=== PATIENT | male | born 1970 | race Caucasian/White ===

== ENCOUNTER 2020-02-24 13:55 | Outpatient (REF) | payer MEDICARE, MEDICAID, SELFPAY | END 2020-02-24 13:56 | disposition home or self-care (01) | LOC: HO.LAB 13:55 | PROVIDERS: Visit Provider Internal Medicine | DX: Z20.828 Contact with and (suspected) exposure to other viral communicable diseases (principal) | CPT/HCPCS: C9803; U0003 ==

== ENCOUNTER 2020-04-02 10:39 | Outpatient (REF) | payer MEDICARE, MEDICAID, SELFPAY | END 2020-04-02 10:40 | disposition home or self-care (01) | LOC: HO.LAB 10:39 | PROVIDERS: PCP Internal Medicine Sports Medicine; Visit Provider Internal Medicine | DX: Z20.828 Contact with and (suspected) exposure to other viral communicable diseases (principal) | CPT/HCPCS: C9803; U0003 ==

== ENCOUNTER 2022-06-28 19:36 | Emergency (ER) | payer MEDICARE, MEDICAID, SELFPAY ==
--- NOTE | 2022-06-28 | ECG_ITS ---
Test Reason : GENERAL MEDICAL Blood Pressure : / mmHG Vent. Rate : 090 BPM Atrial Rate : 090 BPM P-R Int : 226 ms QRS Dur : 092 ms QT Int : 372 ms P-R-T Axes : -15 013 003 degrees QTc Int : 455 ms Sinus rhythm with 1st degree A-V block Septal infarct , age undetermined Abnormal ECG When compared with ECG of 11-APR-2011 12:48, No significant change was found Referred By: Minal Calvin Electronically Signed By:TARAH SEYMOUR
--- NOTE | ~2022-06-28 | XR_ITS ---
EXAMINATION: CHEST 2 VIEWS CLINICAL INFORMATION: cough . COMPARISON: 02/17/2014. TECHNIQUE: PA and lateral views of the chest obtained. FINDINGS: The lungs are well expanded. No focal infiltrate, effusion, edema, or pneumothorax. Cardiac and mediastinal silhouettes are within normal limits for technique. No acute bony abnormality seen. Likely old healed left seventh rib fracture XR/XR chest 2V IMPRESSION: No evidence of acute disease
[2022-06-28 19:54] VITALS: BP 160/91; PULSE 88; RESP 19; TEMP 36.7; O2SAT 94; BMI 30.1
[2022-06-28 19:58] VITALS: BP 160/99; PULSE 88; RESP 19; TEMP 36.7; O2SAT 96
--- NOTE | 2022-06-28 19:58 | ED.GENADULT ---
HPI - General Adult General Chief complaint: Upper Respiratory Symptoms <MASSIMO Ferrell - Last Filed: 06/28/22 19:59> Stated complaint: COUGHING <MASSIMO Ferrell - Last Filed: 06/28/22 19:59> Time Seen by Provider: 06/28/22 20:06 <MASSIMO Ferrell - Last Filed: 06/28/22 19:59> Source: patient <Minal Calvin MD - Last Filed: 06/28/22 21:43> Mode of arrival: EMS <Minal Calvin MD - Last Filed: 06/28/22 21:43> History of Present Illness HPI narrative: 52-year-old male who presents with productive cough of clear sputum that has progressed over the last week. Otherwise, he denies any fever, chills, shortness of breath but states that he has had some left anterior chest wall pain that is transient in nature, sharp that has been ongoing for 5 years. He otherwise denies any GI or symptoms. <Minal Calvin MD - Last Filed: 06/28/22 21:43> Related Data Home medications: Previous Rx's Medication Instructions Recorded omeprazole 20 mg capsule,delayed 20 mg PO DAILY #30 caps 06/28/22 release <MASSIMO Ferrell - Last Filed: 06/28/22 19:59> Allergies/adverse reactions: Allergies Allergy/AdvReac Type Severity Reaction Status Date / Time fluoxetine [Prozac] Allergy Unknown Seizures Verified 09/04/14 00:00 haloperidol [Haloperidol] Allergy Unknown SEE Unverified 01/05/20 17:51 COMMENT, Seizures From HALDOL Allergy Unknown UNKNOWN Uncoded 01/05/20 17:51 From PROZAC Allergy Unknown UNKNOWN Uncoded 01/05/20 17:51 From Paxil AdvReac Mild SUICIDAL Uncoded 01/05/20 17:51 THOUGHTS <MASSIMO Ferrell - Last Filed: 06/28/22 19:59> Review of Systems Review of Systems: Pertinent positives and negatives as stated in HPI <Minal Calvin MD - Last Filed: 06/28/22 21:43> PMFSH Past Medical History Source: nursing notes reviewed <Minal Calvin MD - Last Filed: 06/28/22 21:43> Social History Social History: Social History Advance Directives: No Advance Directives Information Provided: No <MASSIMO Ferrell - Last Filed: 06/28/22 19:59> Physical Exam ED Vital Signs: Vital Signs - 24 hr 06/28/22 19:54 06/28/22 19:58 06/28/22 19:58 Temperature 98.1 F 98.1 F Pulse Rate 88 88 Respiratory Rate 19 19 Blood Pressure 160/91 H 160/99 H Pulse Oximetry 94 96 96 Oxygen Delivery Method Room Air Room Air Room Air BMI result Body Mass Index 30.1 <MASISMO Ferrell - Last Filed: 06/28/22 19:59> Vital Signs - 24 hr 06/28/22 19:54 06/28/22 19:58 06/28/22 19:58 Temperature 98.1 F 98.1 F Pulse Rate 88 88 Respiratory Rate 19 19 Blood Pressure 160/91 H 160/99 H Pulse Oximetry 94 96 96 Oxygen Delivery Method Room Air Room Air Room Air BMI result Body Mass Index 30.1 VITAL SIGNS: Reviewed. GENERAL: Well developed, well nourished, in no acute distress. HEAD: Normocephalic/atraumatic EYES: PERRLA, EOMI EARS: Ext canals without abnormality, TMs non-bulging and non-erythematous NOSE: Nares patent bilateral OROPHARYNX: no oral lesions noted, posterior pharynx clear and non-erythematous without noted tonsillar enlargement/erythema/exudates NECK: Supple, no adenopathy LUNGS: Normal breath sounds, no tachypnea/wheeze/rhonchi/rales. SpO2<96> CARDIOVASCULAR: Regular rate and rhythm without noted murmurs, no JVD or lower extremity edema. ABDOMEN: Soft, non-tender, non-distended with bowel sounds. MUSCULOSKELETAL: No tenderness, deformities, or effusions noted on gross inspection. EXTREMITIES: No cyanosis, clubbing or edema. SKIN: Inspection of the skin reveals no rashes NEUROLOGIC: Alert and oriented x 4. Strength and sensation to light touch were grossly intact x 4. <Minal Calvin MD - Last Filed: 06/28/22 21:43> Course Course Course Narrative: RME perofmed by Bertha Bridges PA-C. Patient is a 52 year old male presenting to the emergency department with a cough. Labs and CXR ordered. <MASSIMO Ferrell - Last Filed: 06/28/22 19:59> Medical Decision Making Medical Decision Making MDM Narrative: 52-year-old male with history and clinical presentation of clear, dry cough and no other symptoms to suggest acute infection. Atypical chest pain without EKG changes. I reviewed all investigations in my interpretation is that patient may have a component of acid reflux as he also reports that the back of his throat hurts ?all the way up?. Patient provided with a GI cocktail and will be discharged with a script for acid control. He is otherwise stable for discharge back to the facility. <Minal Calvin MD - Last Filed: 06/28/22 21:43> Differential Diagnosis Please see the discussion above <Minal Calvin MD - Last Filed: 06/28/22 21:43> Lab Data Please see the discussion above <Minal Calvin MD - Last Filed: 06/28/22 21:43> Result Diagrams: 06/28/22 20:22 06/28/22 20:22 <MASSIMO Ferrell - Last Filed: 06/28/22 19:59> Labs: Lab Results 06/28/22 06/28/22 Range/Units 20:22 20:22 WBC 6.3 (4.8-10.8) X10*3/uL RBC 4.40 L (4.60-5.80) X10*6/uL Hgb 13.3 L (14.0-18.0) g/dl Hct 39.2 L (42.0-52.0) % MCV 89.1 (80.0-98.0) fL MCH 30.2 (27.0-33.0) pg MCHC 33.9 (31.0-36.0) g/dl RDW 13.4 (11.0-16.0) % Plt Count 185 (160-400) X10*3/uL MPV 9.1 L (9.4-12.4) fL Immature Gran % (Auto) 0.8 H (0.0-0.4) % Neut % (Auto) 56.4 (45-73) % Lymph % (Auto) 31.9 (20-40) % [place] % (Auto) 8.8 (2-11) % Eos % (Auto) 1.8 (0-4) % Baso % (Auto) 0.3 (0-2) % Lymph # (Auto) 2.0 (1.2-4.9) X10*3/uL [place] # (Auto) 0.6 (0.1-1.2) X10*3/uL Eos # (Auto) 0.1 (0.0-0.4) X10*3/uL Baso # (Auto) 0.0 (0.0-0.2) X10*3/uL Abs Immat Gran (auto) 0.05 H (0.00-0.03) X10*3/uL Absolute Neuts (auto) 3.5 (2.0-8.3) x10*3/uL Absolute Nucleated RBC 0.000 (0.0-0.012) X10*3/uL Nucleated RBC % (auto) 0.0 (0.0-0.2) /100WBC Sodium 138 (135-145) mmol/L Potassium 4.0 (3.3-5.1) mmol/L Chloride 104 (96-108) mmol/L Carbon Dioxide 24 (22-29) mmol/L Anion Gap 14 (12-20) BUN 15 (9-16) mg/dL Creatinine 0.65 (0.5-1.4) mg/dL Estim Creat Clear Calc 155.7 Estimated GFR > 60 Random Glucose 143 H (60-115) mg/dL Calcium 8.7 (8.4-10.2) mg/dL Total Bilirubin 0.4 (0.0-1.0) mg/dL AST 20 (5-37) U/L ALT 31 (0-40) U/L Alkaline Phosphatase 69 (39-117) U/L Total Protein 6.4 L (6.5-8.0) g/dL Albumin 3.9 (3.5-5.0) g/dL <MASSIMO Ferrell - Last Filed: 06/28/22 19:59> Lab Results 06/28/22 06/28/22 Range/Units 20:22 20:22 WBC 6.3 (4.8-10.8) X10*3/uL RBC 4.40 L (4.60-5.80) X10*6/uL Hgb 13.3 L (14.0-18.0) g/dl Hct 39.2 L (42.0-52.0) % MCV 89.1 (80.0-98.0) fL MCH 30.2 (27.0-33.0) pg MCHC 33.9 (31.0-36.0) g/dl RDW 13.4 (11.0-16.0) % Plt Count 185 (160-400) X10*3/uL MPV 9.1 L (9.4-12.4) fL Immature Gran % (Auto) 0.8 H (0.0-0.4) % Neut % (Auto) 56.4 (45-73) % Lymph % (Auto) 31.9 (20-40) % [place] % (Auto) 8.8 (2-11) % Eos % (Auto) 1.8 (0-4) % Baso % (Auto) 0.3 (0-2) % Lymph # (Auto) 2.0 (1.2-4.9) X10*3/uL [place] # (Auto) 0.6 (0.1-1.2) X10*3/uL Eos # (Auto) 0.1 (0.0-0.4) X10*3/uL Baso # (Auto) 0.0 (0.0-0.2) X10*3/uL Abs Immat Gran (auto) 0.05 H (0.00-0.03) X10*3/uL Absolute Neuts (auto) 3.5 (2.0-8.3) x10*3/uL Absolute Nucleated RBC 0.000 (0.0-0.012) X10*3/uL Nucleated RBC % (auto) 0.0 (0.0-0.2) /100WBC Sodium 138 (135-145) mmol/L Potassium 4.0 (3.3-5.1) mmol/L Chloride 104 (96-108) mmol/L Carbon Dioxide 24 (22-29) mmol/L Anion Gap 14 (12-20) BUN 15 (9-16) mg/dL Creatinine 0.65 (0.5-1.4) mg/dL Estim Creat Clear Calc 155.7 Estimated GFR > 60 Random Glucose 143 H (60-115) mg/dL Calcium 8.7 (8.4-10.2) mg/dL Total Bilirubin 0.4 (0.0-1.0) mg/dL AST 20 (5-37) U/L ALT 31 (0-40) U/L Alkaline Phosphatase 69 (39-117) U/L Total Protein 6.4 L (6.5-8.0) g/dL Albumin 3.9 (3.5-5.0) g/dL <Minal Calvin MD - Last Filed: 06/28/22 21:43> Independent Interpretation I performed an independent interpretation of an: EKG <Minal Calvin MD - Last Filed: 06/28/22 21:43> Interpretation: Sinus rhythm with first-degree AV block (comparison EKGs from 2011 and was not present at that time), HR-90, no STEMI, QRS/QTC within normal limits. <Minal Calvin MD - Last Filed: 06/28/22 21:43> Radiology Impression Radiologist Impression: My interpretation is in agreement with radiology's impression of the imaging studies. <Minal Calvin MD - Last Filed: 06/28/22 21:43> Discharge Plan Discharge Clinical Impression: Cough, Gastroesophageal reflux disease <MASSIMO Ferrell - Last Filed: 06/28/22 19:59> Patient Disposition: Still a Patient <MASSIMO Ferrell - Last Filed: 06/28/22 19:59> Instructions: Diet for Stomach Ulcers and Gastritis (ED), Gastroesophageal Reflux Disease (ED), Acute Cough (ED) <MASSIMO Ferrell - Last Filed: 06/28/22 19:59> Additional Instructions: 1. Resume all home medications. 2. I have started you on a medication to help control the acid which is likely contributing to your symptoms. 3. Follow-up with your primary care provider on Thursday morning. Return to the ER for any worsening symptoms. <MASSIMO Ferrell - Last Filed: 06/28/22 19:59> Prescriptions: New omeprazole 20 mg capsule,delayed release(DR/EC) 20 mg PO DAILY Qty: 30 0RF <MASSIMO Ferrell - Last Filed: 06/28/22 19:59> Referrals: Carlos Peraza PA-C [Primary Care Provider] - <MASSIMO Ferrell - Last Filed: 06/28/22 19:59>
[2022-06-28 20:30] LABS: MANUAL DIFF FLAG NO
[2022-06-28 20:34] LABS: Basophils Percent Auto 0.3 % (0-2); Eosinophils Absolute Auto 0.1 X10*3/uL (0.0-0.4); Eosinophils Percent Auto 1.8 % (0-4); Hematocrit 39.2 % (42.0-52.0); Hemoglobin 13.3 g/dl (14.0-18.0); Imm Gran Abs Auto 0.05 X10*3/uL (0.00-0.03); Imm Gran Pct Auto 0.8 % (0.0-0.4); Lymphocytes Percent Auto 31.9 % (20-40); Mean Corpuscular HGB Conc 33.9 g/dl (31.0-36.0); Mean Corpuscular Hemoglobin 30.2 pg (27.0-33.0); Mean Corpuscular Volume 89.1 fL (80.0-98.0); Mean Platelet Volume 9.1 fL (9.4-12.4); Monocytes Absolute Auto 0.6 X10*3/uL (0.1-1.2); Monocytes Percent Auto 8.8 % (2-11); Neutrophils Absolute Auto 3.5 x10*3/uL (2.0-8.3); Neutrophils Percent Auto 56.4 % (45-73); Platelet Count 185 X10*3/uL (160-400); Red Cell Distribution Width 13.4 % (11.0-16.0); White Blood Count 6.3 X10*3/uL (4.8-10.8)
[2022-06-28 21:04] LABS: Alanine Aminotransferase 31 U/L (0-40); Albumin Level 3.9 g/dL (3.5-5.0); Alkaline Phosphatase 69 U/L (39-117); Anion Gap 14 (12-20); Aspartate Amino Transferase 20 U/L (5-37); Bilirubin Total 0.4 mg/dL (0.0-1.0); Blood Urea Nitrogen 15 mg/dL (9-16); Calcium 8.7 mg/dL (8.4-10.2); Carbon Dioxide 24 mmol/L (22-29); Chloride 104 mmol/L (96-108); Creatinine Clr Calc Pharmacy 155.7; Estimated Glomerular Filt Rate > 60; Glucose Random 143 mg/dL (60-115); Sodium 138 mmol/L (135-145); Total Protein 6.4 g/dL (6.5-8.0)
[2022-06-28 21:24] LABS: Influenza A PCR NEGATIVE (Negative); Influenza B PCR NEGATIVE (Negative); Resp Syncy Virus RNA Qual PCR NEGATIVE (Negative); SARS COV2 PCR INHOUSE NEGATIVE (Negative)
--- NOTE | 2022-06-28 21:46 | PC.NURSE ---
Report and discharge instructions given to Ruby at [facility]. Denies any further questions at this time.
== END 2022-06-28 22:09 | disposition home or self-care (01) ==
PROVIDERS: Physician Assistant Medical; Emergency Provider Student in an Organized Health Care Education/Training Program; PCP Physician Assistant Medical
DX: R05.9 Cough, unspecified (principal); K21.9 Gastro-esophageal reflux disease without esophagitis; Z20.822 Contact with and (suspected) exposure to COVID-19; Z20.828 Contact with and (suspected) exposure to other viral communicable diseases
CPT/HCPCS: 0241U; 36415; 71046; 80053; 85025; 93005; 99283; 99285

== ENCOUNTER 2022-09-16 11:32 | Outpatient (REF) | payer MEDICARE, MEDICAID, SELFPAY ==
[2022-09-16 11:46] LABS: MANUAL DIFF FLAG NO
[2022-09-16 12:17] LABS: Basophils Percent Auto 0.3 % (0-2); Eosinophils Absolute Auto 0.2 X10*3/uL (0.0-0.4); Eosinophils Percent Auto 2.9 % (0-4); Hematocrit 42.5 % (42.0-52.0); Hemoglobin 14.4 g/dl (14.0-18.0); Imm Gran Abs Auto 0.03 X10*3/uL (0.00-0.03); Imm Gran Pct Auto 0.4 % (0.0-0.4); Lymphocytes Percent Auto 27.8 % (20-40); Mean Corpuscular HGB Conc 33.9 g/dl (31.0-36.0); Mean Corpuscular Hemoglobin 30.8 pg (27.0-33.0); Mean Platelet Volume 9.8 fL (9.4-12.4); Monocytes Absolute Auto 0.6 X10*3/uL (0.1-1.2); Monocytes Percent Auto 8.5 % (2-11); Neutrophils Absolute Auto 4.4 x10*3/uL (2.0-8.3); Neutrophils Percent Auto 60.1 % (45-73); Platelet Count 201 X10*3/uL (160-400); Red Blood Count 4.67 X10*6/uL (4.60-5.80); Red Cell Distribution Width 13.4 % (11.0-16.0); White Blood Count 7.3 X10*3/uL (4.8-10.8)
[2022-09-16 12:59] LABS: Anion Gap 11 (12-20); Blood Urea Nitrogen 8 mg/dL (9-16); Calcium 9.2 mg/dL (8.4-10.2); Carbon Dioxide 26 mmol/L (22-29); Chloride 107 mmol/L (96-108); Estimated Glomerular Filt Rate > 60; Glucose Random 87 mg/dL (60-115); Potassium 4.4 mmol/L (3.3-5.1); Sodium 140 mmol/L (135-145)
== END 2022-09-16 11:33 | disposition home or self-care (01) ==
LOC: HO.LAB 11:32
PROVIDERS: Visit Provider Psychiatry & Neurology Neurology
DX: G11.9 Hereditary ataxia, unspecified (principal)
CPT/HCPCS: 36415; 80048; 85025

== ENCOUNTER 2022-11-25 10:24 | Outpatient (REF) | payer MEDICARE, MEDICAID, SELFPAY ==
--- NOTE | ~2022-11-25 | XR_ITS ---
Clinical History: Pre-MRI screening. [place] and lateral views of the orbits were obtained. 3 views of the abdomen were also obtained. Orbits: The bony orbits are intact. No radiopaque foreign body is seen. The paranasal sinuses are clear. No other osseous abnormalities are identified. ABDOMEN: A circumscribed radiopaque density overlies the left upper quadrant of the abdomen measuring 7.9 x 7.0 cm. No other radiopaque abnormalities seen. Nonobstructive bowel gas pattern. XR/XR pre mri screening Impression: 1. No radiopaque foreign body overlying the orbits. 2. Round radiopaque density overlying the left upper quadrant of the abdomen is nonspecific. This could be associated with the spleen. Correlate with patient history. No other radiopaque abnormality. A CT scan of the upper abdomen may be needed to better localize and characterize this finding.
--- NOTE | ~2022-11-25 | MR_ITS ---
EXAMINATION: MR BRAIN WITHOUT CONTRAST CLINICAL INFORMATION: Ataxia. Rule out multiple sclerosis or a cerebellar lesion. COMPARISON: Head CT dated 11/01/2019. TECHNIQUE: Multiplanar, multisequence imaging of the brain was performed without contrast. Slightly limited study with motion artifacts. FINDINGS: No diffusion abnormalities are identified to suggest an acute infarct. The ventricles are normal in size. No mass effect or midline shift is seen. There is focal mild chronic encephalomalacia and gliosis along the medial surface of the right superior frontal gyrus superiorly. No extra-axial fluid collections are seen. The brainstem and cerebellum are normal. The gradient refocused acquisition is normal. The craniovertebral junction, marrow signal, and midline structures are normal. The major intracranial flow voids at the level of the [place] are preserved. The dural venous sinus flow voids are maintained. The mastoid air cells and paranasal sinuses are fairly well aerated. MR/MR head/brain wo con IMPRESSION: No acute intracranial process. Small area of cortically-based chronic encephalomalacia along the medial aspect of the right superior frontal gyrus.
== END 2022-11-25 10:25 | disposition home or self-care (01) ==
LOC: HO.MRI 10:24
PROVIDERS: PCP Physician Assistant Medical; Visit Provider Psychiatry & Neurology Neurology
DX: G11.9 Hereditary ataxia, unspecified (principal)
CPT/HCPCS: 70551

== ENCOUNTER 2022-11-27 09:46 | Outpatient (AMB) | payer MEDICARE, MEDICAID, SELFPAY ==
--- NOTE | 2022-11-27 09:44 | MHC.OFFVIS ---
Intake Vital Signs 11/27/22 09:50 Height 5 ft 10 in Weight 224 lb 2 oz BMI 32.2 BP 116/84 Blood Pressure Location Rt brachial Position Sitting Pulse 89 Pulse Source Pulse Oximeter Pulse Oximetry (%) 98 Oxygen Delivery Method Room Air Intake Visit Reasons: CHRONIC NECK PAIN Intake Note: Pain today 11/27 Database Designer Required: No Accompanied by: Guardian Allergies fluoxetine [Prozac] Allergy (Unknown, Verified 09/04/14 00:00) Seizures haloperidol [Haloperidol] Allergy (Unknown, Unverified 01/05/20 17:51) SEE COMMENT, Seizures From HALDOL Allergy (Unknown, Uncoded 01/05/20 17:51) UNKNOWN From PROZAC Allergy (Unknown, Uncoded 01/05/20 17:51) UNKNOWN From Paxil Adverse Reaction (Mild, Uncoded 01/05/20 17:51) SUICIDAL THOUGHTS HPI CHRONIC NECK PAIN HPI Details Patient is a 52 years old male with history of complex mental health history including Bipolar disorder, TBI, PTSD, fibromyalgia, seizures, cerebellar ataxia, cervical disc disease, chronic low back pain, diabetes presents today with neck and left shoulder pain for past 2 years. Patient is accompanied by his APPLICATION SUPPORT ENGINEER. Reports recent fall during getting out of bed and hitting his head and right knee without LOC with minor right knee skin abrasion. Right hand dominant. Patient reports neck pain with movements, especially with left lateral and bending that radiates to his left shoulder and left lateral arm with intermittent numbness, tingling, weakness and some imbalance issues. Reports chronic tension headaches for which he takes Tylenol with mild relief. Left shoulder pain mildly reproduced with left overhead reaches and no pain with back pocket reaches. Patient reports he tries to stay active despite the pain. Reports daily activity of walking and push ups. Spine MRI imaging is noted below. Patient was referred to us by Dr. Espinal for cervical epidural injection. Patient requests neck injections under sedation only. Denies any fever, chills, weight loss, bladder or bowel incontinence or saddle anesthesia. Complex mental health history includes psychiatric admission at [facility]. Per recent neurology note review, patient had a gambling addiction, has had multiple psychiatric admissions including one when he jumped off the top of the building, another with intentional overdose on Depakote and multiple hypnotic medications, and multiple suicidal attempts according to his records. Patient reports traumatic brain injury at age 18 when he fell while playing basketball landing on his head and had some right frontal encephalomalacia as a result and a single seizure. Most recent EEG on 05/16/22 was normal. Patient reports his diabetes is controlled with A1C below 7.0 but requests Nutritional Consult to assist him in better food choices and potential weight loss. Location Lower neck, radiates down bilateral shoulders, worse on the left Duration Chronic neck pain for past 3 years Characteristics of symptom or complaint Aching, pins and needles, burning, stabbing, shooting Aggravating or associated factors Movements, stress, bending, looking down Relieving factors Tyelnol, cyclobenzaprine, stretching exercises Treatment PT low back in 2019, currently at chiropractic weekly [facility] Medical History (Updated 11/27/22 @ 22:37 by RENE Conte) Bipolar disorder Cerebellar ataxia Cervical disc disease Diabetes Low back pain PTSD (post-traumatic stress disorder) Tension headache Traumatic brain injury Review of Systems Const All systems reviewed & are unremarkable except as noted in HPI and below Physical Exam Vital Signs: Last Vital Signs Pulse 89 11/27/22 09:50 BP 116/84 11/27/22 09:50 Pulse Ox 98 11/27/22 09:50 Oxygen Delivery Method Room Air 11/27/22 09:50 BMI result Body Mass Index 32.2 General: Appears afebrile. Alert and oriented. Mood and affect appropriate. Follows and participates in conversation appropriately. Respiratory effort is unlabored. No cough. No nasal discharge. Able to transition from sit to stand unassisted. Ambulates with bilaterally normal heel strike and toe off. Neck Other: Patient with painful cervical ROM in all planes/especially with left lateral rotation. Reports increased pain with cervical extension and flexion, worse with flexion. Spurling compression test equivocal. Pain is unchanged by Spurling maneuver with retraction. Elvey's tension test positive on the left, with radiation of pain from neck to left shoulder and lateral arm. Lhermitte's test was negative. DTR intact, +2 and symmetrical. Patient demonstrated 5/5 right and 4/5 left motor strength of bilateral upper extremities. 2 + radial pulses. Mild tightness throughout left upper trapezius as well as TTP throughout bilateral upper trapezius muscles. No paravertebral tenderness over facet joints bilaterally. Neck: Yes full ROM, Yes no lymphadenopathy, Yes supple, No anterior neck swelling and Yes no JVD Results Reviewed Results Reviewed: Assessment & Plan Assessment & Plan (1) Cervical spondylosis: Code(s): M47.812 - Spondylosis without myelopathy or radiculopathy, cervical region (2) Left shoulder pain: Code(s): M25.512 - Pain in left shoulder (3) Cervical radiculopathy: Code(s): M54.12 - Radiculopathy, cervical region (4) Cervical disc disease: Code(s): M50.90 - Cervical disc disorder, unspecified, unspecified cervical region (5) BMI 32.0-32.9,adult: Code(s): Z68.32 - Body mass index [BMI] 32.0-32.9, adult (6) Diabetes: Code(s): E11.9 - Type 2 diabetes mellitus without complications Plan Cervical spine MRI results reviewed and are noted above. Will proceed with Left C5-C6 ARACELI with sedation and fluoroscopy. Expectations, risks and benefits were reviewed. Patient is aware he will be contacted to schedule this procedure. For axial cervical pain, will obtain cervical and shoulder xray to assess degree of arthritis. Referral to DM Nutritional Provider per patient's request. All questions were answered and the patient and APPLICATION SUPPORT ENGINEER are in agreement of plan. Follow-up after injections and sooner as needed. Orders: Orders XR shoulder LT min 2V Today M25.512 - Pain in left shoulder, M47.812 - Spondylosis without myelopathy or radiculopathy, cervical region XR cervical spine 3V Today M47.812 - Spondylosis without myelopathy or radiculopathy, cervical region, M54.12 - Radiculopathy, cervical region Referrals Medical Nutrition Therapy Referral E11.9 - Type 2 diabetes mellitus without complications, Z68.32 - Body mass index [BMI] 32.0-32.9, adult Coding Level of Care Code New Pt Level 4 (16241) Diagnoses Cervical spondylosis M47.812 Left shoulder pain M25.512 Cervical radiculopathy M54.12 Cervical disc disease M50.90 BMI 32.0-32.9,adult Z68.32 Diabetes E11.9
[2022-11-27 09:50] VITALS: BP 116/84; PULSE 89; O2SAT 98; BMI 32.2
== END 2022-11-27 10:45 | disposition home or self-care (01) ==
PROVIDERS: PCP Physician Assistant Medical; Visit Provider Nurse Practitioner Family
DX: M47.812 Spondylosis without myelopathy or radiculopathy, cervical region (principal); M25.512 Pain in left shoulder; M54.12 Radiculopathy, cervical region; M50.90 Cervical disc disorder, unspecified, unspecified cervical region; Z68.32 Body mass index [BMI] 32.0-32.9, adult; E11.9 Type 2 diabetes mellitus without complications
CPT/HCPCS: 99204

== ENCOUNTER → 2022-11-27 09:46 | Outpatient (BNVA) | payer MEDICARE, MEDICAID, SELFPAY | PROVIDERS: PCP Physician Assistant Medical; Visit Provider Nurse Practitioner Family | DX: M47.22 Other spondylosis with radiculopathy, cervical region (principal); M25.512 Pain in left shoulder; M50.90 Cervical disc disorder, unspecified, unspecified cervical region; E11.9 Type 2 diabetes mellitus without complications | CPT/HCPCS: 99202 ==

== ENCOUNTER 2022-11-28 12:56 | Outpatient (REF) | payer MEDICARE, MEDICAID, SELFPAY ==
--- NOTE | ~2022-11-28 | XR_ITS ---
EXAMINATION: XR CERVICAL SPINE CLINICAL INFORMATION: Spondylosis without myelopathy or radiculopathy and cervical region COMPARISON: None available. TECHNIQUE: 3 views of the cervical spine were obtained. FINDINGS: Vertebral bodies are well aligned and intervertebral discs are preserved. Pedicles are intact. There is mild narrowing of C5-C6 intervertebral disc space without spondylolysis or listhesis. Soft tissues unremarkable. XR/XR cervical spine 3V IMPRESSION: Mild degenerative changes at the level of C5-C6.
--- NOTE | ~2022-11-28 | XR_ITS ---
EXAMINATION: XR SHOULDER, LEFT CLINICAL INFORMATION: Left shoulder pain COMPARISON: None available. TECHNIQUE: AP external rotation, Grashey, scapular Y, and axillary views of the left shoulder. FINDINGS: The bones and soft tissues are normal. No fracture. Glenohumeral and acromioclavicular alignment is anatomic with normal joint space. No abnormal soft tissue calcifications. XR/XR shoulder LT min 2V IMPRESSION: Normal left shoulder.
== END 2022-11-28 12:57 | disposition home or self-care (01) ==
LOC: HO.XRAY 12:56
PROVIDERS: PCP Internal Medicine; Visit Provider Nurse Practitioner Family
DX: M54.12 Radiculopathy, cervical region (principal); M25.512 Pain in left shoulder; M47.812 Spondylosis without myelopathy or radiculopathy, cervical region
CPT/HCPCS: 72040; 73030

== ENCOUNTER 2022-12-09 10:37 | Outpatient (AMB) | payer MEDICARE, MEDICAID, SELFPAY ==
--- NOTE | 2022-12-09 10:47 | A.OFFVIS_ITS ---
Intake Vital Signs 12/09/22 10:51 Height 5 ft 10 in Weight 221 lb 6 oz BMI 31.8 BP 137/81 Blood Pressure Location Lt brachial Position Sitting Pulse 94 Pulse Source Pulse Oximeter Pulse Oximetry (%) 98 Oxygen Delivery Method Room Air Intake Visit Reasons: Follow Up/X-Ray Results Intake Note: Pain today 11/27 Crepe Sole Scourer Required: No Accompanied by: stave planer tender Allergies fluoxetine [Prozac] Allergy (Unknown, Verified 12/09/22 10:52) Seizures haloperidol [Haloperidol] Allergy (Unknown, Verified 12/09/22 10:52) SEE COMMENT, Seizures From HALDOL Allergy (Unknown, Uncoded 01/05/20 17:51) UNKNOWN From PROZAC Allergy (Unknown, Uncoded 01/05/20 17:51) UNKNOWN From Paxil Adverse Reaction (Mild, Uncoded 01/05/20 17:51) SUICIDAL THOUGHTS HPI HPI Comments History of Present Illness Details Patient presents today for follow up to discuss recent cervical spine and left shoulder xray results. Patient is accompanied by his TELEMETRY MONITOR. He continues to endorse neck with radiation to his left lower arm and low back pain but notes that left shoulder pain has improved. Patient is scheduled for cervical TFESI injection on 01/07/23 with sedation. He is interested to undergo procedures for his chronic axial low back pain. Denies any recent cough, cold, infection, fever or other significant changes in medical history since last office visit. Patient denies any bladder or bowel incontinence or saddle anesthesia. PRIOR: Patient is a 52 years old male with history of complex mental health history including Bipolar disorder, TBI, PTSD, fibromyalgia, seizures, cerebellar ataxia, cervical disc disease, chronic low back pain, diabetes presents today with neck and left shoulder pain for past 2 years. Patient is accompanied by his TELEMETRY MONITOR. Reports recent fall during getting out of bed and hitting his head and right knee without LOC with minor right knee skin abrasion. Right hand dominant. Patient reports neck pain with movements, especially with left lateral and bending that radiates to his left shoulder and left lateral arm with intermittent numbness, tingling, weakness and some imbalance issues. Reports chronic tension headaches for which he takes Tylenol with mild relief. Left shoulder pain mildly reproduced with left overhead reaches and no pain with back pocket reaches. Patient reports he tries to stay active despite the pain. Reports daily activity of walking and push ups. Spine MRI imaging is noted below. Patient was referred to us by Dr. Espinal for cervical epidural injection. Patient requests neck injections under sedation only. Denies any fever, chills, weight loss, bladder or bowel incontinence or saddle anesthesia. Complex mental health history includes psychiatric admission at [facility]. Per recent neurology note review, patient had a gambling addiction, has had multiple psychiatric admissions including one when he jumped off the top of the building, another with intentional overdose on Depakote and multiple hypnotic medications, and multiple suicidal attempts according to his records. Patient reports traumatic brain injury at age 18 when he fell while playing basketball landing on his head and had some right frontal encephalomalacia as a result and a single seizure. Most recent EEG on 05/16/22 was normal. Patient reports his diabetes is controlled with A1C below 7.0 but requests Nutritional Consult to assist him in better food choices and potential weight loss. Location Lower neck, radiates down bilateral shoulders, worse on the left Duration Chronic neck pain for past 3 years Characteristics of symptom or complaint Aching, pins and needles, burning, stabbing, shooting Aggravating or associated factors Movements, stress, bending, looking down Relieving factors Tyelnol, cyclobenzaprine, stretching exercises Treatment PT low back in 2019, currently at chiropractic weekly [facility] Medical History (Updated 12/09/22 @ 11:13 by RENE Conte) Bipolar disorder Cerebellar ataxia Cervical disc disease Diabetes Low back pain PTSD (post-traumatic stress disorder) Tension headache Traumatic brain injury Review of Systems Const All systems reviewed & are unremarkable except as noted in HPI and below Physical Exam Vital Signs: Last Vital Signs Pulse 94 12/09/22 10:51 BP 137/81 12/09/22 10:51 Pulse Ox 98 12/09/22 10:51 Oxygen Delivery Method Room Air 12/09/22 10:51 BMI result Body Mass Index 31.8 General: Appears afebrile. Alert and oriented. Mood and affect appropriate. Follows and participates in conversation appropriately. Respiratory effort is unlabored. No cough. Able to transition from sit to stand unassisted. Ambulates with bilaterally normal heel strike and toe off. Neck Neck: Yes full ROM, Yes no lymphadenopathy, Yes supple, No anterior neck swelling and Yes no JVD Back/Spine/Pelvis Thoracic/Lumbar Spine: thoracic and lumbar spine normal to inspection, No Thoracic/lumbar spine scar(s), Lasegue's sign negative, straight leg raise negative bilaterally, pain with thoraco-lumbar ROM, paraspinal muscle tenderness, No thoracic spinal tenderness and lumbar spinal tenderness at L4 and at L5 Sacroiliac joints: bilaterally nontender Results Reviewed Results Reviewed: XR SHOULDER, LEFT 11/28/22 FINDINGS: The bones and soft tissues are normal. No fracture. Glenohumeral and acromioclavicular alignment is anatomic with normal joint space. No abnormal soft tissue calcifications. IMPRESSION: Normal left shoulder. XR CERVICAL SPINE 11/28/22 FINDINGS: Vertebral bodies are well aligned and intervertebral discs are preserved. Pedicles are intact. There is mild narrowing of C5-C6 intervertebral disc space without spondylolysis or listhesis. Soft tissues unremarkable. IMPRESSION: Mild degenerative changes at the level of C5-C6. Assessment & Plan Assessment & Plan (1) Cervical disc disease: Code(s): M50.90 - Cervical disc disorder, unspecified, unspecified cervical region (2) Lumbar spondylosis: Code(s): M47.816 - Spondylosis without myelopathy or radiculopathy, lumbar region (3) Cervical radiculopathy: Code(s): M54.12 - Radiculopathy, cervical region (4) Low back pain: Code(s): M54.50 - Low back pain, unspecified Plan Cervical spine and left shoulder xray results reviewed with patient and his TELEMETRY MONITOR staff today. Proceed with Left C5-C6 ARACELI with sedation and fluoroscopy as scheduled. Subsequently, schedule Bilateral L3-L4-L5 MBBs with local and fluoroscopy for axial low back pain for potential therapeutic injections or RFA. Expectations, risks and benefits were reviewed. Script provided for nabumetone. Side effects and precautions reviewed with patient and TELEMETRY MONITOR staff. All questions and concerns have been answered and patient agreed with the plan. Follow up after injections and sooner as needed. Medications: New nabumetone Take it with food and full glass of water. Avoid other NSAIDs. 500 mg PO BID 30 days 60 tabs 0RF pain M47.816 - Spondylosis without myelopathy or radiculopathy, lumbar region, M50.90 - Cervical disc disorder, unspecified, unspecified cervical region Coding Level of Care Code Est Pt Level 4 (99297) Diagnoses Cervical disc disease M50.90 Lumbar spondylosis M47.816 Cervical radiculopathy M54.12 Low back pain M54.50
[2022-12-09 10:51] VITALS: BP 137/81; PULSE 94; O2SAT 98; BMI 31.8
== END 2022-12-09 11:18 | disposition home or self-care (01) ==
PROVIDERS: PCP Internal Medicine; Visit Provider Nurse Practitioner Family
DX: M50.90 Cervical disc disorder, unspecified, unspecified cervical region (principal); M47.816 Spondylosis without myelopathy or radiculopathy, lumbar region; M54.12 Radiculopathy, cervical region; M54.50 Low back pain, unspecified
CPT/HCPCS: 99214

== ENCOUNTER → 2022-12-09 10:37 | Outpatient (BNVA) | payer MEDICARE, MEDICAID, SELFPAY | PROVIDERS: PCP Internal Medicine; Visit Provider Nurse Practitioner Family | DX: M50.90 Cervical disc disorder, unspecified, unspecified cervical region (principal); M47.816 Spondylosis without myelopathy or radiculopathy, lumbar region; M54.12 Radiculopathy, cervical region; M54.50 Low back pain, unspecified | CPT/HCPCS: 99212 ==

== ENCOUNTER 2023-03-18 09:28 | Day surgery (SDC) | payer MEDICARE, MEDICAID, SELFPAY ==
[2023-03-16 10:00] VITALS: BMI 31.7
[2023-03-16 10:14] VITALS: BMI 31.7
--- NOTE | 2023-03-17 09:20 | HO.ANESPROP2 ---
Documented by User: Tonya Patel NP 03/17/23 09:27 HPI - Anesthesia Eval Consult details Narrative: 53yo M for Left C5-C6 Epidural Steroid Injection TBI - [facility]way resident Anesthesia Pre-Procedure Meds Is the patient on any of the following meds?: Dulaglutide (Trulicity) (Last dose 03/05/23) PMFSH Active Problems Active Problems: All Active Problems (Updated 03/16/23 @ 10:05 by Sari Phelan RN) Lumbar spondylosis (Acute) Cervical radiculopathy (Acute) BMI 32.0-32.9,adult (Acute) Left shoulder pain (Acute) Cervical spondylosis (Acute) Low back pain (Acute) Cervical disc disease (Acute) Diabetes (Acute) Past Medical History Medical History (Updated 03/16/23 @ 10:05 by Sari Phelan RN) Hypothyroid GERD (gastroesophageal reflux disease) HTN (hypertension) Elevated cholesterol Traumatic brain injury Low back pain Diabetes Tension headache Cerebellar ataxia PTSD (post-traumatic stress disorder) Bipolar disorder Cervical disc disease Surgical History Surgical History (Updated 03/16/23 @ 09:57 by Sari Phealn RN) History of surgery Social History Social History Household Members Other:: resides in half-way Housing Other:: half-way Patient Tobacco Use Status: Tobacco use Unknown Use of substances other than those prescribed or required for medical reasons: Unknown Are you DNR?: No Advance Directives: No (no HCP-is own guardian per half-way staff) Advance Directives Information Provided: Yes Advance Directives on File: No Recently lost weight without trying: No Eating poorly because of decreased appetite: No Nutrition Risks: No Nutritional Risk Meds Allergies Allergy/AdvReac Type Severity Reaction Status Date / Time fluoxetine [Prozac] Allergy Intermediate Seizures Verified 03/16/23 09:46 haloperidol [Haloperidol] Allergy Intermediate SEE Verified 03/16/23 09:46 COMMENT, Seizures paroxetine [From Paxil] AdvReac Mild suicidal Verified 03/16/23 09:46 thoughts From Paxil AdvReac Mild SUICIDAL Uncoded 01/05/20 17:51 THOUGHTS Home Medications Medication Instructions Recorded Confirmed Last Taken Type atorvastatin 40 mg tablet 40 mg PO DAILY 11/27/22 03/16/23 Unknown History carvedilol 25 mg tablet 25 mg PO DAILY 11/27/22 03/16/23 Unknown History cholecalciferol (vitamin D3) 50 50 mcg PO QAM 11/27/22 03/16/23 Unknown History mcg (2,000 unit) tablet clonazepam 0.5 mg tablet 0.5 mg PO BID PRN Anxiety 11/27/22 03/16/23 Unknown History cyanocobalamin (vitamin B-12) 500 500 mcg PO QAM 11/27/22 03/16/23 Unknown History mcg tablet cyclobenzaprine 10 mg tablet 10 mg PO BEDTIME 11/27/22 03/16/23 Unknown History dicyclomine 10 mg capsule 10 mg PO QID 11/27/22 03/16/23 Unknown History duloxetine 30 mg capsule,delayed 30 mg PO DAILY 11/27/22 03/16/23 Unknown History release levothyroxine 25 mcg tablet 25 mcg PO QAM 11/27/22 03/16/23 Unknown History lisinopril 40 mg tablet 40 mg PO DAILY 11/27/22 03/16/23 Unknown History loratadine 10 mg tablet 10 mg PO QAM 11/27/22 03/16/23 Unknown History multivitamin-ferrous 1 tab PO QAM 11/27/22 03/16/23 Unknown History fumarate-folic acid 18 mg-400 mcg tablet (Certavite-Antioxidant) nortriptyline 50 mg capsule 100 mg PO BEDTIME 11/27/22 03/16/23 Unknown History paliperidone 1.5 mg 1.5 mg PO BEDTIME 11/27/22 03/16/23 Unknown History tablet,extended release 24 hr trazodone 50 mg tablet 50 mg PO BEDTIME 11/27/22 03/16/23 Unknown History aspirin 81 mg tablet,delayed 81 mg PO QAM 12/09/22 03/16/23 Unknown History release benztropine 0.5 mg tablet 0.5 mg PO QPM 12/09/22 03/16/23 Unknown History diclofenac sodium 1 % topical gel 1 ea topical BID 12/09/22 03/16/23 Unknown History dulaglutide 3 mg/0.5 mL 3 mg subcut QWEEK 12/09/22 03/16/23 Unknown History subcutaneous pen injector (Trulicity) fluticasone fur. 100 mcg-umeclid 1 ea inhalation DAILY 12/09/22 03/16/23 Unknown History 62.5 mcg-vilant 25 mcg inhalat.powder (Trelegy Ellipta) lamotrigine 100 mg tablet 100 mg PO BEDTIME 12/09/22 03/16/23 Unknown History lamotrigine 200 mg tablet 200 mg PO QAM 12/09/22 03/16/23 Unknown History lumateperone 42 mg capsule 42 mg PO BEDTIME 12/09/22 03/16/23 Unknown History (Caplyta) mirabegron 50 mg tablet,extended 50 mg PO DAILY 12/09/22 03/16/23 Unknown History release 24 hr (Myrbetriq) Exam Height,Weight and Vital Signs: Height 5 ft 10 in Weight 100.244 kg Pertinent Lab Results Pertinent Lab Results: Laboratory Tests 09/16/22 11:45 WBC 7.3 Hgb 14.4 Hct 42.5 Plt Count 201 Sodium 140 Potassium 4.4 Chloride 107 Carbon Dioxide 26 BUN 8 L Creatinine 0.74 Narrative Narrative: EKG 06/2022 Vent. Rate : 090 BPM Atrial Rate : 090 BPM P-R Int : 226 ms QRS Dur : 092 ms QT Int : 372 ms P-R-T Axes : -15 013 003 degrees QTc Int : 455 ms Sinus rhythm with 1st degree A-V block Septal infarct , age undetermined Abnormal ECG When compared with ECG of 11-APR-2011 12:48, No significant change was found Assessment and Plan Assessment Anesthesia Assessment: Chart Reviewed Documented by User: Yasemin Calabrese MD 03/18/23 10:35 HPI - Anesthesia Eval Anesthesia Pre-Procedure Meds If Yes to any meds - educate patient: Pt education - increased risk of aspiration PMFSH Past Medical History Medical History (Updated 03/16/23 @ 10:05 by Sari Phelan RN) Hypothyroid GERD (gastroesophageal reflux disease) HTN (hypertension) Elevated cholesterol Traumatic brain injury Low back pain Diabetes Tension headache Cerebellar ataxia PTSD (post-traumatic stress disorder) Bipolar disorder Cervical disc disease Family History Family history of problems with anesthesia: No Surgical History Surgical History (Updated 03/16/23 @ 09:57 by Sari Phelan RN) History of surgery History of Problems with Anesthesia: No Social History Social History Household Members Other:: resides in half-way Housing Other:: half-way Patient Tobacco Use Status: Tobacco use Unknown Use of substances other than those prescribed or required for medical reasons: Unknown Are you DNR?: No Advance Directives: No (no HCP-is own guardian per half-way staff) Advance Directives Information Provided: Yes Advance Directives on File: No Recently lost weight without trying: No Eating poorly because of decreased appetite: No Nutrition Risks: No Nutritional Risk Meds Allergies Allergy/AdvReac Type Severity Reaction Status Date / Time fluoxetine [Prozac] Allergy Intermediate Seizures Verified 03/16/23 09:46 haloperidol [Haloperidol] Allergy Intermediate SEE Verified 03/16/23 09:46 COMMENT, Seizures paroxetine [From Paxil] AdvReac Mild suicidal Verified 03/16/23 09:46 thoughts From Paxil AdvReac Mild SUICIDAL Uncoded 01/05/20 17:51 THOUGHTS Home Medications Medication Instructions Recorded Confirmed Last Taken Type atorvastatin 40 mg tablet 40 mg PO DAILY 11/27/22 03/16/23 Unknown History carvedilol 25 mg tablet 25 mg PO DAILY 11/27/22 03/16/23 Unknown History cholecalciferol (vitamin D3) 50 50 mcg PO QAM 11/27/22 03/16/23 Unknown History mcg (2,000 unit) tablet clonazepam 0.5 mg tablet 0.5 mg PO BID PRN Anxiety 11/27/22 03/16/23 Unknown History cyanocobalamin (vitamin B-12) 500 500 mcg PO QAM 11/27/22 03/16/23 Unknown History mcg tablet cyclobenzaprine 10 mg tablet 10 mg PO BEDTIME 11/27/22 03/16/23 Unknown History dicyclomine 10 mg capsule 10 mg PO QID 11/27/22 03/16/23 Unknown History duloxetine 30 mg capsule,delayed 30 mg PO DAILY 11/27/22 03/16/23 Unknown History release levothyroxine 25 mcg tablet 25 mcg PO QAM 11/27/22 03/16/23 Unknown History lisinopril 40 mg tablet 40 mg PO DAILY 11/27/22 03/16/23 Unknown History loratadine 10 mg tablet 10 mg PO QAM 11/27/22 03/16/23 Unknown History multivitamin-ferrous 1 tab PO QAM 11/27/22 03/16/23 Unknown History fumarate-folic acid 18 mg-400 mcg tablet (Certavite-Antioxidant) nortriptyline 50 mg capsule 100 mg PO BEDTIME 11/27/22 03/16/23 Unknown History paliperidone 1.5 mg 1.5 mg PO BEDTIME 11/27/22 03/16/23 Unknown History tablet,extended release 24 hr trazodone 50 mg tablet 50 mg PO BEDTIME 11/27/22 03/16/23 Unknown History aspirin 81 mg tablet,delayed 81 mg PO QAM 12/09/22 03/16/23 Unknown History release benztropine 0.5 mg tablet 0.5 mg PO QPM 12/09/22 03/16/23 Unknown History diclofenac sodium 1 % topical gel 1 ea topical BID 12/09/22 03/16/23 Unknown History dulaglutide 3 mg/0.5 mL 3 mg subcut QWEEK 12/09/22 03/16/23 Unknown History subcutaneous pen injector (Trulicity) fluticasone fur. 100 mcg-umeclid 1 ea inhalation DAILY 12/09/22 03/16/23 Unknown History 62.5 mcg-vilant 25 mcg inhalat.powder (Trelegy Ellipta) lamotrigine 100 mg tablet 100 mg PO BEDTIME 12/09/22 03/16/23 Unknown History lamotrigine 200 mg tablet 200 mg PO QAM 12/09/22 03/16/23 Unknown History lumateperone 42 mg capsule 42 mg PO BEDTIME 12/09/22 03/16/23 Unknown History (Caplyta) mirabegron 50 mg tablet,extended 50 mg PO DAILY 12/09/22 03/16/23 Unknown History release 24 hr (Myrbetriq) Exam Airway Mallampati Class: II (caps front top) TM Dist: >3cm Neck ROM: Full Heart: rrr Lungs: cta Other: pt feeling palpitations, regular on monitor Assessment and Plan Assessment Anesthesia Assessment: Anesthesia Plan Discussed Final Anesthetic Review Family History of Problems with Anesthesia: No History of Problems with Anesthesia: No NPO: Yes ASA Class: III Final Preanesthetic Review: No Changes in Pt Med Stat, Meds/Allgs Chart Reviewed and Consent Obtained/Reviewed Patient Risk: Intermediate Procedure Risk: Intermediate Anesthetic Plan Anesthetic Plan: MAC: Disposition: Standard PACU
--- NOTE | ~2023-03-18 | FL_ITS ---
EXAMINATION: XR FLUOROSCOPY WITH IMAGES CLINICAL INFORMATION: C5-C6 epidural steroid injection, left. COMPARISON: None available. TECHNIQUE: Fluoroscopy Supervised By: Dr. Lopez Jose. Fluoroscopy Time: 0.2 minutes. Cumulative Dose: 2.15 mGy. DAP: 0.215 Gycm2. Images: 3. FINDINGS: Images demonstrate needle projecting over the left C6 vertebrae FL/FL guidance in OR IMPRESSION: Fluoroscopy guidance for pain management procedure
[2023-03-18 11:15] LABS: Glucose, Whole Blood 105 mg/dL (60-115)
[2023-03-18] MEDS: Lactated Ringers 1,000 ML 100 ML IVCONT (11:15)
--- NOTE | 2023-03-18 12:08 | MHC.SHP ---
Pre-Procedural Eval Section A Date of Service: 03/18/23 The patient is an INPATIENT: No Changes since office visit: Yes Patient answered all questions The History & Physical has been completed within 30 days and I have reviewed it.: No Section B Chief Complaint: Cervical disc disorder,Radiculopathy, cervical reg Relevant Family History (Specify if Yes): No Relevant Social History: None Present Medications: see Short Stay Collaborative assessment Medical History: No relevant PMH History of Previous Operations: No relevant previous surgery Allergies: Allergies Allergy/AdvReac Type Severity Reaction Status Date / Time fluoxetine [Prozac] Allergy Intermediate Seizures Verified 03/16/23 09:46 paroxetine [From Paxil] AdvReac Mild suicidal Verified 03/16/23 09:46 thoughts From Paxil AdvReac Mild SUICIDAL Uncoded 01/05/20 17:51 THOUGHTS Review of Systems Sugical H&P ROS: Negative: Constitution, Cardiovascular and Respiratory Exam Surgical H&P Exam: Normal: HEENT, Normal: Heart and Normal: Lungs Plan Diagnosis/Plan: Unchanged I have reviewed the history and physical and performed a pertinent physical examination on my patient. No changes have occurred unless specified. Time Spent With Patient Time: Total time managing care of this patient today ____ minutes.
--- NOTE | 2023-03-18 12:09 | PM.OP ---
Brief Operative Note Date of Service: 03/18/23 Pre-op diagnosis: Cervical radiculitis Post-op diagnosis: same Procedure: Cervical epidural steroid injection Implants: None Surgeon: Lopez Jose MD Anesthesia: MAC Was an Gas Flow Regulator used for this Procedure?: No Estimated blood loss (mL): 1 Pathology: none sent Condition: stable Disposition: PACU
--- NOTE | 2023-03-18 12:09 | W.PM.OPN ---
Operative Note Operative Note Date of Service: 03/18/23 Narrative: Interlaminar epidural steroid injection, C7/T1, Left parasaggital After obtaining written consent, pre-procedure blood pressure and heart rate were stable and recorded in the nursing record. Standard monitors were applied. The patient was placed in the prone position and sedated by the roofing machine tender. The cervicothoracic area was widely prepped with chloraprep and draped in sterile fashion. Fluoroscopic guidance was used to identify the desired interlaminar space and for needle placement. Subcutaneous 0.5% lidocaine was used to anesthetize the skin overlying the target. A 20-gauge Avery needle was advanced to the epidural space using loss of resistance technique under fluoroscopic AP and contralateral oblique views. There was no evidence of heme or CSF and no paresthesias were elicited with needle placement. Confirmation of epidural needle placement was performed with 1cc of omnipaque 180. Next 3 ml 0.5% lidocaine mixed with dexamethasone 12 mg was administered epidurally with no pain elicited on injection. The needle tract tubing was then cleared with the stylet. The needle was removed, skin cleansed and a sterile bandage was applied. The patient tolerated the procedure well and no complications were encountered. Following the procedure the patient's vital signs were stable. The patient was discharged home in good condition with post-procedural instructions. Time Out: Immediately prior to the procedure, the following was verbally confirmed that there is a signed consent form and that the correct patient, planned procedure, site and side are consistent with documentation and that necessary equipment and/or blood products are available prior to the start of the case. Complications: none EBL: <5 cc
[2023-03-18 12:15] VITALS: BP 115/82; PULSE 87; RESP 16; TEMP 36.1; O2SAT 96
[2023-03-18 12:30] VITALS: BP 119/72; PULSE 82; RESP 16; TEMP 36.1; O2SAT 98
== END 2023-03-18 13:21 | disposition home or self-care (01) ==
PROVIDERS: PCP Internal Medicine; Visit Provider Internal Medicine
PROC: 3E0R33Z Introduction of Anti-inflammatory into Spinal Canal, Percutaneous Approach (ICD-10-PCS; CPT 62321; principal; 2023-03-18 11:00)
DX: M54.12 Radiculopathy, cervical region (principal); M47.816 Spondylosis without myelopathy or radiculopathy, lumbar region; G89.29 Other chronic pain; M54.50 Low back pain, unspecified; F43.10 Post-traumatic stress disorder, unspecified; I10 Essential (primary) hypertension; E78.00 Pure hypercholesterolemia, unspecified; E11.9 Type 2 diabetes mellitus without complications; Z87.820 Personal history of traumatic brain injury; F31.9 Bipolar disorder, unspecified; G11.9 Hereditary ataxia, unspecified; M79.7 Fibromyalgia; Z79.85 Long-term (current) use of injectable non-insulin antidiabetic drugs; Z79.82 Long term (current) use of aspirin; Z79.51 Long term (current) use of inhaled steroids; Z79.899 Other long term (current) drug therapy; Z88.8 Allergy status to other drugs, medicaments and biological substances; Z98.890 Other specified postprocedural states
CPT/HCPCS: 62321; 82947; J1100; J2250; Q9965

== ENCOUNTER → 2023-03-18 09:28 | Outpatient (BNV) | payer MEDICARE, MEDICAID, SELFPAY | PROVIDERS: PCP Internal Medicine; Visit Provider Internal Medicine | DX: M54.12 Radiculopathy, cervical region (principal); M50.90 Cervical disc disorder, unspecified, unspecified cervical region | CPT/HCPCS: 62321 ==

== ENCOUNTER 2023-04-06 10:32 | Outpatient (AMB) | payer MEDICARE, MEDICAID, SELFPAY ==
--- NOTE | 2023-04-06 10:45 | A.OFFVIS_ITS ---
Intake VS Expanded 04/06/23 10:46 04/15/23 08:51 Height 5 ft 10 in 5 ft 10 in Weight 216 lb 4.375 oz 216 lb BMI 31.0 31.0 Intake Visit Reasons: DM Allergies fluoxetine [Prozac] Allergy (Intermediate, Verified 03/16/23 09:46) Seizures paroxetine [From Paxil] Adverse Reaction (Mild, Verified 03/16/23 09:46) suicidal thoughts From Paxil Adverse Reaction (Mild, Uncoded 01/05/20 17:51) SUICIDAL THOUGHTS HPI Nutrition Presentation Details Pt presents for MNT for T2DM and obesity. Pt was referred by Sierra Medina NP [facility] [place] Pt is interested in making diet modification for weight loss. Typical meal intake Breakfast: Eggs, cereal (fitzpatrick gabino/2% milk ) The program provides the lunch (vegetables/pork chop , mashed potatoes ,water dinner 5pm : pasta/chicken/or beef/salad snack ice cream fruits 1/d dairy: > 3 serving/d , ice cream :3 times/wk fish: 0-1/wk vegetables: 3 serving/day water: 0-1/d physical activity: sedentary ETOH: denies FAW-Fnczzpo-An.Jeor Equation Height 5 ft 10 in Weight 216 lb Resting Metabolic Rate 1839.19 Calculated Activity Level Sedentary Calories Needed to Maintain Weight 2207.03 Diagnosis Nutrition problem #1 excessive energy intake As related to (etiology) #1 diagnosis As evidenced by (sign/symptom) #1 food recall and high BMI (31 (04/06/23)) Monitoring/Goals Nutrition problem monitoring level of knowledge/skill and weight Learning/Education Readiness to learn good Stages of change preparation Educational materials provided Yes (meal planning) Most Recent Diabetes Results: No Data to Display [facility] Medical History (Updated 04/06/23 @ 10:56 by Idalmis Estrada, RD, LDN) Hypothyroid GERD (gastroesophageal reflux disease) HTN (hypertension) Elevated cholesterol Traumatic brain injury Low back pain Diabetes Tension headache Cerebellar ataxia PTSD (post-traumatic stress disorder) Bipolar disorder Cervical disc disease Surgical History History of surgery Social History Household Members Other:: resides in fpc Housing Other:: fpc Comment: NO COUNTS NEEDED Patient Tobacco Use Status: Tobacco use Unknown Assessment & Plan Assessment & Plan (1) Diabetes: Code(s): E11.9 - Type 2 diabetes mellitus without complications Plan: wt: 98 kg Est kcal needs as per MSJ: 2207 (40% carb, 30% protein/fat) Est fluid needs as per 25-30 ml/d: 2945 Est prot per day as per 1 g/kg bw: 98 Recommend fiber intake : 8-10 g per day and gradually increase to 25-28 g per day for women and 35-38 g for men or as tolerated Recommend sodium intake per day : less than 2000 mg Educated patient on: ( R = reviewed V = verbalizes understanding N/R = needs review N/A = not applicable * Food sources of carbohydrate, adequate serving sizes and its role in various health conditions: R * Differences between complex carbohydrates a simple carbohydrates, role of fiber in diet: NR * Differences between types of fats and role in diet (mono on saturated fat fatty acids, saturated fatty acids, trans fats): NR * Food sources of sodium in salt and healthy modifications for heart health in kidney health: NR * Vitamins and minerals: NR * Healthy plate method concept: R * Physical activity: Benefits a precaution: R * Hypoglycemia protocol (rule of 15): NR * Dietary prevention of Hyperglycemia: R Patient Instructions: Reduce your carbohydrates at bedtime to less than 30 g carbohydrates , choosing low sugar foods see list of snack ideas Have one meal replacement a day Drink water with meals and snacks, no soda, no diet beverages Coding Level of Care Code Nutr Indiv Intake (25423) Diagnoses Diabetes E11.9 Time Spent (min) 30
[2023-04-06 10:46] VITALS: BMI 31.0
[2023-04-15 17:20] VITALS: BMI 31.0
== END 2023-04-06 11:22 | disposition home or self-care (01) ==
PROVIDERS: PCP Internal Medicine; Visit Provider Dietitian, Registered
DX: E11.9 Type 2 diabetes mellitus without complications (principal)

== ENCOUNTER → 2023-04-06 10:32 | Outpatient (BNVA) | payer MEDICARE, MEDICAID, SELFPAY | PROVIDERS: PCP Internal Medicine; Visit Provider Dietitian, Registered | DX: E11.9 Type 2 diabetes mellitus without complications (principal) | CPT/HCPCS: 97802 ==

== ENCOUNTER 2023-04-23 10:19 | Outpatient (AMB) | payer MEDICARE, MEDICAID, SELFPAY ==
--- NOTE | 2023-04-23 10:19 | MHC.OFFVIS ---
Intake Vital Signs 04/23/23 10:22 Height 5 ft 10 in Weight 215 lb 3 oz BMI 30.9 BP 129/73 Blood Pressure Location Lt brachial Position Sitting Pulse 94 Pulse Source Pulse Oximeter Pulse Oximetry (%) 100 Oxygen Delivery Method Room Air Intake Visit Reasons: L Interlaminar C7-T1 ARACELI 03/18 Intake Note: Pain today 01/27 Hospital Clerk Required: No Accompanied by: child day care center worker Allergies fluoxetine [Prozac] Allergy (Intermediate, Verified 04/23/23 10:23) Seizures paroxetine [From Paxil] Adverse Reaction (Mild, Verified 04/23/23 10:23) suicidal thoughts From Paxil Adverse Reaction (Mild, Uncoded 01/05/20 17:51) SUICIDAL THOUGHTS Do you need a note to return to daycare/school/sports/work: Yes HPI HPI Comments History of Present Illness Details Patient presents today for follow up and assess response to Left parasaggital interlaminar C7-T1 ARACELI on 03/18/[address] Jose. Patient is accompanied by his AQUATIC LABORER. Patient reports ongoing 50% pain relief for his neck pain with improved functioning, range of motions, sleep and social interactions. Patient now reports increasing pain in low back pain. Denies any recent trauma, injury or falls. Patient is interested to pursue formal physical therapy back pain prior to interventional therapy. He denies any fever, abdominal groin pain, weakness, foot drop, bladder or bowel incontinence or saddle anesthesia. Past Procedures: 03/18/23: Left parasaggital interlaminar C7-T1 ARACELI-50% ongoing pain relief PRIOR: Patient presents today for follow up to discuss recent cervical spine and left shoulder xray results. Patient is accompanied by his AQUATIC LABORER. He continues to endorse neck with radiation to his left lower arm and low back pain but notes that left shoulder pain has improved. Patient is scheduled for cervical TFESI injection on 01/07/23 with sedation. He is interested to undergo procedures for his chronic axial low back pain. Denies any recent cough, cold, infection, fever or other significant changes in medical history since last office visit. Patient denies any bladder or bowel incontinence or saddle anesthesia. PRIOR: Patient is a 52 years old male with history of complex mental health history including Bipolar disorder, TBI, PTSD, fibromyalgia, seizures, cerebellar ataxia, cervical disc disease, chronic low back pain, diabetes presents today with neck and left shoulder pain for past 2 years. Patient is accompanied by his AQUATIC LABORER. Reports recent fall during getting out of bed and hitting his head and right knee without LOC with minor right knee skin abrasion. Right hand dominant. Patient reports neck pain with movements, especially with left lateral and bending that radiates to his left shoulder and left lateral arm with intermittent numbness, tingling, weakness and some imbalance issues. Reports chronic tension headaches for which he takes Tylenol with mild relief. Left shoulder pain mildly reproduced with left overhead reaches and no pain with back pocket reaches. Patient reports he tries to stay active despite the pain. Reports daily activity of walking and push ups. Spine MRI imaging is noted below. Patient was referred to us by Dr. Espinal for cervical epidural injection. Patient requests neck injections under sedation only. Denies any fever, chills, weight loss, bladder or bowel incontinence or saddle anesthesia. Complex mental health history includes psychiatric admission at [facility]. Per recent neurology note review, patient had a gambling addiction, has had multiple psychiatric admissions including one when he jumped off the top of the building, another with intentional overdose on Depakote and multiple hypnotic medications, and multiple suicidal attempts according to his records. Patient reports traumatic brain injury at age 18 when he fell while playing basketball landing on his head and had some right frontal encephalomalacia as a result and a single seizure. Most recent EEG on 05/16/22 was normal. Patient reports his diabetes is controlled with A1C below 7.0 but requests Nutritional Consult to assist him in better food choices and potential weight loss. Location Lower neck, radiates down bilateral shoulders, worse on the left Duration Chronic neck pain for past 3 years Characteristics of symptom or complaint Aching, pins and needles, burning, stabbing, shooting Aggravating or associated factors Movements, stress, bending, looking down Relieving factors Tyelnol, cyclobenzaprine, stretching exercises Treatment PT low back in 2019, currently at chiropractic weekly [facility] Medical History (Updated 04/06/23 @ 10:[address], LDN) Hypothyroid GERD (gastroesophageal reflux disease) HTN (hypertension) Elevated cholesterol Traumatic brain injury Low back pain Diabetes Tension headache Cerebellar ataxia PTSD (post-traumatic stress disorder) Bipolar disorder Cervical disc disease Surgical History History of surgery Social History Household Members Other:: resides in care home Housing Other:: care home Comment: NO COUNTS NEEDED Patient Tobacco Use Status: Tobacco use Unknown Review of Systems Const All systems reviewed & are unremarkable except as noted in HPI and below ENT Reports neck pain Musc Reports as per HPI, Reports back pain, Denies myalgias, Reports arthralgias, Denies joint swelling, Denies muscle weakness, Reports neck pain, Denies numbness, Denies radiating pain into limb, Reports stiffness and Denies tingling Neuro Denies numbness and Denies tingling Physical Exam Vital Signs: Last Vital Signs Pulse 94 04/23/23 10:22 BP 129/73 04/23/23 10:22 Pulse Ox 100 04/23/23 10:22 Oxygen Delivery Method Room Air 04/23/23 10:22 BMI result Body Mass Index 30.9 General: Appears afebrile. Alert and oriented. Mood and affect appropriate. Follows and participates in conversation appropriately. Respiratory effort is unlabored. No cough. Able to transition from sit to stand unassisted. Ambulates with bilaterally normal heel strike and toe off. Back/Spine/Pelvis Thoracic/Lumbar Spine: thoracic and lumbar spine normal to inspection, No Thoracic/lumbar spine scar(s), Lasegue's sign negative, straight leg raise negative bilaterally, pain with thoraco-lumbar ROM (lumbar extension reproduces moderate symptoms. Mild pain w/ flexion/bending), paraspinal muscle tenderness, No thoracic spinal tenderness and lumbar spinal tenderness at L4 and at L5 Sacroiliac joints: bilaterally nontender Extrem General: Yes capillary refill normal, Yes no clubbing, cyanosis or edema and Yes no calf tenderness Assessment & Plan Assessment & Plan (1) Lumbar spondylosis: Code(s): M47.816 - Spondylosis without myelopathy or radiculopathy, lumbar region (2) Low back pain: Code(s): M54.50 - Low back pain, unspecified (3) Cervical disc disease: Code(s): M50.90 - Cervical disc disorder, unspecified, unspecified cervical region (4) Cervical radiculopathy: Code(s): M54.12 - Radiculopathy, cervical region Plan Patient is s/p left intralaminar parasagittal C7-T1 ARACELI on 03/18/23 with ongoing 50% pain relief, improved neck range of motions and functioning. For axial low back pain, recommend formal physical therapy and home exercise program. If minimal response, will proceed with diagnostic bilateral lumbar medial branch blocks for potential therapeutic injections or RFA procedures. Patient encourage for daily physical activity, adequate hydration, good posture, and weight optimization. All questions and concerns have been answered and patient agreed with the plan. Follow up after physical therapy and sooner as needed. Orders: Orders PT Evaluation and Treatment Today M47.816 - Spondylosis without myelopathy or radiculopathy, lumbar region, M54.50 - Low back pain, unspecified XR lumbar spine 6V w bending Today M47.816 - Spondylosis without myelopathy or radiculopathy, lumbar region, M54.50 - Low back pain, unspecified Coding Level of Care Code Est Pt Level 4 (35682) Diagnoses Lumbar spondylosis M47.816 Low back pain M54.50 Cervical disc disease M50.90 Cervical radiculopathy M54.12
[2023-04-23 10:22] VITALS: BP 129/73; PULSE 94; O2SAT 100; BMI 30.9
== END 2023-04-23 10:42 | disposition home or self-care (01) ==
PROVIDERS: PCP Internal Medicine; Visit Provider Nurse Practitioner Family
DX: M47.816 Spondylosis without myelopathy or radiculopathy, lumbar region (principal); M54.50 Low back pain, unspecified; M50.90 Cervical disc disorder, unspecified, unspecified cervical region; M54.12 Radiculopathy, cervical region
CPT/HCPCS: 99213

== ENCOUNTER → 2023-04-23 10:19 | Outpatient (BNVA) | payer MEDICARE, MEDICAID, SELFPAY | PROVIDERS: PCP Internal Medicine; Visit Provider Nurse Practitioner Family | DX: M47.816 Spondylosis without myelopathy or radiculopathy, lumbar region (principal); M54.50 Low back pain, unspecified; M50.90 Cervical disc disorder, unspecified, unspecified cervical region; M54.12 Radiculopathy, cervical region | CPT/HCPCS: 99212 ==

== ENCOUNTER 2023-05-15 10:00 | Outpatient (RCR) | payer MEDICARE, MEDICAID, SELFPAY | END 2023-10-12 07:13 | disposition home or self-care (01) | LOC: HO.PTWFD 10:00 | PROVIDERS: PCP Internal Medicine; Visit Provider Psychiatry & Neurology Neurology | DX: S13.4XXD Sprain of ligaments of cervical spine, subsequent encounter (principal) | CPT/HCPCS: 97110; 97163 ==

== ENCOUNTER 2023-08-10 09:51 | Outpatient (AMB) | payer MEDICARE, MEDICAID, SELFPAY ==
--- NOTE | 2023-08-10 09:57 | MHC.OFFVIS ---
Vital Signs 08/10/23 10:00 Height 5 ft 10 in Weight 214 lb BMI 30.7 BP 143/75 H Blood Pressure Location Rt brachial Position Sitting Pulse 115 H Pulse Source Pulse Oximeter Pulse Oximetry (%) 99 Oxygen Delivery Method Room Air Intake Visit Reasons: neck pain Intake Note: Pain today 11/27 Paper Sorter Required: No Accompanied by: Self / Same As Patient Allergies fluoxetine [Prozac] Allergy (Intermediate, Verified 08/10/23 10:01) Seizures paroxetine [From Paxil] Adverse Reaction (Mild, Verified 08/10/23 10:01) suicidal thoughts From Paxil Adverse Reaction (Mild, Uncoded 01/05/20 17:51) SUICIDAL THOUGHTS HPI Comments Details: Patient presents today for follow up for chronic neck pain. He reports recent head concussion without loss of concussion or fall about 3 weeks ago. He denies being seen in ER, Urgent Clinic or PCP office. Patient reports neck pain with cervical extension. Denies any radiation of pain to his arms, numbness or tingling. He reprots previous neck injection was helpful for his radicular neck symptoms but would like to address his arthritis neck and back symptoms. Lumbar spine xray was ordered in April but was not completed yet. Patient was reminded to complete this. He reports he will let his SPONSORSHIP COORDINATOR know who is awaiting him outside in the car. Patient reports his neck and back pain affect his daily functioning, range of motions, sleep and social interactions. He reports completing course of physical therapy and regular home exercise program without pain relief or function improvement. Denies any fever, abdominal groin pain, weakness, foot drop, bladder or bowel incontinence or saddle anesthesia. Past Procedures: 03/18/23: Left parasaggital interlaminar C7-T1 ARACELI-50% ongoing pain relief PRIOR: Patient presents today for follow up to discuss recent cervical spine and left shoulder xray results. Patient is accompanied by his SPONSORSHIP COORDINATOR. He continues to endorse neck with radiation to his left lower arm and low back pain but notes that left shoulder pain has improved. Patient is scheduled for cervical TFESI injection on 01/07/23 with sedation. He is interested to undergo procedures for his chronic axial low back pain. Denies any recent cough, cold, infection, fever or other significant changes in medical history since last office visit. Patient denies any bladder or bowel incontinence or saddle anesthesia. PRIOR: Patient is a 52 years old male with history of complex mental health history including Bipolar disorder, TBI, PTSD, fibromyalgia, seizures, cerebellar ataxia, cervical disc disease, chronic low back pain, diabetes presents today with neck and left shoulder pain for past 2 years. Patient is accompanied by his SPONSORSHIP COORDINATOR. Reports recent fall during getting out of bed and hitting his head and right knee without LOC with minor right knee skin abrasion. Right hand dominant. Patient reports neck pain with movements, especially with left lateral and bending that radiates to his left shoulder and left lateral arm with intermittent numbness, tingling, weakness and some imbalance issues. Reports chronic tension headaches for which he takes Tylenol with mild relief. Left shoulder pain mildly reproduced with left overhead reaches and no pain with back pocket reaches. Patient reports he tries to stay active despite the pain. Reports daily activity of walking and push ups. Spine MRI imaging is noted below. Patient was referred to us by Dr. Espinal for cervical epidural injection. Patient requests neck injections under sedation only. Denies any fever, chills, weight loss, bladder or bowel incontinence or saddle anesthesia. Complex mental health history includes psychiatric admission at [facility]. Per recent neurology note review, patient had a gambling addiction, has had multiple psychiatric admissions including one when he jumped off the top of the building, another with intentional overdose on Depakote and multiple hypnotic medications, and multiple suicidal attempts according to his records. Patient reports traumatic brain injury at age 18 when he fell while playing basketball landing on his head and had some right frontal encephalomalacia as a result and a single seizure. Most recent EEG on 05/16/22 was normal. Patient reports his diabetes is controlled with A1C below 7.0 but requests Nutritional Consult to assist him in better food choices and potential weight loss. Location Lower neck, radiates down bilateral shoulders, worse on the left Duration Chronic neck pain for past 3 years Characteristics of symptom or complaint Aching, pins and needles, burning, stabbing, shooting Aggravating or associated factors Movements, stress, bending, looking down Relieving factors Tyelnol, cyclobenzaprine, stretching exercises Treatment PT low back in 2019, currently at chiropractic weekly [facility] Medical History Hypothyroid GERD (gastroesophageal reflux disease) HTN (hypertension) Elevated cholesterol Traumatic brain injury Low back pain Diabetes Tension headache Cerebellar ataxia PTSD (post-traumatic stress disorder) Bipolar disorder Cervical disc disease Surgical History History of surgery Social History Household Members Other:: resides in half-way Housing Other:: half-way Comment: NO COUNTS NEEDED Patient Tobacco Use Status: Tobacco use Unknown Review of Systems Const All systems reviewed & are unremarkable except as noted in HPI and below Physical Exam Vital Signs: Last Vital Signs Pulse 115 H 08/10/23 10:00 BP 143/75 H 08/10/23 10:00 Pulse Ox 99 08/10/23 10:00 Oxygen Delivery Method Room Air 08/10/23 10:00 BMI result Body Mass Index 30.7 General: Appears afebrile. Alert and oriented. Mood and affect appropriate. Follows and participates in conversation appropriately. Respiratory effort is unlabored. No cough. Able to transition from sit to stand unassisted. Ambulates with bilaterally normal heel strike and toe off. HEENT Head: Yes normal to inspection, Yes No palpable skull fracture present, Yes normocephalic, Yes atraumatic, No Acrocyanosis present, No Brunson's sign, Yes laceration (small laceration above right eyebrow, no bleeding or swelling), No occipital foramen tenderness, No palpable skull fracture, No raccoon eyes, No scalp tenderness, No Temporal artery tenderness present and No periorbital ecchymosis Neck Other: Patient with mildly decreased cervical ROM in all planes. Reports increased pain with cervical extension. Spurling compression test is negative. Pain is unchanged by Spurling maneuver with retraction. Elvey's tension test negative bilaterally. Lhermitte's test was negative. DTR intact, +2 and symmetrical. Patient demonstrated 5/5 motor strength of bilateral upper extremities. 2 + radial pulses. Mild tightness throughout bilateral upper trapezius muscles. No paravertebral tenderness over facet joints. Neck: Yes normal visual inspection, Yes no lymphadenopathy, Yes no meningeal signs, Yes supple, No anterior neck swelling, Yes no JVD and No prominent dorsocervical fat pad Back/Spine/Pelvis Cervical Spine: cervical muscular tenderness, pain with cervical ROM, No Cervical spine scars present, cervical spasm, No Cervical spine tenderness and No step off deformity Thoracic/Lumbar Spine: thoracic and lumbar spine normal to inspection, No Thoracic/lumbar spine scar(s), Lasegue's sign negative, straight leg raise negative bilaterally, pain with thoraco-lumbar ROM (lumbar extension reproduces moderate symptoms. Mild pain w/ flexion/bending), paraspinal muscle tenderness, No thoracic spinal tenderness and lumbar spinal tenderness at L4 and at L5 Sacroiliac joints: bilaterally nontender Neuro General: no meningeal signs Extrem General: Yes capillary refill normal, Yes no clubbing, cyanosis or edema and Yes no calf tenderness Results Reviewed Results Reviewed: XR CERVICAL SPINE 11/28/22 FINDINGS: Vertebral bodies are well aligned and intervertebral discs are preserved. Pedicles are intact. There is mild narrowing of C5-C6 intervertebral disc space without spondylolysis or listhesis. Soft tissues unremarkable. IMPRESSION: Mild degenerative changes at the level of C5-C6. Assessment & Plan Assessment & Plan (1) Lumbar spondylosis: Code(s): M47.816 - Spondylosis without myelopathy or radiculopathy, lumbar region Category: Medical (2) Low back pain: Code(s): M54.50 - Low back pain, unspecified Category: Medical (3) Cervical disc disease: Code(s): M50.90 - Cervical disc disorder, unspecified, unspecified cervical region Category: Medical (4) Cervical spondylosis: Code(s): M47.812 - Spondylosis without myelopathy or radiculopathy, cervical region Category: Medical Plan For axial cervical pain, we will proceed with Diagnostic Bilateral C4-C5-C6 MBBs with local and fluoroscopy. We discussed therapeutic injections and RFA procedure if positive response to nerve blocks. Expectations, risks and benefits were reviewed. Patient is aware he will be contacted to schedule this procedure. Patient is not candidate for [employer] PNS trial due to complex mental health history and history of seizures. Patient was reminded to complete lumbar spine xrays which were placed in April,. Continue HEP for neck and back. Patient encourage for daily physical activity, adequate hydration, good posture, and weight optimization. All questions and concerns have been answered and patient agreed with the plan. Follow up after injections and sooner as needed.
[2023-08-10 10:00] VITALS: BP 143/75; PULSE 115; O2SAT 99; BMI 30.7
== END 2023-08-10 10:31 | disposition home or self-care (01) ==
LOC: HO.PMC 09:56
PROVIDERS: PCP Internal Medicine; Visit Provider Nurse Practitioner Family
DX: M47.816 Spondylosis without myelopathy or radiculopathy, lumbar region (principal); M54.50 Low back pain, unspecified; M50.90 Cervical disc disorder, unspecified, unspecified cervical region; M47.812 Spondylosis without myelopathy or radiculopathy, cervical region
CPT/HCPCS: 99214

== ENCOUNTER → 2023-08-10 09:56 | Outpatient (BNVA) | payer MEDICARE, MEDICAID, SELFPAY | PROVIDERS: PCP Internal Medicine; Visit Provider Nurse Practitioner Family | DX: M47.816 Spondylosis without myelopathy or radiculopathy, lumbar region (principal); M54.50 Low back pain, unspecified; M50.90 Cervical disc disorder, unspecified, unspecified cervical region; M47.812 Spondylosis without myelopathy or radiculopathy, cervical region | CPT/HCPCS: 99212 ==

== ENCOUNTER 2023-09-03 07:10 | Outpatient (REF) | payer MEDICARE, MEDICAID, SELFPAY ==
--- NOTE | ~2023-09-03 | FL_ITS ---
EXAMINATION: XR FLUOROSCOPY WITH IMAGES CLINICAL INFORMATION: Spondylosis without myelopathy. COMPARISON: None available. TECHNIQUE: Fluoroscopy Supervised By: Dr. Lopez Jose. Fluoroscopy Time: 0.3 minutes. Cumulative Dose: 4.33 mGy. DAP: 0.0245 Gy-cm2. Images: 4. FINDINGS: Intraoperative fluoroscopy and spot films were performed during a procedure in the OR. Multiple bilateral needles are seen at 3 contiguous levels on the left with contrast injection. On the right, 2 needles are seen with contrast injected. The exact sites of the needles cannot be ascertained due to the marked coning of the images. Please see Dr. Lopez Jose' report for complete details. FL/FL guidance in treatment room IMPRESSION: Intraoperative fluoroscopy and spot films were obtained. Please see Dr. Lopez Jose' report for complete details.
== END 2023-09-03 07:11 | disposition home or self-care (01) ==
LOC: CF 07:10
PROVIDERS: PCP Internal Medicine; Visit Provider Internal Medicine
DX: M47.812 Spondylosis without myelopathy or radiculopathy, cervical region (principal)
CPT/HCPCS: 64490; 64491; J2795; Q9967

== ENCOUNTER 2023-09-03 10:10 | Outpatient (AMB) | payer MEDICARE, MEDICAID, SELFPAY ==
--- NOTE | 2023-09-03 10:02 | A.OFFVIS_ITS ---
Vital Signs 09/03/23 11:30 09/03/23 11:31 Height 5 ft 10 in Weight 214 lb BMI 30.7 BP 114/76 122/86 Blood Pressure Location Lt brachial Lt brachial Position Sitting Sitting Respiration 18 Pulse 94 Pulse Source Pulse Oximeter Pulse Oximetry (%) 94 Oxygen Delivery Method Room Air Comment Pre-Op Intake Visit Reasons: Jorge Dx C4-C5-C6 MBB Allergies fluoxetine [Prozac] Allergy (Intermediate, Verified 08/10/23 10:01) Seizures paroxetine [From Paxil] Adverse Reaction (Mild, Verified 08/10/23 10:01) suicidal thoughts From Paxil Adverse Reaction (Mild, Uncoded 01/05/20 17:51) SUICIDAL THOUGHTS HPI HPI Jorge Dx C4-C5-C6 MBB: Details: Patient presents for scheduled procedure. Denies any recent cough, cold, infection, fever or other significant changes in medical history since last office visit. [facility] Medical History Hypothyroid GERD (gastroesophageal reflux disease) HTN (hypertension) Elevated cholesterol Traumatic brain injury Low back pain Diabetes Tension headache Cerebellar ataxia PTSD (post-traumatic stress disorder) Bipolar disorder Cervical disc disease Surgical History History of surgery Social History Household Members Other:: resides in custodial Housing Other:: custodial Comment: NO COUNTS NEEDED Patient Tobacco Use Status: Tobacco use Unknown Physical Exam Vital Signs: Last Vital Signs Pulse 94 09/03/23 11:30 Resp 18 09/03/23 11:30 BP 122/86 09/03/23 11:31 Pulse Ox 94 09/03/23 11:30 Oxygen Delivery Method Room Air 09/03/23 11:30 BMI result Body Mass Index 30.7 Office Procedures Cervical/Thoracic Facet Inj Details: Diagnostic Cervical Medial Branch Block, bilateral, C4, C5, C6 medial branches After obtaining written consent, pre-procedure blood pressure and pulse were recorded and are in the nursing record for review. The patient was placed in a lateral position. The respective cervical area was prepped with chloraprep and draped in sterile fashion. The skin over the target medial branch nerves was anesthetized with 0.5% lidocaine. A 25 gauge 1.5 inch needle was inserted into the target medial branch nerve under fluoroscopic guidance. No paresthesias were elicited with needle placement and aspiration was negative for blood and CSF. Next, 0.2cc of omnipaque 180 was injected to verify positioning. Next 0.5 ml 0.5% ropivicaine was injected (0.5 cc total per level). The identical procedure was performed at the remaining levels. The skin was cleansed and a sterile bandage was applied. Following the procedure the patient's vital signs were stable. The patient tolerated the procedure well and no complications were encountered. Following the procedure the patient's vital signs were stable. The patient was discharged home in good condition with post-procedural instructions. Time Out: Immediately prior to the procedure, the following was verbally confirmed that there is a signed consent form and that the correct patient, planned procedure, site and side are consistent with documentation and that necessary equipment and/or blood products are available prior to the start of the case. Complications: none EBL: <5 cc 09966 - with Fluoroscopy 30759 - second level, with Fluoroscopy (Bilateral) Procedure code (CPT) selection complete Assessment & Plan Assessment & Plan (1) Cervical spondylosis: Code(s): M47.812 - Spondylosis without myelopathy or radiculopathy, cervical region Category: Medical Plan Patient is status post bilateral C4, C5, C6 diagnostic medial branch blocks. Patient tolerated procedure well and was discharged home in stable condition with discharge instructions. All questions were answered. We will follow-up via telephone or in clinic to assess response to therapy. A follow-up appointment was made during today's visit. Orders: Orders FL guidance in treatment room Today M47.812 - Spondylosis without myelopathy or radiculopathy, cervical region Coding Level of Care Code Procedure Only Diagnoses Cervical spondylosis M47.812 CPT Codes Facet Injection Cervical/Thoracic - CPT: 11138 - with Fluoroscopy ([id number]) Facet Injection Cervical/Thoracic - CPT: 42075 - second level, with Fluoroscopy ([id number])
[2023-09-03 11:30] VITALS: BP 114/76; PULSE 94; RESP 18; O2SAT 94; BMI 30.7
[2023-09-03 11:31] VITALS: BP 122/86
== END 2023-09-03 11:08 | disposition home or self-care (01) ==
LOC: HO.PMCPRC 10:10
PROVIDERS: PCP Internal Medicine; Visit Provider Internal Medicine
DX: M47.812 Spondylosis without myelopathy or radiculopathy, cervical region (principal)
CPT/HCPCS: 64490; 64491

== ENCOUNTER 2023-09-07 10:25 | Outpatient (AMB) | payer MEDICARE, MEDICAID, SELFPAY ==
--- NOTE | 2023-09-07 10:27 | A.OFFVIS_ITS ---
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 Jose. Patient reports 75% pain relief for 6 hours after procedure the significant improvement in his functioning, range of motion sleep and pain. Patient would like to undergo repeat injections for potential cervical medial branch RFA for a longer pain relief. We also discussed therapeutic injections. Patient has diabetes, well controlled with most recent A1c at 6.8. He is manage on Trulicity injections and tries to adhere to ADA diet. Patient prefers to avoid steroidal injections at this time. Patient also reports chronic mid and low back pain. Denies any trauma, injury, or falls. He address to send the near future as well periods he denies any recent imaging for his lower lumbar spine, we will obtain those today. Denies any recent cough, cold, infection, fever, any significant changes in her medical history, medications or recent hospitalizations. Oswestry Neck Pain Disability Score=20 (moderate disability) Past Procedures: 09/03/23: Bilateral Diagnostic C4-C5-C6 MBB-75% pain relief 03/18/23: Left parasaggital interlaminar C7-T1 ARACELI-50% ongoing pain relief PRIOR: Patient presents today for follow up to discuss recent cervical spine and left shoulder xray results. Patient is accompanied by his MEDIA TRAFFIC MANAGER. He continues to endorse neck with radiation to his left lower arm and low back pain but notes that left shoulder pain has improved. Patient is scheduled for cervical TFESI injection on 01/07/23 with sedation. He is interested to undergo procedures for his chronic axial low back pain. Denies any recent cough, cold, infection, fever or other significant changes in medical history since last office visit. Patient denies any bladder or bowel incontinence or saddle anesthesia. PRIOR: Patient is a 52 years old male with history of complex mental health history including Bipolar disorder, TBI, PTSD, fibromyalgia, seizures, cerebellar ataxia, cervical disc disease, chronic low back pain, diabetes presents today with neck and left shoulder pain for past 2 years. Patient is accompanied by his MEDIA TRAFFIC MANAGER. Reports recent fall during getting out of bed and hitting his head and right knee without LOC with minor right knee skin abrasion. Right hand dominant. Patient reports neck pain with movements, especially with left lateral and bending that radiates to his left shoulder and left lateral arm with intermittent numbness, tingling, weakness and some imbalance issues. Reports chronic tension headaches for which he takes Tylenol with mild relief. Left shoulder pain mildly reproduced with left overhead reaches and no pain with back pocket reaches. Patient reports he tries to stay active despite the pain. Reports daily activity of walking and push ups. Spine MRI imaging is noted below. Patient was referred to us by Dr. Espinal for cervical epidural injection. Patient requests neck injections under sedation only. Denies any fever, chills, weight loss, bladder or bowel incontinence or saddle anesthesia. Complex mental health history includes psychiatric admission at [facility]. Per recent neurology note review, patient had a gambling addiction, has had multiple psychiatric admissions including one when he jumped off the top of the building, another with intentional overdose on Depakote and multiple hypnotic medications, and multiple suicidal attempts according to his records. Patient reports traumatic brain injury at age 18 when he fell while playing basketball landing on his head and had some right frontal encephalomalacia as a result and a single seizure. Most recent EEG on 05/16/22 was normal. Patient reports his diabetes is controlled with A1C below 7.0 but requests Nutritional Consult to assist him in better food choices and potential weight loss. Location Lower neck, radiates down bilateral shoulders, worse on the left Duration Chronic neck pain for past 3 years Characteristics of symptom or complaint Aching, pins and needles, burning, stabbing, shooting Aggravating or associated factors Movements, stress, bending, looking down Relieving factors Tyelnol, cyclobenzaprine, stretching exercises Treatment PT low back in 2019, currently at chiropractic weekly [facility] Medical History Hypothyroid GERD (gastroesophageal reflux disease) HTN (hypertension) Elevated cholesterol Traumatic brain injury Low back pain Diabetes Tension headache Cerebellar ataxia PTSD (post-traumatic stress disorder) Bipolar disorder Cervical disc disease Surgical History History of surgery Social History Household Members Other:: resides in long-term Housing Other:: long-term Comment: NO COUNTS NEEDED Patient Tobacco Use Status: Tobacco use Unknown Review of Systems Const All systems reviewed & are unremarkable except as noted in HPI and below Physical Exam Vital Signs: Last Vital Signs Pulse 89 09/07/23 10:30 BP 146/84 H 09/07/23 10:30 Pulse Ox 97 09/07/23 10:30 Oxygen Delivery Method Room Air 09/07/23 10:30 BMI result Body Mass Index 30.1 General: Appears afebrile. Alert and oriented. Mood and affect appropriate. Follows and participates in conversation appropriately. Respiratory effort is unlabored. No cough. Able to transition from sit to stand unassisted. Ambulates with bilaterally normal heel strike and toe off. Neck Other: Patient with mildly decreased cervical ROM in all planes. Reports increased pain with cervical extension. Spurling compression test is negative. Pain is unchanged by Spurling maneuver with retraction. Elvey's tension test negative bilaterally. Lhermitte's test was negative. DTR intact, +2 and symmetrical. Patient demonstrated 5/5 motor strength of bilateral upper extremities. 2 + radial pulses. Mild tightness throughout bilateral upper trapezius muscles. No paravertebral tenderness over facet joints. Neck: Yes normal visual inspection, Yes no lymphadenopathy, Yes no meningeal signs, Yes supple, No anterior neck swelling, Yes no JVD and No prominent dorsocervical fat pad Back/Spine/Pelvis Cervical Spine: cervical ROM normal, cervical muscular tenderness, pain with cervical ROM, No Cervical spine scars present, cervical spasm and No Cervical spine tenderness Thoracic/Lumbar Spine: thoracic and lumbar spine normal to inspection, No Thoracic/lumbar spine scar(s), Lasegue's sign negative, straight leg raise negative bilaterally, pain with thoraco-lumbar ROM (lumbar extension reproduces moderate symptoms. Mild pain w/ flexion/bending), paraspinal muscle tenderness, No thoracic spinal tenderness and lumbar spinal tenderness at L4 and at L5 Sacroiliac joints: bilaterally nontender Neuro General: no meningeal signs Extrem General: Yes capillary refill normal, Yes no clubbing, cyanosis or edema and Yes no calf tenderness Results Reviewed Results Reviewed: XR CERVICAL SPINE 11/28/22 FINDINGS: Vertebral bodies are well aligned and intervertebral discs are preserved. Pedicles are intact. There is mild narrowing of C5-C6 intervertebral disc space without spondylolysis or listhesis. Soft tissues unremarkable. IMPRESSION: Mild degenerative changes at the level of C5-C6. Assessment & Plan Assessment & Plan (1) Low back pain: Code(s): M54.50 - Low back pain, unspecified Category: Medical (2) Lumbar spondylosis: Code(s): M47.816 - Spondylosis without myelopathy or radiculopathy, lumbar region Category: Medical (3) Mid back pain: Code(s): M54.9 - Dorsalgia, unspecified Category: Medical (4) Cervical disc disease: Code(s): M50.90 - Cervical disc disorder, unspecified, unspecified cervical region Category: Medical (5) Cervical spondylosis: Code(s): M47.812 - Spondylosis without myelopathy or radiculopathy, cervical region Category: Medical Plan Patient is status post diagnostic bilateral cervical medial branch blocks with good pain relief for 6 hours status post procedure. He is interested to repeat diagnostic bilateral C4-C5-C6 medial branch block injections with local and fluoroscopy in order to establish reproducible response to the treatment for potential RFA procedure. Expectations, risks and benefits were reviewed. Patient is aware he will be contacted to schedule this procedure. Patient is not candidate for Sprint PNS trial due to complex mental health history and history of seizures. Thoracic and lumbar spine imaging to assess degree of degenerative changes, any subluxation, listhesis, compression fractures or pars defects. All questions and concerns have been answered and patient agreed with the plan. Follow up after injections and sooner as needed. Orders: Orders 2 XR lumbar spine 4V min Today M47.816 - Spondylosis without myelopathy or radiculopathy, lumbar region, M54.50 - Low back pain, unspecified XR thoracic spine 3V Today M54.9 - Dorsalgia, unspecified Coding Level of Care Code Est Pt Level 4 (28566) Diagnoses Low back pain M54.50 Lumbar spondylosis M47.816 Mid back pain M54.9 Cervical disc disease M50.90 Cervical spondylosis M47.812
[2023-09-07 10:30] VITALS: BP 146/84; PULSE 89; O2SAT 97; BMI 30.1
== END 2023-09-07 10:44 | disposition home or self-care (01) ==
PROVIDERS: PCP Internal Medicine; Visit Provider Nurse Practitioner Family
DX: M54.50 Low back pain, unspecified (principal); M47.816 Spondylosis without myelopathy or radiculopathy, lumbar region; M54.9 Dorsalgia, unspecified; M50.90 Cervical disc disorder, unspecified, unspecified cervical region; M47.812 Spondylosis without myelopathy or radiculopathy, cervical region
CPT/HCPCS: 99214

== ENCOUNTER → 2023-09-07 10:25 | Outpatient (BNVA) | payer MEDICARE, MEDICAID, SELFPAY | PROVIDERS: PCP Internal Medicine; Visit Provider Nurse Practitioner Family | DX: M47.816 Spondylosis without myelopathy or radiculopathy, lumbar region (principal); M54.50 Low back pain, unspecified; M54.9 Dorsalgia, unspecified; M50.90 Cervical disc disorder, unspecified, unspecified cervical region; M47.812 Spondylosis without myelopathy or radiculopathy, cervical region | CPT/HCPCS: 99212 ==

== ENCOUNTER 2023-09-16 09:36 | Outpatient (REF) | payer MEDICARE, MEDICAID, SELFPAY ==
--- NOTE | ~2023-09-16 | XR_ITS ---
EXAMINATION: XR THORACIC SPINE CLINICAL INFORMATION: Dorsalgia, unspecified COMPARISON: None available. TECHNIQUE: 3 views of the thoracic spine were obtained. FINDINGS: There is no fracture or bone destruction seen and the vertebral alignment is normal. There is is multilevel disc space narrowing with anterior marginal osteophyte formation. There is no abnormality of the paraspinal soft tissues. Incidental note is made of straightening of the usual cervical lordosis which can be seen with muscle spasm or be due to patient positioning. XR/XR thoracic spine 3V IMPRESSION: 1. Multilevel degenerative disc disease of the thoracic spine. 2. Straightening of the usual cervical lordosis which can be seen with muscle spasm or be due to patient positioning.
--- NOTE | ~2023-09-16 | XR_ITS ---
EXAMINATION: XR LUMBOSACRAL SPINE WITH OBLIQUES CLINICAL INFORMATION: Spondylosis without myelopathy or radiculopathy, lumbar region COMPARISON: None available. TECHNIQUE: AP, both oblique, and lateral views of the lumbar spine. Lateral view of the lumbosacral junction. FINDINGS: There 5 nonrib-bearing lumbar-type vertebral bodies. The height of vertebral bodies is well-maintained. There is straightening of the usual lumbar lordosis which can be seen with muscle spasm. There is marked disc space narrowing at L4-L5. There there is multilevel degenerative facet joint disease, most marked at L4-L5 and L5-S1. There is no spondylolisthesis. There is partial calcification of the distal abdominal aorta without evidence of aneurysmal dilatation. There is probably a healed fracture of the left posterior 11th rib. XR/XR lumbar spine 4V min IMPRESSION: 1. Muscle spasm. 2. Degenerative disc disease at L4-L5. 3. Multilevel degenerative facet joint disease, most marked at L4-L5 and L5-S1.
== END 2023-09-16 09:37 | disposition home or self-care (01) ==
LOC: HO.XRAY 09:36
PROVIDERS: PCP Internal Medicine; Visit Provider Nurse Practitioner Family
DX: M47.816 Spondylosis without myelopathy or radiculopathy, lumbar region (principal); M54.50 Low back pain, unspecified; M54.9 Dorsalgia, unspecified
CPT/HCPCS: 72072; 72110

== ENCOUNTER 2023-10-02 09:39 | Outpatient (AMB) | payer MEDICARE, MEDICAID, SELFPAY ==
--- NOTE | 2023-10-02 09:48 | A.OFFVIS_ITS ---
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 Denies any recent cough, cold, infection, fever, any significant changes in her medical history, medications or recent hospitalizations. He does report recent Podiatry visit for right big toe procedure and he was started on Bactrim. PRIOR: Patient presents today to assess response to Bilateral Diagnostic C4-C5-C6 MBB injections on 09/03/[address] Jose. Patient reports 75% pain relief for 6 hours after procedure the significant improvement in his functioning, range of motion sleep and pain. Patient would like to undergo repeat injections for potential cervical medial branch RFA for a longer pain relief. We also discussed therapeutic injections. Patient has diabetes, well controlled with most recent A1c at 6.8. He is manage on Trulicity injections and tries to adhere to ADA diet. Patient prefers to avoid steroidal injections at this time. Patient also reports chronic mid and low back pain. Denies any trauma, injury, or falls. He address to send the near future as well periods he denies any recent imaging for his lower lumbar spine, we will obtain those today. Denies any recent cough, cold, infection, fever, any significant changes in her medical history, medications or recent hospitalizations. Oswestry Neck Pain Disability Score=20 (moderate disability) Past Procedures: 09/03/23: Bilateral Diagnostic C4-C5-C6 MBB-75% pain relief 03/18/23: Left parasaggital interlaminar C7-T1 ARACELI-50% ongoing pain relief PRIOR: Patient presents today for follow up to discuss recent cervical spine and left shoulder xray results. 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 He continues to endorse neck with radiation to his left lower arm and low back pain but notes that left shoulder pain has improved. Patient is scheduled for cervical TFESI injection on 01/07/23 with sedation. He is interested to undergo procedures for his chronic axial low back pain. Denies any recent cough, cold, infection, fever or other significant changes in medical history since last office visit. Patient denies any bladder or bowel incontinence or saddle anesthesia. PRIOR: Patient is a 52 years old male with history of complex mental health history including Bipolar disorder, TBI, PTSD, fibromyalgia, seizures, cerebellar ataxia, cervical disc disease, chronic low back pain, diabetes presents today with neck and left shoulder pain for past 2 years. 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 Reports recent fall during getting out of bed and hitting his head and right knee without LOC with minor right knee skin abrasion. Right hand dominant. Patient reports neck pain with movements, especially with left lateral and bending that radiates to his left shoulder and left lateral arm with intermittent numbness, tingling, weakness and some imbalance issues. Reports chronic tension headaches for which he takes Tylenol with mild relief. Left shoulder pain mildly reproduced with left overhead reaches and no pain with back pocket reaches. Patient reports he tries to stay active despite the pain. Reports daily activity of walking and push ups. Spine MRI imaging is noted below. Patient was referred to us by Dr. Espinal for cervical epidural injection. Patient requests neck injections under sedation only. Denies any fever, chills, weight loss, bladder or bowel incontinence or saddle anesthesia. Complex mental health history includes psychiatric admission at [facility]. Per recent neurology note review, patient had a gambling addiction, has had multiple psychiatric admissions including one when he jumped off the top of the building, another with intentional overdose on Depakote and multiple hypnotic medications, and multiple suicidal attempts according to his records. Patient reports traumatic brain injury at age 18 when he fell while playing basketball landing on his head and had some right frontal encephalomalacia as a result and a single seizure. Most recent EEG on 05/16/22 was normal. Patient reports his diabetes is controlled with A1C below 7.0 but requests Nutritional Consult to assist him in better food choices and potential weight loss. Location Lower neck, radiates down bilateral shoulders, worse on the left Duration Chronic neck pain for past 3 years Characteristics of symptom or complaint Aching, pins and needles, burning, stabbing, shooting Aggravating or associated factors Movements, stress, bending, looking down Relieving factors Tyelnol, cyclobenzaprine, stretching exercises Treatment PT low back in 2019, currently at chiropract[facility] Medical History Hypothyroid GERD (gastroesophageal reflux disease) HTN (hypertension) Elevated cholesterol Traumatic brain injury Low back pain Diabetes Tension headache Cerebellar ataxia PTSD (post-traumatic stress disorder) Bipolar disorder Cervical disc disease Surgical History History of surgery Social History Household Members Other:: resides in residential Housing Other:: residential Comment: NO COUNTS NEEDED Patient Tobacco Use Status: Tobacco use Unknown Review of Systems Const All systems reviewed & are unremarkable except as noted in HPI and below Physical Exam Vital Signs: Last Vital Signs Pulse 83 10/02/23 09:51 BP 117/70 10/02/23 09:51 Pulse Ox 98 10/02/23 09:51 Oxygen Delivery Method Room Air 10/02/23 09:51 BMI result Body Mass Index 30.2 General: Appears afebrile. Alert and oriented. Mood and affect appropriate. Follows and participates in conversation appropriately. Respiratory effort is unlabored. No cough. Able to transition from sit to stand unassisted. Ambulates with bilaterally normal heel strike and toe off. Neck Neck: Yes normal visual inspection, Yes no lymphadenopathy, Yes no meningeal signs, Yes supple, No anterior neck swelling, Yes no JVD and No prominent dorsocervical fat pad General: Yes no CVA tenderness Back/Spine/Pelvis Back: no CVA tenderness Cervical Spine: cervical ROM normal, cervical muscular tenderness, pain with cervical ROM, No Cervical spine scars present, cervical spasm and No Cervical spine tenderness Thoracic/Lumbar Spine: thoracic and lumbar spine normal to inspection, No Thoracic/lumbar spine scar(s), Lasegue's sign negative, straight leg raise negative bilaterally, pain with thoraco-lumbar ROM (lumbar extension reproduces moderate symptoms. Mild pain w/ flexion/bending), paraspinal muscle tenderness, No thoracic spinal tenderness and lumbar spinal tenderness at L4 and at L5 Pelvis: no buttock tenderness Sacroiliac joints: bilaterally nontender Neuro General: no meningeal signs Extrem General: Yes capillary refill normal, Yes no clubbing, cyanosis or edema and Yes no calf tenderness Results Reviewed Results Reviewed: XR LUMBOSACRAL SPINE WITH OBLIQUES 09/16/23 CLINICAL INFORMATION: Spondylosis without myelopathy or radiculopathy, lumbar region FINDINGS: There 5 nonrib-bearing lumbar-type vertebral bodies. The height of vertebral bodies is well-maintained. There is straightening of the usual lumbar lordosis which can be seen with muscle spasm. There is marked disc space narrowing at L4-L5. There there is multilevel degenerative facet joint disease, most marked at L4-L5 and L5-S1. There is no spondylolisthesis. There is partial calcification of the distal abdominal aorta without evidence of aneurysmal dilatation. There is probably a healed fracture of the left posterior 11th rib. IMPRESSION: 1. Muscle spasm. 2. Degenerative disc disease at L4-L5. 3. Multilevel degenerative facet joint disease, most marked at L4-L5 and L5-S1. XR THORACIC SPINE 09/16/23 CLINICAL INFORMATION: Dorsalgia, unspecified FINDINGS: There is no fracture or bone destruction seen and the vertebral alignment is normal. There is is multilevel disc space narrowing with anterior marginal osteophyte formation. There is no abnormality of the paraspinal soft tissues. Incidental note is made of straightening of the usual cervical lordosis which can be seen with muscle spasm or be due to patient positioning. IMPRESSION: 1. Multilevel degenerative disc disease of the thoracic spine. 2. Straightening of the usual cervical lordosis which can be seen with muscle spasm or be due to patient positioning. XR CERVICAL SPINE 11/28/22 FINDINGS: Vertebral bodies are well aligned and intervertebral discs are preserved. Pedicles are intact. There is mild narrowing of C5-C6 intervertebral disc space without spondylolysis or listhesis. Soft tissues unremarkable. IMPRESSION: Mild degenerative changes at the level of C5-C6. Assessment & Plan Assessment & Plan (1) Cervical disc disease: Code(s): M50.90 - Cervical disc disorder, unspecified, unspecified cervical region Category: Medical (2) Cervical spondylosis: Code(s): M47.812 - Spondylosis without myelopathy or radiculopathy, cervical region Category: Medical (3) Lumbar spondylosis: Code(s): M47.816 - Spondylosis without myelopathy or radiculopathy, lumbar region Category: Medical (4) Mid back pain: Code(s): M54.9 - Dorsalgia, unspecified Category: Medical (5) Lumbar degenerative disc disease: Code(s): M51.36 - Other intervertebral disc degeneration, lumbar region Category: Medical (6) Low back pain: Code(s): M54.50 - Low back pain, unspecified Category: Medical Plan Thoracic and lumbar spine xray results were reviewed with patient today. Recommend to start formal physical therapy for neck, mid and low back pain associated with muscle spasms and stiffness. Patient initiated PT in April, but has not continued. New PT script sent today. [facility] [place] information was provided to patient today. Short script provided for oxycodone 5 mg daily prn #20 tablets for moderate- severe pain only. Side effects and precautions were discussed with patient today. Narcan script also was provided. Encouraged daily physical activity, adequate hydration, healthy food choices, good posture, avoid pain producing activities, and weight optimization. All questions and concerns have been answered and the patient agreed with the plan. Follow up after Physical Therapy and sooner if needed. Orders: Orders 2 PT Evaluation and Treatment Today M47.812 - Spondylosis without myelopathy or radiculopathy, cervical region, M47.816 - Spondylosis without myelopathy or radiculopathy, lumbar region, M50.90 - Cervical disc disorder, unspecified, unspecified cervical region, M51.36 - Other intervertebral disc degeneration, lumbar region, M54.9 - Dorsalgia, unspecified Medications: New 2 oxycodone Partial Fill upon patient request. 5 mg PO DAILY 20 days PRN 20 tabs 0RF pain M47.812 - Spondylosis without myelopathy or radiculopathy, cervical region, M47.816 - Spondylosis without myelopathy or radiculopathy, lumbar region, M50.90 - Cervical disc disorder, unspecified, unspecified cervical region, M51.36 - Other intervertebral disc degeneration, lumbar region, M54.9 - Dorsalgia, unspecified naloxone 4 mg/actuation (Narcan) spray 1 dose into ONE nostril; alternate nostrils w each dose until help arrives 4 mg intranasal Q2M PRN 2 ea 0RF opioid overdose Coding Level of Care Code Est Pt Level 4 (25033) Diagnoses Cervical disc disease M50.90 Cervical spondylosis M47.812 Lumbar spondylosis M47.816 Mid back pain M54.9 Lumbar degenerative disc disease M51.36 Low back pain M54.50
[2023-10-02 09:51] VITALS: BP 117/70; PULSE 83; O2SAT 98; BMI 30.2
== END 2023-10-02 10:25 | disposition home or self-care (01) ==
PROVIDERS: PCP Internal Medicine; Visit Provider Nurse Practitioner Family
DX: M50.90 Cervical disc disorder, unspecified, unspecified cervical region (principal); M47.812 Spondylosis without myelopathy or radiculopathy, cervical region; M47.816 Spondylosis without myelopathy or radiculopathy, lumbar region; M54.9 Dorsalgia, unspecified; M51.36 Other intervertebral disc degeneration, lumbar region; M54.50 Low back pain, unspecified
CPT/HCPCS: 99214

== ENCOUNTER → 2023-10-02 09:39 | Outpatient (BNVA) | payer MEDICARE, MEDICAID, SELFPAY | PROVIDERS: PCP Internal Medicine; Visit Provider Nurse Practitioner Family | DX: M50.90 Cervical disc disorder, unspecified, unspecified cervical region (principal); M47.812 Spondylosis without myelopathy or radiculopathy, cervical region; M47.816 Spondylosis without myelopathy or radiculopathy, lumbar region; M51.36 Other intervertebral disc degeneration, lumbar region; M54.50 Low back pain, unspecified | CPT/HCPCS: 99212 ==

== ENCOUNTER 2023-11-17 14:28 | Outpatient (AMB) | payer MEDICARE, MEDICAID, SELFPAY ==
[2023-11-17 14:33] VITALS: BP 125/84; PULSE 97; O2SAT 100; BMI 30.1
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
== END 2023-11-17 15:31 | disposition home or self-care (01) ==
PROVIDERS: PCP Internal Medicine; Visit Provider Nurse Practitioner Family
DX: M51.36 Other intervertebral disc degeneration, lumbar region (principal); M50.90 Cervical disc disorder, unspecified, unspecified cervical region; M47.812 Spondylosis without myelopathy or radiculopathy, cervical region; M47.816 Spondylosis without myelopathy or radiculopathy, lumbar region; M54.50 Low back pain, unspecified
CPT/HCPCS: 99214

== ENCOUNTER → 2023-11-17 14:28 | Outpatient (BNVA) | payer MEDICARE, MEDICAID, SELFPAY | PROVIDERS: PCP Internal Medicine; Visit Provider Nurse Practitioner Family | DX: M51.36 Other intervertebral disc degeneration, lumbar region (principal); M50.90 Cervical disc disorder, unspecified, unspecified cervical region; M47.812 Spondylosis without myelopathy or radiculopathy, cervical region; M47.816 Spondylosis without myelopathy or radiculopathy, lumbar region; M54.50 Low back pain, unspecified | CPT/HCPCS: 99212 ==

== ENCOUNTER 2024-01-21 08:51 | Outpatient (REF) | payer MEDICARE, MEDICAID, SELFPAY | END 2024-01-21 08:52 | disposition home or self-care (01) | LOC: CF 08:51 | PROVIDERS: Visit Provider Internal Medicine | DX: Z13.89 Encounter for screening for other disorder (principal) ==

== ENCOUNTER 2024-01-29 10:30 | Outpatient (RCR) | payer MEDICARE, MEDICAID, SELFPAY ==
--- NOTE | 2024-01-14 09:49 | HO.PHP ---
Kody did not show up for program today. Pt was called by fha underwriter at 9:20 am twice, a voicemail was left. Pt did not respond and did not call back. Kody's emergency contact was called, Susanne identified herself as the manager brand in the [facility] where Kody resides, stated the mobile lounge driver was on the way. Susanne was instructed of group start time and Kody would be arriving 1 hour late so can not stay for day. Susanne stated on 's pt needs to see the nurse for medication and the nurse was late.
--- NOTE | 2024-01-14 09:56 | HO.PHP ---
9:50 AM: PHP staff member reached out to the alf that Kody lives in to explore if she spoke to the individual driving him to program to inform him that it is too late to attend program. Ciara disclosed that she has not at this time. PHP staff informed Hiral that our program starts at 9 AM and the latest he can arrive to program is at 9:30 AM if he contacts in informs us that he will be running late. PHP staff member disclosed if we are not aware he is running late and he shows up after 9:15 AM, we would have to inform him he can't stay. Ciara disclosed that the nurse showed up late today, which is why he was coming in late. PHP staff expressed that she is aware and informing her of the guidelines for future referrences. Ciara then stated okay so he won't be there today or tomorrow then because he is going to the [employer]. PHP staff member stated that he needs to be in attendance to program all days, unless we are informed other marti. PHP staff disclosed if he does not attend program tomorrow then he will need to do a reassessment. Hiral said he will be there tomorrow and he just won't go to the [facility]. PHP staff member was receptive.
[2024-01-15 11:34] VITALS: BP 114/99; PULSE 97; TEMP 36.7
[2024-01-15 11:36] VITALS: BMI 30.5
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
--- NOTE | 2024-01-15 21:41 | HO.PS.ADMBH ---
HPI Date of Service: 01/15/24 Chief Complaint: anxiety Sources of Information: patient interviewed, chart reviewed and crisis/core team assessment reviewed HPI Narrative: Patient is a 53 yo male, with history of TBI, DMH connected and lives in a correction who was referred to [facility] for support around increased agitation, irritability. Patient says he is here because correction staff they say I'm angry, agitated, they say I'm *quote* S.I. and H.I.' and I'm not! He also relays some possible paranoid ideation around his providers and staff at the correction, they are always writing down bad things about me. They say all types of things about me that aren't true . No grossly delusional content was elicited. He denies any AH, VH, TH. When asked about HI, he says there are people that deserve to but clarifies he is referring in general about there's just bad people in the world that do bad things to people and says there is no one specifically he was talking about. He also adds that he is not like those kind of (bad) people and says he has no thoughts, urge or wish to harm anyone. Sleep is horrible for 3-4 months, appetite is horrible , he is uncertain about any weight changes, energy is low. He presents as irritable, but denies being irritable. He endorses passive SI that comes and goes, last occurred when he was in [facility] Crisis. Patient is very psychosomatic, preoccupied with many physical ailments occurring simultaneously and attributing multiple system complaints to a concussion he reportedly sustained about 2 months ago. He relays various complaints about his correction, some complaints may possibly be grounded in reality, others not so much. He does not like his outpatient provider because he's not helping . He feels his current medication regime is ineffective, which includes Lexapro not working , Caplyta not helping and Lamictal which doesn't do anything . He has been on current medication for some time, he was recently switched to Lexapro. Past Psychiatric History: Multiple IPLOCs, respite, [facility] admissions Psych provider: Dr. Everett Rojas at [facility] PCP: Dr. Dwaine Bocanegra at [facility] He reports previous trials of Prozac and Zoloft (both her reports allergies) as well as Effexor, Cymbalta, Wellbutrin, Remeron, Buspar, Lexapro and Lamcital (both current), Abilify, Risperdal, Zyprexa, Seroquel (allergy), lithium, DEpakote, Trileptal, gabapentin, Haldol (current), (He is unsure about Invega, Thorazine, Paxil) denies trials of citalopram, lurasidone, brexpiprazole, clozapine, pregabalin [facility] Medical History (Updated 01/29/24 @ 01:50 by Estrella Potts MD) Seizure Nocturnal hypoxemia Atherosclerosis Mild cognitive impairment BPH (benign prostatic hyperplasia) Hypokinesis Vitamin D deficiency Hyponatremia Chronic systolic (congestive) heart failure Focal seizures History of concussion Chronic pain COPD (chronic obstructive pulmonary disease) Hypothyroidism Xerosis of skin Lower urinary tract symptoms (LUTS) Overactive bladder Hypercholesteremia Rosacea Tinea pedis Abdominal spasms Rectal spasm Cardiomyopathy Tachycardia GERD (gastroesophageal reflux disease) HTN (hypertension) Elevated cholesterol Traumatic brain injury Low back pain Diabetes Tension headache Cerebellar ataxia PTSD (post-traumatic stress disorder) Bipolar disorder Cervical disc disease Surgical History History of surgery Family History: unknown Social History: Lives in correction Born and raised in [place], [place] Graduated and completed 2 years of college 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) in the s and has an adult son whom he has no contact with Substance History: Remote history of crack/cocaine >25 yrs ago Remote occasional alcohol use, none since 7 yrs ago Cigarette smoker Diagnostics Vital Signs (24Hr): Vital Signs - 24 hr 01/15/24 11:34 Temperature 98.1 F Pulse Rate 97 Blood Pressure 114/99 H BMI result Body Mass Index 30.5 Meds/Allergies Meds Home Medications ?Medication ?Instructions ?Recorded ?Confirmed ?Type atorvastatin 40 mg tablet 40 mg PO BEDTIME 11/27/22 01/18/24 History cholecalciferol (vitamin D3) 50 50 mcg PO QAM 11/27/22 01/18/24 History mcg (2,000 unit) tablet clonazepam 0.5 mg tablet 0.5 mg PO DAILY PRN Anxiety 11/27/22 01/18/24 History cyanocobalamin (vitamin B-12) 500 500 mcg PO QAM 11/27/22 01/18/24 History mcg tablet levothyroxine 25 mcg tablet 25 mcg PO QAM 11/27/22 01/18/24 History nortriptyline 50 mg capsule 100 mg PO BEDTIME 11/27/22 01/18/24 History aspirin 81 mg tablet,delayed 81 mg PO QAM 12/09/22 01/18/24 History release benztropine 0.5 mg tablet 0.5 mg PO QPM 12/09/22 01/18/24 History diclofenac sodium 1 % topical gel 2 g topical QID PRN back/neck pain 12/09/22 01/18/24 History dulaglutide 3 mg/0.5 mL 3 mg subcut QWEEK 12/09/22 01/18/24 History subcutaneous pen injector (Trulicity) lumateperone 42 mg capsule 42 mg PO BEDTIME 12/09/22 01/18/24 History (Caplyta) albuterol sulfate 90 mcg/actuation 2 puff inhalation Q4H PRN sob 04/23/23 01/18/24 History aerosol inhaler lamotrigine 150 mg tablet 150 mg PO BID 04/23/23 01/18/24 History acetaminophen 650 mg 600 mg PO Q6H PRN pain 01/18/24 01/18/24 History tablet,extended release (Tylenol Arthritis Pain) ammonium lactate 12 % lotion 1 appl topical BEDTIME 01/18/24 01/18/24 History carvedilol 25 mg tablet 25 mg PO BID 01/18/24 01/18/24 History clonazepam 1 mg tablet (Klonopin) 1 mg PO BEDTIME 01/18/24 01/18/24 History escitalopram oxalate 20 mg tablet 20 mg PO DAILY 01/18/24 01/18/24 History (Lexapro) fluticasone fur. 100 mcg-umeclid 1 ea inhalation QAM 01/18/24 01/18/24 History 62.5 mcg-vilant 25 mcg inhalat.powder (Trelegy Ellipta) lidocaine 5 % topical ointment 1 appl topical BID PRN Rectal pain 01/18/24 01/18/24 History lidocaine 5 % topical patch 1 patch topical Q12H PRN pain 01/18/24 01/18/24 History loperamide 2 mg capsule (Imodium 2 mg PO Q4H PRN Diarrhea 01/18/24 01/18/24 History A-D) metronidazole 0.75 % topical gel 1 appl topical BID 01/18/24 01/18/24 History multivitamin-ferrous 1 tab PO QAM 01/18/24 01/18/24 History fumarate-folic acid 18 mg-400 mcg tablet (Certavite-Antioxidant) naproxen 500 mg tablet 500 mg PO Q12H PRN Pain 01/18/24 01/18/24 History swimqeva-izkntaqnba-djnmmtaph 1 appl topical BID PRN minor cuts 01/18/24 01/18/24 History topical packet ondansetron 4 mg disintegrating 4 mg PO Q8H PRN Nausea 01/18/24 01/18/24 History tablet pantoprazole 40 mg tablet,delayed 40 mg PO DAILY 01/18/24 01/18/24 History release (Protonix) sacubitril 97 mg-valsartan 103 mg 1 tab PO BID 01/18/24 01/18/24 History tablet (Entresto) sennosides 8.6 mg capsule (senna) 8.6 mg PO BEDTIME PRN Constipation 01/18/24 01/18/24 History tamsulosin 0.4 mg capsule (Flomax) 0.4 mg PO DAILY 01/18/24 01/18/24 History trazodone 50 mg tablet 50 mg PO BEDTIME 01/18/24 01/18/24 History triamcinolone acetonide 55 mcg 1 spray intranasal BID 01/18/24 01/18/24 History nasal spray aerosol sodium chloride 0.65 % nasal spray 2 spray intranasal BID 01/22/24 01/22/24 History aerosol (Saline Mist) Allergies Allergies Allergy/AdvReac Type Severity Reaction Status Date / Time fluoxetine [Prozac] Allergy Intermediate Seizures Verified 11/17/23 14:34 bupropion Allergy Unknown Verified 01/14/24 08:38 divalproex sodium Allergy Unknown Verified 01/14/24 08:38 [From Depakote] quetiapine [From Seroquel] Allergy Unknown Verified 01/14/24 08:38 risperidone [From Risperdal] Allergy Unknown Verified 01/14/24 08:38 sertraline Allergy Unknown Verified 01/14/24 08:38 thiothixene [From Navane] Allergy Unknown Verified 01/14/24 08:38 paroxetine [From Paxil] AdvReac Mild suicidal Verified 11/17/23 14:34 thoughts risperdal analogues Allergy Unknown Uncoded 01/14/24 08:46 From Paxil AdvReac Mild SUICIDAL Uncoded 01/05/20 17:51 THOUGHTS Mental Status Exam Mental Status Exam Narrative: Alert, oriented, in no acute distress. Calm, cooperative, engaged. No psychomotor agitation or neurovegetative retardation. Eye contact maintained. Mood depressed, affect constricted, irritable edge without notable lability. Speech normal. Thought process linear, preoccupied, some illogicity, mostly coherent. Thought content related to stressors, paranoid and referential ideation, transient helplessness and hopelessness, denies SI, intention, urge or plan. Denies any aggressive ideation or HI. No paranoia or delusional content elicited. No evidence of psychosis. Insight and judgment - fair but adequate Assessment & Plan Assessment & Plan (1) Moderate mixed bipolar II disorder: Status: Acute Code(s): F31.81 - Bipolar II disorder Assessment and Plan: . (2) Pain disorder associated with psychological factors and medical condition: Status: Acute Code(s): F45.42 - Pain disorder with related psychological factors Assessment and Plan: r/o pain related to neurological injury/concussion r/o pain related to general medical condition r/o Somatoform disorder (3) Neurocognitive deficits: Status: Acute Code(s): R29.818 - Other symptoms and signs involving the nervous system; R41.89 - Other symptoms and signs involving cognitive functions and awareness Assessment and Plan: . (4) History of traumatic brain injury: Status: Acute Code(s): Z87.820 - Personal history of traumatic brain injury Assessment and Plan: . (5) Pervasive developmental disorder: Status: Acute Code(s): F84.9 - Pervasive developmental disorder, unspecified Assessment and Plan: . Plan Admit to [facility] VS reviewed: abrefile, BP 114/99;?97 bpm continue regular medications?for now Routine lab work ordered EKG, routine for baseline QTc for medication considerations UDS as indicated MassPat reviewed Continue to monitor as per protocol Patient educated on: diagnosis and medication risk/benefits Informed Consent: understands Reason for continued partial hosp. stay Substantial Risk for: inability to function and med/psych decompensation Certification I certify that partial hospital treatment is medically necessary due to the symptoms and problems resulting from the patient's mental illness and the failure to treat the patient at the partial hospital level of care would likely result in the patient requiring inpatient psychiatric care which could not be prevented at a less intensive level of care. Time Spent With Patient Time: Total time managing care of this patient today __60__ minutes.
--- NOTE | 2024-01-18 09:42 | PC.NURSE ---
Called and left several messages with Patient Coordinator Sondra Gray to call me back regarding Kody's medical issues along with patient reports of recent concussions and question if CT scan completed as patient reports no CT scan done. Patient also reports he has an upcoming appointment with Neurologist Dr oDng.
--- NOTE | 2024-01-18 14:00 | PC.NURSE ---
Confirmed patient's medication list with donor relations manager Sondra Gray Drug Abuse Resistance Education Officer at the [facility]. [facility] dispenses patient medications to Kody daily. Patient reports to this sheet writer he has focal seizures. Sondra stated patient absolutely does not have any type of seizure disorder. Patient also reports that he has a CT scan ordered and he has not had one done as of yet. I asked Sondra about this and she stated he does not have any orders for a CT scan that she is aware of. He does have an appointment with Dr. Pina on Thursday. I told Sondra that Kody should attend this appointment and can miss the program on that day. She agreed.
--- NOTE | 2024-01-18 22:35 | HO.PHPPROGNO ---
Subjective Subjective Date of Service: 01/18/24 Reason For Visit: anxiety Interim History: Patient seen for follow-up. Today I'm in a good mood . He appears bright, but continues to present as agitated, irritable with paranoid ideation and somatic preoccupation. My facial expression hurts At the nursing home people are sly and says they will do things like clear their throat when they see me which he explains as that means they know something that's not true but they pretend like it is . He gets irritated when asked to clarify. He does not feel that is happening at the program, but says he has started to notice that people are getting on my nerves , says the other people at the program they don't have real problems and feels their problems are not as bad as his are. Patient denies any hopelessness or SI. Denies any aggressive ideation or HI. Denies any AH or VH. Some vague paranoia but no gross delusional thought content. Medication Compliance: Yes Side effects from medications: No Attending Groups: Yes Review of Systems Acute medical concerns: No Mental Status Exam Mental Status Exam Narrative: Alert, oriented, in no acute distress. Calm, cooperative, engaged. No psychomotor agitation or neurovegetative retardation. Eye contact maintained. Mood depressed, affect constricted, irritable edge without notable lability. Speech normal. Thought process linear, preoccupied, some illogicity, mostly coherent. Thought content related to stressors, paranoid and referential ideation, transient helplessness and hopelessness, denies SI, intention, urge or plan. Denies any aggressive ideation or HI. No paranoia or delusional content elicited. No evidence of psychosis. Insight and judgment - fair but adequate Diagnostics Vital Signs (24Hr): BMI result Body Mass Index 30.5 Assessment & Plan Assessment & Plan (1) Moderate mixed bipolar II disorder: Status: Acute Code(s): F31.81 - Bipolar II disorder Assessment and Plan: some mixed features, irritable, but mostly depressed with vague paranoia and referential ideation, no delusional content elicited (2) Somatoform pain disorder: Status: Acute Code(s): F45.41 - Pain disorder exclusively related to psychological factors Assessment and Plan: . (3) Neurocognitive deficits: Status: Acute Code(s): R29.818 - Other symptoms and signs involving the nervous system; R41.89 - Other symptoms and signs involving cognitive functions and awareness Assessment and Plan: . (4) History of traumatic brain injury: Status: Acute Code(s): Z87.820 - Personal history of traumatic brain injury Assessment and Plan: . (5) Pervasive developmental disorder: Status: Acute Code(s): F84.9 - Pervasive developmental disorder, unspecified Assessment and Plan: . (6) Pain disorder associated with psychological factors and medical condition: Status: Acute Code(s): F45.42 - Pain disorder with related psychological factors Assessment and Plan: r/o pain related to neurological injury/concussion r/o pain related to general medical condition r/o Somatoform disorder Plan stop clonazepam start lorazepam 0.5 mg TID (standing dose QHS, then prn dosing twice daily) start lurasidone 20 mg qd w meals for 4-6 days then increase to one tablet daily w meals continue other regular medications? Routine lab work ordered EKG, routine for baseline QTc for medication considerations Continue to monitor as per protocol Patient educated on: diagnosis, medication risk/benefits and medical condition Informed Consent: understands Reason for contiued partial hosp. stay Substantial Risk for: med/psych decompensation Certification I certify that partial hospital treatment is medically necessary due to the symptoms and problems resulting from the patient's mental illness and the failure to treat the patient at the partial hospital level of care would likely result in the patient requiring inpatient psychiatric care which could not be prevented at a less intensive level of care. Total time managing care of this patient today __30__ minutes. Discharge Plan Discharge Attending provider: Estrella Potts Additional Instructions: Kody has an OP therapy intake appointment scheduled on February 01, 2024 at 10 AM with Maxine Moreno. Location: [address] [place] [address]. ? Medications: New lurasidone 40 mg tablet 40 mg PO QPM Qty: 30 0RF Rx Instructions: must administer with food (at least 350 calories) Continued acetaminophen [Tylenol Arthritis Pain] 650 mg tablet extended release 600 mg PO Q6H PRN (Reason: pain) escitalopram oxalate [Lexapro] 20 mg Tablet 20 mg PO DAILY lorazepam 0.5 mg tablet 0.5 mg PO TID PRN (Reason: anxiety) Qty: 30 0RF Rx Instructions: take one tablet daily in AM and one tablet daily in evening; take one tablet daily PRN anxiety clonazepam 0.5 mg tablet 0.5 mg PO DAILY PRN (Reason: Anxiety) cholecalciferol (vitamin D3) 50 mcg (2,000 unit) tablet 50 mcg PO QAM cyanocobalamin (vitamin B-12) 500 mcg tablet 500 mcg PO QAM levothyroxine 25 mcg tablet 25 mcg PO QAM atorvastatin 40 mg tablet 40 mg PO BEDTIME nortriptyline 50 mg capsule 100 mg PO BEDTIME diclofenac sodium 1 % gel 2 g topical QID PRN (Reason: back/neck pain) Trulicity 3 mg/0.5 mL pen injector 3 mg subcut QWEEK Caplyta 42 mg capsule 42 mg PO BEDTIME aspirin 81 mg tablet,delayed release (DR/EC) 81 mg PO QAM benztropine 0.5 mg tablet 0.5 mg PO QPM lamotrigine 150 mg tablet 150 mg PO BID albuterol sulfate 90 mcg/actuation HFA aerosol inhaler 2 puff inhalation Q4H PRN (Reason: sob) Discontinued duloxetine 30 mg capsule,delayed release(DR/EC) 30 mg PO DAILY No Action carvedilol 25 mg tablet 25 mg PO BID lidocaine 5 % adhesive patch,medicated 1 patch topical Q12H PRN (Reason: pain) pantoprazole [Protonix] 40 mg Tablet,Delayed Release (Dr/Ec) 40 mg PO DAILY Certavite-Antioxidant 18-400 mg-mcg tablet 1 tab PO QAM Entresto 97-103 mg tablet 1 tab PO BID Trelegy Ellipta 100-62.5-25 mcg blister with device 1 ea inhalation QAM metronidazole 0.75 % gel 1 appl topical BID Rx Instructions: Thin layer twice a day. ammonium lactate 12 % lotion 1 appl topical BEDTIME Rx Instructions: Thin layer topically. loperamide [Imodium A-D] 2 mg Capsule 2 mg PO Q4H PRN (Reason: Diarrhea) Rx Instructions: administer after each loose stool until symptoms controlled; do not exceed 8 mg per 24 hrs. Call PCP if not resolved. lidocaine 5 % ointment 1 appl topical BID PRN (Reason: Rectal pain) ondansetron 4 mg Tablet,Disintegrating 4 mg PO Q8H PRN (Reason: Nausea) Neosporin ([id number]) Packet 1 appl TOPICAL BID PRN (Reason: minor cuts) senna 8.6 mg Capsule 8.6 mg PO BEDTIME PRN (Reason: Constipation) Rx Instructions: Give if no BM om 3 days in the PM. If no results in 24 hours go to step 2. Step 2 Milk of Magnesium. clonazepam [Klonopin] 1 mg Tablet 1 mg PO BEDTIME Rx Instructions: administer 30 minutes before bedtime trazodone 50 mg Tablet 50 mg PO BEDTIME triamcinolone acetonide 55 mcg aerosol,spray 1 spray intranasal BID tamsulosin [Flomax] 0.4 mg Capsule 0.4 mg PO DAILY naproxen 500 mg Tablet 500 mg PO Q12H PRN (Reason: Pain) Saline Mist 0.65 % Aerosol,Sandwich 2 spray INTRANASAL BID Stand Alone Forms: Patient Portal Discharge page Patient Education: Bipolar Disorder (DC) Print Language: Persian
--- NOTE | 2024-01-19 09:56 | HO.PHP ---
Kody was called by [facility] staff at roughly 9:20 am when pt did not arrive for programming, a voicemail was left, pt did not call back. Pt's emergency contact was then called, the detention where he resides. long term staff Ciara reported that Kody was at a Podiatry appt this morning and would be in tomorrow. Ciara also notified staff that Kody's Neurology appt which was scheduled for tomorrow has been rescheduled for 01/26/24.
--- NOTE | 2024-01-20 11:30 | HO.PHP ---
PHP staff member faxed over a referral for OP therapy, case management, and day treatment for Kody through [facility]. PHP staff member is awaiting on those appointment dates and times.
--- NOTE | 2024-01-21 12:16 | HO.PHP ---
At roughly 11:00 am during group, Kody asked chart writer a question regarding the handout question, asking chart writer what do you do when people avoid you... As pt was saying this he stared at a select female peer, and snapped his head in her direction as if to indicate he was referring to her. Kody went on to say he feels people stay away from him once they know he has various mental illness diagnoses and asked what he should do? then elaborated on how he feels people become scared of him or can't handle me because of the way I am . Throughout his question and statement Kody continued to stare at this peer then look away then whip his head in her direction again and stare again. Pt was redirected by chart writer and reminded that we can not control how others feel and although we may disagree we must respect it and focus on ourselves. Pt did not reply, quiet for most of group after that. Staff notified via tiger text and female peer was pulled from group. After group chart writer checked in with Kody, pt denied he had any hostile or negative feelings towards his peer. Stated he has been struggled with pops in his head and changed the subject. Kody was encouraged to address staff when he speaks and to please report to staff if he is feeling upset or bothered by others. Pt agreed. [facility] staff notified.
--- NOTE | 2024-01-26 10:01 | HO.PHP ---
PHP staff member received an email for Kody through [facility] with his scheduled OP therapy intake appointment. The appointment is below: 02/01/2024 - 10:00 AM - 11:00 AM [facility] Adult Comprehensive Assessment Prog: Outpatient Site: [address] [place] [address] Staff: MARTY GRAJEDA
--- NOTE | 2024-01-26 10:31 | HO.PHP ---
[facility] staff member contacted Kody due to him not showing up for community meeting. Kody disclosed that he will not be in attendance to program today due to having a neurology appointment. Kody stated his fpc was supposed to contact our program to let us know. [facility] staff member assessed for safety, in which he reported no safety concerns and will be in attendance to program tomorrow.
--- NOTE | 2024-01-29 12:44 | HO.PHPPROGNO ---
Subjective Subjective Date of Service: 01/29/24 Reason For Visit: anxiety Interim History: Patient seen for follow-up, anticipating discharge at the end of program today.? Patient continues with the same complaints from our previous encounters including jail staff who hate him and casework specialist who is worthless . He continues to report that jail staff are canceling his doctor appointments although he also shares that he has been seen by his neurologist and other providers since he has been at the program. I asked if he spoke to his neurologist about his concerns about not having completed the MRI he ordered, but he said he did not remember to ask him. They (his doctors) are all inept..they just want to see me stay in pain . He is scheduled to see his teacher's assistant soon I see a teacher's assistant because my heart is in terrible shape . PHP nurse checked in with his jail who report that the patient is making it to all his scheduled appointments. Apparently this is close to or at patient's baseline. No new complaints reported. Medication compliant, medications well-tolerated. Denies any adverse effects.? Mood is anxious but stable, denies feeling depressed or irritable, despite presenting as irritable. He denies having any suicidal thoughts, denies thoughts of giving up on life. Denies thoughts of harming self or others at this time. Denies any aggressive ideation or HI. He reports sleep and appetite are normal. Mental Status Exam Mental Status Exam Narrative: Alert, oriented, in no acute distress. Calm, cooperative. Mood anxious, frustrated, affect . Speech normal. Thought process linear, coherent, more goal-directed. Thought content related to stressors, future-oriented, denies any helplessness, hopelessness or SI.? No aggressive ideation or HI. No paranoia or delusional content elicited. No evidence of psychosis. Insight and judgment fair-good. Alert, oriented, in no acute distress. Eye contact maintained. Mood anxious, affect constricted, irritable edge without notable lability. Speech normal. Thought process linear, coherent, some illogicity but no FOI or RASHID. Thought content related to stressors, preoccupied with somatic complaints, suspiciousness, vague referential ideation, No gross delusional content elicited. Transient helplessness, denies SI, intention, urge or plan. Denies any aggressive ideation or HI. Insight limited, and judgment fair but adequate. Diagnostics Vital Signs (24Hr): BMI result Body Mass Index 30.5 Assessment & Plan Assessment & Plan (1) Moderate mixed bipolar II disorder: Status: Acute Code(s): F31.81 - Bipolar II disorder Assessment and Plan: . (2) Pain disorder associated with psychological factors and medical condition: Status: Acute Code(s): F45.42 - Pain disorder with related psychological factors Assessment and Plan: r/o pain related to neurological injury/concussion r/o pain related to general medical condition r/o Somatoform disorder (3) Neurocognitive deficits: Status: Acute Code(s): R29.818 - Other symptoms and signs involving the nervous system; R41.89 - Other symptoms and signs involving cognitive functions and awareness Assessment and Plan: . (4) History of traumatic brain injury: Status: Acute Code(s): Z87.820 - Personal history of traumatic brain injury Assessment and Plan: . (5) Pervasive developmental disorder: Status: Acute Code(s): F84.9 - Pervasive developmental disorder, unspecified Assessment and Plan: . Plan Discharge from [facility] Continue regular medications Refills sent to pharmacy Will defer further medication management to outpatient provider *Safety plan reviewed *Discharge diagnoses, treatment course, discharge plan have been reviewed with patient (including medication regime, medication management, potential side effects) as well as treatment rationale were also revisited *Discharge paperwork signed and given to patient, copy sent for scanning to chart Patient educated on: diagnosis and medication risk/benefits Informed Consent: understands Reason for contiued partial hosp. stay Substantial Risk for: stable for discharge and med/psych decompensation Certification I certify that partial hospital treatment is medically necessary due to the symptoms and problems resulting from the patient's mental illness and the failure to treat the patient at the partial hospital level of care would likely result in the patient requiring inpatient psychiatric care which could not be prevented at a less intensive level of care. Total time managing care of this patient today _30___ minutes. Discharge Plan Discharge Attending provider: Estrella Potts Additional Instructions: Kody has an OP therapy intake appointment scheduled on February 01, 2024 at 10 AM with Maxine Moreno. Location: [address] [place] [address]. ? Medications: New lurasidone 40 mg tablet 40 mg PO QPM Qty: 30 0RF Rx Instructions: must administer with food (at least 350 calories) Continued acetaminophen [Tylenol Arthritis Pain] 650 mg tablet extended release 600 mg PO Q6H PRN (Reason: pain) escitalopram oxalate [Lexapro] 20 mg Tablet 20 mg PO DAILY lorazepam 0.5 mg tablet 0.5 mg PO TID PRN (Reason: anxiety) Qty: 30 0RF Rx Instructions: take one tablet daily in AM and one tablet daily in evening; take one tablet daily PRN anxiety clonazepam 0.5 mg tablet 0.5 mg PO DAILY PRN (Reason: Anxiety) cholecalciferol (vitamin D3) 50 mcg (2,000 unit) tablet 50 mcg PO QAM cyanocobalamin (vitamin B-12) 500 mcg tablet 500 mcg PO QAM levothyroxine 25 mcg tablet 25 mcg PO QAM atorvastatin 40 mg tablet 40 mg PO BEDTIME nortriptyline 50 mg capsule 100 mg PO BEDTIME diclofenac sodium 1 % gel 2 g topical QID PRN (Reason: back/neck pain) Trulicity 3 mg/0.5 mL pen injector 3 mg subcut QWEEK Caplyta 42 mg capsule 42 mg PO BEDTIME aspirin 81 mg tablet,delayed release (DR/EC) 81 mg PO QAM benztropine 0.5 mg tablet 0.5 mg PO QPM lamotrigine 150 mg tablet 150 mg PO BID albuterol sulfate 90 mcg/actuation HFA aerosol inhaler 2 puff inhalation Q4H PRN (Reason: sob) Discontinued duloxetine 30 mg capsule,delayed release(DR/EC) 30 mg PO DAILY No Action carvedilol 25 mg tablet 25 mg PO BID lidocaine 5 % adhesive patch,medicated 1 patch topical Q12H PRN (Reason: pain) pantoprazole [Protonix] 40 mg Tablet,Delayed Release (Dr/Ec) 40 mg PO DAILY Certavite-Antioxidant 18-400 mg-mcg tablet 1 tab PO QAM Entresto 97-103 mg tablet 1 tab PO BID Trelegy Ellipta 100-62.5-25 mcg blister with device 1 ea inhalation QAM metronidazole 0.75 % gel 1 appl topical BID Rx Instructions: Thin layer twice a day. ammonium lactate 12 % lotion 1 appl topical BEDTIME Rx Instructions: Thin layer topically. loperamide [Imodium A-D] 2 mg Capsule 2 mg PO Q4H PRN (Reason: Diarrhea) Rx Instructions: administer after each loose stool until symptoms controlled; do not exceed 8 mg per 24 hrs. Call PCP if not resolved. lidocaine 5 % ointment 1 appl topical BID PRN (Reason: Rectal pain) ondansetron 4 mg Tablet,Disintegrating 4 mg PO Q8H PRN (Reason: Nausea) Neosporin ([id number]-hyipt) Packet 1 appl TOPICAL BID PRN (Reason: minor cuts) senna 8.6 mg Capsule 8.6 mg PO BEDTIME PRN (Reason: Constipation) Rx Instructions: Give if no BM om 3 days in the PM. If no results in 24 hours go to step 2. Step 2 Milk of Magnesium. clonazepam [Klonopin] 1 mg Tablet 1 mg PO BEDTIME Rx Instructions: administer 30 minutes before bedtime trazodone 50 mg Tablet 50 mg PO BEDTIME triamcinolone acetonide 55 mcg aerosol,spray 1 spray intranasal BID tamsulosin [Flomax] 0.4 mg Capsule 0.4 mg PO DAILY naproxen 500 mg Tablet 500 mg PO Q12H PRN (Reason: Pain) Saline Mist 0.65 % Aerosol,[place] 2 spray INTRANASAL BID Stand Alone Forms: Patient Portal Discharge page Patient Education: Bipolar Disorder (DC) Print Language: Irish
== END 2024-01-29 23:59 | disposition home or self-care (01) ==
LOC: HO.PHPA 10:30
PROVIDERS: Visit Provider Psychiatry & Neurology Psychiatry
DX: F31.81 Bipolar II disorder (principal); F45.42 Pain disorder with related psychological factors; R29.818 Other symptoms and signs involving the nervous system; R41.89 Other symptoms and signs involving cognitive functions and awareness; F84.9 Pervasive developmental disorder, unspecified; Z87.820 Personal history of traumatic brain injury
CPT/HCPCS: 90791; 90853

== ENCOUNTER 2024-02-25 06:13 | Outpatient (REF) | payer MEDICARE, MEDICAID, SELFPAY | END 2024-02-25 06:14 | disposition home or self-care (01) | LOC: CF 06:13 | PROVIDERS: Visit Provider Internal Medicine | DX: Z13.89 Encounter for screening for other disorder (principal) ==

== ENCOUNTER 2024-07-28 15:37 | Emergency (ER) | payer MEDICARE, MEDICAID, SELFPAY ==
[2024-07-28 15:52] VITALS: BP 175/85; PULSE 93; RESP 18; TEMP 36.6; O2SAT 94; BMI 28.1
[2024-07-28] MEDS: OLANZapine 10 MG VIAL IM (16:32)
--- NOTE | 2024-07-28 16:32 | PC.NURSE ---
Patient became agitated, yelling for staff to kill him, screaming racial slurs. Unabel to be re-directed, at bedside. Medicated per jun and walked to POD
--- NOTE | 2024-07-28 16:34 | PC.NURSE ---
Pt arrives from Main ED. Report received that Pt was acting belligerent and combative therefore move to pod was indicated. Per report from security and ED Techs Pt willingly accepted medications to calm down. Pt is now resting on bed quietly. NAD noted at this time.
--- NOTE | 2024-07-28 16:47 | ED_ITS ---
HPI - Psych General Chief Complaint: Psychiatric Symptoms Stated Complaint: having delusions appearing manic, wants crisis Time Seen by Provider: 07/28/24 16:23 History of Present Illness HPI Narrative: patient is a 54-year-old male lives in a nursing home. Got extremely agitated. Was nursing home staff was going on. Patient was finally taken to the hospital for further evaluation upon arrival patient is yelling and screaming. Denies suicidal ideation. Patient has a history of bipolar disorder. Related Data Home Medications ?Medication ?Instructions ?Recorded ?Confirmed atorvastatin 40 mg tablet 40 mg PO BEDTIME 11/27/22 07/29/24 cholecalciferol (vitamin D3) 50 25 mcg PO QAM 11/27/22 07/29/24 mcg (2,000 unit) tablet clonazepam 0.5 mg tablet 0.5 mg PO DAILY PRN Anxiety 11/27/22 07/29/24 cyanocobalamin (vitamin B-12) 500 500 mcg PO QAM 11/27/22 07/29/24 mcg tablet levothyroxine 25 mcg tablet 25 mcg PO QAM 11/27/22 07/29/24 nortriptyline 50 mg capsule 100 mg PO BEDTIME 11/27/22 07/29/24 aspirin 81 mg tablet,delayed 81 mg PO QAM 12/09/22 07/29/24 release benztropine 0.5 mg tablet 0.5 mg PO QPM 12/09/22 07/29/24 diclofenac sodium 1 % topical gel 2 g topical QID PRN back/neck pain 12/09/22 07/29/24 dulaglutide 3 mg/0.5 mL 3 mg subcut QWEEK 12/09/22 07/29/24 subcutaneous pen injector (Trulicity) lumateperone 42 mg capsule 42 mg PO BEDTIME 12/09/22 07/29/24 (Caplyta) albuterol sulfate 90 mcg/actuation 2 puff inhalation Q4H PRN sob 04/23/23 07/29/24 aerosol inhaler lamotrigine 150 mg tablet 150 mg PO BID 04/23/23 07/29/24 acetaminophen 650 mg 600 mg PO Q6H PRN pain 01/18/24 07/29/24 tablet,extended release (Tylenol Arthritis Pain) ammonium lactate 12 % lotion 1 appl topical BEDTIME 01/18/24 07/29/24 carvedilol 25 mg tablet 12.5 mg PO BID 01/18/24 07/29/24 escitalopram oxalate 20 mg tablet 20 mg PO DAILY 01/18/24 07/29/24 (Lexapro) fluticasone fur. 100 mcg-umeclid 1 ea inhalation QAM 01/18/24 07/29/24 62.5 mcg-vilant 25 mcg inhalat.powder (Trelegy Ellipta) lidocaine 5 % topical ointment 1 appl topical BID PRN Rectal pain 01/18/24 07/29/24 lidocaine 5 % topical patch 1 patch topical Q12H PRN pain 01/18/24 07/29/24 loperamide 2 mg capsule (Imodium 2 mg PO Q4H PRN Diarrhea 01/18/24 07/29/24 A-D) metronidazole 0.75 % topical gel 1 appl topical BID 01/18/24 07/29/24 multivitamin-ferrous 1 tab PO QAM 01/18/24 07/29/24 fumarate-folic acid 18 mg-400 mcg tablet (Certavite-Antioxidant) naproxen 500 mg tablet 500 mg PO Q12H PRN Pain 01/18/24 07/29/24 ahejuwlm-opdvmltrft-mgvtqoajs 1 appl topical BID PRN minor cuts 01/18/24 07/29/24 topical packet ondansetron 4 mg disintegrating 4 mg PO Q8H PRN Nausea 01/18/24 07/29/24 tablet pantoprazole 40 mg tablet,delayed 40 mg PO DAILY 01/18/24 07/29/24 release (Protonix) sennosides 8.6 mg capsule (senna) 8.6 mg PO BEDTIME PRN Constipation 01/18/24 07/29/24 tamsulosin 0.4 mg capsule (Flomax) 0.4 mg PO DAILY 01/18/24 07/29/24 trazodone 50 mg tablet 100 mg PO BEDTIME 01/18/24 07/29/24 triamcinolone acetonide 55 mcg 1 spray intranasal BID 01/18/24 07/29/24 nasal spray aerosol sodium chloride 0.65 % nasal spray 2 spray intranasal BID 01/22/24 07/29/24 aerosol (Saline Mist) zynyqmpiga-unbdclwzfkjfo-xecgmtpi 2 tab PO Q8H PRN Pain 07/29/24 07/29/24 50 mg-325 mg-40 mg tablet cariprazine 1.5 mg capsule 1.5 mg PO DAILY 07/29/24 07/29/24 clonazepam 1 mg tablet 1 mg PO DAILY anxiety 07/29/24 07/29/24 clonidine HCl 0.1 mg tablet 0.1 mg PO BID PRN Agitation 07/29/24 07/29/24 diphenhydramine HCl 50 mg capsule 50 mg PO BEDTIME PRN Insomnia 07/29/24 07/29/24 diphenhydramine HCl 50 mg tablet 50 mg PO Q6H PRN Agitation 07/29/24 07/29/24 guaifenesin 100 mg/5 mL oral liquid 200 mg PO Q4H PRN Cough 07/29/24 07/29/24 hydroxyzine pamoate 50 mg capsule 50 mg PO Q4H PRN Anxiety 07/29/24 07/29/24 ibuprofen 600 mg tablet 600 mg PO Q6H PRN Pain 07/29/24 07/29/24 methocarbamol 750 mg tablet 1,500 mg PO Q6H PRN Back Pain 07/29/24 07/29/24 nicotine (polacrilex) 2 mg gum 2 mg buccal Q1H PRN Nicotine 07/29/24 07/29/24 (Nicorette) Cravings nicotine 14 mg/24 hr daily 1 patch transdermal DAILY 07/29/24 07/29/24 transdermal patch olanzapine 10 mg tablet 10 mg PO Q4H PRN anger 07/29/24 07/29/24 olanzapine 15 mg tablet 15 mg PO BEDTIME 07/29/24 07/29/24 sacubitril 49 mg-valsartan 51 mg 1 tab PO BID 07/29/24 07/29/24 tablet simethicone 80 mg chewable tablet 80 mg PO Q6H PRN GAS 07/29/24 07/29/24 Previous Rx's ?Medication ?Instructions ?Recorded lorazepam 0.5 mg tablet 0.5 mg PO TID PRN anxiety #30 tabs 01/29/24 lurasidone 40 mg tablet 40 mg PO QPM #30 tabs 01/29/24 Allergies Allergy/AdvReac Type Severity Reaction Status Date / Time fluoxetine [Prozac] Allergy Intermediate Seizures Verified 07/28/24 15:54 bupropion Allergy Unknown Verified 07/28/24 15:54 divalproex sodium Allergy Unknown Verified 07/28/24 15:54 [From Depakote] haloperidol [From Haldol] Allergy Unknown Verified 07/28/24 15:54 quetiapine [From Seroquel] Allergy Unknown Verified 07/28/24 15:54 risperidone [From Risperdal] Allergy Unknown Verified 07/28/24 15:54 sertraline Allergy Unknown Verified 07/28/24 15:54 thiothixene [From Navane] Allergy Unknown Verified 07/28/24 15:54 paroxetine [From Paxil] AdvReac Mild suicidal Verified 07/28/24 15:54 thoughts risperdal analogues Allergy Unknown Uncoded 07/28/24 15:54 From Paxil AdvReac Mild SUICIDAL Uncoded 07/28/24 15:54 THOUGHTS Review of Systems 2 Review of Systems: Positive history of bipolar, yelling and screaming unable to obtain full review of systems Yes Unobtainable due to mental condition and Unobtainable due to mental status PMFSH Past Medical History Medical History Seizure Nocturnal hypoxemia Atherosclerosis Mild cognitive impairment BPH (benign prostatic hyperplasia) Hypokinesis Vitamin D deficiency Hyponatremia Chronic systolic (congestive) heart failure Focal seizures History of concussion Chronic pain COPD (chronic obstructive pulmonary disease) Hypothyroidism Xerosis of skin Lower urinary tract symptoms (LUTS) Overactive bladder Hypercholesteremia Rosacea Tinea pedis Abdominal spasms Rectal spasm Cardiomyopathy Tachycardia GERD (gastroesophageal reflux disease) HTN (hypertension) Elevated cholesterol Traumatic brain injury Low back pain Diabetes Tension headache Cerebellar ataxia PTSD (post-traumatic stress disorder) Bipolar disorder Cervical disc disease Surgical History History of surgery Social History Social History Household Members Other:: resides in nursing home Housing Other:: nursing home Alcohol intake: never Comment: NO COUNTS NEEDED Patient Tobacco Use Status: Current everyday Tobacco user Tobacco use type: Cigarette Smoked in Last 30 Days: Yes Use of substances other than those prescribed or required for medical reasons: No Advance Directives: No Advance Directives Information Provided: No Physical Exam 2 Vital Signs: Vital Signs: Last Vital Signs Temp 97.5 F 08/03/24 08:11 Pulse 78 08/03/24 08:35 Resp 18 08/03/24 08:11 BP 137/90 H 08/03/24 08:11 Pulse Ox 95 08/03/24 08:11 O2 Del Method Room Air 08/03/24 08:11 BMI result Body Mass Index 28.1 Appearance: Alert. Oriented X3. No acute distress. Eyes: Pupils equal, round and reactive to light. ENT: Pharynx normal. Neck: Normal inspection. Neck supple. No lymph nodes noted. No crepitus CVS: Normal heart rate and rhythm. Pulses normal. Normal S1 and S2 Respiratory: No respiratory distress. Breath sounds normal. No Wheezing. No rales Abdomen: Soft and nontender. No rigidity. No distention. good BS x4 Skin: Skin warm and dry. Normal skin color. Normal skin turgor. Extremities: No lower extremity edema. Neurovascular intact to all extremities. No Lacerations. No Rash Neuro: Oriented X 3. No motor deficit. No sensory deficit. Moving all extermities. No slurred speech Course Reevaluation(s) Reevaluation #1: Time: 08:30 Date: 07/30/24 Provider: Annamarie Wiggins, DO Patient in physician observation for psychiatric evaluation.? No acute events reported overnight. No current complaints. VS stable.? pending inpatient bed search. Will continue to monitor. Reevaluation #2: Time: 07:24 Date: 07/31/24 Provider: Hermilo Yuan MD Patient in physician observation for psychiatric evaluation.? No acute events reported overnight. No current complaints. VS stable.? Patient is in bed search status. Will continue to monitor. Reevaluation #3: Time: 13:13 Date: 08/01/24 Provider: Annamarie Wiggins, DO Patient in physician observation for psychiatric evaluation.? No acute events reported overnight. No current complaints. VS stable.? Patient is in bed search status.. Will continue to monitor. Additional Reevaluation(s): Time: 09:00 Date: 08/02/24 Provider: Moose Wiggins MD Patient in physician observation for psychiatric evaluation.? No acute events reported overnight. No current complaints. VS stable.? Patient is in bed search status/pending CARE team evaluation. Will continue to monitor. Time: 07:17 Date: 08/03/24 Provider: Annamarie Wiggins DO Patient in physician observation for psychiatric evaluation.? No acute events reported overnight. No current complaints. VS stable.? Patient is in bed search status. While eating a sausage this AM he did ask for something strongr than tylenol for his chronic pain. I will defer at this time. Will continue to monitor. Time: 12:00 Date: 08/03/24 Provider: Annamarie Wiggins DO Physician observation ended at 12pm Patient to be admitted as inpatient to psychiatry - [facility] Medications Administered Generic Name Dose Route Start Last Admin Trade Name Freq PRN Reason Stop Dose Admin Acetaminophen 650 mg 07/29/24 10:41 08/02/24 23:45 Acetaminophen 325 Mg Tablet PO 650 mg Q6H PRN Administration pain Albuterol Sulfate 2 puff 07/29/24 09:05 08/03/24 04:38 Albuterol Sulfate 90 Mcg 8 Gm Inhaler INHALE 2 puff Q4H PRN Administration sob Aspirin 81 mg 07/29/24 10:45 08/03/24 08:07 Aspirin Enteric Coated 81 Mg Tablet. PO 81 mg DAILY SHARON Administration Atorvastatin Calcium 40 mg 07/29/24 21:00 08/02/24 20:01 Atorvastatin Calcium 40 Mg Tablet PO 40 mg BEDTIME SHARON Administration Benztropine Mesylate 0.5 mg 07/29/24 21:00 08/02/24 20:01 Benztropine Mesylate 0.5 Mg Tablet PO 0.5 mg BEDTIME SHARON Administration Cariprazine 3 mg 08/03/24 09:00 08/03/24 08:07 Cariprazine Hcl 3 Mg Capsule PO 3 mg DAILY SHARON Administration Carvedilol 12.5 mg 07/29/24 11:00 08/03/24 08:35 Carvedilol 12.5 Mg Tablet PO 12.5 mg BID SHARON Administration Protocol Clonazepam 0.5 mg 07/29/24 09:05 08/03/24 04:38 Clonazepam 0.5 Mg Tablet PO 0.5 mg DAILY PRN Administration Anxiety Clonazepam 1 mg 07/29/24 11:00 08/03/24 08:07 Clonazepam 1 Mg Tablet PO 1 mg DAILY SHARON Administration Clonidine HCl 0.1 mg 07/29/24 09:05 07/30/24 17:03 Clonidine Hcl 0.1 Mg Tablet PO 0.1 mg BID PRN Administration Agitation Protocol Cyanocobalamin 500 mcg 07/29/24 11:00 08/03/24 08:07 Cyanocobalamin (Vitamin B-12) 500 Mcg Tablet PO 500 mcg DAILY SHARON Administration Diphenhydramine HCl 50 mg 07/29/24 09:05 07/30/24 07:49 Diphenhydramine Hcl 25 Mg Capsule PO 50 mg BEDTIME PRN Administration Insomnia Fluticasone Propionate 1 spray 07/29/24 21:00 08/03/24 08:10 Fluticasone Propionate Nasal 16 Gm Dupuyer NOSTRIL-B 1 spray BID SHARON Administration Fluticasone/Umeclidinium/Vilanterol 1 puff 07/30/24 08:00 08/03/24 08:03 Fluticasone/Umeclidinium/Vilanterol 100/62.09/11 Blst.W.Dev INHALE 1 puff RDAILY SHARON Administration Hydroxyzine HCl 50 mg 07/29/24 09:05 08/02/24 23:41 Hydroxyzine Hcl 50 Mg Tablet PO 50 mg TID PRN Administration Anxiety Lactic Acid 1 appl 07/29/24 21:00 08/02/24 20:08 Ammonium Lactate 12 % Lotion 226 Gm Bottle TOPICAL Not Given BEDTIME SHARON Protocol Lamotrigine 150 mg 07/29/24 11:00 08/03/24 08:07 Lamotrigine 25 Mg Tablet PO 150 mg BID SHARON Administration Levothyroxine Sodium 25 mcg 07/29/24 11:00 08/03/24 06:28 Levothyroxine Sodium 25 Mcg Tablet PO 25 mcg DAILY@0600 SHARON Administration Lidocaine 1 appl 07/29/24 09:05 08/02/24 09:39 Lidocaine 5 % Ointment 35 Gm TOPICAL 1 appl BID PRN Administration Rectal pain Protocol Methocarbamol 1,500 mg 07/29/24 10:19 08/03/24 08:49 Methocarbamol 750 Mg Tablet PO 1,500 mg Q6H PRN Administration Back Pain Metronidazole 1 appl 07/29/24 11:15 08/03/24 08:11 Metronidazole 0.75 % Gel 45 Gm Tube TOPICAL 1 appl BID SHARON Administration Multivitamins/Vitamin C 1 tab 07/29/24 11:15 08/03/24 08:35 Multivitamin Tablet PO 1 tab DAILY SHARON Administration Nicotine 14 mg 07/29/24 11:15 08/03/24 08:34 Nicotine 14 Mg Patch.Td24 TRANSDERMA 14 mg DAILY SHARON Administration Nortriptyline HCl 50 mg 08/01/24 21:00 08/02/24 20:00 Nortriptyline Hcl 25 Mg Capsule PO 50 mg BEDTIME SHARON Administration Olanzapine 10 mg 07/29/24 09:05 07/29/24 10:20 Olanzapine 10 Mg Tablet PO 10 mg Q4H PRN Administration anger Olanzapine 15 mg 07/29/24 21:00 08/02/24 20:01 Olanzapine 7.5 Mg Tablet PO 15 mg BEDTIME SHARON Administration Pantoprazole Sodium 40 mg 07/29/24 11:15 08/03/24 08:35 Pantoprazole Sodium 20 Mg Tablet.Dr PO 40 mg DAILY SHARON Administration Sacubitril/Valsartan 1 tab 07/29/24 09:15 08/03/24 08:08 Sacubitril/Valsartan 49/51 1 Tab Tablet PO 1 tab BID SHARON Administration Protocol Senna 8.6 mg 07/29/24 11:08 08/01/24 17:11 Sennosides 8.6 Mg Tablet PO 8.6 mg BEDTIME PRN Administration Constipation Sodium Chloride 2 spray 07/29/24 09:15 08/03/24 08:10 Sodium Chloride 0.65 % Nasal 44 Ml Sprbtl NOSTRIL-B 2 spray BID SHARON Administration Tamsulosin HCl 0.4 mg 07/29/24 11:15 08/03/24 08:35 Tamsulosin Hcl 0.4 Mg Capsule PO 0.4 mg DAILY SHARON Administration Trazodone HCl 100 mg 07/29/24 21:00 08/02/24 20:01 Trazodone Hcl 100 Mg Tablet PO 100 mg BEDTIME SHARON Administration Vitamin D 25 mcg 07/29/24 10:00 08/03/24 08:07 Cholecalciferol (Vitamin D3) 25 Mcg Tablet PO 25 mcg DAILY SHARON Administration Discontinued Medications Generic Name Dose Route Start Last Admin Trade Name Freq PRN Reason Stop Dose Admin Cariprazine 1.5 mg 07/29/24 11:00 08/02/24 10:43 Cariprazine Hcl 1.5 Mg Capsule PO 1.5 mg DAILY SHARON Administration Diphenhydramine HCl 50 mg 07/29/24 02:27 07/29/24 02:36 Diphenhydramine Hcl 25 Mg Capsule PO 07/29/24 02:28 50 mg ONCE ONE Administration Escitalopram Oxalate 20 mg 07/29/24 09:15 08/01/24 08:39 Escitalopram Oxalate 20 Mg Tablet PO 20 mg DAILY SHARON Administration Lorazepam 1 mg 07/29/24 02:27 07/29/24 02:36 Lorazepam 1 Mg Tablet PO 07/29/24 02:28 1 mg ONCE ONE Administration Lorazepam 1 mg 08/01/24 13:50 08/01/24 13:53 Lorazepam 1 Mg Tablet PO 08/01/24 13:51 1 mg ONCE ONE Administration Lorazepam 1 mg 08/02/24 13:03 08/02/24 13:06 Lorazepam 1 Mg Tablet PO 08/02/24 13:04 1 mg ONCE ONE Administration Lorazepam 1 mg 08/02/24 20:31 08/02/24 20:35 Lorazepam 1 Mg Tablet PO 08/02/24 20:32 1 mg ONCE ONE Administration Lurasidone HCl 40 mg 07/29/24 21:00 08/01/24 21:43 Lurasidone Hcl 40 Mg Tablet PO 40 mg BEDTIME SHARON Administration Meclizine HCl 25 mg 07/30/24 11:50 07/30/24 12:08 Meclizine Hcl 25 Mg Tablet PO 07/30/24 11:51 25 mg ONCE ONE Administration Meclizine HCl 25 mg 07/31/24 09:54 07/31/24 10:46 Meclizine Hcl 25 Mg Tablet PO 07/31/24 09:55 25 mg ONCE ONE Administration Nortriptyline HCl 100 mg 07/29/24 21:00 07/31/24 21:28 Nortriptyline Hcl 25 Mg Capsule PO 100 mg BEDTIME SHARON Administration Olanzapine 10 mg 07/28/24 16:25 07/28/24 16:32 Olanzapine 10 Mg Vial IM 07/28/24 16:26 10 mg ONCE ONE Administration Trazodone HCl 100 mg 07/29/24 02:27 07/29/24 02:36 Trazodone Hcl 100 Mg Tablet PO 07/29/24 02:28 100 mg ONCE ONE Administration Medical Decision Making Medical Decision Making MDM Narrative: patient given sedation which work well. Currently awaiting crisis evaluation. In stable condition. Urine showed no signs of infection. Patient's U tox was grossly negative. Differential Diagnosis Differential Diagnoses: The differential diagnosis associated with the presentation includes Lab Data 07/29/24 07:26 07/29/24 07:26 Labs: Lab Results 07/28/24 07/29/24 08/03/24 Range/Units 17:50 07:26 04:10 WBC 8.8 (4.8-10.8) X10*3/uL RBC 4.98 (4.60-5.80) X10*6/uL Hgb 15.2 (14.0-18.0) g/dl Hct 43.5 (42.0-52.0) % MCV 87.3 (80.0-98.0) fL MCH 30.5 (27.0-33.0) pg MCHC 34.9 (31.0-36.0) g/dl RDW 13.4 (11.0-16.0) % Plt Count 236 (160-400) X10*3/uL MPV 9.5 (9.4-12.4) fL Immature Gran % (Auto) 0.5 H (0.0-0.4) % Neut % (Auto) 68.5 (45-73) % Lymph % (Auto) 21.9 (20-40) % Dane % (Auto) 8.0 (2-11) % Eos % (Auto) 1.0 (0-4) % Baso % (Auto) 0.1 (0-2) % Lymph # (Auto) 1.9 (1.2-4.9) X10*3/uL Dane # (Auto) 0.7 (0.1-1.2) X10*3/uL Eos # (Auto) 0.1 (0.0-0.4) X10*3/uL Baso # (Auto) 0.0 (0.0-0.2) X10*3/uL Abs Immat Gran (auto) 0.04 H (0.00-0.03) X10*3/uL Absolute Neuts (auto) 6.0 (2.0-8.3) x10*3/uL Absolute Nucleated RBC 0.000 (0.0-0.012) X10*3/uL Nucleated RBC % (auto) 0.0 (0.0-0.2) /100WBC Sodium 138 (135-145) mmol/L Potassium 3.9 (3.3-5.1) mmol/L Chloride 107 (96-108) mmol/L Carbon Dioxide 22 (22-29) mmol/L Anion Gap 13 (12-20) BUN 10 (9-16) mg/dL Creatinine 0.58 (0.5-1.4) mg/dL Estim Creat Clear Calc 165.2 Estimated GFR > 60 POC Glucose 153 H (60-115) mg/dL Random Glucose 140 H (60-115) mg/dL Calcium 9.2 (8.4-10.2) mg/dL Total Bilirubin 0.7 (0.0-1.0) mg/dL Direct Bilirubin 0.2 (0.0-0.5) mg/dL AST 29 (5-37) U/L ALT 37 (0-40) U/L Alkaline Phosphatase 68 (39-117) U/L Total Protein 7.4 (6.5-8.0) g/dL Albumin 4.6 (3.5-5.0) g/dL Urine Color Yellow Urine Appearance Clear Urine pH 7.0 (5.0-9.0) Ur Specific Adrian <= 1.005 (1.005-1.025) Urine Protein Negative (Neg-Trace) mg/dL Urine Glucose (UA) Negative (Negative) mg/dL Urine Ketones Trace (Negative) mg/dL Urine Blood Negative (Negative) Urine Nitrite Negative (Negative) Ur Leukocyte Esterase Negative (Negative) Urine RBC 0-2 (0-2) /HPF Urine WBC 0-5 (0-5) /HPF Ur Squamous Epith Cells 0-2 (0-2) /HPF Urine Bacteria None Seen (None Seen) Hyaline Casts 0-2 (0-2) /LPF Urine Opiates Screen Not Detected (Not Detect) Ur Buprenorphine Scrn Not Detected (Not Detect) ng/mL Ur Oxycodone Screen Not Detected (Not Detect) ng/mL Urine Methadone Screen Not Detected (Not Detect) ng/mL Urine Fentanyl Screen Not Detected (Not Detect) Ur Barbiturates Screen Not Detected (Not Detect) Ur Phencyclidine Scrn Not Detected (Not Detect) Ur Amphetamines Screen Not Detected (Not Detect) U Benzodiazepines Scrn Not Detected (Not Detect) Urine Cocaine Screen Not Detected (Not Detect) U Marijuana (THC) Screen Not Detected (Not Detect) Ethyl Alcohol < 10 mg/dL Influenza Type A (PCR) NEGATIVE (Negative) Influenza Type B (PCR) NEGATIVE (Negative) RSV RNA Qual (PCR) NEGATIVE (Negative) SARS-CoV-2 RNA (RT-PCR) NEGATIVE (Negative) Discharge Plan Discharge Clinical Impression: Agitation Schizoaffective disorder Qualifiers: Schizoaffective disorder type: bipolar Qualified Code(s): F25.0 - Schizoaffective disorder, bipolar type Patient Disposition: [facility] Transfer Details: TO: [facility], [address] [place] [address] [address], [place] Prescriptions: No Action acetaminophen [Tylenol Arthritis Pain] 650 mg tablet extended release 600 mg PO Q6H PRN (Reason: pain) carvedilol 25 mg tablet 12.5 mg PO BID lidocaine 5 % adhesive patch,medicated 1 patch topical Q12H PRN (Reason: pain) pantoprazole [Protonix] 40 mg Tablet,Delayed Release (Dr/Ec) 40 mg PO DAILY Certavite-Antioxidant 18-400 mg-mcg tablet 1 tab PO QAM Trelegy Ellipta 100-62.5-25 mcg blister with device 1 ea inhalation QAM metronidazole 0.75 % gel 1 appl topical BID Rx Instructions: Thin layer twice a day. ammonium lactate 12 % lotion 1 appl topical BEDTIME Rx Instructions: Thin layer topically. loperamide [Imodium A-D] 2 mg Capsule 2 mg PO Q4H PRN (Reason: Diarrhea) Rx Instructions: administer after each loose stool until symptoms controlled; do not exceed 8 mg per 24 hrs. Call PCP if not resolved. lidocaine 5 % ointment 1 appl topical BID PRN (Reason: Rectal pain) ondansetron 4 mg Tablet,Disintegrating 4 mg PO Q8H PRN (Reason: Nausea) Neosporin ([id number]) Packet 1 appl TOPICAL BID PRN (Reason: minor cuts) senna 8.6 mg Capsule 8.6 mg PO BEDTIME PRN (Reason: Constipation) Rx Instructions: Give if no BM om 3 days in the PM. If no results in 24 hours go to step 2. Step 2 Milk of Magnesium. trazodone 50 mg Tablet 100 mg PO BEDTIME escitalopram oxalate [Lexapro] 20 mg Tablet 20 mg PO DAILY triamcinolone acetonide 55 mcg aerosol,spray 1 spray intranasal BID tamsulosin [Flomax] 0.4 mg Capsule 0.4 mg PO DAILY naproxen 500 mg Tablet 500 mg PO Q12H PRN (Reason: Pain) Saline Mist 0.65 % Aerosol,Dupuyer 2 spray INTRANASAL BID lurasidone 40 mg tablet 40 mg PO QPM Qty: 30 0RF Rx Instructions: must administer with food (at least 350 calories) lorazepam 0.5 mg tablet 0.5 mg PO TID PRN (Reason: anxiety) Qty: 30 0RF Rx Instructions: take one tablet daily in AM and one tablet daily in evening; take one tablet daily PRN anxiety clonidine HCl 0.1 mg Tablet 0.1 mg PO BID PRN (Reason: Agitation) diphenhydramine HCl [Benadryl] 50 mg Capsule 50 mg PO BEDTIME PRN (Reason: Insomnia) hydroxyzine pamoate 50 mg Capsule 50 mg PO Q4H PRN (Reason: Anxiety) olanzapine 10 mg Tablet 10 mg PO Q4H PRN (Reason: anger) clonazepam 1 mg tablet 1 mg PO DAILY sacubitril-valsartan 49-51 mg Tablet 1 tab PO BID cariprazine 1.5 mg Capsule 1.5 mg PO DAILY nicotine 14 mg/24 hr Patch 24 Hour 1 patch TRANSDERMAL DAILY diphenhydramine HCl 50 mg Tablet 50 mg PO Q6H PRN (Reason: Agitation) nicotine (polacrilex) [Nicorette] 2 mg Gum 2 mg BUCCAL Q1H PRN (Reason: Nicotine Cravings) guaifenesin 100 mg/5 mL Liquid 200 mg PO Q4H PRN (Reason: Cough) iweqtnzhjo-gneteihbedskr-ljns [Fioricet] 50-325-40 mg Tablet 2 tab PO Q8H PRN (Reason: Pain) Rx Instructions: do not exceed 6 tabs per 24 hrs methocarbamol 750 mg Tablet 1,500 mg PO Q6H PRN (Reason: Back Pain) olanzapine 15 mg Tablet 15 mg PO BEDTIME ibuprofen 600 mg Tablet 600 mg PO Q6H PRN (Reason: Pain) simethicone 80 mg Tablet,Chewable 80 mg PO Q6H PRN (Reason: GAS) clonazepam 0.5 mg tablet 0.5 mg PO DAILY PRN (Reason: Anxiety) cholecalciferol (vitamin D3) 50 mcg (2,000 unit) tablet 25 mcg PO QAM cyanocobalamin (vitamin B-12) 500 mcg tablet 500 mcg PO QAM levothyroxine 25 mcg tablet 25 mcg PO QAM atorvastatin 40 mg tablet 40 mg PO BEDTIME nortriptyline 50 mg capsule 100 mg PO BEDTIME diclofenac sodium 1 % gel 2 g topical QID PRN (Reason: back/neck pain) Trulicity 3 mg/0.5 mL pen injector 3 mg subcut QWEEK Caplyta 42 mg capsule 42 mg PO BEDTIME aspirin 81 mg tablet,delayed release (DR/EC) 81 mg PO QAM benztropine 0.5 mg tablet 0.5 mg PO QPM lamotrigine 150 mg tablet 150 mg PO BID albuterol sulfate 90 mcg/actuation HFA aerosol inhaler 2 puff inhalation Q4H PRN (Reason: sob) Referrals: Lopez Jose MD [Primary Care Provider] - Interventions: [place]-Suicide Risk Severity Scale Last Done: 08/03/24 04:00 Print Language: Japanese
[2024-07-28 18:00] LABS: Appearance Urine Clear; Color Urine Yellow; Glucose Urine UA Negative (Negative); Leukocyte Esterase Urine Negative (Negative); Nitrite Urine Negative (Negative); Specific Gravity - Urine <= 1.005 (1.005-1.025); Urine Blood Negative (Negative); Urine Ketones Trace mg/dL (Negative); Urine Protein Negative (Neg-Trace)
[2024-07-28 18:03] LABS: Bacteria Urine None Seen (None Seen); Hyaline Casts Urine 0-2 /LPF (0-2); RBC Urine 0-2 /HPF (0-2); Squamous Epithelial Cell Urine 0-2 /HPF (0-2); WBC Urine 0-5 /HPF (0-5)
[2024-07-28 18:10] LABS: Amphetamine Screen Urine Not Detected (Not Detect); Barbiturates, Urine Not Detected (Not Detect); Benzodiazepines Screen Urine Not Detected (Not Detect); Buprenorphine Scr Not Detected (Not Detect); Cannabinoid Screen Urine Not Detected (Not Detect); Cocaine Screen Urine Not Detected (Not Detect); Fentanyl, urine Not Detected (Not Detect); Methadone Screen, Urine Not Detected (Not Detect); Opiate Screen Urine Not Detected (Not Detect); Oxycodone Screen Urine Not Detected (Not Detect); Phencyclidine Screen Urine Not Detected (Not Detect)
--- NOTE | 2024-07-28 19:35 | PC.NURSE ---
pt asked if he is willing to have blood drawn by tech. pt walked out of room saying let me , I want to ...You guys are already electrocuting me. went to bathroom to urinate then walked back. now in bed lying quietly.
--- NOTE | 2024-07-28 20:04 | PC.NURSE ---
call recieced from [facility] [employer]er of [facility] Nora Prieto [phone]. provided contact information. also provided name of Nurse Chitra Burks [phone] for med inquiries
[2024-07-28 21:07] VITALS: RESP 14
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
[2024-07-29] MEDS: traZODone HCL 100 MG TABLET PO ×2 (02:36→22:22)
[2024-07-29] MEDS: diphenhydrAMINE HCL 25 MG CAPSULE 50 MG PO (02:36)
[2024-07-29] MEDS: LORazepam 1 MG TABLET PO (02:36)
--- NOTE | 2024-07-29 02:38 | PC.NURSE ---
at about 0, pt came storming out of room yelling that he can not sleep and wants a pill to help. this nurse then comforted patient who returned to bed and sat down. MD Thao contacted. pt medicated per JUN around 237: pt took pill cup, rapidly threw pills into mouth, swallowed with water, then rapidly jumped under the covers saying he does not need anything else. door closed and lights off per patient request
[2024-07-29 06:24] VITALS: RESP 18
[2024-07-29 06:49] VITALS: BP 164/89; PULSE 83; RESP 18; TEMP 36.8; O2SAT 96
--- NOTE | 2024-07-29 07:16 | ECG_ITS ---
Test Reason : qtc check Blood Pressure : */* mmHG Vent. Rate : 90 BPM Atrial Rate : 90 BPM P-R Int : 186 ms QRS Dur : 76 ms QT Int : 380 ms P-R-T Axes : 30 16 25 degrees QTcB Int : 464 ms Sinus rhythm with frequent Premature ventricular complexes Otherwise normal ECG When compared with ECG of 28-Jun-2022 20:49, Premature ventricular complexes are now Present [place] interval has decreased Criteria for Septal infarct are no longer Present Referred By: Rayna Clinton Electronically Signed By: Aubrey Jc
[2024-07-29 07:31] LABS: MANUAL DIFF FLAG NO
[2024-07-29 07:35] LABS: Basophils Percent Auto 0.1 % (0-2); Eosinophils Absolute Auto 0.1 X10*3/uL (0.0-0.4); Hematocrit 43.5 % (42.0-52.0); Hemoglobin 15.2 g/dl (14.0-18.0); Imm Gran Abs Auto 0.04 X10*3/uL (0.00-0.03); Imm Gran Pct Auto 0.5 % (0.0-0.4); Lymphocytes Absolute Auto 1.9 X10*3/uL (1.2-4.9); Lymphocytes Percent Auto 21.9 % (20-40); Mean Corpuscular HGB Conc 34.9 g/dl (31.0-36.0); Mean Corpuscular Hemoglobin 30.5 pg (27.0-33.0); Mean Corpuscular Volume 87.3 fL (80.0-98.0); Mean Platelet Volume 9.5 fL (9.4-12.4); Monocytes Absolute Auto 0.7 X10*3/uL (0.1-1.2); Neutrophils Percent Auto 68.5 % (45-73); Platelet Count 236 X10*3/uL (160-400); Red Blood Count 4.98 X10*6/uL (4.60-5.80); Red Cell Distribution Width 13.4 % (11.0-16.0); White Blood Count 8.8 X10*3/uL (4.8-10.8)
[2024-07-29 07:57] LABS: Alanine Aminotransferase 37 U/L (0-40); Albumin Level 4.6 g/dL (3.5-5.0); Alkaline Phosphatase 68 U/L (39-117); Anion Gap 13 (12-20); Aspartate Amino Transferase 29 U/L (5-37); Bilirubin Direct 0.2 mg/dL (0.0-0.5); Bilirubin Total 0.7 mg/dL (0.0-1.0); Blood Urea Nitrogen 10 mg/dL (9-16); Calcium 9.2 mg/dL (8.4-10.2); Carbon Dioxide 22 mmol/L (22-29); Chloride 107 mmol/L (96-108); Creatinine Clr Calc Pharmacy 165.2; Estimated Glomerular Filt Rate > 60; Ethanol < 10 mg/dL; Glucose Random 140 mg/dL (60-115); Potassium 3.9 mmol/L (3.3-5.1); Sodium 138 mmol/L (135-145); Total Protein 7.4 g/dL (6.5-8.0)
--- NOTE | 2024-07-29 07:58 | PC.NURSE ---
CONTACTED PHONE # IN RN NOTES FOR MED REC. SPOKE WITH LEANA BOYD, SHE WILL BE FAXING OVER MED LIST. SHE STATES HE ARRIVED HERE WITH A RED FOLDER WITH MED REC, NO FOLDER FOUND AMONG PAPERWORK. SHE STATES RECENT STAY AT [facility] FROM FEBRUARY, DC'D LAST WK FROM THERE. SOME MEDS THAT WERE NOT CONTINUED ON DISCHARGE. ALSO STATES PT RECENTLY STARTED ON JARDIANCE, TRULICITY DISCONTINUED FOR INSURANCE PURPOSES. HAS NOT TAKEN FIRST DOSE.
[2024-07-29 08:11] LABS: Influenza A PCR NEGATIVE (Negative); Influenza B PCR NEGATIVE (Negative); Resp Syncy Virus RNA Qual PCR NEGATIVE (Negative); SARS COV2 PCR INHOUSE NEGATIVE (Negative)
--- NOTE | 2024-07-29 10:07 | PC.NURSE ---
PT HAS NOT HAD CONCERNING BEHAVIORS FOR MOST OF THIS MORNING. OCCASIONAL BRIEF YELLING I JUST WANT IT TO STOP . PT HAS BEEN ANXIOUS, REQUESTING REASSURANCE, RECEIVES REDIRECTION QUITE WELL. MED REC COMPLETED ACCORDING TO WHAT HE HAD BEEN TAKING AT [facility] SINCE FEBRUARY, [facility] HAS NOT BEEN ABLE TO CONTINUE HIS MEDS SINCE HIS DISCHARGE FROM THERE. DR AL, PHARMACY AND CARE TEAM MADE AWARE. AWAITING VERIFICATION OF MEDS.
[2024-07-29] MEDS: OLANZapine 10 MG TABLET PO (10:20)
[2024-07-29] MEDS: Cholecalciferol (Vitamin D3) 25 MCG TABLET PO (10:21)
[2024-07-29 11:32] VITALS: BP 164/89; PULSE 83
[2024-07-29] MEDS: Aspirin Enteric Coated 81 MG TABLET.DR PO (11:32)
[2024-07-29] MEDS: Multivitamin TABLET 1 TAB PO (11:32)
[2024-07-29] MEDS: carvediloL 12.5 MG TABLET PO ×2 (11:32→22:35)
[2024-07-29] MEDS: Pantoprazole Sodium 20 MG TABLET.DR 40 MG PO (11:32)
[2024-07-29] MEDS: Sacubitril/Valsartan 49/51 1 TAB TABLET PO ×2 (11:32→22:20)
[2024-07-29] MEDS: clonazePAM 1 MG TABLET PO (11:32)
[2024-07-29] MEDS: Tamsulosin HCL 0.4 MG CAPSULE PO (11:32)
[2024-07-29] MEDS: Cariprazine HCl 1.5 MG CAPSULE PO (11:32)
[2024-07-29] MEDS: Cyanocobalamin (Vitamin B-12) 500 MCG TABLET PO (11:32)
--- NOTE | 2024-07-29 11:32 | MHC.CARE ---
Pt will be a bedsearch.
[2024-07-29] MEDS: lamoTRIgine 25 MG TABLET 150 MG PO ×2 (11:33→22:24)
[2024-07-29] MEDS: Nicotine 14 MG PATCH.TD24 TRANSDERMA (11:35)
[2024-07-29] MEDS: Escitalopram Oxalate 20 MG TABLET PO (11:46)
[2024-07-29] MEDS: Fluticasone/Umeclidinium/Vilanterol 100/62.5/25 BLST.W.DEV 1 PUFF INHALE (11:48)
--- NOTE | 2024-07-29 12:59 | PHA.MEDREC ---
Pharmacy Consult ? Medication Reconciliation Pharmacy has reviewed the medication reconciliation done by nursing. Tj Oliveira Utilized list from facility.
[2024-07-29] MEDS: metroNIDAZOLE 0.75 % Gel 45 GM TUBE 1 APPL TOPICAL (22:19)
[2024-07-29] MEDS: Ammonium Lactate 12 % Lotion 226 GM BOTTLE 1 APPL TOPICAL (22:19)
[2024-07-29 22:20] VITALS: BP 164/89
[2024-07-29] MEDS: Fluticasone Propionate Nasal 16 GM SPRAY 1 SPRAY NOSTRIL-B (22:20)
[2024-07-29] MEDS: Sodium Chloride 0.65 % Nasal 44 ML SPRBTL 2 SPRAY NOSTRIL-B (22:20)
[2024-07-29] MEDS: OLANZapine 7.5 MG TABLET 15 MG PO (22:22)
[2024-07-29] MEDS: Benztropine Mesylate 0.5 MG TABLET PO (22:23)
[2024-07-29] MEDS: Lurasidone HCl 40 MG TABLET PO ×2 (22:30→22:35)
[2024-07-29] MEDS: Nortriptyline HCl 25 MG CAPSULE 100 MG PO (22:31)
[2024-07-29 22:35] VITALS: BP 164/89; PULSE 83
[2024-07-29] MEDS: Atorvastatin Calcium 40 MG TABLET PO (22:36)
[2024-07-29 23:03] VITALS: BP 152/70; PULSE 75; RESP 18; TEMP 36.3; O2SAT 97
[2024-07-30] VITALS (7 sets, daily range): BP systolic 107–129; BP diastolic 60–92; PULSE 71–91; RESP 16–20; O2SAT 94–97
[2024-07-30] MEDS: Levothyroxine Sodium 25 MCG TABLET PO (07:46)
[2024-07-30] MEDS: Acetaminophen 325 MG TABLET 650 MG PO (07:48)
[2024-07-30] MEDS: diphenhydrAMINE HCL 25 MG CAPSULE 50 MG PO (07:49)
[2024-07-30] MEDS: clonazePAM 0.5 MG TABLET PO (07:49)
[2024-07-30] MEDS: Escitalopram Oxalate 20 MG TABLET PO (08:14)
[2024-07-30] MEDS: lamoTRIgine 25 MG TABLET 150 MG PO ×2 (08:14→21:03)
[2024-07-30] MEDS: Fluticasone Propionate Nasal 16 GM SPRAY 1 SPRAY NOSTRIL-B ×2 (08:14→21:03)
[2024-07-30] MEDS: metroNIDAZOLE 0.75 % Gel 45 GM TUBE 1 APPL TOPICAL ×2 (08:14→21:04)
[2024-07-30] MEDS: Lidocaine 5 % Ointment 35 GM 1 APPL TOPICAL ×2 (08:14→18:10)
[2024-07-30] MEDS: Aspirin Enteric Coated 81 MG TABLET.DR PO (08:53)
[2024-07-30] MEDS: Pantoprazole Sodium 20 MG TABLET.DR 40 MG PO (08:53)
[2024-07-30] MEDS: Tamsulosin HCL 0.4 MG CAPSULE PO (08:54)
[2024-07-30] MEDS: Fluticasone/Umeclidinium/Vilanterol 100/62.5/25 BLST.W.DEV 1 PUFF INHALE (08:54)
[2024-07-30] MEDS: carvediloL 12.5 MG TABLET PO ×2 (08:58→21:02)
[2024-07-30] MEDS: Nicotine 14 MG PATCH.TD24 TRANSDERMA (08:59)
[2024-07-30] MEDS: Cyanocobalamin (Vitamin B-12) 500 MCG TABLET PO (09:36)
[2024-07-30] MEDS: Multivitamin TABLET 1 TAB PO (09:37)
[2024-07-30] MEDS: Cariprazine HCl 1.5 MG CAPSULE PO (09:37)
[2024-07-30] MEDS: Sodium Chloride 0.65 % Nasal 44 ML SPRBTL 2 SPRAY NOSTRIL-B ×2 (09:38→21:03)
[2024-07-30] MEDS: Sacubitril/Valsartan 49/51 1 TAB TABLET PO ×2 (09:38→21:03)
[2024-07-30] MEDS: Cholecalciferol (Vitamin D3) 25 MCG TABLET PO (09:38)
[2024-07-30] MEDS: Meclizine HCl 25 MG TABLET PO (12:08)
[2024-07-30] MEDS: cloNIDine HCL 0.1 MG TABLET PO (17:03)
[2024-07-30] MEDS: Albuterol Sulfate 90 MCG 8 GM INHALER 2 PUFF INHALE (18:15)
[2024-07-30] MEDS: Atorvastatin Calcium 40 MG TABLET PO (21:02)
[2024-07-30] MEDS: OLANZapine 7.5 MG TABLET 15 MG PO (21:02)
[2024-07-30] MEDS: Nortriptyline HCl 25 MG CAPSULE 100 MG PO (21:03)
[2024-07-30] MEDS: Benztropine Mesylate 0.5 MG TABLET PO (21:04)
[2024-07-30] MEDS: traZODone HCL 100 MG TABLET PO (21:04)
--- NOTE | 2024-07-31 03:16 | PC.NURSE ---
report received from Radha lorenzo. pt sleeping at this time.
--- NOTE | 2024-07-31 06:08 | PC.NURSE ---
security called to inform them that the pt is being uncooperative and now has her bed mat on the floor. Pt also has her underpants under her pillow on the left side. This was visable on camera. Security states it is ok for the mattress to be on the floor.
[2024-07-31] MEDS: Levothyroxine Sodium 25 MCG TABLET PO (06:27)
[2024-07-31] MEDS: Sodium Chloride 0.65 % Nasal 44 ML SPRBTL 2 SPRAY NOSTRIL-B ×2 (08:18→20:30)
[2024-07-31] MEDS: Albuterol Sulfate 90 MCG 8 GM INHALER 2 PUFF INHALE (08:18)
[2024-07-31] MEDS: Fluticasone Propionate Nasal 16 GM SPRAY 1 SPRAY NOSTRIL-B ×2 (08:19→20:30)
[2024-07-31] MEDS: Escitalopram Oxalate 20 MG TABLET PO (08:20)
[2024-07-31] MEDS: clonazePAM 1 MG TABLET PO (08:20)
[2024-07-31] MEDS: lamoTRIgine 25 MG TABLET 150 MG PO ×2 (08:21→20:29)
[2024-07-31] MEDS: Aspirin Enteric Coated 81 MG TABLET.DR PO (08:21)
[2024-07-31] MEDS: Cholecalciferol (Vitamin D3) 25 MCG TABLET PO (08:21)
[2024-07-31] MEDS: carvediloL 12.5 MG TABLET PO (09:24)
[2024-07-31] MEDS: Tamsulosin HCL 0.4 MG CAPSULE PO (09:24)
[2024-07-31] MEDS: Multivitamin TABLET 1 TAB PO (09:24)
[2024-07-31] MEDS: Pantoprazole Sodium 20 MG TABLET.DR 40 MG PO (09:24)
[2024-07-31] MEDS: Nicotine 14 MG PATCH.TD24 TRANSDERMA (09:24)
[2024-07-31] MEDS: Sacubitril/Valsartan 49/51 1 TAB TABLET PO (09:24)
[2024-07-31] MEDS: Acetaminophen 325 MG TABLET 650 MG PO (09:56)
[2024-07-31] MEDS: Cyanocobalamin (Vitamin B-12) 500 MCG TABLET PO (10:43)
[2024-07-31] MEDS: Cariprazine HCl 1.5 MG CAPSULE PO (10:44)
[2024-07-31] MEDS: Meclizine HCl 25 MG TABLET PO (10:46)
[2024-07-31] MEDS: Sennosides 8.6 MG TABLET PO (10:59)
--- NOTE | 2024-07-31 11:00 | PC.NURSE ---
Patient stating he feels constipated, requesting senna. Patient made aware senna is scheduled at bedtime, patient stating he takes it during the day at intermediate and needs it now. Medicated per mar
--- NOTE | 2024-07-31 12:04 | PC.NURSE ---
oob ambulating on unit with steady gait. Calm and cooperative, took shower.
--- NOTE | 2024-07-31 12:05 | MHC.EDTECH ---
pt ambulated to bathroom to showered , am care done Rn aware
[2024-07-31] MEDS: Lidocaine 5 % Ointment 35 GM 1 APPL TOPICAL (15:13)
[2024-07-31] MEDS: hydrOXYzine HCL 50 MG TABLET PO (16:07)
[2024-07-31 16:11] VITALS: BP 102/62; PULSE 78; RESP 13; TEMP 36.7; O2SAT 95
[2024-07-31] MEDS: methocarbamoL 750 MG TABLET 1500 MG PO (18:48)
[2024-07-31 20:00] VITALS: BP 106/61; PULSE 58; RESP 16; TEMP 36.9; O2SAT 97
[2024-07-31] MEDS: Benztropine Mesylate 0.5 MG TABLET PO (20:29)
[2024-07-31] MEDS: Ammonium Lactate 12 % Lotion 226 GM BOTTLE 1 APPL TOPICAL (20:30)
[2024-07-31] MEDS: metroNIDAZOLE 0.75 % Gel 45 GM TUBE 1 APPL TOPICAL (20:30)
[2024-07-31] MEDS: OLANZapine 7.5 MG TABLET 15 MG PO (20:30)
[2024-07-31] MEDS: traZODone HCL 100 MG TABLET PO (20:30)
[2024-07-31 20:34] VITALS: PULSE 58
[2024-07-31] MEDS: Atorvastatin Calcium 40 MG TABLET PO (20:34)
[2024-07-31 21:18] VITALS: BP 100/54; PULSE 82; RESP 16; O2SAT 96
[2024-07-31 21:26] VITALS: BP 100/54
[2024-07-31] MEDS: Lurasidone HCl 40 MG TABLET PO (21:28)
[2024-07-31] MEDS: Nortriptyline HCl 25 MG CAPSULE 100 MG PO (21:28)
[2024-08-01 05:20] VITALS: BP 119/72; PULSE 67; RESP 16; TEMP 36.8; O2SAT 98
[2024-08-01] MEDS: Levothyroxine Sodium 25 MCG TABLET PO (05:20)
--- NOTE | 2024-08-01 05:38 | PC.NURSE ---
Patient slept through the night, no distress observed/reported, meds and meals compliant. 15 minutes safety check, no behavior and safety concerns, disposition per care team is section 12 inpatient bed search, will continue to monitor
[2024-08-01] MEDS: hydrOXYzine HCL 50 MG TABLET PO (05:40)
--- NOTE | 2024-08-01 07:06 | PC.NURSE ---
Assumed care of patient at 0645, patient appears to be in no apparent distress this am, eating breakfast in common area. Continue plan of care for S12 IPLOC
[2024-08-01] MEDS: Fluticasone/Umeclidinium/Vilanterol 100/62.5/25 BLST.W.DEV 1 PUFF INHALE (08:35)
[2024-08-01] MEDS: Fluticasone Propionate Nasal 16 GM SPRAY 1 SPRAY NOSTRIL-B ×2 (08:35→20:34)
[2024-08-01] MEDS: Albuterol Sulfate 90 MCG 8 GM INHALER 2 PUFF INHALE (08:36)
[2024-08-01] MEDS: Sodium Chloride 0.65 % Nasal 44 ML SPRBTL 2 SPRAY NOSTRIL-B ×2 (08:36→21:44)
[2024-08-01] MEDS: Nicotine 14 MG PATCH.TD24 TRANSDERMA (08:36)
[2024-08-01] MEDS: Sacubitril/Valsartan 49/51 1 TAB TABLET PO ×2 (08:36→21:42)
[2024-08-01] MEDS: metroNIDAZOLE 0.75 % Gel 45 GM TUBE 1 APPL TOPICAL ×2 (08:36→20:34)
[2024-08-01] MEDS: methocarbamoL 750 MG TABLET 1500 MG PO (08:37)
[2024-08-01] MEDS: lamoTRIgine 25 MG TABLET 150 MG PO ×2 (08:37→20:31)
[2024-08-01] MEDS: Multivitamin TABLET 1 TAB PO (08:37)
[2024-08-01] MEDS: Cholecalciferol (Vitamin D3) 25 MCG TABLET PO (08:37)
[2024-08-01] MEDS: Pantoprazole Sodium 20 MG TABLET.DR 40 MG PO (08:37)
[2024-08-01] MEDS: Tamsulosin HCL 0.4 MG CAPSULE PO (08:37)
[2024-08-01] MEDS: Aspirin Enteric Coated 81 MG TABLET.DR PO (08:37)
[2024-08-01] MEDS: carvediloL 12.5 MG TABLET PO ×2 (08:37→20:30)
[2024-08-01] MEDS: clonazePAM 1 MG TABLET PO (08:37)
[2024-08-01] MEDS: Cariprazine HCl 1.5 MG CAPSULE PO (08:38)
[2024-08-01] MEDS: Cyanocobalamin (Vitamin B-12) 500 MCG TABLET PO (08:38)
[2024-08-01] MEDS: Escitalopram Oxalate 20 MG TABLET PO (08:39)
[2024-08-01] MEDS: LORazepam 1 MG TABLET PO (13:53)
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
[2024-08-01 16:43] VITALS: BP 107/54; PULSE 91; RESP 16; TEMP 36.1; O2SAT 97
[2024-08-01] MEDS: Acetaminophen 325 MG TABLET 650 MG PO (17:11)
[2024-08-01] MEDS: Sennosides 8.6 MG TABLET PO (17:11)
[2024-08-01 20:30] VITALS: BP 102/62; PULSE 77
[2024-08-01] MEDS: Atorvastatin Calcium 40 MG TABLET PO (20:30)
[2024-08-01] MEDS: OLANZapine 7.5 MG TABLET 15 MG PO (20:31)
[2024-08-01] MEDS: Benztropine Mesylate 0.5 MG TABLET PO (20:31)
[2024-08-01] MEDS: traZODone HCL 100 MG TABLET PO (20:31)
[2024-08-01 20:32] VITALS: BP 102/62; PULSE 77; RESP 18; TEMP 36.8; O2SAT 96
[2024-08-01] MEDS: Ammonium Lactate 12 % Lotion 226 GM BOTTLE 1 APPL TOPICAL (20:32)
[2024-08-01 21:42] VITALS: BP 102/62
[2024-08-01] MEDS: Nortriptyline HCl 25 MG CAPSULE 50 MG PO (21:43)
[2024-08-01] MEDS: Lurasidone HCl 40 MG TABLET PO (21:43)
[2024-08-02] MEDS: clonazePAM 0.5 MG TABLET PO (04:41)
[2024-08-02] MEDS: methocarbamoL 750 MG TABLET 1500 MG PO (04:54)
[2024-08-02] MEDS: Levothyroxine Sodium 25 MCG TABLET PO (04:55)
[2024-08-02 05:08] VITALS: BP 116/63; PULSE 77; RESP 17; TEMP 36.6; O2SAT 97
--- NOTE | 2024-08-02 07:25 | PC.NURSE ---
Assumed care of pt at 0645. Pt is resting quietly in bed. No acute concerns at this time. Continue plan of care for inpatient bed search.
[2024-08-02] MEDS: clonazePAM 1 MG TABLET PO (09:32)
[2024-08-02] MEDS: Cholecalciferol (Vitamin D3) 25 MCG TABLET PO (09:32)
[2024-08-02] MEDS: Tamsulosin HCL 0.4 MG CAPSULE PO (09:32)
[2024-08-02] MEDS: carvediloL 12.5 MG TABLET PO ×2 (09:32→20:01)
[2024-08-02] MEDS: Nicotine 14 MG PATCH.TD24 TRANSDERMA (09:32)
[2024-08-02] MEDS: Pantoprazole Sodium 20 MG TABLET.DR 40 MG PO (09:32)
[2024-08-02] MEDS: Aspirin Enteric Coated 81 MG TABLET.DR PO (09:32)
[2024-08-02] MEDS: Multivitamin TABLET 1 TAB PO (09:32)
[2024-08-02] MEDS: lamoTRIgine 25 MG TABLET 150 MG PO ×2 (09:33→20:00)
[2024-08-02] MEDS: metroNIDAZOLE 0.75 % Gel 45 GM TUBE 1 APPL TOPICAL ×2 (09:34→20:01)
[2024-08-02] MEDS: Fluticasone Propionate Nasal 16 GM SPRAY 1 SPRAY NOSTRIL-B ×2 (09:34→20:01)
[2024-08-02] MEDS: Sodium Chloride 0.65 % Nasal 44 ML SPRBTL 2 SPRAY NOSTRIL-B ×2 (09:34→20:01)
[2024-08-02] MEDS: Fluticasone/Umeclidinium/Vilanterol 100/62.5/25 BLST.W.DEV 1 PUFF INHALE (09:34)
[2024-08-02] MEDS: Lidocaine 5 % Ointment 35 GM 1 APPL TOPICAL (09:39)
[2024-08-02] MEDS: Cariprazine HCl 1.5 MG CAPSULE PO (10:43)
[2024-08-02] MEDS: Sacubitril/Valsartan 49/51 1 TAB TABLET PO ×2 (10:43→20:00)
[2024-08-02] MEDS: Cyanocobalamin (Vitamin B-12) 500 MCG TABLET PO (10:43)
[2024-08-02] MEDS: Acetaminophen 325 MG TABLET 650 MG PO ×2 (11:51→23:45)
[2024-08-02] MEDS: Albuterol Sulfate 90 MCG 8 GM INHALER 2 PUFF INHALE (12:41)
[2024-08-02] MEDS: LORazepam 1 MG TABLET PO ×2 (13:06→20:35)
--- NOTE | 2024-08-02 16:49 | MHC.CARE ---
Pt has been accepted to [facility] [address] [place] [address] for 08/03/24. Accepting is Dr. Vyas. ETA 1pm
[2024-08-02 19:32] VITALS: BP 119/72; PULSE 74; RESP 18; TEMP 36.3; O2SAT 97
[2024-08-02 20:00] VITALS: BP 119/72
[2024-08-02] MEDS: Nortriptyline HCl 25 MG CAPSULE 50 MG PO (20:00)
[2024-08-02] MEDS: Benztropine Mesylate 0.5 MG TABLET PO (20:01)
[2024-08-02] MEDS: traZODone HCL 100 MG TABLET PO (20:01)
[2024-08-02] MEDS: OLANZapine 7.5 MG TABLET 15 MG PO (20:01)
[2024-08-02] MEDS: Atorvastatin Calcium 40 MG TABLET PO (20:01)
--- NOTE | 2024-08-02 20:08 | PC.NURSE ---
Patient took all night medications without issue, did refuse Ammonium Lactate lotion. Now resting in bed, watching TV. Pt had uneventful day, cancelled plan for pt to go to [facility] due to facility declining admission. Continue the plan of care at this time for inpatient bedsearch
--- NOTE | 2024-08-02 20:17 | MHC.CARE ---
[facility] acceptance was cancelled due to medical complexity, per Tina pt had consistent cardiac concerns
--- NOTE | 2024-08-02 22:58 | PC.NURSE ---
Patient moved to 13H
[2024-08-02] MEDS: hydrOXYzine HCL 50 MG TABLET PO (23:41)
[2024-08-03 04:15] LABS: Glucose, Whole Blood 153 mg/dL (60-115)
[2024-08-03 04:27] VITALS: BP 104/61; PULSE 66; RESP 16; TEMP 36.6; O2SAT 94
[2024-08-03] MEDS: Albuterol Sulfate 90 MCG 8 GM INHALER 2 PUFF INHALE (04:38)
[2024-08-03] MEDS: clonazePAM 0.5 MG TABLET PO (04:38)
--- NOTE | 2024-08-03 05:47 | PC.NURSE ---
pt changed over by security and life science technical officer, belongings search and secured. pt in stretcher calm cooperative and tearful, admits to thoughts of SI, denies HI, continues to state I'm a piece of shit . pt given and ice cream and warm blanket per request.
--- NOTE | 2024-08-03 06:13 | PC.NURSE ---
pt was calm and cooperative throughout the night, sitter was in place throughout the shift. pt reassured on plan to be transferred to facility today.
[2024-08-03] MEDS: Levothyroxine Sodium 25 MCG TABLET PO (06:28)
[2024-08-03] MEDS: Fluticasone/Umeclidinium/Vilanterol 100/62.5/25 BLST.W.DEV 1 PUFF INHALE (08:03)
[2024-08-03] MEDS: Cholecalciferol (Vitamin D3) 25 MCG TABLET PO (08:07)
[2024-08-03] MEDS: Cariprazine HCl 3 MG CAPSULE PO (08:07)
[2024-08-03] MEDS: clonazePAM 1 MG TABLET PO (08:07)
[2024-08-03] MEDS: Aspirin Enteric Coated 81 MG TABLET.DR PO (08:07)
[2024-08-03] MEDS: lamoTRIgine 25 MG TABLET 150 MG PO (08:07)
[2024-08-03] MEDS: Cyanocobalamin (Vitamin B-12) 500 MCG TABLET PO (08:07)
[2024-08-03 08:08] VITALS: BP 137/90
[2024-08-03] MEDS: Sacubitril/Valsartan 49/51 1 TAB TABLET PO (08:08)
[2024-08-03] MEDS: Fluticasone Propionate Nasal 16 GM SPRAY 1 SPRAY NOSTRIL-B (08:10)
[2024-08-03] MEDS: Sodium Chloride 0.65 % Nasal 44 ML SPRBTL 2 SPRAY NOSTRIL-B (08:10)
[2024-08-03 08:11] VITALS: BP 137/90; PULSE 78; RESP 18; TEMP 36.4; O2SAT 95
[2024-08-03] MEDS: metroNIDAZOLE 0.75 % Gel 45 GM TUBE 1 APPL TOPICAL (08:11)
--- NOTE | 2024-08-03 08:24 | MHC.CARE ---
Patient has been accepted to [address] [place] [address], ETA 1pm, accepting provider Dr Nelson. Ambulance will berry picker here at 1230pm per Jonel.
[2024-08-03] MEDS: Nicotine 14 MG PATCH.TD24 TRANSDERMA (08:34)
[2024-08-03 08:35] VITALS: PULSE 78
[2024-08-03] MEDS: Tamsulosin HCL 0.4 MG CAPSULE PO (08:35)
[2024-08-03] MEDS: Multivitamin TABLET 1 TAB PO (08:35)
[2024-08-03] MEDS: carvediloL 12.5 MG TABLET PO (08:35)
[2024-08-03] MEDS: Pantoprazole Sodium 20 MG TABLET.DR 40 MG PO (08:35)
[2024-08-03] MEDS: methocarbamoL 750 MG TABLET 1500 MG PO (08:49)
--- NOTE | 2024-08-03 08:50 | PC.NURSE ---
[place] called for report. Patient to leave via EMS to [place] at 1230pm. Patient took all am meds.
--- NOTE | 2024-08-03 09:53 | PC.NURSE ---
This RN assumed care of patient at 09:11am. Report received from Kelley BOYD. Plan to transport to [place] around 12:30pm today, transport to be provided by EMS. Patient is sitting upright in a chair, watching TV. Able to make needs known, conversing pleasantly, calm/cooperative. Report already given by previous RN. Care ongoing. Denies any additional needs at this time.
[2024-08-03] MEDS: Lidocaine 4 % Patch ADH..PATCH 1 PATCH TRANSDERMA (10:10)
[2024-08-03 11:07] VITALS: BP 137/90
[2024-08-03] MEDS: cloNIDine HCL 0.1 MG TABLET PO (11:07)
--- NOTE | 2024-08-03 11:08 | PC.NURSE ---
Patient medicated with PRN Clonidine for anxiety, restlessness stating that he's fidgety . Pt was offered Atarax PRN but refused stating no, I'm allergic to that . I told him that he took it last night at 08/02/2024 at 23:41. Patient stated well I'm not gonna take that today . Accepted Clonidine. Returned to chair. Awaiting EMS transport to [place].
[2024-08-03 13:50] VITALS: BP 137/90; PULSE 84; RESP 16; TEMP 36.5; O2SAT 95
== END 2024-08-03 13:50 ==
PROVIDERS: Emergency Provider Emergency Medicine Emergency Medical Services; PCP Internal Medicine
DX: R45.1 Restlessness and agitation (principal); F25.0 Schizoaffective disorder, bipolar type; F45.42 Pain disorder with related psychological factors; F84.9 Pervasive developmental disorder, unspecified; F43.10 Post-traumatic stress disorder, unspecified; E11.9 Type 2 diabetes mellitus without complications; I10 Essential (primary) hypertension; E78.5 Hyperlipidemia, unspecified; E03.9 Hypothyroidism, unspecified; K21.9 Gastro-esophageal reflux disease without esophagitis; F17.210 Nicotine dependence, cigarettes, uncomplicated; Z87.820 Personal history of traumatic brain injury; Z79.02 Long term (current) use of antithrombotics/antiplatelets; Z79.82 Long term (current) use of aspirin; Z79.85 Long-term (current) use of injectable non-insulin antidiabetic drugs; Z79.899 Other long term (current) drug therapy; Z03.818 Encounter for observation for suspected exposure to other biological agents ruled out
CPT/HCPCS: 0241U; 80048; 80076; 80307; 81001; 82947; 85025; 93005; 96372; 99285; J2359; S9485

== ENCOUNTER → 2024-07-28 22:49 | Outpatient (BNV) | payer MEDICARE, MEDICAID, SELFPAY | PROVIDERS: Emergency Provider Emergency Medicine Emergency Medical Services; PCP Internal Medicine; Visit Provider Social Worker | DX: F25.9 Schizoaffective disorder, unspecified (principal) | CPT/HCPCS: 99285 ==

== ENCOUNTER → 2024-07-29 07:16 | Outpatient (BNV) | payer MEDICARE, MEDICAID, SELFPAY | PROVIDERS: Emergency Provider Emergency Medicine Emergency Medical Services; Visit Provider Internal Medicine Cardiovascular Disease | DX: I49.3 Ventricular premature depolarization (principal); Z79.899 Other long term (current) drug therapy | CPT/HCPCS: 93010 ==

== ENCOUNTER 2024-11-08 12:51 | Outpatient (REF) | payer MEDICARE, MEDICAID, SELFPAY ==
--- NOTE | 2024-11-08 | EEG_ITS ---
Description: This is a routine waking EEG using the 10-20 electrode placement system. The waking background activity consists of low-voltage fast frequency seen diffusely intermixed with low-voltage posterior 10 hertz alpha frequency.? Photic stimulation is without activation.? Hyperventilation produces no change in the background activity. No focal, lateralizing or paroxysmal discharges are seen. Impression: This waking EEG is within normal limits MTDD
--- OUTSIDE RECORDS SUMMARY | 2024-11-08 13:55 | XMS_ITS | Encounter Summary ---
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 Name Role Phone Dwaine Bocanegra MD Primary Care Provider [phone] Reason for Visit * Reason Onset Date Comments Call back 10/12/2024 Medication Problem 10/12/2024 Encounter Details Date Type Department Care Team ([facility] Contact Info) Description 10/12/2024 Telephone Adult Medicine [facility] [address] [place] [phone] Dwaine Bocanegra MD [address] [place] [phone] Call back; Medication Problem Social History Tobacco Use Types Packs/Day Years Used Date Smoking Tobacco: Every Day Cigarettes Smokeless Tobacco: Never Alcohol Use Standard Drinks/Week Comments No 0 (1 standard drink = 0.6 oz pur e alcohol) Sex and Gender Information Value Date Recorded Sex Assigned at Not on file Legal Sex Male 5:11 AM EST Gender Identity Not on file Sexual Orientation Not on file documented as of this encounter Ordered Prescriptions Prescription Sig Dispense Quantity Refills Last Filled Start Date End Date fenofibrate (LOFIBRA) 54 mg tablet Take 1 tablet (54 mg total) by mouth 1 (one) time each day. 90 each 1 10/12/2024 atorvastatin (LIPITOR) 40 mg tablet Take 1 tablet (40 mg total) by mouth 1 (one) time each day. at bedtime. 90 tablet 1 10/12/2024 documented in this encounter Progress Notes * Rika Montano MA - 10/12/2024 12:50 PM EDT [facility] at [facility] notified, will fax order to be signed by pcp Back pod fax * Dwaine Bocanegra MD - 10/12/2024 11:32 AM EDT Please inform the patient that his triglyceride levels are high, I sent a prescription for fenofibrate 54 mg daily to reduce the triglyceride levels. I also renewed the prescription for Lipitor 40 mgdaily to keep the cholesterol level under control. No need to increase the Lipitor dose. Fenofibrate and Lipitor medications will bring down the cholesterol as well as triglyceride levels. * Odalis Munoz MA - 10/12/2024 11:15 AM EDT Rest home is requesting Atorvastatin dose to be increase. Please advise. * Nadege Schmidt - 10/12/2024 10:16 AM EDT Medication Problem: What is the name of the medication patient is having a problem with?: atorvastatin (LIPITOR) 40 mg What is the problem?: Patient is residing at [facility] now since August, and caller states the patienttakes the above medication. This might have been prescribed by a previous physician. Please review med list and last note. Patient / caller wants to know if the dosing can be increased? Who is calling about the problem? : Other: Name of caller: Gert Relationship to patient: [facility] Home Is this a NEW medication?: no How long has the patient been taking this medication? unknown Who prescribed this medication for the patient? unsure Who is patients PCP?: Dwaine Bocanegra MD Payor: MEDICARE / Plan: MEDICARE PART A & B / Product Type: Medicare / documented in this encounter Plan of Treatment Upcoming Encounters Date Type Department Care Team (Late st Contact Info) Description 11/11/2024 11:00 AM EDT Office Visit Gastro[facility]ology - [place] [address] [place] [phone] Tita Arias NP 175 [facility] [address] [place] [address] 11/24/2024 9:10 AM EDT Office Visit [facility] Cardiology [facility] [address] [place] [address] Malissa Wan NP [address] [place] [address] 12/27/2024 12:30 PM EDT Ancillary Procedure [facility] Cardiology [facility] - [address] [facility] [address] [place] [address] 01/13/2025 11:50 AM EDT Office Visit Pulmonolgy - [place] [address] [place] [address] Cielo Johns NP 175 [facility] 200 [place] [address] 04/04/2025 10:40 AM EST Office Visit [facility] Cardiology [facility] - [address] [facility] [address] [place] [address] Malissa Wan NP [address] [place] [phone] documented as of this encounter Visit Diagnoses Not on filedocumented in this encounter Discontinued Medications Medication Sig Discontinue Reason Start Date End Da te atorvastatin (LIPITOR) 40 mg tablet Take 1 Tablet by mouth at bedtime. Reorder 11/26/2023 10/12/2024 documented as of this encounter Care Teams Rubber Covering Machine Operator Relationship Specialty Start Date End Date Dwaine Bocanegra MD [address] [place] [address] PCP - General Internal Medicine 08/19/21 documented as of this encounter
--- OUTSIDE RECORDS SUMMARY | 2024-11-08 13:56 | XMS_ITS | Encounter Summary ---
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 Name Role Phone Amol Lobato MD Primary Care Provider + Amol Lobato MD Primary Care Provider + Wilber Jacob MD Primary Care Provider Milagros Meng MD Unavailable [phone] Pcp, Unknown Primary Care Provider Unavailabl e Pcp, Unknown Primary Care Provider Unavailabl e Encounter Details Date Type Department Care Team (Late st Contact Info) Description 01/08/2018 Ancillary Orders [facility] [address] [place] [address] Amol Lobato MD [address] [facility] [address] [place] [address] [email or web address] Closed nondisplaced fracture of second metatarsal bone of right foot with routine healing, subsequent encounter Social History Tobacco Use Types Packs/Day Years Used Date Smoking Tobacco: Every Day Cigarettes Alcohol Use Standard Drinks/Week Comments No 0 (1 standard drink = 0.6 oz pur e alcohol) Sex and Gender Information Value Date Recorded Sex Assigned at Male 05/18/2024 7:08 PM EST Legal Sex Male 4:40 PM EDT Gender Identity Male 05/18/2024 7:08 PM EST Sexual Orientation Straight 05/18/2024 7: 08 PM EST documented as of this encounter Plan of Treatment Not on file documented as of this encounter Results * XR FOOT 3 OR MORE VIEWS (RIGHT) (01/09/2018 2:30 PM EDT) Anatomical Region Laterality Modality Foot Right Radiographic Lena ging Impressions 01/09/2018 3:53 PM EDT Subacute comminuted fracture of the proximal diaphysis of the right second metatarsal with evidence of healing. Narrative 01/09/2018 3:53 PM EDT XR FOOT 3 OR MORE VIEWS (RIGHT) INDICATION: TECHNIQUE: AP, oblique, and lateral views of the right foot. COMPARISON: Radiographs of the right foot, [facility], 12/07/2017. FINDINGS: Comminuted of the proximal diaphysis of the right second metatarsal with periosteal thickening and callus formation. Procedure Note Julio Jolly MD - 01/09/2018 XR FOOT 3 OR MORE VIEWS (RIGHT) INDICATION: TECHNIQUE: AP, oblique, and lateral views of the right foot. COMPARISON: Radiographs of the right foot, [facility],12/07/2017. FINDINGS: Comminuted of the proximal diaphysis of the right second metatarsal withperiosteal thickening and callus formation. IMPRESSION: Subacute comminuted fracture of the proximal diaphysis of the right secondmetatarsal with evidence of healing. Amol Lobato MD IMG XR LOWER EXTREMITY F inal Result documented in this encounter Visit Diagnoses Diagnosis Closed nondisplaced fracture of second metatarsal bone of right foot with routine healing, subsequent encounter Closed nondisplaced fracture of second metatarsal bone of right foot with routine healing, subsequent encounter documented in this encounter Additional Health Concerns Infection Onset Date Last Indicated Resolved Time CoV-Risk 07/14/2019 07/14/2019 07/26/2019 1:31 PM EDT COVID-19 07/14/2019 07/14/2019 08/23/2019 1:23 AM EDT CoV-Risk 09/04/2019 09/04/2019 09/04/2019 11:4 6 AM EDT COVID-19 09/04/2019 09/04/2019 10/04/2019 1:2 3 AM EDT CoV-Recovered Comment:Entered in Error. Active COVID-19 Infection. 09/28/2019 09/28/2019 09/28/2019 2:29 PM E DT CoV-Risk 05/14/2024 05/18/2024 05/29/2024 1:21 AM EST documented as of this encounter Care Teams Jet Aircraft Servicer Relationship Specialty Start Date End Date Amol Lobato MD [address] [address] [email or web address] PCP - General 12/20/16 05/25/18 Amol Lobato MD [address] [address] [email or web address] PCP - General Family Medicine 05/26/18 04/10/20 Wilber Jacob MD [address] [address] PCP - General Internal Medicine 04/11/20 04/07/24 Pcp, Unknown PCP - General 04/08/24 05/17/24 Pcp, Unknown PCP - General 05/18/24 Milagros Meng MD [address] [place] [address] [email or web address] Cardiology 04/15/21 documented as of this encounter Additional Source Comments The information contained in this document represents components of the legal health record. It is not the complete legal health record.[facility]
== END 2024-11-08 12:52 | disposition home or self-care (01) ==
LOC: HO.NEURO 12:51
PROVIDERS: PCP Internal Medicine; Visit Provider Psychiatry & Neurology Neurology
DX: R55 Syncope and collapse (principal)
CPT/HCPCS: 95816

== ENCOUNTER → 2024-11-08 13:00 | Outpatient (BNV) | payer MEDICARE, MEDICAID, SELFPAY | PROVIDERS: PCP Internal Medicine; Visit Provider Psychiatry & Neurology Neurology | DX: R51.9 Headache, unspecified (principal); Z87.820 Personal history of traumatic brain injury | CPT/HCPCS: 95816 ==

== ENCOUNTER 2025-01-03 08:47 | Outpatient (AMB) | payer MEDICARE, MEDICAID, SELFPAY ==
--- NOTE | 2025-01-03 08:50 | MHC.OFFVIS ---
Vital Signs 01/03/25 08:54 Height 5 ft 10 in Weight 188 lb 2 oz BMI 27.0 BP 115/62 Blood Pressure Location Rt brachial Position Sitting Pulse 72 Pulse Source Pulse Oximeter Pulse Oximetry (%) 96 Oxygen Delivery Method Room Air Intake Visit Reasons: Neck and Back Pain MICHAEL 11/17/23 Intake Note: Pain today 11/27 Hematologist Required: No Accompanied by: Self / Same As Patient Allergies fluoxetine (Prozac) Allergy (Intermediate, Verified 01/03/25 08:55) Seizures bupropion Allergy (Verified 01/03/25 08:55) Unknown divalproex sodium (From Depakote) Allergy (Verified 01/03/25 08:55) Unknown haloperidol (From Haldol) Allergy (Verified 01/03/25 08:55) Unknown quetiapine (From Seroquel) Allergy (Verified 01/03/25 08:55) Unknown risperidone (From Risperdal) Allergy (Verified 01/03/25 08:55) Unknown sertraline Allergy (Verified 01/03/25 08:55) Unknown thiothixene (From Navane) Allergy (Verified 01/03/25 08:55) Unknown paroxetine (From Paxil) Adverse Reaction (Mild, Verified 01/03/25 08:55) suicidal thoughts risperdal analogues Allergy (Uncoded 07/28/24 15:54) Unknown From Paxil Adverse Reaction (Mild, Uncoded 07/28/24 15:54) SUICIDAL THOUGHTS HPI Comments Details: The patient is a 54-year-old male presenting with chronic neck and back pain. He has a complex medical history including bipolar disorder, traumatic brain injury, post-traumatic stress disorder, fibromyalgia, seizures, and cerebral ataxia. The chronic neck and back pain have been persistent issues, with the patient reporting pain levels at 8/10. The pain is exacerbated by spasms on both sides and is constant, with the back pain being slightly more severe than the neck pain. He reports Tylenol and Meloxicam 7.5 mg have not been effective. He is requesting a stronger pain medication such as tramadol. The patient has not engaged in physical therapy despite previous prescriptions last year, and he resides in a rest home where therapy can be arranged externally. He reports a significant weight loss (210 lb down to 188 lb) attributed to diet and exercise. The patient has a history of a traumatic brain injury from 1988, which resulted in a coma and subsequent embolisms. He continues to experience seizures and is on medication management for this condition. The patient also reports he has a history of atrial fibrillation and heart failure, managed with Coreg and Entresto, and reports stable cardiac status without recent hospitalizations. He follows Cardiology at [facility]. He also has diabetes mellitus, which he reports is well-controlled with an A1c under 7, although cannot recall his last A1C. - Onset and Timing: Chronic, persistent pain in neck and back. - Quality and Character: Constant pain with aching, sharp sensations, tightness, spasms on both sides, right>left. - Primary Location: Neck and back, with neck pain being more severe. - Exacerbating Factors: Movement increases neck and back pain, spasms exacerbate overall pain. - Relieving Factors: Partial relief with Tylenol, Meloxicam - Interference with Activities: Pain is constant and affects daily activities. - Affect: Pain significantly impacts mood and psychological wellbeing. - Analgesia: Current pain level is 8/10; meloxicam and other pain medications have been ineffective. - Adverse Effects: No specific adverse effects from current medications noted. - Activities of Daily Living: Pain interferes with daily activities, including movement and exercise. - Aberrant Drug Related Behaviors: No aberrant behaviors reported. PRIOR 11/17/23: Patient presents today for follow up to address his chronic neck and low back pain. At previous visit we reviewed his thoracic and lumbar spine imaging and referred patient for physical therapy. Unfortunately, his PT visits have not been scheduled. Patient resides in [facility] and reports notifying his staff regarding PT as well as our office provided communication to his [facility] staff to coordinate PT. Patient reports he has been taking Tylenol daily for pain with minimal to no pain relief and has minimal benefit with nabumetone. He requests a different medication to alleviate his symptoms. Denies any recent cough, cold, infection, fever, any significant changes in her medical history, medications or recent hospitalizations. PRIOR: Patient presents today to assess response to Bilateral Diagnostic C4-C5-C6 MBB injections on 09/03/[address] Jose. Patient reports 75% pain relief for 6 hours after procedure the significant improvement in his functioning, range of motion sleep and pain. Patient would like to undergo repeat injections for potential cervical medial branch RFA for a longer pain relief. We also discussed therapeutic injections. Patient has diabetes, well controlled with most recent A1c at 6.8. He is manage on Trulicity injections and tries to adhere to ADA diet. Patient prefers to avoid steroidal injections at this time. Patient also reports chronic mid and low back pain. Denies any trauma, injury, or falls. He address to send the near future as well periods he denies any recent imaging for his lower lumbar spine, we will obtain those today. Denies any recent cough, cold, infection, fever, any significant changes in her medical history, medications or recent hospitalizations. Oswestry Neck Pain Disability Score=20 (moderate disability) Past Procedures: 09/03/23: Bilateral Diagnostic C4-C5-C6 MBB-75% pain relief 03/18/23: Left parasaggital interlaminar C7-T1 ARACELI-50% ongoing pain relief PRIOR: Patient presents today for follow up to discuss recent cervical spine and left shoulder xray results. Patient is accompanied by his BOOK TRIMMER. He continues to endorse neck with radiation to his left lower arm and low back pain but notes that left shoulder pain has improved. Patient is scheduled for cervical TFESI injection on 01/07/23 with sedation. He is interested to undergo procedures for his chronic axial low back pain. Denies any recent cough, cold, infection, fever or other significant changes in medical history since last office visit. Patient denies any bladder or bowel incontinence or saddle anesthesia. PRIOR: Patient is a 52 years old male with history of complex mental health history including Bipolar disorder, TBI, PTSD, fibromyalgia, seizures, cerebellar ataxia, cervical disc disease, chronic low back pain, diabetes presents today with neck and left shoulder pain for past 2 years. Patient is accompanied by his BOOK TRIMMER. Reports recent fall during getting out of bed and hitting his head and right knee without LOC with minor right knee skin abrasion. Right hand dominant. Patient reports neck pain with movements, especially with left lateral and bending that radiates to his left shoulder and left lateral arm with intermittent numbness, tingling, weakness and some imbalance issues. Reports chronic tension headaches for which he takes Tylenol with mild relief. Left shoulder pain mildly reproduced with left overhead reaches and no pain with back pocket reaches. Patient reports he tries to stay active despite the pain. Reports daily activity of walking and push ups. Spine MRI imaging is noted below. Patient was referred to us by Dr. Espinal for cervical epidural injection. Patient requests neck injections under sedation only. Denies any fever, chills, weight loss, bladder or bowel incontinence or saddle anesthesia. Complex mental health history includes psychiatric admission at [facility]. Per recent neurology note review, patient had a gambling addiction, has had multiple psychiatric admissions including one when he jumped off the top of the building, another with intentional overdose on Depakote and multiple hypnotic medications, and multiple suicidal attempts according to his records. Patient reports traumatic brain injury at age 18 when he fell while playing basketball landing on his head and had some right frontal encephalomalacia as a result and a single seizure. Most recent EEG on 05/16/22 was normal. Patient reports his diabetes is controlled with A1C below 7.0 but requests Nutritional Consult to assist him in better food choices and potential weight loss. Location Lower neck, radiates down bilateral shoulders, worse on the left Duration Chronic neck pain for past 3 years Characteristics of symptom or complaint Aching, pins and needles, burning, stabbing, shooting Aggravating or associated factors Movements, stress, bending, looking down Relieving factors Tyelnol, cyclobenzaprine, stretching exercises Treatment PT low back in 2019, currently at chiropractic weekly [facility] Medical History Seizure Nocturnal hypoxemia Atherosclerosis Mild cognitive impairment BPH (benign prostatic hyperplasia) Hypokinesis Vitamin D deficiency Hyponatremia Chronic systolic (congestive) heart failure Focal seizures History of concussion Chronic pain COPD (chronic obstructive pulmonary disease) Hypothyroidism Xerosis of skin Lower urinary tract symptoms (LUTS) Overactive bladder Hypercholesteremia Rosacea Tinea pedis Abdominal spasms Rectal spasm Cardiomyopathy Tachycardia GERD (gastroesophageal reflux disease) HTN (hypertension) Elevated cholesterol Traumatic brain injury Low back pain Diabetes Tension headache Cerebellar ataxia PTSD (post-traumatic stress disorder) Bipolar disorder Cervical disc disease Surgical History History of surgery Social History Household Members Other:: resides in senior care Housing Other:: senior care Alcohol intake: never Comment: NO COUNTS NEEDED Patient Tobacco Use Status: Current everyday Tobacco user Tobacco use type: Cigarette Review of Systems Const Details: - Musculoskeletal: Reports chronic neck and back pain with spasms, arthritis in hands. - Neurological: Reports seizures, well controlled. Denies numbness or tingling, bladder or bowel dysfunction or saddle anesthesia. - Cardiovascular: Reports atrial fibrillation, denies recent hospitalizations for heart issues. All systems reviewed & are unremarkable except as noted in HPI and below Physical Exam General: Appears afebrile. No acute distress. Alert and oriented. Mood and affect appropriate. Follows and participates in conversation appropriately. Respiratory effort is unlabored. No cough. Able to transition from sit to stand unassisted. Ambulates with bilaterally normal heel strike and toe off. Neck Neck: Yes normal visual inspection, Yes full ROM, Yes no lymphadenopathy, Yes no meningeal signs, Yes supple, No anterior neck swelling, Yes no JVD and No prominent dorsocervical fat pad General: Yes no CVA tenderness Back/Spine/Pelvis Back: no CVA tenderness Cervical Spine: cervical ROM normal, cervical muscular tenderness, pain with cervical ROM (right lateral rotation and cervical extension, mild tightness with flexion), No Cervical spine scars present, cervical spasm, No Cervical spine tenderness and No step off deformity Thoracic/Lumbar Spine: thoracic and lumbar spine normal to inspection, No Thoracic/lumbar spine scar(s), Lasegue's sign negative, straight leg raise negative bilaterally, pain with thoraco-lumbar ROM (Lumbar extension reproduces moderate symptoms. Positive facet loading bilat), paraspinal muscle tenderness, No thoracic spinal tenderness and lumbar spinal tenderness at L4 and at L5 Sacroiliac joints: bilaterally nontender Neuro General: no meningeal signs Extrem General: Yes capillary refill normal, Yes no clubbing, cyanosis or edema and Yes no calf tenderness Psych Appearance: grossly normal and well kempt Mental Status: mental status grossly normal Speech and movement: Normal speech and movement present Affect: normal affect Attitude: cooperative Thought process: Circumstantial thought process present Thought content: Normal thought content present, no hallucinations and No Depressive thoughts present Insight: Fair insight present (Psych) Judgement: Fair judgement present (Psych) Results Reviewed Results Reviewed: XR LUMBOSACRAL SPINE WITH OBLIQUES 09/16/23 CLINICAL INFORMATION: Spondylosis without myelopathy or radiculopathy, lumbar region FINDINGS: There 5 nonrib-bearing lumbar-type vertebral bodies. The height of vertebral bodies is well-maintained. There is straightening of the usual lumbar lordosis which can be seen with muscle spasm. There is marked disc space narrowing at L4-L5. There there is multilevel degenerative facet joint disease, most marked at L4-L5 and L5-S1. There is no spondylolisthesis. There is partial calcification of the distal abdominal aorta without evidence of aneurysmal dilatation. There is probably a healed fracture of the left posterior 11th rib. IMPRESSION: 1. Muscle spasm. 2. Degenerative disc disease at L4-L5. 3. Multilevel degenerative facet joint disease, most marked at L4-L5 and L5-S1. XR THORACIC SPINE 09/16/23 CLINICAL INFORMATION: Dorsalgia, unspecified FINDINGS: There is no fracture or bone destruction seen and the vertebral alignment is normal. There is is multilevel disc space narrowing with anterior marginal osteophyte formation. There is no abnormality of the paraspinal soft tissues. Incidental note is made of straightening of the usual cervical lordosis which can be seen with muscle spasm or be due to patient positioning. IMPRESSION: 1. Multilevel degenerative disc disease of the thoracic spine. 2. Straightening of the usual cervical lordosis which can be seen with muscle spasm or be due to patient positioning. XR CERVICAL SPINE 11/28/22 FINDINGS: Vertebral bodies are well aligned and intervertebral discs are preserved. Pedicles are intact. There is mild narrowing of C5-C6 intervertebral disc space without spondylolysis or listhesis. Soft tissues unremarkable. IMPRESSION: Mild degenerative changes at the level of C5-C6. Assessment & Plan Assessment & Plan (1) Cervical disc disease: Code(s): M50.90 - Cervical disc disorder, unspecified, unspecified cervical region Category: Medical (2) Cervical spondylosis: Code(s): M47.812 - Spondylosis without myelopathy or radiculopathy, cervical region Category: Medical (3) Low back pain: Code(s): M54.50 - Low back pain, unspecified Category: Medical (4) Lumbar spondylosis: Code(s): M47.816 - Spondylosis without myelopathy or radiculopathy, lumbar region Category: Medical (5) Lumbar degenerative disc disease: Code(s): M51.36 - Other intervertebral disc degeneration, lumbar region Category: Medical (6) Muscle spasms of neck: Code(s): M62.838 - Other muscle spasm Category: Medical Plan The plan for managing the patient's chronic neck and back pain includes repeating bilateral diagnostic C4-C5-C6 medial branch blocks with local and fluoroscopy, followed by radiofrequency ablation if the diagnostic blocks are positive. Due to the patient's history of seizures and neurocognitive deficits, peripheral nerve stimulation is contraindicated. Physical therapy focusing on strengthening core and myofascial release and massage is recommended to alleviate muscle spasms, reduce pain and improve ROM. All questions and concerns have been answered and patient agreed with the treatment plan. Follow up after injections/PT and sooner as needed. Patient was informed and verbally consented to the use of an ambient scribe for clinic note documentation during this visit. Orders: Orders PT Evaluation and Treatment Today M47.812 - Spondylosis without myelopathy or radiculopathy, cervical region, M47.816 - Spondylosis without myelopathy or radiculopathy, lumbar region, M50.90 - Cervical disc disorder, unspecified, unspecified cervical region, M51.36 - Other intervertebral disc degeneration, lumbar region, M54.50 - Low back pain, unspecified Patient Instructions: I discussed with the patient the option of repeating the diagnostic neck injections and proceeding with radiofrequency ablation for longer-term pain relief. We reviewed the contraindications for peripheral nerve stimulation due to his seizure history and neurocognitive concerns. I emphasized the importance of starting physical therapy and the potential benefits of strengthening core, myofascial release and massage. We also discussed the need to avoid certain muscle relaxants due to his heart condition and the potential risks associated with them. Coding Level of Care Code Est Pt Level 4 (99188) Complex EM visit Add On G2211 Diagnoses Cervical disc disease M50.90 Cervical spondylosis M47.812 Low back pain M54.50 Lumbar spondylosis M47.816 Lumbar degenerative disc disease M51.36 Muscle spasms of neck M62.838
[2025-01-03 08:54] VITALS: BP 115/62; PULSE 72; O2SAT 96; BMI 27.0
--- OUTSIDE RECORDS SUMMARY | 2025-01-03 10:42 | XMS_ITS | Clinical Summary ---
Author Organization [facility], Address [address] [place] [address] [place] [address] Phone Care Team Providers Care Wire Temperer Name Role Phone Helder Hdz MD Primary Care Provider [phone] Allergies Active Allergy Reactions Criticality Noted Date Comments Bupropion 11/15/2021 Fluoxetine 11/15/2021 Haloperidol 11/15/2021 Quetiapine 11/15/2021 Risperidone 11/15/2021 Sertraline 11/15/2021 Thiothixene (Tiotixene) 11/15/2021 Valproic Acid 11/15/2021 Medications Dulaglutide (Trulicity) 1.5 MG/0.5ML solution pen-injector Inject under the skin Active metoprolol succinate XL (TOPROL-XL) 100 MG 24 hr tablet Take 100 mg by mouth 1 (one) time each day Do not crush or chew. Active loratadine (CLARITIN) 10 MG tablet Take 10 mg by mouth 1 (one) time each day Active acetaminophen (TYLENOL) 325 MG tablet Take by mouth every 6 (six) hours if needed for mild pain Active levothyroxine sodium (TIROSINT) 25 MCG capsule Take 25 mcg by mouth 1 (one) time each day Active Vortioxetine HBr (Trintellix) 5 MG tablet Take by mouth Active aspirin (ST CARLOS) 81 MG EC tablet Take 81 mg by mouth 1 (one) time each day Active traZODone (DESYREL) 50 MG tablet Take 50 mg by mouth every night Active lisinopril (PRINIVIL,ZESTR IL) 30 MG tablet Take 30 mg by mouth 1 (one) time each day Active ondansetron (ZOFRAN) 4 MG tablet Take 4 mg by mouth every 8 (eight) hours if needed for nausea or vomiting Active metFORMIN (GLUCOPHAGE) 500 MG tablet Take 500 mg by mouth in the morning and 500 mg in the evening. Take with meals. Active benztropine (COGENTIN) 0.5 MG tablet Take 0.5 mg by mouth in the morning and 0.5 mg in the evening. Active atorvastatin (LIPITOR) 40 MG tablet Take 40 mg by mouth 1 (one) time each day Active loperamide (IMODIUM) 2 MG capsule Take 2 mg by mouth 4 (four) times a day if needed for diarrhea Active senna (SENOKOT) 8.6 MG tablet Take 1 tablet by mouth 1 (one) time each day Active Multiple Vitamin (multivitamin) capsule Take 1 capsule by mouth 1 (one) time each day Active Mirabegron ER 25 MG tablet sustained-relea se 24 hour Take by mouth Activ e Active Problems Problem Noted Date Diagnosed Date Diabetes mellitus 11/15/2021 Hypertensive disorder 11/15/2021 Hyponatremia 11/15/2021 Immunizations Immunization Administration Dates Next Due Influenza, Unspecified 01/08/2021,12/28/2019, Pfizer SARS-COV-2 03/01/2021,05/28/2020,05/07/19 21 Pneumococcal Polysaccharide 08/22/2020 Td, Unspecified 08/22/2020 Social History Tobacco Use Types Packs/Day Years Used Date Smoking Tobacco: Never Assessed Sex and Gender Information Value Date Recorded Sex Assigned at Not on file Legal Sex Male 2:53 PM EDT Gender Identity Not on file Sexual Orientation Not on file Plan of Treatment Health Maintenance Due Date Last Done Comments Hepatitis B Vaccine (1 of 3 - 19+ 3-dose series) 1990 Colorectal Cancer Screening: Annual FOBT 2020 Colorectal Cancer Screening: Colonoscopy 2020 Colorectal Cancer Screening: Sigmoidoscopy 2020 Pneumococcal Vaccine: 50+ Ye ars (2 of 2 - PCV) 08/22/2021 08/22/2020 Diabetes: Hemoglobin A1C 09/25/2021 Diabetes: Ophthalmology Exam 09/25/2021 Diabetes: Pedal Pulse Checked 09/25/2021 Diabetes: Sensory Foot Exam 09/25/2021 Diabetes: Visual Foot Exam 09/25/2021 Influenza Vaccine (#1) 2024 , 12/28/2019, 03/03/2016 Pneumococcal Vaccine: Peds ( 0 to 5 Years) and At-Risk Patients (6 to 49 Years) Discontinued 08/22/2020 Insurance Medicare Medicaid [place] Care Teams Wire Temperer Relationship Specialty Start Date End Date Helder Hdz MD PCP - General Internal Medicine 09/24/21
--- OUTSIDE RECORDS SUMMARY | 2025-01-03 10:42 | XMS_ITS | Encounter Summary ---
Author Organization [facility] Address [address] [place] [address] Care Team Providers Care Steel Division Supervisor Name Role Phone Dwaine Bocanegra MD Primary Care Provider Reason for Visit * Reason Onset Date Comments Medication Problem 12/05/2024 Encounter Details Date Type Department Care Team ([facility] st Contact Info) Description 12/05/2024 Telephone Adult Medicine [address] [phone] Jeniffer Brady MA Social History Tobacco Use Types Packs/Day Years [...] on file documented as of this encounter Progress Notes * Dwaine Bocanegra MD - 12/06/2024 12:14 PM EDT It seems patient already contacted the cardiology and and I agree with the security and compliance analyst plan. He was seen in our office 2 weeks ago and at that time his blood pressure and the heart rate was under control. He should keep his upcoming appointment for echocardiogram next month and follow-up appointment with the security and compliance analyst. * Odalis Munoz MA - 12/06/2024 11:46 AM EDT Please review message below. Should this go to cardiology? * Jeniffer Brady MA - 12/05/2024 4:28 PM EDT Medication Problem: What is the name of the medication patient is having a problem with?: CLONIDINE 0.1 MG AND INDERAL 10 MG What is the problem?: PATIENT STATES HE HAS A HEART CONDITION AND THEY DONT HELP HIS HEART AT ALL. Who is calling about the problem? : The patient Is this a NEW medication?: no How long has the patient been taking this medication? A LONG TIME Who prescribed this medication for the patient? PCP Who is patients PCP?: Dwaine Bocanegra MD Payor: MEDICARE / Plan: MEDICARE PART A & B / Product Type: Medicare / documented in this encounter Plan of Treatment Upcoming Encounters Date Type Department Care Team (Late st Contact Info) Description 01/13/2025 11:50 AM EDT Office Visit Pulmonolgy - [place] [address] [facility] [address] [place] [id number] Cielo Johns NP [address] [place] [address] 02/23/2025 1:00 PM EST Office Visit Adult Medicine [facility] [address] [place], [place] [phone] Dwaine Bocanegra MD [address] [place] [address] 04/04/2025 10:40 AM EST Office Visit [facility] [address] [facility] [address] [place] [phone] Malissa Wan NP [address] [place] [address] [place] [phone] documented as of this encounter Visit Diagnoses Not on filedocumented in this encounter Care Teams Steel Division Supervisor Relationship Specialty Start Date End Date Dwaine Bocanegra MD [address] [place] [address] PCP - General Internal Medicine 08/19/21 documented as of this encounter
--- OUTSIDE RECORDS SUMMARY | 2025-01-03 10:42 | XMS_ITS | Encounter Summary ---
Author Organization [facility] Address [id number] [place] [phone] Care Team Providers Care Pari Mutuel Ticket Seller Name Role Phone Dwaine Bocanegra MD Primary Care Provider Encounter Details Date Type Department Care Team ([facility] Contact Info) Description 12/28/2024 Lab Requisition [facility] [address] [facility] [place] [address] Dwaine Bocanegra MD [address] [place] [phone] Dysuria Social History Tobacco Use Types Packs/Day Years [...] on file documented as of this encounter Plan of Treatment Upcoming Encounters Date Type Department Care Team ([facility] Contact Info) Description 01/13/2025 11:50 AM EDT Office Visit [facility] [address] [facility] [address] [place] [address] Cielo Johns NP [address] [place] [phone] 02/23/2025 1:00 PM EST Office Visit Adult Medicine [address] [phone] Dwaine Bocanegra MD [address] [place] [address] 04/04/2025 10:40 AM EST Office Visit [facility] [address] [facility] [address] [place] [phone] Malissa Wan NP [address] [place] [address] [place] [phone] documented as of this encounter Procedures Procedure Name Priority Date/Time Associated Diagnosis Comments URINALYSIS WITH REFLEX MICROSCOPIC Routine 12/28/2024 9:50 AM EDT Dysuria URINALYSIS WITH REFLEX MICROSCOPIC Routine 12/28/2024 9:50 AM EDT Dysuria CULTURE URINE Routine 12/28/2024 9:50 AM EDT Dysuria documented in this encounter Results * (ABNORMAL) Urinalysis with reflex microscopic (12/28/2024 9:50 AM EDT) Specific [place] Urine 1.012 1.003 - 1.030 LAB URINALYSIS - AUTOMATED METHOD 12/28/2024 1:27 PM [facility] pH, Urine 7.0 5.0 - 8.0 pH LAB URINALYSIS - AUTOMATED METHOD 12/28/2024 1:27 PM [facility] Leukocytes, Urine Negative Negative LAB URINALYSIS - AUTOMATED METHOD 12/28/2024 1:27 PM [facility] Nitrite, Urine Negative Negative LAB URINALYSIS - AUTOMATED METHOD 12/28/2024 1:27 PM [facility] Protein, Urine Negative <=Trace mg/dL LAB URINALYSIS - AUTOMATED METHOD 12/28/2024 1:27 PM [facility] Glucose, Urine >=1000(A) Negative mg/dL LAB URINALYSIS - AUTOMATED METHOD 12/28/2024 1:27 PM [facility] Ketones, Urine Negative Negative mg/dL LAB URINALYSIS - AUTOMATED METHOD 12/28/2024 1:27 PM EDT [facility] Urobilinogen , Urine 1.0 0.2 - 1.0 mg/dL LAB URINALYSIS - AUTOMATED METHOD 12/28/2024 1:27 PM EDT [facility] Bilirubin, Urine Negative Negative LAB URINALYSIS - AUTOMATED METHOD 12/28/2024 1:27 PM EDT [facility] Blood, Urine Negative Negative LAB URINALYSIS - AUTOMATED METHOD 12/28/2024 1:27 PM EDT [facility] Urine Urine specimen obtained by clean catch procedure / Unknown Non-blood Collection / Unknown 12/28/2024 9:50 AM EDT 12/28/2024 1:08 PM EDT us Dwaine Bocanegra MD LAB URINE ORDERABLES Final Result Performing Organization Address [facility]/ZIP Co de Phone Number [facility] [address] [place] [address], [place] [phone] * Culture urine (12/28/2024 9:50 AM EDT) Culture, Urine No growth 12/29/2024 7:28 AM EDT [facility] Urine Urine specimen obtained by clean catch procedure / Unknown Non-blood Collection / Unknown 12/28/2024 9:50 AM EDT 12/28/2024 1:08 PM EDT us Dwaine Bocanegra MD LAB MICROBIOLOGY - GENERAL ORDERABLES Final Result Performing Organization Address [facility]/ZIP Co de Phone Number [facility] [address] [place] [address], [place] [phone] documented in this encounter Visit Diagnoses Diagnosis Dysuria documented in this encounter Care Teams Pari Mutuel Ticket Seller Relationship Specialty Start Date End Date Dwaine Bocanegra MD [address] [place] [address] PCP - General Internal Medicine 08/19/21 documented as of this encounter
--- OUTSIDE RECORDS SUMMARY | 2025-01-03 10:42 | XMS_ITS | Encounter Summary ---
Author Organization [facility] Address [address] [place] [address] Phone Care Team Providers Care Solid Surface Fabricator Name Role Phone Helder Hdz MD Primary Care Provider [phone] Encounter Details Date Type Department Care Team (Late st Contact Info) Description 09/24/2021 Documentation Only [facility], [address] [place] [address] Helder Hdz MD [address] [place] [phone] Social History Tobacco Use Types Packs/Day Years Used Date Smoking Tobacco: Never Assessed Sex and Gender Information Value Date Recorded Sex Assigned at Not on file Legal Sex Male 2:53 PM EDT Gender Identity Not on file Sexual Orientation Not on file documented as of this encounter Plan of Treatment Not on file documented as of this encounter Visit Diagnoses Not on filedocumented in this encounter Care Teams Solid Surface Fabricator Relationship Specialty Start Date End Date Helder Hdz MD PCP - General Internal Medicine 09/24/21 documented as of this encounter
--- OUTSIDE RECORDS SUMMARY | 2025-01-03 10:42 | XMS_ITS | Clinical Summary ---
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 Palpitations 10/04/2019 DX:Palpitations Tobacco dependence 10/04/2019 DX:Tobacco de pendence Frequent urination 10/04/2019 DX:Frequent u rination Rectal discomfort DX:Rectal disc omfort Abdominal discomfort DX:Abdomina l discomfort Rectal pain DX:Rectal pain Irritable bowel syndrome DX:Irri table bowel syndrome Diabetes mellitus type 2, co ntrolled, with complications ([facility] V24, [facility] V28) DX:Diabetes mellitus type 2, controlled, with complications (HCC) Esophageal reflux DX:Esophageal reflux Nausea and vomiting DX:Nausea an d vomiting Rectal discomfort DX:Rectal disc omfort Rectal bleeding DX:Rectal bleedi ng Family History Medical History Relation Name Comments Alcohol/Drug Brother twin psychiatric is sues Coronary artery disease Brother twin s/p [place] age 49 Heart failure Brother twin Coronary artery disease Father s/p [place] Other: pancreatic cancer Maternal Grandmother Other: pulmonary fibrosis Mother Breast cancer Paternal Grandfather Other: never met him Son Dhruv Relation Name Status Comments Brother twin Father Maternal Grandmother Mother Paternal Grandfather Son Dhruv Alive Social History Tobacco Use Types Packs/Day Years Used Date Smoking Tobacco: Every Day Cigarettes Smokeless Tobacco: Never Tobacco Cessation:Ready to Q uit: Not Asked; Counseling Given: Not Answered Alcohol Use Standard Drinks/Week Comments No 0 (1 standard drink = 0.6 oz pur e alcohol) Sex and Gender Information Value Date Recorded Sex Assigned at Not on file Legal Sex Male 5:11 AM EST Gender Identity Not on file Sexual Orientation Not on file Obstetrics History Last Filed Vital Signs Vital Sign Reading Time Taken Comments Blood Pressure 110/80 12/27/2024 1:22 PM EDT Pulse 73 11/18/2024 9:42 AM EDT Temperature 36.6 C (97.9 F) 11/18/2024 9:42 AM EDT Respiratory Rate 18 11/18/2024 9:42 AM EDT Oxygen Saturation 95% 10/13/2024 9:18 AM EDT Inhaled Oxygen Concentration - - Weight 86.6 kg (191 lb) 12/27/2024 1:22 PM EDT Height 180.3 cm (5' 11 ) 12/27/2024 1:22 PM EDT Body Mass Index 26.64 12/27/2024 1:22 PM EDT Plan of Treatment Upcoming Encounters Date Type Department Care Team (Late st Contact Info) Description 01/13/2025 11:50 AM EDT Office Visit Pulmonolgy - [address] [place] [id number] Cielo Johns NP [address] [place] [phone] 02/23/2025 1:00 PM EST Office Visit Adult Medicine [facility] [address] [place], [place] [phone] Dwaine Bocanegra MD [address] [place], [place] 04/04/2025 10:40 AM EST Office Visit [facility] [address] [facility] [address] [place] [phone] Malissa Wan, PERLA [address] [place] [address] [place] [phone] Health Maintenance Due Date Last Done Comments Diabetes: Annual Foot Exam 1981 Diabetes: Annual Retina Eye Exam 1981 Hepatitis B Vaccines (1 of 3 - 19+ 3-dose series) 1990 Zoster Vaccines (1 of 2) 2021 Pneumococcal Vaccine: 50+ Years (2 of 2 - PCV) 08/22/2021 08/22/2020 Medicare Annual Wellness Visit 03/29/2022 Social Influencers of Health Screening 03/29/2022 Diabetes: Annual Urine Albumin-Creatinine Ratio (uACR) 01/06/2024 01/05/2023 Depression Screening 04/20/2024 Influenza Vaccine (#1) 2024 , 02/19/2023, 02/13/2022, Additional history exists Diabetes: Blood Sugar Control Test (HGBA1C) 04/05/2025 10/04/2024, 12/01/2023, 12/01/2023 Diabetes: Annual GFR (Glomerular Filtration Rate) 10/04/2025 10/04/2024, 11/19/2023, 11/19/2023, Additional history exists Hypertension/CHF/CAD Annual BMP Blood Test 10/04/2025 10/04/2024, 11/19/2023, 11/19/2023, Additional history exists Lung Cancer Screening (Low Dose CT) 10/11/2025 10/11/2024, 10/12/2023, 10/04/2022 Cholesterol Screening (Lipid Panel) 10/04/2029 10/04/2024, 06/01/2023, 06/27/2019 DTaP,Tdap,and Td Vaccines (3 - Td or Tdap) 08/22/2030 08/22/2020, 08/22/2020 Colorectal Cancer Screening: Colonoscopy 09/06/2030 09/06/2020 HIV Screening Completed 02/25/2022 Hepatitis C Screening Completed 02/25/2022 COVID-19 Vaccine Completed 02/01/2024, , 03/01/2021, Additional history exists HIB Vaccines Aged Out No longer eligi ble based on patient's age to complete this topic HPV Vaccines Aged Out No longer eligi ble based on patient's age to complete this topic Hepatitis A Vaccines Aged Out No long er eligible based on patient's age to complete this topic IPV Vaccines Aged Out No longer eligi ble based on patient's age to complete this topic MMR Vaccines Aged Out No longer eligi ble based on patient's age to complete this topic Meningococcal ACWY Vaccine Aged Out N o longer eligible based on patient's age to complete this topic Meningococcal B Vaccine Aged Out No l onger eligible based on patient's age to complete this topic RSV Immunization Patients Under 20 months Aged Out No longer eligible based on patient's age to complete this topic Varicella Vaccines Aged Out No longer eligible based on patient's age to complete this topic Procedures Procedure Name Priority Date/Time Associated Diagnosis Comments URINALYSIS WITH REFLEX MICROSCOPIC Routine 12/28/2024 9:50 AM EDT Dysuria URINALYSIS WITH REFLEX MICROSCOPIC Routine 12/28/2024 9:50 AM EDT Dysuria CULTURE URINE Routine 12/28/2024 9:50 AM EDT Dysuria EXTERNAL CLINICAL LAB 12/28/2024 TRANSTHORACIC ECHOCARDIOGRAM (TTE) COMPLETE Routine 12/27/2024 1:10 PM EDT Cardiomyopathy, unspecified type (CMS/HCC V24, CMS/HCC V28) HOME HEALTH ORDER 12/09/2024 EXTERNAL NEUROLOGY REPORT 11/08/2024 CT LUNG SCREENING Routine 10/11/2024 10: 42 AM EDT Encounter for screening for malignant neoplasm of respiratory organs Nicotine dependence, cigarettes, uncomplicated HEMOGLOBIN A1C Routine 10/04/2024 8:52 AM EDT Type 2 diabetes mellitus with hyperglycemia, without long-term current use of insulin ([facility] V24, [facility] V28) Acquired hypothyroidism Essential hypertension Palpitations Atherosclerosis of [place] coronary artery of [place] heart without angina pectoris Chronic systolic congestive heart failure ([facility] V24, [facility] V28) Chronic obstructive pulmonary disease, unspecified COPD type ([facility] V24, [facility] V28) Chronic nonintractable headache, unspecified headache type Benign prostatic hyperplasia without lower urinary tract symptoms Bipolar affective disorder, current episode mixed, current episode severity unspecified ([facility] V24, [facility] V28) COMPREHENSIVE METABOLIC PANEL Routine 10/04/2024 8:52 AM EDT Type 2 diabetes mellitus with hyperglycemia, without long-term current use of insulin ([facility] V24, [facility] V28) Acquired hypothyroidism Essential hypertension Palpitations Atherosclerosis of [place] coronary artery of [place] heart without angina pectoris Chronic systolic congestive heart failure ([facility] V24, [facility] V28) Chronic obstructive pulmonary disease, unspecified COPD type ([facility] V24, [facility] V28) Chronic nonintractable headache, unspecified headache type Benign prostatic hyperplasia without lower urinary tract symptoms Bipolar affective disorder, current episode mixed, current episode severity unspecified ([facility] V24, [facility] V28) LIPID PANEL WITH REFLEX TO DIRECT LDL Routine 10/04/2024 8:52 AM EDT Type 2 diabetes mellitus with hyperglycemia, without long-term current use of insulin ([facility] V24, [facility] V28) Acquired hypothyroidism Essential hypertension Palpitations Atherosclerosis of [place] coronary artery of [place] heart without angina pectoris Chronic systolic congestive heart failure ([facility] V24, [facility] V28) Chronic obstructive pulmonary disease, unspecified COPD type ([facility] V24, [facility] V28) Chronic nonintractable headache, unspecified headache type Benign prostatic hyperplasia without lower urinary tract symptoms Bipolar affective disorder, current episode mixed, current episode severity unspecified ([facility] V24, [facility] V28) MAGNESIUM Routine 10/04/2024 8:52 AM EDT Type 2 diabetes mellitus with hyperglycemia, without long-term current use of insulin (CMS/HCC V24, CMS/HCC V28) Acquired hypothyroidism Essential hypertension Palpitations Atherosclerosis of [place] coronary artery of [place] heart without angina pectoris Chronic systolic congestive heart failure (CMS/HCC V24, CMS/HCC V28) Chronic obstructive pulmonary disease, unspecified COPD type (CMS/HCC V24, CMS/HCC V28) Chronic nonintractable headache, unspecified headache type Benign prostatic hyperplasia without lower urinary tract symptoms Bipolar affective disorder, current episode mixed, current episode severity unspecified (CMS/HCC V24, CMS/HCC V28) THYROID STIMULATING HORMONE WITH REFLEX TO FREE T4 AND FREE T3 Routine 10/04/2024 8:52 AM EDT Type 2 diabetes mellitus with hyperglycemia, without long-term current use of insulin (CMS/HCC V24, CMS/HCC V28) Acquired hypothyroidism Essential hypertension Palpitations Atherosclerosis of [place] coronary artery of [place] heart without angina pectoris Chronic systolic congestive heart failure (CMS/HCC V24, CMS/HCC V28) Chronic obstructive pulmonary disease, unspecified COPD type (CMS/HCC V24, CMS/HCC V28) Chronic nonintractable headache, unspecified headache type Benign prostatic hyperplasia without lower urinary tract symptoms Bipolar affective disorder, current episode mixed, current episode severity unspecified (CMS/HCC V24, CMS/HCC V28) PROSTATE SPECIFIC ANTIGEN SCREEN Routine 10/04/2024 8:52 AM EDT Screening for prostate cancer URINE ALBUMIN CREATININE RATIO Routine 01/05/2023 HEPATITIS C SCREENING Routine 02/25/2022 HIV SCREENING Routine 02/25/2022 COLONOSCOPY Routine 09/06/2020 from Last 3 Months or Most Recently Relevant to Health Maintenance Results * (ABNORMAL) Urinalysis with reflex microscopic (12/28/2024 9:50 AM EDT) [facility] Specific [place] Urine 1.012 1.003 - 1.030 LAB URINALYSIS - AUTOMATED METHOD 12/28/2024 1:27 PM EDT [facility] pH, Urine 7.0 5.0 - 8.0 pH LAB URINALYSIS - AUTOMATED METHOD 12/28/2024 1:27 PM [facility] Leukocytes, Urine Negative Negative LAB URINALYSIS - AUTOMATED METHOD 12/28/2024 1:27 PM [facility] Nitrite, Urine Negative Negative LAB URINALYSIS - AUTOMATED METHOD 12/28/2024 1:27 PM [facility] Protein, Urine Negative <=Trace mg/dL LAB URINALYSIS - AUTOMATED METHOD 12/28/2024 1:27 PM [facility] Glucose, Urine >=1000(A) Negative mg/dL LAB URINALYSIS - AUTOMATED METHOD 12/28/2024 1:27 PM [facility] Ketones, Urine Negative Negative mg/dL LAB URINALYSIS - AUTOMATED METHOD 12/28/2024 1:27 PM [facility] Urobilinogen , Urine 1.0 0.2 - 1.0 mg/dL LAB URINALYSIS - AUTOMATED METHOD 12/28/2024 1:27 PM [facility] Bilirubin, Urine Negative Negative LAB URINALYSIS - AUTOMATED METHOD 12/28/2024 1:27 PM [facility] Blood, Urine Negative Negative LAB URINALYSIS - AUTOMATED METHOD 12/28/2024 1:27 PM [facility] Urine Urine specimen obtained by clean catch procedure / Unknown Non-blood Collection / Unknown 12/28/2024 9:50 AM EDT 12/28/2024 1:08 PM EDT us Dwaine Bocanegra MD LAB URINE ORDERABLES Final Result [facility] [address] [place] [address], [place] [phone] * Culture urine (12/28/2024 9:50 AM EDT) Pathologist [facility] Culture, Urine No growth 12/29/2024 7:28 AM EDT [facility] Urine Urine specimen obtained by clean catch procedure / Unknown Non-blood Collection / Unknown 12/28/2024 9:50 AM EDT 12/28/2024 1:08 PM EDT Dwaine Bocanegra MD LAB MICROBIOLOGY - GENERAL ORDERABLES Final Result [facility] [address] [place] [address], [place] [phone] * External clinical lab (12/28/2024) Provider [facility] BLOOD ORDERABLES Fin al Result * (ABNORMAL) TRANSTHORACIC ECHOCARDIOGRAM (TTE) COMPLETE (12/27/2024 1:10 PM EDT) LV EDV (A2C) 96 mL CV PACS LV EDV (A4C) 115 mL CV PACS LV Diastolic Volume (BP) 108 62 - 150 mL CV PACS LV ESV (A2C) 44 mL CV PACS LV ESV (A4C) 74 mL CV PACS LV Systolic Volume (BP) 57 21 - 61 mL CV PACS IVSD 1.0 0.6 - 1.0 cm CV PACS LVIDD 6.4(A) 4.2 - 5.8 cm CV PACS LVIDS 4.1(A) 2.5 - 4.0 cm CV PACS LVOT Diameter 2.1 cm CV PACS LVOT Mean Haroon 0.6 m/s CV PACS LVOT Mean Grad 1 mmHg CV PACS LVOT Peak VTI 18.9 cm CV PACS LVOT Peak Haroon 0.8 m/s CV PACS LVOT Peak Gradient 3 mmHg CV PACS LVPWD 1.0 0.6 - 1.0 cm CV PACS MV E' Tissue Velocity Lateral 8 cm/s CV PACS MV E' Tissue Velocity Septal 6 cm/s CV PACS LVOT Area 3.5 cm2 CV PACS LVOT Stroke Volume 65 mL CV PACS Left Atrium Minor [place] 5.0 cm CV PACS Left Atrium Major [place] 5.6 cm CV PACS LA Area Sys (A2C) 18 cm2 CV PACS LA Area Sys (A4C) 19 cm2 CV PACS LA Volume (BP) 55 mL CV PACS RA Area 11.4 cm2 CV PACS RA 2D Volume 24 mL CV PACS Aortic Sinus Valsalva 3.4 cm CV PACS Ascending Aorta 3.2 cm CV PACS IVC Proximal 1.4 cm CV PACS IVC Proximal 0.8 cm CV PACS E Wave Deceleration Time 151 119 - 242 ms CV PACS MV Peak A Haroon 0.77 m/s CV PACS MV Peak E Haroon 0.78 m/s CV PACS PV Acceleration Time 144 ms CV PACS PV Acceleration Time 144 ms CV PACS RV Diastolic Basal Dimension 3.2 2.5 - 4.1 cm CV PACS RV S' 11 cm/s CV PACS TAPSE 22 mm CV PACS E/E' Ratio Septal 13 CV PACS E/E' Ratio Averaged 11 CV PACS Relative Wall Thickness ratio 0.31 CV PACS FS 36 % CV PACS LV Mass 2D 276 g CV PACS LVOT flow 208 mL/s CV PACS E/A Ratio 1.0 CV PACS E/E' Ratio Lateral 10 CV PACS BSA 2.08 m2 CV PACS LV Diastolic Volume Index (BP) 52 34 - 74 mL/m2 CV PACS LV Systolic Volume Index (BP) 28 11 - 31 mL/m2 CV PACS LV EDV Index (A4C) 56 mL/m2 CV PACS LV ESV Index (A4C) 36 mL/m2 CV PACS LV EDV Index (A2C) 46 mL/m2 CV PACS LV ESV Index (A2C) 21 mL/m2 CV PACS LA Volume Index (BP) 27 mL/m2 CV PACS LVIDD Index 3.09 cm/m2 CV PACS LVIDS Index 1.98 cm/m2 CV PACS LV Mass Index 2D 133(A) 50 - 102 g/m2 CV PACS LVOT Stroke Index 31 mL/m2 CV PACS RA 2D Volume Index 12(A) 18 - 32 mL/m2 CV PACS Ascending Aorta Index 1.55 cm/m2 CV PACS Anatomical Region Laterality Modality Ultrasound Narrative 12/30/2024 5:57 PM EDT Left ventricle cavity is mildly dilated. Wall thickness is normal. Systolic function is mildly decreased. Global LV hypokinesis is present. Right ventricle cavity is normal. Right ventricular systolic function is normal. Normal atrial sizes. No hemodynamically significant valvular disease. There are no significant changes compared to previous study of 10/13/2023. Suggest to use contrast for better endocardial visualization in future study. Left Ventricle Left ventricle cavity is mildly dilated. Wall thickness is normal. Systolic function is mildly decreased. Global LV hypokinesis is present. Indeterminate diastolic function. Right Ventricle Right ventricle cavity appears normal. Systolic function is normal. Left Atrium Left atrium cavity size is normal. Right Atrium Right atrium cavity is small. IVC/SVC Inferior vena cava structure is normal. RA pressures is estimated to be 8 mmHg (IVC diameter <21 mm and decreases <50% during inspiration). Mitral Valve The leaflets are mildly thickened. There is mild annular calcification. There is no significant mitral valve regurgitation. There is no significant stenosis noted. Tricuspid Valve Tricuspid valve structure is normal. Tricuspid regurgitation is inadequate for estimation of right ventricular systolic pressure. There is no significant tricuspid valve stenosis. Cannot assess RVSP. Aortic Valve The aortic valve is trileaflet. The leaflets are not thickened and exhibit normal excursion. There is no regurgitation or stenosis. Pulmonic Valve The pulmonic valve was not well visualized. No significant pulmonic valve regurgitation. No significant pulmonary valve stenosis noted. Ascending Aorta The aorta appears normal in size. Pericardium Pericardium appears normal. There is no pericardial effusion. Study Details Overall the study quality was adequate. Jaz Fuentes MD CV ECHO PROCEDURES Final Result * Home Health Order (12/09/2024) Provider [place] [facility] NURSING ASSESSMENTS Shital l Result * External Neurology Report (11/08/2024) [facility] NEUROLOGY ORDERABLES Fin al Result * CT Lung Screening (10/11/2024 10:42 AM EDT) Anatomical Region Laterality Modality Chest Computed Tomogra phy 10/12/2024 12:0 1 PM EDT Impressions 10/12/2024 12:09 PM EDT Impression: No suspicious developing pulmonary nodule. No significant change. Lung-RADS Category: Lung-RADS 1: No nodules or definitely benign nodules. Continue annual screening with Low Dose Chest CT in 12 months. [place] ([id number]) -------- FINAL REPORT -------- Dictated By: Johana Ayoub Dictated Date: 10/12/2024 12:01 ET Assigned Physician: Johana Ayoub Reviewed and Electronically Signed By: Johana Ayoub Signed Date: 10/12/2024 12:09 ET Workstation ID: [id number] Transcribed By: Self Edit Transcribed Date: 10/12/2024 12:01 ET Narrative 10/12/2024 12:09 PM EDT History: 54 year-old 32 pack-year current smoker, asymptomatic, for lung cancer screening. Comparison: 10/09/23 Technique: Helical volumetric imaging of the thorax was performed, using low- dose technique, without IV contrast. DLP: 176.42 mGy/cm CTDIvol: 4.83 mGy [employer] VCT Iterative reconstruction technique Findings: Lungs and Airways: The trachea and central bronchial tree remain patent. Minimal juxta mediastinal atelectasis at the base of the right middle lobe is unchanged and there is stable discoid atelectasis in the right middle lobe and lingula. A single 9 mm thin-walled cyst is seen in the left upper lobe. A tiny, homogeneously calcified nodule in the right middle lobe is consistent with a healed granuloma. No suspicious developing pulmonary nodule is seen. Pleura: No pleural or pericardial effusions are identified. Base of neck, mediastinum and heart: The heart remains normal in size. Minimal coronary artery calcification is seen. No developing thoracic lymphadenopathy is noted. Debris is seen within the thoracic esophagus, possibly related to reflux. Soft tissues: The overlying soft tissues are unremarkable. Abdomen: This study was performed without contrast and with lower than standard dose. These factors reduce the sensitivity for detection of small lesions in the upper abdomen. No significant abnormality is seen. Old, healed left rib fractures are noted. Procedure Note Johana Ayoub MD - 10/12/2024 History: 54 year-old 32 pack-year current smoker, asymptomatic, for lungcancer screening. Comparison: 10/09/23 Technique: Helical volumetric imaging of the thorax was performed, usinglow-dose technique, without IV contrast. DLP: 176.42 mGy/cm CTDIvol: 4.83 mGy Team [employer] VCT Iterative reconstruction technique Findings: Lungs and Airways: The trachea and central bronchial tree remain patent.Minimal juxta mediastinal atelectasis at the base of the right middle lobeis unchanged and there is stable discoid atelectasis in the right middlelobe and lingula. A single 9 mm thin-walled cyst is seen in the left upper lobe. A tiny, homogeneously calcified nodule in the right middle lobe isconsistent with a healed granuloma. No suspicious developing pulmonarynodule is seen. Pleura: No pleural or pericardial effusions are identified. Base of neck, mediastinum and heart: The heart remains normal in size.Minimal coronary artery calcification is seen. No developing thoraciclymphadenopathy is noted. Debris is seen within the thoracic esophagus,possibly related to reflux. Soft tissues: The overlying soft tissues are unremarkable. Abdomen: This study was performed without contrast and with lower thanstandard dose. These factors reduce the sensitivity for detection of smalllesions in the upper abdomen. No significant abnormality is seen. Old, healed left rib fractures are noted. IMPRESSION: Impression: No suspicious developing pulmonary nodule. No significant change. Lung-RADS Category: Lung-RADS 1: No nodules or definitely benign nodules.Continue annual screening with Low Dose Chest CT in 12 months. Telerad MASSIMO ([id number]) -------- FINAL REPORT -------- Dictated By: Johana Ayoub Dictated Date: 10/12/2024 12:01 ET Assigned Physician: Johana Ayoub Reviewed and Electronically Signed By: Johana Ayoub Signed Date: 10/12/2024 12:09 ET Workstation ID: [id number] Transcribed By: Self Edit Transcribed Date: 10/12/2024 12:01 ET us Antonio Jurado MD IMG CT PROCEDURES Final Result * Prostate specific antigen screen (10/04/2024 8:52 AM EDT) [facility] PSA 0.88 0.00 - 4.00 ng/mL LAB CHEMISTRY METHOD 10/04/2024 5:56 PM EDT [facility] Blood Venous blood specimen / Unknown Venipuncture / Unknown 10/04/2024 8:52 AM EDT 10/04/2024 8:52 AM EDT Narrative [facility] - 10/04/2024 5:56 PM EDT The Siemens Advia BiPar Sciencesaur Chemiluminescent Immunoassay is used. Results obtained with different assay methods or kits cannot be used interchangeably. Results cannot be interpreted as absolute evidence of the presence or absence of malignant disease. Dwaine Bocanegra MD LAB BLOOD ORDERABLES Final Result [facility] [address] [place] [address], [place] [phone] * Thyroid stimulating hormone with reflex to free t4 and free t3 (10/04/2024 8:52 AM EDT) [facility] TSH 0.79 0.40 - 4.00 mcIU/mL LAB CHEMISTRY METHOD 10/04/2024 3:38 PM EDT [facility] Blood Venous blood specimen / Unknown Venipuncture / Unknown 10/04/2024 8:52 AM EDT 10/04/2024 8:52 AM EDT Dwaine Bocanegra MD LAB BLOOD ORDERABLES Final Result [facility] [address] [place] [address], [place] [phone] * (ABNORMAL) Lipid panel with reflex to direct LDL (10/04/2024 8:52 AM EDT) [facility] Cholesterol 153 0 - 200 mg/dL LAB CHEMISTRY METHOD 10/04/2024 3:10 PM EDT [facility] Triglycerides 316(H) 0 - 150 mg/dL LAB CHEMISTRY METHOD 10/04/2024 3:10 PM EDT [facility] HDL 38(L) >=40 mg/dL LAB CHEMISTRY METHOD 10/04/2024 3:10 PM EDT [facility] LDL Calculated 52 0 - 100 mg/dL LAB CHEMISTRY METHOD 10/04/2024 3:10 PM EDT [facility] VLDL Cholesterol Akira 63.2 mg/dL LAB CHEMISTRY METHOD 10/04/2024 3:10 PM EDT [facility] Non HDL Chol. (LDL+VLDL) 115 <145 mg/dL LAB CHEMISTRY METHOD 10/04/2024 3:10 PM EDT [facility] Chol/HDL Ratio 4.0 0.0 - 4.4 LAB CHEMISTRY METHOD 10/04/2024 3:10 PM EDT [facility] Blood Venous blood specimen / Unknown Venipuncture / Unknown 10/04/2024 8:52 AM EDT 10/04/2024 8:52 AM EDT us Dwaine Bocanegra MD LAB BLOOD ORDERABLES Final Result [facility] [address] [place] [address], * (ABNORMAL) Magnesium (10/04/2024 8:52 AM EDT) Magnesium 1.8(L) 1.9 - 2.6 mg/dL LAB CHEMISTRY METHOD 10/04/2024 3:02 PM EDT [facility] Blood Venous blood specimen / Unknown Venipuncture / Unknown 10/04/2024 8:52 AM EDT 10/04/2024 8:52 AM EDT Dwaine Bocanegra MD LAB BLOOD ORDERABLES Final Result [facility] [address] [place] [address], [place] [phone] * Hemoglobin A1c (10/04/2024 8:52 AM EDT) Pathologist [facility] Hemoglobin A1C 6.1 <6.5 % LAB CHEMISTRY METHOD 10/04/2024 11:31 AM EDT [facility] Mean Bld Glu Estim. 128 mg/dL LAB CHEMISTRY METHOD 10/04/2024 11:31 AM EDT [facility] Blood Venous blood specimen / Unknown Venipuncture / Unknown 10/04/2024 8:52 AM EDT 10/04/2024 8:52 AM EDT Dwaine Bocanegra MD LAB BLOOD ORDERABLES Final Result [facility] [address] [place] [address], [place] [phone] * (ABNORMAL) Comprehensive metabolic panel (10/04/2024 8:52 AM EDT) [facility] Sodium 140 133 - 145 mmol/L LAB CHEMISTRY METHOD 10/04/2024 3:10 PM EDT [facility] Potassium 4.1 3.5 - 5.5 mmol/L LAB CHEMISTRY METHOD 10/04/2024 3:10 PM EDT [facility] Chloride 107 96 - 110 mmol/L LAB CHEMISTRY METHOD 10/04/2024 3:10 PM EDT [facility] CO2 23 21 - 32 mmol/L LAB CHEMISTRY METHOD 10/04/2024 3:10 PM EDT [facility] Anion Gap 10 3 - 11 LAB CHEMISTRY METHOD 10/04/2024 3:10 PM EDT [facility] Glucose 135(H) 70 - 100 mg/dL LAB CHEMISTRY METHOD 10/04/2024 3:10 PM [facility] BUN 13 5 - 25 mg/dL LAB CHEMISTRY METHOD 10/04/2024 3:10 PM [facility] Creatinine 0.79 0.70 - 1.30 mg/dL LAB CHEMISTRY METHOD 10/04/2024 3:10 PM [facility] eGFR 106 >=60 mL/min/1. 73m2 LAB CHEMISTRY METHOD 10/04/2024 3:10 PM [facility] Comment:Calculation based on the Chronic Kidney Disease Epidemiology Collaboration (CKD-EPI) equation refit without adjustment for race. BUN/Creatinine Ratio 16.5 LAB CHEMISTRY METHOD 10/04/2024 3:10 PM [facility] Calcium 9.2 8.5 - 10.5 mg/dL LAB CHEMISTRY METHOD 10/04/2024 3:10 PM [facility] AST (SGOT) 12 10 - 42 unit/L LAB CHEMISTRY METHOD 10/04/2024 3:10 PM [facility] ALT (SGPT) 25 10 - 60 unit/L LAB CHEMISTRY METHOD 10/04/2024 3:10 PM [facility] Alkaline Phosphatase 98 42 - 121 unit/L LAB CHEMISTRY METHOD 10/04/2024 3:10 PM [facility] Total Protein 6.9 6.0 - 8.0 g/dL LAB CHEMISTRY METHOD 10/04/2024 3:10 PM [facility] Albumin 4.0 3.2 - 5.0 g/dL LAB CHEMISTRY METHOD 10/04/2024 3:10 PM [facility] Total Bilirubin 0.4 0.0 - 1.4 mg/dL LAB CHEMISTRY METHOD 10/04/2024 3:10 PM [facility] Blood Venous blood specimen / Unknown Venipuncture / Unknown 10/04/2024 8:52 AM EDT 10/04/2024 8:52 AM EDT Dwaine Bocanegra MD LAB BLOOD ORDERABLES Final Result [facility] [address] [place] [address], [place] [phone] * Urine Albumin Creatinine Ratio (01/05/2023) Urine Albumin Creatinine Ratio abstracted Historical Provider HEALTH MAINTENANCE Final Result * HIV Screening (02/25/2022) HIV Screening abstarcted Historical Provider HEALTH MAINTENANCE Final Result * Hepatitis C Screening (02/25/2022) Hepatitis C Screening abstracted Historical Provider HEALTH MAINTENANCE Final Result * Colonoscopy (09/06/2020) Colonoscopy abstracted, no interpretation Anatomical Region Laterality Modality Other Historical Provider HEALTH MAINTENANCE Final Result from Last 3 Months or Most Recently Relevant to Health Maintenance Insurance MEDICARE [place]ICAID - [place] Advance Directives Documents on File Type Date Recorded Patient Hog Operator Expl anation Advance Directives and Living Will 10/14/2024 10:29 PM Orders for Life-Sustaining Treatment Care Teams Chemical Plant Operator Supervisor Relationship Specialty Start Date End Date Dwaine Bocanegra MD [address] [place] [address] PCP - General Internal Medicine 08/19/21
--- OUTSIDE RECORDS SUMMARY | 2025-01-03 10:42 | XMS_ITS | Encounter Summary ---
Author Organization [facility] Address [address] [place] [address] Phone Care Team Providers Care Repairer Name Role Phone Amol Lobato MD Primary Care Provider + Wilber Jacob MD Primary Care Provider Milagros Meng MD Unavailable [phone] Pcp, Unknown Primary Care Provider Unavailabl e Pcp, Unknown Primary Care Provider Unavailabl e Encounter Details Date Type Department Care Team (Late st Contact Info) Description 05/28/2018 Procedure Pass [facility] [address] [place] [address] Social History Tobacco Use Types Packs/Day Years [...] Diagnoses Not on filedocumented in this encounter Additional Health Concerns Infection Onset Date Last Indicated Resolved Time CoV-Risk 07/14/2019 07/14/2019 07/26/2019 1:31 PM EDT COVID-19 07/14/2019 07/14/2019 08/23/2019 1:23 AM EDT CoV-Risk 09/04/2019 09/04/2019 09/04/2019 11:4 6 AM EDT COVID-19 09/04/2019 09/04/2019 10/04/2019 1:23 AM EDT CoV-Recovered Comment:Entered in Error. Active COVID-19 Infection. 09/28/2019 09/28/2019 09/28/2019 2:29 PM E DT CoV-Risk 05/14/2024 05/18/2024 05/29/2024 1:21 AM EST documented as of this encounter Care Teams Repairer Relationship Specialty Start Date End Date Amol Lobato MD [address] [address] [email or web address] PCP - General Family Medicine 05/26/18 04/10/20 Wilber Jacob MD [address] [address] PCP - General Internal Medicine 04/11/20 04/07/24 Pcp, Unknown PCP - General 04/08/24 05/17/24 Pcp, Unknown PCP - General 05/18/24 Milagros Meng MD [address] [place] [address] [email or web address] Cardiology 04/15/21 documented as of this encounter Additional Source Comments The information contained in this document represents components of the legal health record. It is not the complete legal health record.[facility]
--- OUTSIDE RECORDS SUMMARY | 2025-01-03 10:42 | XMS_ITS | Encounter Summary ---
Author Organization [facility] Address [address] [place] [address] Phone Care Team Providers Care Inside Contractor Sales Name Role Phone Helder Hdz MD Primary Care Provider [phone] Encounter Details Date Type Department Care Team (Late st Contact Info) Description 11/20/2021 Documentation Only [facility], [address] [place] [address] Asher Sosa MD [address] [place] [address] Social History Tobacco Use Types Packs/Day Years [...] on filedocumented in this encounter Care Teams Inside Contractor Sales Relationship Specialty Start Date End Date Helder Hdz MD PCP - General Internal Medicine 09/24/21 documented as of this encounter
--- OUTSIDE RECORDS SUMMARY | 2025-01-03 10:42 | XMS_ITS | Encounter Summary ---
Author Organization [facility] Address [address] [place] [address] Phone Care Team Providers Care Certified Nursing Assistant Instructor Name Role Phone Amol Lobato MD Primary Care Provider + Amol Lobato MD Primary Care Provider + Wilber Jacob MD Primary Care Provider Milagros Meng MD Unavailable [phone] Pcp, Unknown Primary Care Provider Unavailabl e Pcp, Unknown Primary Care Provider Unavailabl e Encounter Details Date Type Department Care Team (Late st Contact Info) Description 01/08/2018 Ancillary Orders [facility] [address] [place] [address] Amol Lobato MD [address] [facility] [address] [place] [address] [email or web address] Closed nondisplaced fracture of second metatarsal [...] foot. COMPARISON: Radiographs of the right foot, [facility], 12/07/2017. FINDINGS: Comminuted of the proximal diaphysis of the right second metatarsal with periosteal thickening and callus formation. Procedure Note Julio Jolly MD - 01/09/2018 XR FOOT 3 OR MORE VIEWS (RIGHT) INDICATION: TECHNIQUE: AP, oblique, and lateral views of the right foot. COMPARISON: Radiographs of the right foot, [facility],12/07/2017. FINDINGS: Comminuted of the proximal diaphysis [...] documented as of this encounter Care Teams Certified Nursing Assistant Instructor Relationship Specialty Start Date End Date Amol Lobato MD [address] [address] [email or web address] PCP - General 12/20/16 05/25/18 Amol Lobato MD [address] [address] [email or web address] PCP - General Family Medicine 05/26/18 04/10/20 Wilber Jacob MD [address] [address] PCP - General Internal Medicine 04/11/20 04/07/24 Pcp, Unknown PCP - General 04/08/24 05/17/24 Pcp, Unknown PCP - General 05/18/24 Milagros Meng MD [address] [place] [address] [email or web address] Cardiology 04/15/21 documented as of this encounter Additional Source Comments The information contained in this document represents components of the legal health record. It is not the complete legal health record.[facility]
--- OUTSIDE RECORDS SUMMARY | 2025-01-03 10:43 | XMS_ITS | Encounter Summary ---
Author Organization [facility] Address [address] [place] [address] Phone Care Team Providers Care Frontload Driver Name Role Phone Amol Lobato MD Primary Care Provider + Wilber Jacob MD Primary Care Provider Milagros Meng MD Unavailable [phone] Pcp, Unknown Primary Care Provider Unavailabl e Pcp, Unknown Primary Care Provider Unavailabl e Encounter Details Date Type Department Care Team (Late st Contact Info) Description 05/28/2018 Procedure Pass [facility] [address] [place] [address] Social History Tobacco Use Types Packs/Day Years [...] documented as of this encounter Care Teams Frontload Driver Relationship Specialty Start Date End Date Amol Lobato MD [address] [address] [email or web address] PCP - General Family Medicine 05/26/18 04/10/20 Wilber Jacob MD [address] [address] PCP - General Internal Medicine 04/11/20 04/07/24 Pcp, Unknown PCP - General 04/08/24 05/17/24 Pcp, Unknown PCP - General 05/18/24 Milagros Meng MD [address] [place] [address] [email or web address] Cardiology 04/15/21 documented as of this encounter Additional Source Comments The information contained in this document represents components of the legal health record. It is not the complete legal health record.[facility]
--- OUTSIDE RECORDS SUMMARY | 2025-01-03 10:44 | XMS_ITS | Encounter Summary ---
Author Organization [facility] Address [address] [place] [address] Phone Care Team Providers Care Station Attendant Name Role Phone Amol Lobato MD Primary Care Provider + Amol Lobato MD Primary Care Provider + Wilber Jacob MD Primary Care Provider Milagros Meng MD Unavailable [phone] Pcp, Unknown Primary Care Provider Unavailabl e Pcp, Unknown Primary Care Provider Unavailabl e Encounter Details Date Type Department Care Team (Late st Contact Info) Description 02/01/2017 Procedure [facility] Emergency Department, [facility] [address] [place] [address] Social History Tobacco Use Types Packs/Day Years [...] documented as of this encounter Care Teams Station Attendant Relationship Specialty Start Date End Date Amol Lobato MD [address] [address] [email or web address] PCP - General 12/20/16 05/25/18 Amol Lobato MD [address] [address] [email or web address] PCP - General Family Medicine 05/26/18 04/10/20 Wliber Jacob MD [address] [address] PCP - General Internal Medicine 04/11/20 04/07/24 Pcp, Unknown PCP - General 04/08/24 05/17/24 Pcp, Unknown PCP - General 05/18/24 Milagros Meng MD [address] [place] [address] [email or web address] Cardiology 04/15/21 documented as of this encounter Additional Source Comments The information contained in this document represents components of the legal health record. It is not the complete legal health record.[facility]
--- OUTSIDE RECORDS SUMMARY | 2025-01-03 10:44 | XMS_ITS | Encounter Summary ---
Author Organization [facility] Address [address] [place] [address] Phone Care Team Providers Care Tax Compliance Agent Name Role Phone Amol Lobato MD Primary Care Provider + Amol Lobato MD Primary Care Provider + Wilber Jacob MD Primary Care Provider Milagros Meng MD Unavailable [phone] Pcp, Unknown Primary Care Provider Unavailabl e Pcp, Unknown Primary Care Provider Unavailabl e Encounter Details Date Type Department Care Team (Late st Contact Info) Description 01/08/2017 Procedure [facility] Emergency Department, [facility] [address] [place] [address] Social History Tobacco Use Types Packs/Day Years [...] documented as of this encounter Care Teams Tax Compliance Agent Relationship Specialty Start Date End Date Amol Lobato MD [address] [address] [email or web address] PCP - General 12/20/16 05/25/18 Amol Lobato MD [address] [address] [email or web address] PCP - General Family Medicine 05/26/18 04/10/20 Wilber Jacob MD [address] [address] PCP - General Internal Medicine 04/11/20 04/07/24 Pcp, Unknown PCP - General 04/08/24 05/17/24 Pcp, Unknown PCP - General 05/18/24 Milagros Meng MD [address] [place] [address] [email or web address] Cardiology 04/15/21 documented as of this encounter Additional Source Comments The information contained in this document represents components of the legal health record. It is not the complete legal health record.[facility]
--- OUTSIDE RECORDS SUMMARY | 2025-01-03 10:44 | XMS_ITS | Encounter Summary ---
Author Organization [facility] Address [address] [place] [address] Phone Care Team Providers Care Sock Liner Name Role Phone Amol Lobato MD Primary Care Provider + Amol Lobato MD Primary Care Provider + Wilber Jacob MD Primary Care Provider Milagros Meng MD Unavailable [phone] Pcp, Unknown Primary Care Provider Unavailabl e Pcp, Unknown Primary Care Provider Unavailabl e Encounter Details Date Type Department Care Team (Late st Contact Info) Description 01/08/2017 Procedure [facility] Emergency Department, [facility] [address] [place] [address] Social History Tobacco Use Types Packs/Day Years [...] documented as of this encounter Care Teams Sock Liner Relationship Specialty Start Date End Date Amol Lobato MD [address] [address] [email or web address] PCP - General 12/20/16 05/25/18 Amol Lobato MD [address] [address] [email or web address] PCP - General Family Medicine 05/26/18 04/10/20 Wilber Jacob MD [address] [address] PCP - General Internal Medicine 04/11/20 04/07/24 Pcp, Unknown PCP - General 04/08/24 05/17/24 Pcp, Unknown PCP - General 05/18/24 Milagros Meng MD [address] [place] [address] [email or web address] Cardiology 04/15/21 documented as of this encounter Additional Source Comments The information contained in this document represents components of the legal health record. It is not the complete legal health record.[facility]
--- OUTSIDE RECORDS SUMMARY | 2025-01-03 10:46 | XMS_ITS ---
Author Name [facility] Organization Unknown Care Team Organization Name Specialty Phone Email Start Date End [facility] 12/07/2024
== END 2025-01-03 09:25 | disposition home or self-care (01) ==
LOC: HO.PMC 08:48
PROVIDERS: PCP Internal Medicine; Visit Provider Nurse Practitioner Family
DX: M50.90 Cervical disc disorder, unspecified, unspecified cervical region (principal); M47.812 Spondylosis without myelopathy or radiculopathy, cervical region; M54.50 Low back pain, unspecified; M47.816 Spondylosis without myelopathy or radiculopathy, lumbar region; M51.369 Other intervertebral disc degeneration, lumbar region without mention of lumbar back pain or lower extremity pain; M62.838 Other muscle spasm
CPT/HCPCS: 99214; G2211

== ENCOUNTER → 2025-01-03 08:47 | Outpatient (BNVA) | payer MEDICARE, MEDICAID, SELFPAY | PROVIDERS: PCP Internal Medicine; Visit Provider Nurse Practitioner Family | DX: M47.812 Spondylosis without myelopathy or radiculopathy, cervical region (principal); M47.816 Spondylosis without myelopathy or radiculopathy, lumbar region; M51.360 Other intervertebral disc degeneration, lumbar region with discogenic back pain only; M62.838 Other muscle spasm | CPT/HCPCS: 99212 ==

== ENCOUNTER 2025-01-04 10:46 | Outpatient (AMB) | payer MEDICARE, MEDICAID, SELFPAY ==
--- NOTE | 2025-01-04 11:29 | MHC.OFFVIS ---
Intake Visit Reasons: eeg f/u Allergies fluoxetine (Prozac) Allergy (Intermediate, Verified 01/03/25 08:55) Seizures bupropion Allergy (Verified 01/03/25 08:55) Unknown divalproex sodium (From Depakote) Allergy (Verified 01/03/25 08:55) Unknown haloperidol (From Haldol) Allergy (Verified 01/03/25 08:55) Unknown quetiapine (From Seroquel) Allergy (Verified 01/03/25 08:55) Unknown risperidone (From Risperdal) Allergy (Verified 01/03/25 08:55) Unknown sertraline Allergy (Verified 01/03/25 08:55) Unknown thiothixene (From Navane) Allergy (Verified 01/03/25 08:55) Unknown paroxetine (From Paxil) Adverse Reaction (Mild, Verified 01/03/25 08:55) suicidal thoughts risperdal analogues Allergy (Uncoded 07/28/24 15:54) Unknown From Paxil Adverse Reaction (Mild, Uncoded 07/28/24 15:54) SUICIDAL THOUGHTS Medication List - Last Reconciled 01/04/25 by Lavern Espinal MD albuterol sulfate 90 mcg/actuation 2 puffs inhalation Q4H PRN aspirin 81 mg PO QAM atorvastatin 40 mg PO BEDTIME benztropine 0.5 mg PO QPM carvedilol 25 mg PO BID cholecalciferol (vitamin D3) 25 mcg PO QAM clonidine HCl 0.1 mg PO BID PRN cyanocobalamin (vitamin B-12) 500 mcg PO QAM diclofenac sodium 1% 2 grams topical QID PRN diphenhydramine HCl (Benadryl) 25 mg PO BEDTIME PRN empagliflozin (Jardiance) 10 mg PO DAILY escitalopram oxalate (Lexapro) 20 mg PO DAILY fenofibrate 54 mg PO DAILY apuwtcanxcp-patzlutxx-szoplhjq 100-62.5-25 mcg (Trelegy Ellipta) 1 ea inhalation QAM lamotrigine 25 mg PO BID levothyroxine 25 mcg PO QAM lidocaine 5% 1 patch topical Q12H PRN magnesium oxide 400 mg PO DAILY meloxicam 15 mg PO DAILY PRN 30 days metformin 500 mg PO BID nortriptyline 25 mg PO BEDTIME olanzapine 20 mg PO BEDTIME ondansetron 4 mg PO Q8H PRN pantoprazole 20 mg PO DAILY prazosin 1 mg PO BEDTIME tamsulosin (Flomax) 0.4 mg PO DAILY topiramate 50 mg PO BID trazodone 150 mg PO BEDTIME PRN HPI Comments Details: 54 yr man with TBI and psych issues. C/o seizures headache and fatigue. He reports 2 seizures during the last EEG He was at mental health facility, [facility] in [place], [place] for about 5 months, then [place] for about 3 weeks, and was now at [facility] for about 3 weeks. He reports getting head injury while at [facility] about 3 months ago. He says he stood and went unconscious, causing him to fall and hit his head on his bed. He says he was not seen in the ER and did not have any imaging done after this. Feels popping and tightness in his neck. He says since his head injury in 01/2024, he has had some more headaches, dizziness, and fatigue. Dizziness usually happens when he stands up or changes position. He feels like his body tells him that he needs to sit down. He has been taking Tylenol as needed which helps with pain. He also has methocarbamol and Tramadol as needed for pain. Sleep has been okay. He has appointment with cardiology tomorrow. He did not have CT scan or EEG done that were ordered at his last appointment. Says he fell and fainted on 02/04/2024 after getting dizzy and was seen at [place]. Had bad headache, quick temper, and had a grand seizure in the hospital. Hit his head in summer 2023 without loss of consciousness. Having more convulsion and anger outbursts. Does not want to see his psychiatrist about this because he thinks it is a neurological problem. Not sleeping well. Has KERLINE and does not have mask. Following with pain management. Neck is in terrible shape. Says he does not have anxiety. Poor balance. Hands shaky, drops objects, no functional impairment. Dizzy when standing. Lot of pain in neck, shoulders, and head x years. Fall on 06/01/2022 with some bruises. Has seizures daily. Pops and movement of nerves in his head. He claims he had TBI at age 18 when he fell playing basketball, landing on his head, and apparently had some right frontal encephalomalacia as result. Had a single seizure. Since then, he says he has multiple problems including petit mal seizures which he diagnosed himself, although previous workup including 24-hour ambulatory EEG were normal. He says he has daily episodes where arms and legs would shake without losing consciousness. He has short-term memory problems, mental changes, and behavioral issues. He had neurological work up in [place] around 2014. He also has psychiatric problems, diagnosed as bipolar disorder and PTSD, and has had multiple suicide attempts according to his records. He had multiple psychiatric admissions, including psychiatric admission at [facility]. He had psychiatric admission when he jumped off the top of a building and after intentional overdose on Depakote and multiple hypnotic medications. He had gambling addiction. [facility] Medical History Seizure Nocturnal hypoxemia Atherosclerosis Mild cognitive impairment BPH (benign prostatic hyperplasia) Hypokinesis Vitamin D deficiency Hyponatremia Chronic systolic (congestive) heart failure Focal seizures History of concussion Chronic pain COPD (chronic obstructive pulmonary disease) Hypothyroidism Xerosis of skin Lower urinary tract symptoms (LUTS) Overactive bladder Hypercholesteremia Rosacea Tinea pedis Abdominal spasms Rectal spasm Cardiomyopathy Tachycardia GERD (gastroesophageal reflux disease) HTN (hypertension) Elevated cholesterol Traumatic brain injury Low back pain Diabetes Tension headache Cerebellar ataxia PTSD (post-traumatic stress disorder) Bipolar disorder Cervical disc disease Surgical History History of surgery Social History Household Members Other:: resides in long-term Housing Other:: long-term Alcohol intake: never Comment: NO COUNTS NEEDED Patient Tobacco Use Status: Current everyday Tobacco user Tobacco use type: Cigarette Physical Exam Neuro Other: Abnormal neurological findings:??Mild BUE tremor on sustained posture, no resting tremor. No rigidity, bradykinesia.?.?Mental Status:??alert and oriented X 3,?Normal attention, orientation, memory and affect.?Cranial Nerves:??Pupils are equal, round and reactive to light. Fundoscopy shows normal disc bilaterally. External occular muscles are intact. Visual fonseca are full, no ptosis. Face is symmetrical, no facial weakness or droop. Facial sensations are normal. Tongue protrudes in midline. Palate elevates symmetrically. Shoulder shrugging is normal..?Motor Examination:??Normal muscle tone, bulk and strength,?No atrophy or fasciculations,?No drift of the extended upper extremities,?Deep tendon reflexes are 2+?,?Plantars are flexor?.?Straight Leg Raising:??90 degrees.?Sensory Exam:??Normal light touch, temperature, pinprick, vibration and joint-position sensations?,?Rhomberg sign is absent.?Coordination:??no ataxia,?no titubation,?hzmkvy-qc-oeec, wcmo-fwkv-dbig test and rapid alternating movements were normal.?Gait Exam:??Within normal limits.?Cerebellar Signs:??Deizfa-ns-gpqb and bspw-ef-axsr is normal,?no dysdiadochokinesia?.?Extrapyramidal System:??No tremor, rigidity with normal facial expressions,?No bradykinesia, no bradyphrenia. Normal arm swing and posture. No propulsion or retropulsion.?Speech:??Normal,?no dysphasia or dysarthria..? Mini Mental Status Exam: Level of Consciousness:??Alert.?Orientation:??Knows correct year, month, date, day and season,?Knows correct city, county and state. Knows correct location and floor.?Registration:??Able to register 3 objects.?Attention:??Serial 7's performed accurately.?Recall:??Able to recall 3 out of 3 objects.?Language:??Normal spontaneous speech, fluency, repetition,naming, comprehension, reading and writing.?Total Score:??30/30.? General Examination: GENERAL APPEARANCE:??normal,?in no acute distress.?HEART:??S1, S2 normal,?no murmurs.?LUNGS:??clear anteriorly and posteriorly.?MUSCULOSKELETAL:??normal.?EXTREMITIES:??no edema.?PSYCH:??alert, oriented,?cognitive function intact,?cooperative with exam.? Assessment & Plan Assessment & Plan (1) History of traumatic brain injury: Code(s): Z87.820 - Personal history of traumatic brain injury Category: Medical (2) Pervasive developmental disorder: Code(s): F84.9 - Pervasive developmental disorder, unspecified Category: Medical (3) Schizoaffective disorder: Code(s): F25.9 - Schizoaffective disorder, unspecified Category: Medical (4) Chronic daily headache: Comment: Refused to up the dose of Nortriptyline and Topiramate. I have given Naproxen 500mg prn q12h. He will probably not be happy with it. I refused any pain meds. Code(s): R51.9 - Headache, unspecified Category: Medical Plan Refused to up the dose of Nortriptyline and Topiramate. I have given Naproxen 500mg prn q12h. He will probably not be happy with it. I refused any pain meds. Medications: New naproxen 500 mg PO BID PRN 60 tabs 1RF headache 30 days MDD 1000mg Coding Level of Care Code Est Pt Level 4 (60147) Diagnoses History of traumatic brain injury Z87.820 Pervasive developmental disorder F84.9 Schizoaffective disorder F25.9 Chronic daily headache R51.9
--- OUTSIDE RECORDS SUMMARY | 2025-01-04 13:38 | XMS_ITS | Clinical Summary ---
Author Organization [facility], Address [address] [place] [address] [place] [address] Phone Care Team Providers Care Squaring Shear Operator Name Role Phone Helder Hdz MD Primary Care Provider [phone] Allergies Active Allergy Reactions Criticality Noted Date [...] 08/22/2020 Insurance Medicare Medicaid [place] Care Teams Squaring Shear Operator Relationship Specialty Start Date End Date Helder Hdz MD PCP - General Internal Medicine 09/24/21
--- OUTSIDE RECORDS SUMMARY | 2025-01-04 13:38 | XMS_ITS | Encounter Summary ---
Author Organization [facility] Address [address] [place] [id number] Phone Care Team Providers Care Athletic Field Custodian Name Role Phone Amol Lobato MD Primary Care Provider + Wilber Jacob MD Primary Care Provider Milagros Meng MD Unavailable [phone] Pcp, Unknown Primary Care Provider Unavailabl e Pcp, Unknown Primary Care Provider Unavailabl e Encounter Details Date Type Department Care Team (Late st Contact Info) Description 05/28/2018 Procedure Pass [facility] [address] [place] [address] Social History Tobacco Use Types Packs/Day Years [...] documented as of this encounter Care Teams Athletic Field Custodian Relationship Specialty Start Date End Date Amol Lobato MD [address] [address] [email or web address] PCP - General Family Medicine 05/26/18 04/10/20 Wilber Jacob MD [address] [address] PCP - General Internal Medicine 04/11/20 04/07/24 Pcp, Unknown PCP - General 04/08/24 05/17/24 Pcp, Unknown PCP - General 05/18/24 Milagros Meng MD [address] [place] [address] [email or web address] Cardiology 04/15/21 documented as of this encounter Additional Source Comments The information contained in this document represents components of the legal health record. It is not the complete legal health record.[facility]
--- OUTSIDE RECORDS SUMMARY | 2025-01-04 13:38 | XMS_ITS | Encounter Summary ---
Author Organization [facility] Address [address] [place] [address] Care Team Providers Care Carburetor Specialist Name Role Phone Dwaine Bocanegra MD Primary Care Provider [phone] Reason for Visit * Reason Onset Date Comments Medication Problem 12/05/2024 Encounter Details Date Type Department Care Team ([facility] st Contact Info) Description 12/05/2024 Telephone Adult Medicine [address] [address] Jeniffer Brady MA Social History Tobacco Use [...] cardiology and and I agree with the technical artist plan. He was seen in our office 2 weeks ago and at that time his blood pressure and the heart rate was under control. He should keep his upcoming appointment for echocardiogram next month and follow-up appointment with the technical artist. * Odalis Munoz MA - 12/06/2024 11:46 [...] 11:50 AM EDT Office Visit Pulmonolgy - [place] [address] [facility] [address] [place] [address] Cielo Johns NP [address] [place] [address] 01/18/2025 11:20 AM EDT Office Visit [facility] [address] [facility] [address] [place] [address] Jaz Fuentes MD [address] [place] [address] [place] [address] 02/23/2025 1:00 PM EST Office Visit Adult Medicine [address] [phone] Dwaine Bocanegra MD [address] [place] [address] documented as of this encounter Visit Diagnoses Not on filedocumented in this encounter Care Teams Carburetor Specialist Relationship Specialty Start Date End Date Dwaine Bocanegra MD [address] [place] [address] PCP - General Internal Medicine 08/19/21 documented as of this encounter
--- OUTSIDE RECORDS SUMMARY | 2025-01-04 13:38 | XMS_ITS | Clinical Summary ---
Author Organization [facility] [address] [place] [address] [place] [phone] Phone Care Team Providers Care Manager Hematology Name Role Phone Dwaine Bocanegra MD Primary [...] check sugars once daily 12/10/19 24 Active lancets lancets USE 1 LANCET ONCE [...] times a day. Active neomycin/bacitraci n/polymyxinB (NEOSPORIN, XIB-STU-DTWOL, TOP) Apply topically. Apply pea size amount [...] mg EC tabletIndications: Atherosclerotic heart disease of [place] coronary artery without angina pectoris Take 1 [...] mouth 2 (two) times a day. 09/27/19 Active diphenhydrAMINE (Banophen) 25 mg tablet Take [...] day. 10.8 mL 2 12/07/19 25 Active glucose blood test strip glucose blood test strips (True Metrix Blood Glucose Test) strip, To check sugars once daily E11.9 12/10/19 24 025 Farxiga 5 mg tablet Take 1 tablet [...] complication, without long-term current use of insulin ([facility] V24, [facility] V28) 09/25/2024 Dizziness 09/16/2024 Assessment & Plan [...] headache 12/01/2023 Chronic systolic congestive heart failure ([facility] V24, [facility] V28) 12/01/2023 Overview (02/01/2024): Last Assessment & [...] Type 2 diabetes mellitus wit h hyperglycemia ([facility] V24, [facility] V28) 08/22/2020 Nonischemic cardiomyopathy ([facility] V24, [facility] V28) 05/25/2020 Overview (02/01/2024): Report of mildly reduced ejection fraction over a decade ago when he was residing in [place]. Updated echocardiogram in March 2020 showed LVEF [...] Overview (02/01/2024): Per urology 02/2020 Atherosclerosis of [place] co ronary artery of [place] heart without angina pectoris 12/19/2019 Assessment & Plan (09/16/2024 12:33 PM EDT): Orders: Ambulatory referral to Cardiology ECG 12 lead Bipolar disorder ([facility] V24, [facility] V28) 11/20 BPH (benign prostatic hyperplasia) 12/19/2019 COVID-19 12/19/2019 Overview (02/01/2024): Positive 07/13 & again 09/04/19 Mild cognitive impairment 12/19/2019 PTSD (post-traumatic stress disorder) 12/19/2019 History of substance abuse ([facility] V24, [facility] V28) 12/19/2019 Overview (11/10/2024): polysubstances Hyperlipidemia 11/15/2019 [...] basis. COPD (chronic obstructive pu lmonary disease) ([facility] V24, [facility] V28) 10/04/2019 Hypothyroidism 10/04/2019 Obstructive sleep apnea 10/04/2019 Overview (02/01/2024): Has CPAP and BiPAP but does not use them [facility] split-night study in 2018; AHI 13; oxygen silva 76% with 43% of the time of study spent below 88%. CPAP at 10 with mild persistent hypoxemia; CPAP 10-17 recommended. [facility]; BiPAP 18/14 was [...] S/p traumatic brain injury 1988. Evaluated by [facility] neurology. Has had -48-hour EEG. Also -4-day elective inpatient admission for continuous VEEG. 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 Advised to follow-up as needed basis. 9-27-21. Tobacco dependence 10/04/2019 Essential hypertension 03/07/2019 Overview (02/01/2024): Last Assessment & Plan: Blood pressure remains slightly high. Should be able to tolerate increasing dose carvedilol. Septic bursitis of elbow, right 01/20/2019 Seizures ([facility] V24, [facility] V28) 05/24/2018 Obsessive-compulsive disorder 12/11/2016 Traumatic brain injury ([facility] V24, [facility] V28 ) 12/11/2016 Encounters Date Type Department Care Team Description 12/28/2024 Lab Requisition [facility] - Main Lab [address] [facility] [place] [phone] Dwaine Bocanegra MD Dysuria 12/27/2024 12:30 PM EDT Ancillary Procedure [facility] Cardiology [facility] [address] [place] [phone] Cardiomyopathy, unspecified type ([facility] V24, [facility] V28) 12/14/2024 Telephone Adult Medicine [address] [phone] Dwaine Bocanegra MD 12/08/2024 Telephone Adult Medicine [address] [phone] Dwaine Bocanegra MD 12/08/2024 Telephone [facility] Cardiology [facility] [address] [place] [address] Jaz Fuentes MD 12/05/2024 Telephone Adult Medicine [address] [phone] Jeniffer Brady MA 12/05/2024 Telephone Adult Medicine [address] [phone] Jeniffer Brady MA 12/05/2024 Telephone [facility] Cardiology [facility] - [address] [place] [address] Jaz Fuentes MD 11/25/2024 Telephone [facility] Cardiology [facility] [address] [place] [address] Malissa Wan NP 11/25/2024 Telephone Adult Medicine [address] [phone] Dwaine Bocanegra MD 11/18/2024 10:00 AM EDT Office Visit Adult [address] [phone] Estela Vidal PA Chronic bilateral low back pain without sciatica (Primary Dx); Seasonal allergic rhinitis due to pollen; Chronic neck pain 11/16/2024 Telephone Adult Medicine [address] [phone] Jeniffer Brady [place] 11/14/2024 Telephone Adult Medicine [address] [phone] Dwaine Bocanegra MD 11/14/2024 Telephone Adult Medicine [address] [phone] Dwaine Bocanegra MD 11/11/2024 11:00 AM EDT Office Visit Gastroenterology - [place] [address] [facility] 175 [facility] 200 [place] [phone] Tita Arias NP Irritable bowel syndrome with both constipation and diarrhea (Primary Dx); Erosive gastropathy 11/09/2024 Telephone Adult Medicine [address] [phone] Dwaine Bocanegra MD 11/02/2024 Telephone Adult [address] [phone] Dwaine Bocanegra MD 10/26/2024 Telephone Adult Medicine [address] [phone] Dwaine Bocanegra MD 10/20/2024 Telephone [facility] - [facility] [address] [facility] 154 [place] [phone] Malissa Wan NP 10/19/2024 Telephone Adult Medicine [address] [phone] Dwaine Bocanegra MD 10/13/2024 9:45 AM EDT Office Visit Pulmonolgy - [place] [address] [phone] Cielo Johns NP Tobacco dependency (Primary Dx); Chronic obstructive pulmonary disease, unspecified COPD type (CMS/HCC V24, CMS/HCC V28); Obstructive sleep apnea; Nocturnal hypoxemia 10/13/2024 Telephone Adult Medicine [address] [phone] Dwaine Bocanegra MD 10/12/2024 Telephone Adult Medicine [address] [phone] Jeniffer Brady [place] 10/12/2024 Telephone Adult [address] [phone] Dwaine Bocanegra MD 10/11/2024 10:31 AM EDT - 10/11/2024 11:59 PM EDT Hospital Encounter [facility] Scan [address] [place] [phone] Encounter for screening for malignant neoplasm of respiratory organs; Nicotine dependence, cigarettes, uncomplicated Discharge Disposition: Home or Self Care 10/10/2024 [place] Adult [address] [phone] Dwaine Bocanegra MD 10/04/2024 8:45 AM EDT Lab Draw Station [address] Screening for prostate cancer; Type 2 diabetes mellitus with hyperglycemia, without long-term current use of insulin (CMS/HCC V24, CMS/HCC V28); Acquired hypothyroidism; Essential hypertension; Palpitations; Atherosclerosis of [place] coronary artery of [place] heart without angina pectoris; Chronic systolic congestive heart failure (CMS/HCC V24, CMS/HCC V28); Chronic obstructive pulmonary disease, unspecified COPD type (CMS/HCC V24, CMS/HCC V28); Chronic nonintractable headache, unspecified headache type; Benign prostatic hyperplasia without lower urinary tract symptoms; Bipolar affective disorder, current episode mixed, current episode severity unspecified ([facility] V24, [facility] V28) 10/04/2024 8:00 AM EDT Office Visit Adult [address] [phone] Dwaine Bocanegra MD Seasonal allergic rhinitis, unspecified trigger (Primary Dx); Chronic obstructive pulmonary disease, unspecified COPD type ([facility] V24, [facility] V28); Type 2 diabetes mellitus with hyperglycemia, without long-term current use of insulin ([facility] V24, [facility] V28); Essential hypertension; Chronic systolic congestive heart failure ([facility] V24, [facility] V28); Atherosclerosis of [place] coronary artery of [place] heart without angina pectoris; Acquired hypothyroidism; Chronic nonintractable headache, unspecified headache type; Benign prostatic hyperplasia without lower urinary tract symptoms; Bipolar affective disorder, current episode mixed, current episode severity unspecified ([facility] V24, [facility] V28); Chronic bilateral low back pain without sciatica 10/04/2024 Telephone Adult [address] [phone] Dwaine Bocanegra MD 10/04/2024 Telephone [facility] [address] [address] [place] [phone] Malissa Wan NP from Last 3 Months [...] HISTORICAL COLONOSCOPY; COMMENT: negative ESOPHAGOGASTRODUODENOSCOPY 09/06/2020 PROCEDURE: MN EGD TRANSORAL BIOPSY SINGLE/MULTIPLE; COMMENT: esophagitis, gastritis and duodenitis. Omeprazole prescribed. Medical History Medical History Date Comments PTSD (post-traumatic stress disorder) 12/19/2019 DX:PTSD (post-traumatic stress disorder) Covid-19 12/19/2019 DX:COVID-19; COM MENT: Positive 07/13 & again 09/04/19 BPH (benign prostatic hyperplasia) 12/19/2019 DX:BPH (benign prostatic hyperplasia) Mild cognitive impairment 12/19/2019 DX:Mil d cognitive impairment History of substance abuse ( [facility] V24, [facility] V28) 12/19/2019 DX:History of substance abus e ([facility]); COMMENT: polysubstances Bipolar disorder ([facility] V2 4, [facility] V28) 12/19/2019 DX:Bipolar disorder ([facility]) Seizure disorder ([facility] V2 4, [facility] V28) 10/04/2019 DX:Seizure disorder ([facility]); C OMMENT: S/p traumatic brain injury 1988 [...] pain COPD (chronic obstructive pu lmonary disease) ([facility] V24, [facility] V28) 10/04/2019 DX:COPD (chronic o bstructive pulmonary disease) ([facility]) Depression 10/04/2019 DX:Depression History of insomnia 10/04/2019 [...] and BiPAP but does not use [facility] AHI 13; oxygen [...] mellitus type 2, co ntrolled, with complications ([facility] V24, [facility] V28) DX:Diabetes mellitus type 2, controlled, with complications (HCC) Esophageal reflux DX:Esophageal reflux Nausea and vomiting DX:Nausea an d vomiting Rectal discomfort DX:Rectal disc omfort Rectal bleeding DX:Rectal bleedi ng Family History Medical History Relation Name Comments Alcohol/Drug Brother twin psychiatric is sues Coronary artery disease Brother twin s/p [place] age 49 Heart failure Brother twin Coronary artery disease Father s/p [place] Other: pancreatic cancer Maternal Grandmother Other: pulmonary [...] 11:50 AM EDT Office Visit Pulmonolgy - [address] [place] [phone] Cielo Johns NP [address] [place] [phone] 01/18/2025 11:20 AM EDT Office Visit [facility] - [facility] [address] [facility] 154 [place] [phone] Jaz Fuentes MD [address] [place] [address] [place] [address] 02/23/2025 1:00 PM EST Office Visit Adult [address] [phone] Dwaine Bocanegra MD [address] [place] [address] Health Maintenance Due Date Last Done Comments [...] hyperglycemia, without long-term current use of insulin ([facility] V24, CMS/[facility] V28) Acquired hypothyroidism Essential hypertension Palpitations Atherosclerosis of [place] coronary artery of [place] heart without angina pectoris Chronic systolic congestive heart failure (CMS/HCC V24, CMS/HCC V28) Chronic obstructive pulmonary disease, unspecified COPD type (CMS/HCC V24, CMS/HCC V28) Chronic nonintractable headache, unspecified headache type Benign prostatic hyperplasia without lower urinary tract symptoms Bipolar affective disorder, current episode mixed, current episode severity unspecified (CMS/HCC V24, CMS/[facility] V28) COMPREHENSIVE METABOLIC PANEL Routine 10/04/2024 8:52 AM EDT Type 2 diabetes mellitus with hyperglycemia, without long-term current use of insulin ([facility] V24, CMS/HCC V28) Acquired hypothyroidism Essential hypertension Palpitations Atherosclerosis of [place] coronary artery of [place] heart without angina pectoris Chronic systolic congestive heart failure (CMS/HCC V24, CMS/HCC V28) Chronic obstructive pulmonary disease, unspecified COPD type (CMS/HCC V24, CMS/HCC V28) Chronic nonintractable headache, unspecified headache type Benign prostatic hyperplasia without lower urinary tract symptoms Bipolar affective disorder, current episode mixed, current episode severity unspecified (CMS/HCC V24, [facility] V28) LIPID PANEL WITH REFLEX TO DIRECT LDL Routine 10/04/2024 8:52 AM EDT Type 2 diabetes mellitus with hyperglycemia, without long-term current use of insulin ([facility] V24, [facility] V28) Acquired hypothyroidism Essential hypertension Palpitations Atherosclerosis of [place] coronary artery of [place] heart without angina pectoris Chronic systolic congestive heart failure (CMS/HCC V24, CMS/HCC V28) Chronic obstructive pulmonary disease, unspecified COPD type (CMS/HCC V24, CMS/HCC V28) Chronic nonintractable headache, unspecified headache type Benign prostatic hyperplasia without lower urinary tract symptoms Bipolar affective disorder, current episode mixed, current episode severity unspecified ([facility] V24, [facility] V28) MAGNESIUM Routine 10/04/2024 8:52 AM EDT Type 2 diabetes mellitus with hyperglycemia, without long-term current use of insulin (CMS/HCC V24, CMS/HCC V28) Acquired hypothyroidism Essential hypertension Palpitations Atherosclerosis of [place] coronary artery of [place] heart without angina pectoris Chronic systolic congestive [...] Acquired hypothyroidism Essential hypertension Palpitations Atherosclerosis of [place] coronary artery of [place] heart without angina pectoris Chronic systolic congestive [...] with reflex microscopic (12/28/2024 9:50 AM EDT) Pathologist [facility] Specific [place] Urine 1.012 1.003 - 1.030 LAB URINALYSIS - AUTOMATED METHOD 12/28/2024 1:27 PM [facility] pH, Urine 7.0 5.0 - 8.0 pH LAB URINALYSIS - AUTOMATED METHOD 12/28/2024 1:27 PM [facility] Leukocytes, Urine Negative Negative LAB URINALYSIS - AUTOMATED METHOD 12/28/2024 1:27 PM [facility] Nitrite, Urine Negative Negative LAB URINALYSIS - AUTOMATED METHOD 12/28/2024 1:27 PM [facility] Protein, Urine Negative <=Trace mg/dL LAB URINALYSIS - AUTOMATED METHOD 12/28/2024 1:27 PM [facility] Glucose, Urine >=1000(A) Negative mg/dL LAB URINALYSIS - AUTOMATED METHOD 12/28/2024 1:27 PM [facility] Ketones, Urine Negative Negative mg/dL LAB URINALYSIS - AUTOMATED METHOD 12/28/2024 1:27 PM [facility] Urobilinogen , Urine 1.0 0.2 - 1.0 mg/dL LAB URINALYSIS - AUTOMATED METHOD 12/28/2024 1:27 PM [facility] Bilirubin, Urine Negative Negative LAB URINALYSIS - AUTOMATED METHOD 12/28/2024 1:27 PM [facility] Blood, Urine Negative Negative LAB URINALYSIS - AUTOMATED METHOD 12/28/2024 1:27 PM [facility] Urine Urine specimen obtained by clean catch procedure / Unknown Non-blood Collection / Unknown 12/28/2024 9:50 AM EDT 12/28/2024 1:08 PM EDT us Dwaine Bocanegra MD LAB URINE ORDERABLES Final Result [facility] [address] [place] [address], [place] [phone] * Culture urine (12/28/2024 9:50 AM EDT) Culture, Urine No growth 12/29/2024 7:28 AM EDT [facility] Urine Urine specimen obtained by clean catch procedure / Unknown Non-blood Collection / Unknown 12/28/2024 9:50 AM EDT 12/28/2024 1:08 PM EDT Dwaine Bocanegra MD LAB MICROBIOLOGY - GENERAL ORDERABLES Final Result [facility] [address] [place] [address], [place] [phone] * External clinical lab (12/28/2024) us Provider [facility] LAB BLOOD ORDERABLES Fin [...] 65 mL CV PACS Left At[facility] Minor Scott 5.0 cm CV PACS Left At[facility] Major Scott 5.6 cm CV PACS [place] Area Sys [...] Result * Home Health Order (12/09/2024) Provider [facility] NURSING ASSESSMENTS Shital l Result * External Neurology Report (11/08/2024) Provider [facility] NEUROLOGY ORDERABLES Fin al Result * CT Lung Screening (10/11/2024 10:42 AM EDT) Anatomical Region Laterality Modality Chest Computed Tomogra phy 10/12/2024 12:0 1 PM EDT Impressions 10/12/2024 12:09 PM EDT Impression: No suspicious developing pulmonary nodule. No significant change. Lung-RADS Category: Lung-RADS 1: No nodules or definitely benign nodules. Continue annual screening with Low Dose Chest CT in 12 months. [place] ([id number]) -------- FINAL REPORT -------- Dictated By: Johnaa Ayoub Dictated Date: 10/12/2024 12:01 ET Assigned Physician: Johana Ayoub Reviewed and Electronically Signed By: Johana Ayoub Signed Date: 10/12/2024 12:09 ET Workstation ID: [id number] Transcribed By: Self Edit Transcribed Date: 10/12/2024 12:01 ET Narrative 10/12/2024 12:09 PM EDT History: 54 year-old 32 pack-year current smoker, asymptomatic, for lung cancer screening. Comparison: 10/09/23 Technique: Helical volumetric imaging of the thorax was performed, using low- dose technique, without IV contrast. DLP: 176.42 mGy/cm CTDIvol: 4.83 mGy Banyan VCT Iterative reconstruction technique Findings: Lungs and [...] contrast. DLP: 176.42 mGy/cm CTDIvol: 4.83 mGy Banyan VCT Iterative reconstruction technique Findings: Lungs and [...] Chest CT in 12 months. Telerad MASSIMO ([id number]) -------- FINAL REPORT -------- Dictated By: Johana Ayoub Dictated Date: 10/12/2024 12:01 ET Assigned Physician: Johana Ayoub Reviewed and Electronically Signed By: Johana Ayoub Signed Date: 10/12/2024 12:09 ET Workstation ID: [id number] Transcribed By: Self Edit Transcribed Date: 10/12/2024 12:01 ET us Antonio Jurado MD IM CT PROCEDURES Final Result * Prostate specific antigen screen (10/04/2024 8:52 AM EDT) PSA 0.88 0.00 - 4.00 ng/mL LAB CHEMISTRY METHOD 10/04/2024 5:56 PM EDT [facility] Blood Venous blood specimen / Unknown Venipuncture / Unknown 10/04/2024 8:52 AM EDT 10/04/2024 8:52 AM EDT Narrative [facility] - 10/04/2024 5:56 PM EDT The Siemens Advia Centaur Chemiluminescent Immunoassay is used. Results obtained with different assay methods or kits cannot be used interchangeably. Results cannot be interpreted as absolute evidence of the presence or absence of malignant disease. Dwaine Bocanegra MD LAB BLOOD ORDERABLES Final Result Performing Organization Address City/[facility]/ZIP Co de Phone Number [facility] [address] [place] [address], [place] [phone] * Thyroid stimulating hormone with reflex to free t4 and free t3 (10/04/2024 8:52 AM EDT) [facility] TSH 0.79 0.40 - 4.00 mcIU/mL LAB CHEMISTRY METHOD 10/04/2024 3:38 PM EDT [facility] Blood Venous blood specimen / Unknown Venipuncture / Unknown 10/04/2024 8:52 AM EDT 10/04/2024 8:52 AM EDT Dwaine Bocanegra MD LAB BLOOD ORDERABLES Final Result [facility] [address] [place] [address], [place] [phone] * (ABNORMAL) Lipid panel with reflex to direct LDL (10/04/2024 8:52 AM EDT) [facility] Cholesterol 153 0 - 200 mg/dL LAB CHEMISTRY METHOD 10/04/2024 3:10 PM EDT [facility] Triglycerides 316(H) 0 - 150 mg/dL LAB CHEMISTRY METHOD 10/04/2024 3:10 PM EDT [facility] HDL 38(L) >=40 mg/dL LAB CHEMISTRY METHOD 10/04/2024 3:10 PM EDT [facility] LDL Calculated 52 0 - 100 mg/dL LAB CHEMISTRY METHOD 10/04/2024 3:10 PM EDT [facility] VLDL Cholesterol Akira 63.2 mg/dL LAB CHEMISTRY METHOD 10/04/2024 3:10 PM EDT [facility] Non HDL Chol. (LDL+VLDL) 115 <145 mg/dL LAB CHEMISTRY METHOD 10/04/2024 3:10 PM EDT [facility] Chol/HDL Ratio 4.0 0.0 - 4.4 LAB CHEMISTRY METHOD 10/04/2024 3:10 PM EDT [facility] Blood Venous blood specimen / Unknown Venipuncture / Unknown 10/04/2024 8:52 AM EDT 10/04/2024 8:52 AM EDT Dwaine Bocanegra MD LAB BLOOD ORDERABLES Final Result [facility] [address] [place] [address], * (ABNORMAL) Magnesium (10/04/2024 8:52 AM EDT) Magnesium 1.8(L) 1.9 - 2.6 mg/dL LAB CHEMISTRY METHOD 10/04/2024 3:02 PM EDT [facility] Blood Venous blood specimen / Unknown Venipuncture / Unknown 10/04/2024 8:52 AM EDT 10/04/2024 8:52 AM EDT us Dwaine Bocanegra MD LAB BLOOD ORDERABLES Final Result Performing Organization Address City/[facility]/ZIP Co de Phone Number [facility] [address] [place] [address], [place] [phone] * Hemoglobin A1c (10/04/2024 8:52 AM EDT) Pathologist [facility] Hemoglobin A1C 6.1 <6.5 % LAB CHEMISTRY METHOD 10/04/2024 11:31 AM EDT [facility] Mean Bld Glu Estim. 128 mg/dL LAB CHEMISTRY METHOD 10/04/2024 11:31 AM EDT [facility] Blood Venous blood specimen / Unknown Venipuncture / Unknown 10/04/2024 8:52 AM EDT 10/04/2024 8:52 AM EDT Dwaine Bocanegra MD LAB BLOOD ORDERABLES Final Result Performing Organization Address [facility]/ZIP Co de Phone Number [facility] [address] [place] [address], [place] [phone] * (ABNORMAL) Comprehensive metabolic panel (10/04/2024 8:52 AM EDT) [facility] Sodium 140 133 - 145 mmol/L LAB CHEMISTRY METHOD 10/04/2024 3:[facility] Potassium 4.1 3.5 - 5.5 mmol/L LAB CHEMISTRY METHOD 10/04/2024 3:10 PM EDT [facility] Chloride 107 96 - 110 mmol/L LAB CHEMISTRY METHOD 10/04/2024 3:10 PM EDT [facility] CO2 23 21 - 32 mmol/L LAB CHEMISTRY METHOD 10/04/2024 3:10 PM EDT [facility] Anion Gap 10 3 - 11 LAB CHEMISTRY METHOD 10/04/2024 3:10 PM EDT [facility] Glucose 135(H) 70 - 100 mg/dL LAB CHEMISTRY METHOD 10/04[facility]24 [facility] BUN 13 5 - 25 mg/dL LAB CHEMISTRY METHOD 10/04/2024 3:10 PM [facility] Creatinine 0.79 0.70 - 1.30 mg/dL LAB CHEMISTRY METHOD 10/04/2024 3:10 PM [facility] eGFR 106 >=60 mL/min/1. 73m2 LAB CHEMISTRY METHOD 10/04/2024 3:10 PM [facility] Comment:Calculation based on the Chronic Kidney Disease Epidemiology Collaboration (CKD-EPI) equation refit without adjustment for race. BUN/Creatinine Ratio 16.5 LAB CHEMISTRY METHOD 10/04/2024 3:10 PM [facility] Calcium 9.2 8.5 - 10.5 mg/dL LAB CHEMISTRY METHOD 10/04/2024 3:10 PM [facility] AST (SGOT) 12 10 - 42 unit/L LAB CHEMISTRY METHOD 10/04/2024 3:10 PM [facility] ALT (SGPT) 25 10 - 60 unit/L LAB CHEMISTRY METHOD 10/04/2024 3:10 PM [facility] Alkaline Phosphatase 98 42 - 121 unit/L LAB CHEMISTRY METHOD 10/04/2024 3:10 PM [facility] Total Protein 6.9 6.0 - 8.0 g/dL LAB CHEMISTRY METHOD 10/04/2024 3:10 PM [facility] Albumin 4.0 3.2 - 5.0 g/dL LAB CHEMISTRY METHOD 10/04/2024 3:10 PM [facility] Total Bilirubin 0.4 0.0 - 1.4 mg/dL LAB CHEMISTRY METHOD 10/04/2024 3:10 PM [facility] Blood Venous blood specimen / Unknown Venipuncture / Unknown 10/04/2024 8:52 AM EDT 10/04/2024 8:52 AM EDT Dwaine Bocanegra MD LAB BLOOD ORDERABLES Final Result [facility] [address] [place] [address], [place] [phone] * Urine Albumin Creatinine Ratio (01/05/2023) Urine Albumin Creatinine Ratio abstracted Historical Provider HEALTH MAINTENANCE Final Result * HIV Screening (02/25/2022) Pathologist [facility] HIV Screening abstarcted Historical Provider HEALTH MAINTENANCE Final Result * Hepatitis C Screening (02/25/2022) Pathologist [facility] Hepatitis C Screening abstracted Historical Provider HEALTH MAINTENANCE Final Result * Colonoscopy (09/06/2020) Pathologist [facility] Colonoscopy abstracted, no interpretation Anatomical Region Laterality Modality Other Historical Provider HEALTH MAINTENANCE Final Result from Last 3 Months or Most Recently Relevant to Health Maintenance Insurance [place]ICARE [place]ICAID [place] Advance Directives Documents on File Type Date Recorded Patient Orthopedic Physical Therapist Expl anation Advance Directives and Living Will 10/14/2024 10:29 PM Orders for Life-Sustaining Treatment Care Teams Manager Hematology Relationship Specialty Start Date End Date Dwaine Bocanegra MD [address] [place] [address] PCP - General Internal Medicine 08/19/21
--- OUTSIDE RECORDS SUMMARY | 2025-01-04 13:38 | XMS_ITS | Encounter Summary ---
Author Organization [facility] Address [address] [place] [address] Phone Care Team Providers Care Asp Developer Name Role Phone Amol Lobato MD Primary Care Provider + Amol Lobato MD Primary Care Provider + Wilber Jacob MD Primary Care Provider Milagros Meng MD Unavailable [phone] Pcp, Unknown Primary Care Provider Unavailabl e Pcp, Unknown Primary Care Provider Unavailabl e Encounter Details Date Type Department Care Team (Late st Contact Info) Description 02/01/2017 Procedure [facility] Emergency Department, [facility] [address] [place] [address] Social History Tobacco Use Types Packs/Day Years [...] documented as of this encounter Care Teams Asp Developer Relationship Specialty Start Date End Date Amol Lobato MD [address] [address] [email or web address] PCP - General 12/20/16 05/25/18 Amol Lobato MD [address] [address] [email or web address] PCP - General Family Medicine 05/26/18 04/10/20 Wilber Jacob MD [address] [address] PCP - General Internal Medicine 04/11/20 04/07/24 Pcp, Unknown PCP - General 04/08/24 05/17/24 Pcp, Unknown PCP - General 05/18/24 Milagros Meng MD [address] [place] [address] [email or web address] Cardiology 04/15/21 documented as of this encounter Additional Source Comments The information contained in this document represents components of the legal health record. It is not the complete legal health record.[facility]
--- OUTSIDE RECORDS SUMMARY | 2025-01-04 13:38 | XMS_ITS | Encounter Summary ---
Author Organization [facility] Address [address] [place] [address] Phone Care Team Providers Care Employment Advisor Name Role Phone Amol Lobato MD Primary Care Provider + Wilber Jacob MD Primary Care Provider Milagros Meng MD Unavailable [phone] Pcp, Unknown Primary Care Provider Unavailabl e Pcp, Unknown Primary Care Provider Unavailabl e Encounter Details Date Type Department Care Team (Late st Contact Info) Description 05/28/2018 Procedure [facility] [address] [place] [address] Social History Tobacco Use Types Packs/Day Years [...] documented as of this encounter Care Teams Employment Advisor Relationship Specialty Start Date End Date Amol Lobato MD [address] [address] [email or web address] PCP - General Family Medicine 05/26/18 04/10/20 Wilber Jacob MD [address] [address] PCP - General Internal Medicine 04/11/20 04/07/24 Pcp, Unknown PCP - General 04/08/24 05/17/24 Pcp, Unknown PCP - General 05/18/24 Milagros Meng MD [address] [place] [address] [email or web address] Cardiology 04/15/21 documented as of this encounter Additional Source Comments The information contained in this document represents components of the legal health record. It is not the complete legal health record.[facility]
--- OUTSIDE RECORDS SUMMARY | 2025-01-04 13:38 | XMS_ITS | Encounter Summary ---
Author Organization [facility] Address [address] [place] [address] Phone Care Team Providers Care Coremaking Supervisor Name Role Phone Amol Lobato MD Primary Care Provider + Amol Lobato MD Primary Care Provider + Wilber Jacob MD Primary Care Provider Milagros Meng MD Unavailable [phone] Pcp, Unknown Primary Care Provider Unavailabl e Pcp, Unknown Primary Care Provider Unavailabl e Encounter Details Date Type Department Care Team (Late st Contact Info) Description 01/08/2017 Procedure [facility] Emergency Department, [facility] [address] [place] [address] Social History Tobacco Use Types Packs/Day Years [...] documented as of this encounter Care Teams Coremaking Supervisor Relationship Specialty Start Date End Date Amol Lobato MD [address] [address] [email or web address] PCP - General 12/20/16 05/25/18 Amol Lobato MD [address] [address] [email or web address] PCP - General Family Medicine 05/26/18 04/10/20 Wilber Jacob MD [address] [address] PCP - General Internal Medicine 04/11/20 04/07/24 Pcp, Unknown PCP - General 04/08/24 05/17/24 Pcp, Unknown PCP - General 05/18/24 Milagros Meng MD [address] [place] [address] [email or web address] Cardiology 04/15/21 documented as of this encounter Additional Source Comments The information contained in this document represents components of the legal health record. It is not the complete legal health record.[facility]
--- OUTSIDE RECORDS SUMMARY | 2025-01-04 13:38 | XMS_ITS | Clinical Summary ---
Author Organization [facility] Address [address] [facility] [address] [place] [address] Phone Care Team Providers Care Gas Well Drilling Manager Name Role Phone Milagros Meng MD Unavailable [phone] Pcp, Unknown Primary Care Provider Unavailabl e Allergies Active Allergy Reactions Criticality Noted Date Comments Bupropion Hcl Unknown 04/19/2018 Depakote (Divalproex) 12/20/2016 Fluoxetine Unknown 12/20/2016 Haloperidol Lactate Unknown 12/20/2016 Thiothixene 12/20/2016 Risperidone 12/20/2016 Risperidone Analogues Unknown 04/19/2018 Seroquel (Quetiapine) 12/20/2016 Sertraline Unknown 04/19/2018 Zoloft (Sertraline) 12/20/2016 Medications benztropine (COGENTIN) 0.5 MG tablet Take 0.5 mg by mouth 2 (two) times a day. Active levothyroxine (SYNTHROID,LEV OTHROID) 25 MCG tablet Take 1 tablet (25 mcg total) by mouth every morning. 05/27/19 19 Active tamsulosin (FLOMAX) 0.4 mg Cap Take 1 capsule (0.4 mg total) by mouth daily. 05/27/19 19 Active cholecalcifero l (VITAMIN D3) 50,000 unit capsule cholecalciferol (vitamin D3) 1,250 mcg (50,000 unit) capsule Take 1 capsule every week by oral route for 90 days. Active jcgfqjkf-atc-u errous gluconate (CENTRUM WITH IRON) 9 mg iron/15 mL Liqd Take 15 mL by mouth daily. Active acetaminophen (TYLENOL) 500 MG tablet TAKE 2 TABLET(S) EVERY 8 HOURS BY ORAL ROUTE FOR 14 DAYS. 07/20/19 20 Active albuterol 90 mcg/actuation inhaler INHALE 2 PUFFS EVERY 4 HOURS NEEDED 08/29/19 20 Active VRAYLAR 1.5 mg capsule 07/02/19 25 Active Active Problems Problem Noted Date Diagnosed Date Hypertension 03/07/2019 Septic bursitis of elbow, right 01/20/2019 Seizure-like activity 05/25/2018 Assessment & Plan (05/26/2018 10:51 AM EST): 05/25/18- Pt with many button pushes overnight and reporting seizure . Had what he described as a GTC which involved R leg jerk and altho not seen on video he had truncal jerk. He did not have loss of awareness and was able to respond to the nurses. There was no EEG correlation with these events On GABAPENTIN FOR MOOD.200/800. Will stop while inpt to see if there are changes on EEG 05/26- Epilepsy team and psychiatry team discussed with patient that the movements he has been describing which occur with drowsiness and are scary to him are real but they are not epilepsy. There have been no correlation on EEG. They are very brief 1-2 seconds, not minutes, what he has been describing as a GTC is a momentary jerk of a leg with a feeling of a jerk in his abdomen. It is a little stronger than just the typical leg jerking. He was told these are physiologic sleep jerks .It is felt that he is on a lot of sedating medication and if some of it can be lowered or discontinued these may improve because he may not be as drowsy. Dr Motley spoke with his outside psychiatrist and is in agreement to cut the gabapentin to 200mg qpm only Dr motley will follow Seizures 05/24/2018 Mood disorder 12/11/2016 Obsessive-compulsive disorder 12/11/2016 Traumatic brain injury 12/11/2016 Encounters Date Type Department Care Team Description 10/04/2024 Orders Only [facility] Medical Cardiology [address] [facility] [address] [place] [address] Se Cantu MD, MPH from Last 3 Months Immunizations Immunization Administration Dates Next Due Tdap 03/24/2018(Deferred: Patient Ref used) Family History Medical History Relation Comments Heart attack Mother Relation Status Comments Mother Social History Tobacco Use Types Packs/Day Years Used Date Smoking Tobacco: Every Day Cigarettes Smokeless Tobacco: Never Alcohol Use Standard Drinks/Week Comments No 0 (1 standard drink = 0.6 oz pur e alcohol) Education Answer Date Recorded Are you interested in more education? Not on nick e 08/15/2022 Are you concerned about learning? Not on file 08/15/2022 No 08/15/2022 No 08/15/2022 Digital Access Answer Date Recorded No 09/15/2022 No 09/15/2022 Reliable internet access at home? Not on file 09/15/2022 Device with a working camera? Not on file Intimate Partner Violence Answer Date R ecorded Are you denied basic needs s uch as food, clothing, or medical care? No 06/02/2024 In the past 12 months have y ou been in a relationship with a person who hurts, threatens, or tries to control you? No 06/02/2024 Are you denied basic needs s uch as food, clothing, or medical care? No 06/02/2024 In the past 12 months have y ou been in a relationship with a person who hurts, threatens, or tries to control you? No 06/02/2024 Sex and Gender Information Value Date Recorded Sex Assigned at Male 05/18/2024 7:08 PM EST Legal Sex Male 4:40 PM EDT Gender Identity Male 05/18/2024 7:08 PM EST Sexual Orientation Straight 05/18/2024 7: 08 PM EST Last Filed Vital Signs Vital Sign Reading Time Taken Comments Blood Pressure 122/84 07/19/2024 10:06 AM EDT Pulse 88 07/19/2024 10:06 AM EDT Temperature 36.4 C (97.5 F) 06/02/2024 3:11 PM EST Respiratory Rate 16 06/02/2024 3:11 PM EST Oxygen Saturation 95% 07/19/2024 10:06 AM EDT Inhaled Oxygen Concentration - - Weight 96.6 kg (213 lb) 07/19/2024 10:06 AM EDT Height 177.8 cm (5' 10 ) 06/02/2024 8:51 AM EST Body Mass Index 30.56 06/02/2024 8:51 AM EST Plan of Treatment Health Maintenance Due Date Last Done Comments DEPRESSION SCREENING 1983 SMOKING Hx and SMOKELESS TOBACCO SCREENING 1984 HEPATITIS C SCREENING 1989 HIV ONE-TIME SCREENING (18-65 YEARS) 1989 COLOGUARD 2016 COLONOSCOPY 2016 COLORECTAL CANCER SCREENING 2016 FIT TEST 2016 FOBT 2016 SIGMOIDOSCOPY 2016 VIRTUAL COLONOSCOPY 2016 ZOSTER VACCINES (1 of 2) 2021 PNEUMOCOCCAL VACCINES (50+ years) (2 of 2 - PCV) 08/22/2021 08/22/2020 INFLUENZA VACCINE (#1) 2024 , 02/19/2023, 02/13/2022, Additional history exists BLOOD PRESSURE 01/18/2025 07/19/2024 TSH LEVEL 05/18/2025 05/18/2024, 04/08/2024 SCREENING FOR DIABETES 05/18/2027 05/18/2024 LIPID PANEL 06/01/2028 06/01/2023, 06/27/2019 Adult Td,Tdap Booster 08/22/2030 08/22/2020 COVID-19 VACCINE Completed 02/01/2024, , 03/01/2021, Additional history exists HEPATITIS A VACCINES Aged Out No long er eligible based on patient's age to complete this topic HIB VACCINES Aged Out No longer eligi ble based on patient's age to complete this topic MENINGOCOCCAL VACCINES (ACWY) Aged Out No longer eligible based on patient's age to complete this topic MENINGOCOCCAL VACCINES (B) Aged Out N o longer eligible based on patient's age to complete this topic Medical Devices Not on file Procedures Procedure Name Priority Date/Time Associated Diagnosis Comments TSH WITH REFLEX STAT 05/18/2024 7:09 PM EST from Last 3 Months or Most Recently Relevant to Health Maintenance Results * TSH with reflex (05/18/2024 7:09 PM EST) TSH 2.24 0.50 - 5.70 uIU/mL [facility] Blood 05/18/2024 7:09 PM EST 05/18/2024 8:34 PM EST us Mervat Jackson MD, MPH LAB BLOOD ORDERABLES F inal Result [facility] [address] [place] [address] from Last 3 Months or Most Recently Relevant to Health Maintenance Insurance [place] B [facility] Member Subscriber Plan / Payer (Ef fective 1996-Present) Name:Kody Llamas Member ID:[id number] Relation to Subscriber:Self Name:Kody Llamas Subscriber ID:[id number] Payer ID:[id number] Group ID:Not on file Type:Medicare Address: [facility] [employer] [facility] [address] [place] [address] [facility] & B Member Subscriber Plan / Payer ( fective 1996-Present) Name:Kody Llamas Member ID:[id number] Relation to Subscriber:Self Name:Kody Llamas Subscriber ID:[id number] Payer ID:[id number] Group ID:Not on file Type:Medicare Address: [facility] [employer] [facility] [address] [place] [address] [place] B Member Subscriber Plan / Payer (Ef fective 1996-Present) Name:Kody Llamas Member ID:[id number] Relation to Subscriber:Self Name:Kody Llamas Subscriber ID:[id number] Payer ID:[id number] Group ID:Not on file Type:Medicare Address: [email or web address] [address] [place] [address] [place] & B [place] B [facility] MEDIC[facility] PART A & B MEDICARE PART A & B [facility] Advance Directives For more information, please contact: [phone] (9AM - 5PM [facility], Thursday-Thursday) * Full Code (Presumed) (Latest Code Status on File) Date Activated Date Inactivated Comments 05/24/2018 9:53 AM 05/26/2018 4:48 PM Care Teams Gas Well Drilling Manager Relationship Specialty Start Date End Date Pcp, Unknown PCP - General 05/18/24 Milagros Meng MD [address] [place] [address] Cardiology 04/15/21 Additional Source Comments The information contained in this document represents components of the legal health record. It is not the complete legal health record.[facility]
--- OUTSIDE RECORDS SUMMARY | 2025-01-04 13:38 | XMS_ITS | Encounter Summary ---
Author Organization [facility] Address [address] [place] [address] Care Team Providers Care Rerecording Mixer Name Role Phone Dwaine Bocanegra MD Primary Care Provider Encounter Details Date Type Department Care Team (Late Contact Info) Description 12/28/2024 Lab Requisition [facility] [address] [facility] [place] [address] Dwaine Bocanegra MD [address] [place] [phone] Dysuria Social History Tobacco Use Types Packs/Day [...] Encounters Date Type Department Care Team (Late Contact Info) Description 01/13/2025 11:50 AM EDT Office Visit Pulmonolgy - [place] [address] [facility] [address] [place] [address] Cielo Johns NP [address] [place] [id number] 01/18/2025 11:20 AM EDT Office Visit [facility] [address] [facility] [address] [place] [address] Jaz Fuentes MD [address] [place] [address] [place] [address] 02/23/2025 1:00 PM EST Office Visit Adult [address] [phone] Dwaine Bocanegra MD [address] [place], [place] documented as of this encounter Procedures Procedure Name Priority Date/Time Associated Diagnosis Comments URINALYSIS WITH REFLEX MICROSCOPIC Routine 12/28/2024 9:50 AM EDT Dysuria URINALYSIS WITH REFLEX MICROSCOPIC Routine 12/28/2024 9:50 AM EDT Dysuria CULTURE URINE Routine 12/28/2024 9:50 AM EDT Dysuria documented in this encounter Results * (ABNORMAL) Urinalysis with reflex microscopic (12/28/2024 9:50 AM EDT) Specific [place] Urine 1.012 1.003 - 1.030 LAB URINALYSIS - AUTOMATED METHOD 12/28/2024 1:27 PM [facility] pH, Urine 7.0 5.0 - 8.0 pH LAB URINALYSIS - AUTOMATED METHOD 12/28/2024 1:27 PM [facility] Leukocytes, Urine Negative Negative LAB URINALYSIS - AUTOMATED METHOD 12/28/2024 1:27 PM [facility] Nitrite, Urine Negative Negative LAB URINALYSIS - AUTOMATED METHOD 12/28/2024 1:27 PM [facility] Protein, Urine Negative <=Trace mg/dL LAB URINALYSIS - AUTOMATED METHOD 12/28/2024 1:27 PM [facility] Glucose, Urine >=1000(A) Negative mg/dL LAB URINALYSIS - AUTOMATED METHOD 12/28/2024 1:27 PM [facility] Ketones, Urine Negative Negative mg/dL LAB URINALYSIS - AUTOMATED METHOD 12/28/2024 1:27 PM EDT [facility] Urobilinogen , Urine 1.0 0.2 - 1.0 mg/dL LAB URINALYSIS - AUTOMATED METHOD 12/28/2024 1:27 PM EDT [facility] Bilirubin, Urine Negative Negative LAB URINALYSIS - AUTOMATED METHOD 12/28/2024 1:27 PM EDT [facility] Blood, Urine Negative Negative LAB URINALYSIS - AUTOMATED METHOD 12/28/2024 1:27 PM EDT [facility] Urine Urine specimen obtained by clean catch procedure / Unknown Non-blood Collection / Unknown 12/28/2024 9:50 AM EDT 12/28/2024 1:08 PM EDT us Dwaine Bocanegra MD LAB URINE ORDERABLES Final Result Performing Organization Address City/[facility]/ZIP Co de Phone Number [facility] [address] [place] [address], [place] [phone] * Culture urine (12/28/2024 9:50 AM EDT) Culture, Urine No growth 12/29/2024 7:28 AM EDT [facility] Urine Urine specimen obtained by clean catch procedure / Unknown Non-blood Collection / Unknown 12/28/2024 9:50 AM EDT 12/28/2024 1:08 PM EDT us Dwaine Bocanegra MD LAB MICROBIOLOGY - GENERAL ORDERABLES Final Result [facility] [address] [place] [address], [place] [phone] documented in this encounter Visit Diagnoses Diagnosis Dysuria documented in this encounter Care Teams Rerecording Mixer Relationship Specialty Start Date End Date Dwaine Bocanegra MD [address] [place] [address] PCP - General Internal Medicine 08/19/21 documented as of this encounter
--- OUTSIDE RECORDS SUMMARY | 2025-01-04 13:38 | XMS_ITS | Encounter Summary ---
Author Organization [facility] Address [address] [place] [address] Phone Care Team Providers Care Director Radiation Oncology Name Role Phone Amol Lobato MD Primary Care Provider + Amol Lobato MD Primary Care Provider + Wilber Jacob MD Primary Care Provider Milagros Meng MD Unavailable [phone] Pcp, Unknown Primary Care Provider Unavailabl e Pcp, Unknown Primary Care Provider Unavailabl e Encounter Details Date Type Department Care Team (Late st Contact Info) Description 01/08/2017 Procedure [facility] Emergency Department, [facility] [address] [place] [address] Social History Tobacco Use Types Packs/Day Years [...] documented as of this encounter Care Teams Director Radiation Oncology Relationship Specialty Start Date End Date Amol Lobato MD [address] [address] [email or web address] PCP - General 12/20/16 05/25/18 Amol Lobato MD [address] [address] [email or web address] PCP - General Family Medicine 05/26/18 04/10/20 Wilber Jacob MD [address] [address] PCP - General Internal Medicine 04/11/20 04/07/24 Pcp, Unknown PCP - General 04/08/24 05/17/24 Pcp, Unknown PCP - General 05/18/24 Milagros Meng MD [address] [place] [address] [email or web address] Cardiology 04/15/21 documented as of this encounter Additional Source Comments The information contained in this document represents components of the legal health record. It is not the complete legal health record.[facility]
--- OUTSIDE RECORDS SUMMARY | 2025-01-04 13:38 | XMS_ITS | Encounter Summary ---
Author Organization [facility] Address [address] [place] [address] Phone Care Team Providers Care Head Teacher Name Role Phone Helder Hdz MD Primary Care Provider [phone] Encounter Details Date Type Department Care Team (Late st Contact Info) Description 09/24/2021 Documentation Only [facility], [address] [place] [address] Helder Hdz MD [address] [place] [address] Social History Tobacco Use Types Packs/Day Years [...] on filedocumented in this encounter Care Teams Head Teacher Relationship Specialty Start Date End Date Helder Hdz MD PCP - General Internal Medicine 09/24/21 documented as of this encounter
--- OUTSIDE RECORDS SUMMARY | 2025-01-04 13:38 | XMS_ITS | Encounter Summary ---
Author Organization [facility] Address [address] [place] [address] Phone Care Team Providers Care Supervisor Molding Name Role Phone Helder Hdz MD Primary Care Provider [phone] Encounter Details Date Type Department Care Team (Late st Contact Info) Description 11/20/2021 Documentation Only [facility] [place], [address] [place] [address] Asher Sosa MD [address] [place] [address] Social History Tobacco Use Types [...] on filedocumented in this encounter Care Teams Supervisor Molding Relationship Specialty Start Date End Date Helder Hdz MD PCP - General Internal Medicine 09/24/21 documented as of this encounter
--- OUTSIDE RECORDS SUMMARY | 2025-01-04 13:38 | XMS_ITS | Encounter Summary ---
Author Organization [facility] Address [address] [place] [address] Phone Care Team Providers Care Care Analyst Name Role Phone Amol Lobato MD Primary Care Provider + Amol Lobato MD Primary Care Provider + Wilber Jacob MD Primary Care Provider Milagros Meng MD Unavailable [phone] Pcp, Unknown Primary Care Provider Unavailabl e Pcp, Unknown Primary Care Provider Unavailabl e Encounter Details Date Type Department Care Team (Late st Contact Info) Description 01/08/2018 Ancillary Orders [facility], [facility] [address] [place] [address] Amol Lobato MD [address] [facility] [address] [place] [address] [email or web address] Closed nondisplaced fracture of second metatarsal [...] foot. COMPARISON: Radiographs of the right foot, [facility], 12/07/2017. FINDINGS: Comminuted of the proximal diaphysis of the right second metatarsal with periosteal thickening and callus formation. Procedure Note Julio Jolly MD - 01/09/2018 XR FOOT 3 OR MORE VIEWS (RIGHT) INDICATION: TECHNIQUE: AP, oblique, and lateral views of the right foot. COMPARISON: Radiographs of the right foot, [facility],12/07/2017. FINDINGS: Comminuted of the proximal diaphysis [...] documented as of this encounter Care Teams Care Analyst Relationship Specialty Start Date End Date Amol Lobato MD [address] [address] [email or web address] PCP - General 12/20/16 05/25/18 Amol Lobato MD [address] [address] [email or web address] PCP - General Family Medicine 05/26/18 04/10/20 Wilber Jacob MD [address] [address] PCP - General Internal Medicine 04/11/20 04/07/24 Pcp, Unknown PCP - General 04/08/24 05/17/24 Pcp, Unknown PCP - General 05/18/24 Milagros Meng MD [address] [place] [address] [email or web address] Cardiology 04/15/21 documented as of this encounter Additional Source Comments The information contained in this document represents components of the legal health record. It is not the complete legal health record.[facility]
== END 2025-01-04 13:31 | disposition home or self-care (01) ==
LOC: HO.HSM 10:47
PROVIDERS: PCP Internal Medicine; Visit Provider Psychiatry & Neurology Neurology
DX: Z87.820 Personal history of traumatic brain injury (principal); F84.9 Pervasive developmental disorder, unspecified; F25.9 Schizoaffective disorder, unspecified; R51.9 Headache, unspecified
CPT/HCPCS: 99214

== ENCOUNTER → 2025-01-04 10:46 | Outpatient (BNVA) | payer MEDICARE, MEDICAID, SELFPAY | PROVIDERS: PCP Internal Medicine; Visit Provider Psychiatry & Neurology Neurology | DX: F25.9 Schizoaffective disorder, unspecified (principal); R51.9 Headache, unspecified; Z87.820 Personal history of traumatic brain injury | CPT/HCPCS: 99212 ==

== ENCOUNTER 2025-03-10 13:28 | Outpatient (AMB) | payer MEDICARE, MEDICAID, SELFPAY ==
[2025-03-10 13:45] VITALS: BP 138/90; PULSE 62; RESP 16; O2SAT 98; BMI 28.0
--- NOTE | 2025-03-10 13:45 | MHC.OFFVIS ---
Vital Signs 03/10/25 13:45 Height 5 ft 10 in Weight 195 lb BMI 28.0 BP 138/90 H Blood Pressure Location Lt brachial Position Sitting Respiration 16 Pulse 62 Pulse Source Pulse Oximeter Pulse Oximetry (%) 98 Oxygen Delivery Method Room Air Intake Visit Reasons: headaches Liquor Commissioner Required: No Allergies fluoxetine (Prozac) Allergy (Intermediate, Verified 03/10/25 13:46) Seizures bupropion Allergy (Verified 03/10/25 13:46) Unknown divalproex sodium (From Depakote) Allergy (Verified 03/10/25 13:46) Unknown haloperidol (From Haldol) Allergy (Verified 03/10/25 13:46) Unknown quetiapine (From Seroquel) Allergy (Verified 03/10/25 13:46) Unknown risperidone (From Risperdal) Allergy (Verified 03/10/25 13:46) Unknown sertraline Allergy (Verified 03/10/25 13:46) Unknown thiothixene (From Navane) Allergy (Verified 03/10/25 13:46) Unknown paroxetine (From Paxil) Adverse Reaction (Mild, Verified 03/10/25 13:46) suicidal thoughts risperdal analogues Allergy (Uncoded 07/28/24 15:54) Unknown From Paxil Adverse Reaction (Mild, Uncoded 07/28/24 15:54) SUICIDAL THOUGHTS HPI Comments Details: Kody is a 55-year-old male patient with a past medical history of TBI and psychiatric disorders following the clinic for headache and seizure. He has history is of going ?unconscious? causing him to fall in his head. He has had normal EEGs in the past though continues to have ?seizures daily?. He also reports headaches and dizziness. He was last seen by Dr. Espinal who had in the past placed him on topiramate 50 mg twice daily and nortriptyline 25 mg at bedtime for his headaches. It sounds like at last visit the patient did not want to increase his medications. He was given naproxen. The patient tells me today that he is most concerned about his head pain and abnormal sensation that he experiences. He had A CT of the brain performed at [facility] in September of 2024 which showed no acute intracranial abnormalities. The patient believes however that his CT scan did show abnormalities because he is having pain and bruising sensations as well as feelings of bleeding in his head. His headaches are daily to the occipital, frontal, and retro-orbital areas. His headaches last up to 4 hours per day though and include visual auras described as stars often leading up to his headaches. His headaches are accompanied by light and sound sensitivity. They are generally bilateral but worse on the left. He denies any nausea or tinnitus but does have some accompanying dizziness. He denies any positional component. He is not sure if the topiramate or nortriptyline has been helpful but he does continue to take them. He does note that he has poor sleep since his initial brain injury in 1988. Prior medication trials: Topiramate-currently taking 50 mg twice daily and not sure if he feels any benefit Nortriptyline-currently taking 25 mg nightly with no benefit Carvedilol-takes for cardiovascular reasons but no headache improvement Prior workup: CT of the brain 09/2024 FINDINGS: No findings of an acute infarction or intracranial hemorrhage. There is normal downey-white matter differentiation. No mass or mass effect identified. No hydrocephalus, midline shift or herniation. No extra-axial abnormality. No fracture. The paranasal sinuses are clear. Middle ears and mastoid air cells are clear. No acute orbital abnormality. IMPRESSION: No findings of an acute intracranial process. [facility] Medical History Seizure Nocturnal hypoxemia Atherosclerosis Mild cognitive impairment BPH (benign prostatic hyperplasia) Hypokinesis Vitamin D deficiency Hyponatremia Chronic systolic (congestive) heart failure Focal seizures History of concussion Chronic pain COPD (chronic obstructive pulmonary disease) Hypothyroidism Xerosis of skin Lower urinary tract symptoms (LUTS) Overactive bladder Hypercholesteremia Rosacea Tinea pedis Abdominal spasms Rectal spasm Cardiomyopathy Tachycardia GERD (gastroesophageal reflux disease) HTN (hypertension) Elevated cholesterol Traumatic brain injury Low back pain Diabetes Tension headache Cerebellar ataxia PTSD (post-traumatic stress disorder) Bipolar disorder Cervical disc disease Surgical History History of surgery Social History Household Members Other:: resides in prison Housing Other:: prison Alcohol intake: never Comment: NO COUNTS NEEDED Patient Tobacco Use Status: Current everyday Tobacco user Tobacco use type: Cigarette Review of Systems Const All systems reviewed & are unremarkable except as noted in HPI and below Physical Exam Vital Signs: Last Vital Signs Pulse 62 03/10/25 13:45 Resp 16 03/10/25 13:45 BP 138/90 H 03/10/25 13:45 Pulse Ox 98 03/10/25 13:45 Oxygen Delivery Method Room Air 03/10/25 13:45 BMI result Body Mass Index 28.0 Const Orientation/consciousness: patient oriented x3 Back/Spine/Pelvis Other: Bilateral trapezius trigger points and bilateral occipital notch tenderness Neuro General: patient oriented x3 Cranial nerves: Yes CN's II-XII intact bilaterally Cognition (Neuro): normal cognition Gait exam (Neuro): Normal gait present Motor exam (neuro): 5/5 motor strength present throughout Psych Appearance: grossly normal Speech and movement: Clear speech present Affect: normal affect Thought process: Illogical thought process present and Loose association thought process present Thought content: Obsession(s) present Insight: Fair insight present (Psych) Judgement: Fair judgement present (Psych) Office Procedures Nerve Block Details: Bilateral Greater Occipital Nerve block procedure: Laterally: Bilateral Indications: Occipital neuralgia Current allergies and current list of medications were reviewed prior to procedure, verbal consent was obtained, procedure was explained in detail to the patient prior to starting. Time-out was performed prior to procedure. Following universal hygiene protocols, patient's left occipital area was located by drawing a line between the external occipital protuberance and the mastoid process. The greater occipital nerve was located approximately 2/3 along this pipelines supervisor to the occiput, and corresponded with the point of maximum tenderness. Alcohol was applied topically to the skin. A 27 gauge needle (aspirating during insertion) was inserted at a 45 degree angle until just above the periosteum. The providers selected agent (s)/medications (as documented in this note) were injected on the left side (directing needle to center, left and right of painful focus any fanning technique). Pressure with gauze pad was held briefly upon the site of puncture to minimize bleeding and to further spread anesthetic subcutaneously. The procedure was repeated on the right side. The patient was monitored for 15 minutes after the procedure and no complications were observed. Post procedure care was reviewed with the patient including application of ice intermittently to the injection sites over the course of the day to reduce inflammation. CPT: 23378-U[place]czah Occipital Procedure code (CPT) selection complete Therapeutic Injection Therapeutic Injection Details: Trigger point injection procedure: Laterally:Bilateral Indications: Chronic headaches, myofascial pain Following universal hygiene protocol, after explaining the risks and benefits as well as hazards of the procedure to the patient, consent was signed and placed in the chart. Time-out prior to starting the procedure was performed. The areas over the bilateral trapezius muscles were cleansed with alcohol. 1 Sites in each trapezius muscle injected with a 27 gauge 1.5 in needle with myofascial spasm. Patient tolerated the procedure well, localized bleeding was controlled. Patient monitored in the clinic for 15 minutes for complications. Patient was discharged home with instructions to apply ice to the back of their head as needed. 84761-Obmgkwq Point Injection 1 or 2 sites All charges added?: Procedure code (CPT) selection complete Office Meds bupivacaine (PF) 0.5 % (5 mg/mL) injection solution Performing Provider: Elaine Rosales CNP [place] [facility] [place] [facility] Administered by: Elaine Rosales CNP on 03/10/25 14:44 Dose Route Admin Location Dispensed Lot Number Expiration Date [facility] [employer] Supervisor 3 mL Infiltration 10 mL 1376-4929-55 [employer] Total Dispensed Waste 10 mL 70 % bupivacaine (PF) 0.5 % (5 mg/mL) injection solution Performing Provider: Elaine Rosales CNP [place] [facility] [place] [facility] Administered by: Elaine Rosales CNP on 03/10/25 14:44 Dose Route Admin Location Dispensed Lot Number Expiration Date [facility] [employer] Skilled Maintenance Supervisor 2 mL Infiltration 10 mL [id number] [employer] Total Dispensed Waste 10 mL 80 % Assessment & Plan Assessment & Plan (1) Muscle pain, myofascial: Code(s): M79.18 - Myalgia, other site Category: Medical (2) Chronic migraine with aura without status migrainosus, not intractable: Code(s): G43.E09 - Chronic migraine with aura, not intractable, without status migrainosus Category: Medical (3) Bilateral occipital neuralgia: Code(s): M54.81 - Occipital neuralgia Category: Medical Plan Kody is a 55-year-old male patient with a past medical history of TBI and psychiatric disorders following the clinic for headache and seizure. His most pressing concern today is regarding his headaches and abnormal sensations including feelings of bruising to the top of his head and bleeding inside of the skull. I did review his imaging again with him during today's visit and explained that his headaches are very real but there is no structural abnormality on his imaging studies that would cause his headache. His exam today revealed significant bilateral trapezius trigger points as well as occipital notch tenderness. I performed occipital nerve blocks and trigger point injections during today's visit. He expressed desire to come off of the nortriptyline and based on the fact that it has not been helpful historically, I think this is reasonable. I did tell him to taper down by doing 25 mg every other day for a week before completely stopping. He can continue that topiramate for now. I would like to however start him on a new preventive therapy including the CGRP targeting medications. He does not feel that he could do a once monthly injection and would like to try 1 of the oral agents 1st. We discussed Nurtec versus topiramate. I do think that the dosing schedule on Qulipta as easier to follow and given his psychiatric history, I would like to have him do the Qulipta which is once daily. I would recommend starting with a 60 mg dose given the severity of his headaches. -discontinue nortriptyline -start a trial of Qulipta 60 mg daily -continue topiramate 50 mg twice daily -occipital nerve block and trigger point injections performed in office today -return to the clinic in 1 month for follow up visit at which time we can perform additional nerve block and trigger point injections if indicated Orders: Orders AMB Nerve Block Today G43.E09 - Chronic migraine with aura, not intractable, without status migrainosus, M54.81 - Occipital neuralgia, M79.18 - Myalgia, other site AMB Trigger Point Injection Today G43.E09 - Chronic migraine with aura, not intractable, without status migrainosus, M54.81 - Occipital neuralgia, M79.18 - Myalgia, other site Coding Level of Care Code Est Pt Level 4 (89163) Diagnoses Muscle pain, myofascial M79.18 Chronic migraine with aura without status migrainosus, not intractable G43.E09 Bilateral occipital neuralgia M54.81 CPT Codes Nerve Block - CPT: 83180-Zgkhvhk Occipital ([id number]) Therapeutic Injection - Ther Injection 129708-Wuhnxpc Point Injection 1 or 2 sites ([id number])
--- OUTSIDE RECORDS SUMMARY | 2025-03-10 13:47 | XMS_ITS | Encounter Summary ---
Author Organization [facility] Address [address] [place] [address] Care Team Providers Care Paint Factory Worker Name Role Phone Dwaine Bocanegra MD Primary Care Provider Reason for Visit * Reason Onset Date Comments CALL BACK 03/03/2025 Advice Only 03/03/2025 Encounter Details Date Type Department Care Team ([facility] st Contact Info) Description 03/03/2025 Telephone Adult Medicine [address] [address] Jeniffer Brady MA Social History Tobacco Use [...] as of this encounter Progress Notes * Rika Montano MA - 03/08/2025 11:45 AM EST Letter was sent spoke with the nursing unit at [facility] they will advise pt * Dwaine Bocanegra MD - 03/06/2025 1:38 PM EST Please inform the patient that I reviewed his lab results again. All the lab results are within acceptable range. Chloride level is near normal range and nothing to worry. No need for any new medications * Jeniffer Brady MA - 03/03/2025 10:00 AM EST Patient states he sees some abnormal lab results from 02/24/25 on My Chart.Patient wants to know if provider is going to prescribe him anything?Please Advise documented in this encounter Plan of Treatment Not on file documented as of this encounter Visit Diagnoses Not on filedocumented in this encounter Care Teams Paint Factory Worker Relationship Specialty Start Date End Date Dwaine Bocanegra MD [address] [place] [address] PCP - General Internal Medicine 08/19/21 documented as of this encounter
--- OUTSIDE RECORDS SUMMARY | 2025-03-10 13:47 | XMS_ITS | Encounter Summary ---
Author Organization [facility] Address [address] [place] [address] Phone Care Team Providers Care Gang Sawyer Name Role Phone Helder Hdz MD Primary Care Provider [phone] Encounter Details Date Type Department Care Team (Late st Contact Info) Description 09/24/2021 Documentation Only [facility] [place], [address] [place] [address] Helder Hdz MD [address] [place] [phone] Social History Tobacco Use Types Packs/Day Years [...] on filedocumented in this encounter Care Teams Gang Sawyer Relationship Specialty Start Date End Date eHlder Hdz MD PCP - General Internal Medicine 09/24/21 documented as of this encounter
--- OUTSIDE RECORDS SUMMARY | 2025-03-10 13:48 | XMS_ITS | Encounter Summary ---
Author Organization [facility] Address [address] [place] [address] Phone Care Team Providers Care Director Patient Financial Services Name Role Phone Amol Lobato MD Primary Care Provider + Wilber Jacob MD Primary Care Provider Milagros Meng MD Unavailable [phone] Pcp, Unknown Primary Care Provider Unavailabl e Pcp, Unknown Primary Care Provider Unavailabl e Encounter Details Date Type Department Care Team (Late st Contact Info) Description 05/28/2018 Procedure [facility] [address] [place] [address] Social History Tobacco Use Types Packs/Day Years [...] as of this encounter Care Teams Director Patient Financial Services Relationship Specialty Start Date End Date Amol Lobato MD [address] [address] [email or web address] PCP - General Family Medicine 05/26/18 04/10/20 Wilber Jacob MD [address] [address] PCP - General Internal Medicine 04/11/20 04/07/24 Pcp, Unknown PCP - General 04/08/24 05/17/24 Pcp, Unknown PCP - General 05/18/24 Milagros Meng MD [address] [place] [address] [email or web address] Cardiology 04/15/21 documented as of this encounter Additional Source Comments The information contained in this document represents components of the legal health record. It is not the complete legal health record.[facility]
--- OUTSIDE RECORDS SUMMARY | 2025-03-10 13:48 | XMS_ITS | Encounter Summary ---
Author Organization [facility] Address [address] [place] [address] Phone Care Team Providers Care Global Supply Chain Vice President Name Role Phone Amol Lobato MD Primary Care Provider + Amol Lobato MD Primary Care Provider + Wilber Jacob MD Primary Care Provider Milagros Meng MD Unavailable [phone] Pcp, Unknown Primary Care Provider Unavailabl e Pcp, Unknown Primary Care Provider Unavailabl e Encounter Details Date Type Department Care Team (Late st Contact Info) Description 01/08/2018 Ancillary Orders [facility] [address] [place] [address] Amol Lobato MD [address] [facility] [address] [place] [address] [email or web address] Closed nondisplaced fracture of second metatarsal [...] foot. COMPARISON: Radiographs of the right foot, [facility], 12/07/2017. FINDINGS: Comminuted of the proximal diaphysis of the right second metatarsal with periosteal thickening and callus formation. Procedure Note Julio Jolly MD - 01/09/2018 XR FOOT 3 OR MORE VIEWS (RIGHT) INDICATION: TECHNIQUE: AP, oblique, and lateral views of the right foot. COMPARISON: Radiographs of the right foot, [facility],12/07/2017. FINDINGS: Comminuted of the proximal diaphysis [...] Indicated Resolved Time CoV-Risk 07/14/2019 07/14/2019 07/26/2019 1:3 1 PM EDT COVID-19 07/14/2019 07/14/2019 08/23/2019 1:23 AM EDT CoV-Risk 09/04/2019 09/04/2019 09/04/2019 11:4 6 AM EDT COVID-19 09/04/2019 09/04/2019 10/04/2019 1:23 AM EDT CoV-Recovered Comment:Entered in Error. Active COVID-19 Infection. 09/28/2019 09/28/2019 09/28/2019 2:29 PM E DT CoV-Risk 05/14/2024 05/18/2024 05/29/2024 1:21 AM EST documented as of this encounter Care Teams Global Supply Chain Vice President Relationship Specialty Start Date End Date Amol Lobato MD [address] [address] [email or web address] PCP - General 12/20/16 05/25/18 Amol Lobato MD [address] [address] [email or web address] PCP - General Family Medicine 05/26/18 04/10/20 Wilber Jacob MD [address] [address] PCP - General Internal Medicine 04/11/20 04/07/24 Pcp, Unknown PCP - General 04/08/24 05/17/24 Pcp, Unknown PCP - General 05/18/24 Milagros Meng MD [address] [place] [address] [email or web address] Cardiology 04/15/21 documented as of this encounter Additional Source Comments The information contained in this document represents components of the legal health record. It is not the complete legal health record.[facility]
--- OUTSIDE RECORDS SUMMARY | 2025-03-10 13:48 | XMS_ITS | Encounter Summary ---
Author Organization [facility] Address [address] [place] [address] Phone Care Team Providers Care Guest Services Coordinator Name Role Phone Amol Lobato MD Primary Care Provider + Amol Lobato MD Primary Care Provider + Wilber Jacob MD Primary Care Provider Milagros Meng MD Unavailable Pcp, Unknown Primary Care Provider Unavailabl e Pcp, Unknown Primary Care Provider Unavailabl e Encounter Details Date Type Department Care Team (Late st Contact Info) Description 02/01/2017 Procedure [facility] Emergency Department, [facility] [address] [place] [address] Social History Tobacco Use Types Packs/Day Years [...] documented as of this encounter Care Teams Guest Services Coordinator Relationship Specialty Start Date End Date Amol Lobato MD [address] [address] [email or web address] PCP - General 12/20/16 05/25/18 Amol Lobato MD [address] [address] [email or web address] PCP - General Family Medicine 05/26/18 04/10/20 Wilber Jacob MD [address] [address] PCP - General Internal Medicine 04/11/20 04/07/24 Pcp, Unknown PCP - General 04/08/24 05/17/24 Pcp, Unknown PCP - General 05/18/24 Milagros Meng MD [address] [place] [address] [email or web address] Cardiology 04/15/21 documented as of this encounter Additional Source Comments The information contained in this document represents components of the legal health record. It is not the complete legal health record.[facility]
--- OUTSIDE RECORDS SUMMARY | 2025-03-10 13:48 | XMS_ITS | Encounter Summary ---
Author Organization [facility], Address [address] [place] [address] Phone Care Team Providers Care University Administrator Name Role Phone Helder Hdz MD Primary Care Provider [phone] Encounter Details Date Type Department Care Team (Late st Contact Info) Description 11/20/2021 Documentation Only [facility], [address] [place] [address] Asher Sosa MD [address] [place] [address] Social History Tobacco Use Types [...] on filedocumented in this encounter Care Teams University Administrator Relationship Specialty Start Date End Date Helder Hdz MD PCP - General Internal Medicine 09/24/21 documented as of this encounter
--- OUTSIDE RECORDS SUMMARY | 2025-03-10 13:48 | XMS_ITS | Clinical Summary ---
Author Organization [facility] [address] [place] [address] [place] [phone] Phone Care Team Providers Care Inspectors And Regulatory Officers Name Role Phone Dwaine Bocanegra MD Primary Care Provider [phone] Allergies Active Allergy Reactions Criticality Noted Date Comments Bupropion Unknown 04/19/2018 Divalproex 10/04/2019 Divalproex Sodium 12/20/2016 Fluoxetine Unknown 12/20/2016 Haloperidol Unknown 12/20/2016 Quetiapine 12/20/2016 Risperidone Analogues Unknown 12/20/2016 Sertraline Unknown 12/20/2016 Thiothixene 12/20/2016 Medications silver sulfADIAZINE (SILVADENE, SSD) 1 % cream Apply small amount to the wound once daily before dressing with bandaid Active blood-glucose meter kit Blood Glucose Monitoring Suppl (True Metrix Air Glucose Meter) w/Device Kit, 1 Kit by Does not apply route See Admin Instructions. To check sugars once daily Active lancets lancets USE 1 LANCET ONCE DAILY in AM Active ammonium lactate (LAC-HYDRIN) 12 % lotion Apply to soles of feet nightly. At night wear socks to bed Active sodium chloride (AYR) aerosol,spray nasal spray 2 Sprays by Nasal route 2 times daily. Take 2 sprays to each nostral twice daily. Active acetaminophen (TYLENOL) 325 mg tablet Take 2 Tablets by mouth every 6 hours as needed for Pain (Mild pain/fever). over 100 degrees. Call MD if pain is consistent or worsened or temp greater than 100 is not relieved after 24 hours. Active benztropine (COGENTIN) 0.5 mg tablet Take 1 tablet (0.5 mg total) by mouth 2 (two) times a day. Active neomycin/bacitrac in/polymyxinB (NEOSPORIN, [id number], TOP) Apply topically. Apply pea size amount topically twice daily to minor cuts and abrasions Active albuterol HFA (PROAIR HFA ; PROVENTIL HFA ; VENTOLIN HFA) 90 mcg/actuation inhalerIndication s:Nasal congestion,Chroni c obstructive pulmonary disease, unspecified (CMS/HCC V24, CMS/HCC V28) Inhale 2 Puffs into the lungs every 4 hours as needed for Cough, Wheezing or Shortness of Breath (or chest tightness). 8.5 g 1 025 Active Triple Antibiotic ointment Apply THIN LAYER topically 2 times daily as needed for SKIN INFECTION/MIN OR CUTS / ABRASIONS). UNTIL INFECTION RESOLVES 28.4 g 1 025 Active Simply Saline 0.9 % aerosol,sprayIndi cations:Nasal congestion Instill 2 Sprays by Nasal route 2 times daily to each nostril 90 mL 4 025 Active tamsulosin (Flomax) 0.4 mg 24 hr capsule Take 2 capsules (0.8 mg total) by mouth 1 (one) time each day. Capsules should be taken 30 minutes following the same meal each day. Active lamoTRIgine (LaMICtal) 25 mg chewable tablet Take 1 tablet (25 mg total) by mouth 2 (two) times a day. Active carvediloL (COREG) 25 mg tablet Take 2 tablets (50 mg total) by mouth 2 (two) times a day with meals. Active prazosin (MINIPRESS) 1 mg capsule Take [...] mg total) by mouth at bedtime. Active sacubitriL-valsar walsh (ENTRESTO) 49-51 mg per tablet Take 1 tablet by mouth 2 (two) times a day. Active topiramate (TOPAMAX) 25 mg tablet Take 2 tablets (50 mg total) by mouth 2 (two) times a day. 025 Active diphenhydrAMINE (Banophen) 25 mg tablet Take 1 tablet (25 mg total) by mouth at bedtime as needed for sleep. Active propranoloL (INDERAL) 10 mg tablet Take 1 tablet (10 mg total) by mouth 2 (two) times a day. Active escitalopram (LEXAPRO) 20 mg tablet Take 1 tablet (20 mg total) by mouth 1 (one) time each day. Active cyanocobalamin (VITAMIN B-12) 500 mcg tablet Take 1 tablet (500 mcg total) by mouth 1 (one) time each day. 90 tablet 1 025 Active fluticasone-umecl idinium-vilantero l (Trelegy Ellipta) 100-62.5-25 mcg inhalerIndication s:Chronic obstructive pulmonary disease, unspecified COPD type (CMS/HCC V24, CMS/HCC V28) Inhale 1 puff (100 mcg total) by mouth 1 (one) time each day. Rinse mouth with water after use to reduce aftertaste and incidence of candidiasis. Do not swallow. 60 each 3 025 Active multivitamin with iron-minerals 9 mg iron/15 mL liquid Take 15 mL by mouth daily. Active ondansetron (ZOFRAN) 4 mg tablet Take 1 tablet (4 mg total) by mouth 2 (two) times a day if needed for nausea or vomiting. 30 tablet 1 025 Active triamcinolone (NASACORT) 55 mcg nasal inhaler Administer 1 spray into each nostril 1 (one) time each day. 10.8 mL 2 025 Active aspirin 81 mg EC tablet Take 1 tablet (81 mg total) by mouth 1 (one) time each day. 90 tablet 1 025 Active atorvastatin (LIPITOR) 40 mg tablet Take 1 tablet (40 mg total) by mouth 1 (one) time each day. at bedtime. 90 tablet 1 025 Active cholecalciferol (VITAMIN D-3) 50 mcg (2,000 unit) tablet Take 1 tablet (2,000 Units total) by mouth 1 (one) time each day. 90 tablet 1 Active fenofibrate (LOFIBRA) 54 mg tablet Take 1 tablet (54 mg total) by mouth 1 (one) time each day. 90 each 1 Active empagliflozin (Jardiance) 10 mg tablet Take 1 tablet (10 mg total) by mouth 1 (one) time each day. 90 tablet 1 Active levothyroxine (SYNTHROID, LEVOTHROID) 25 mcg tablet Take 1 tablet (25 mcg total) by mouth 1 (one) time each day before breakfast. 90 tablet 1 Active loperamide (IMODIUM) 2 mg capsule Take 1 capsule (2 mg total) by mouth 3 (three) times a day if needed for diarrhea. 30 capsule 2 Active magnesium oxide (MAG-OX) 400 mg magnesium tablet Take 1 tablet (400 mg total) by mouth 1 (one) time each day. 90 tablet 1 Active pantoprazole (PROTONIX) 20 mg EC tablet Take 1 tablet (20 mg total) by mouth 1 (one) time each day before breakfast. Do not crush, chew, or split. 90 tablet 1 Active levothyroxine (SYNTHROID, LEVOTHROID) 25 mcg tablet Take 1 Tablet by mouth every morning. 30 minutes prior to breakfast 2024 Discontinued(R eorder) multivitamin/iron /folic acid (CERTAVITE-ANTIOX IDANT ORAL) Take 1 Tablet by mouth daily. IN THE am 024 2024 Discontinued loperamide (IMODIUM) 2 mg capsule Take 1 capsule by mouth 4 times daily as needed for Diarrhea. 2024 Discontinued(R eorder) cholecalciferol (VITAMIN D-3) 50 mcg (2,000 unit) tablet Take 1 Tablet by mouth daily. IN THE am 30 tablet 5 2024 Discontinued(R eorder) aspirin 81 mg EC tabletIndications :Atherosclerotic heart disease of [place] coronary artery without angina pectoris Take 1 Tablet by mouth daily. IN THE am 30 tablet 5 2024 Discontinued(R eorder) empagliflozin (Jardiance) 10 mg tablet Take 1 tablet (10 mg total) by mouth 1 (one) time each day. 90 tablet 1 025 2024 Discontinued(R eorder) LORazepam (ATIVAN) 0.5 mg tablet Take 1 tablet (0.5 mg total) by mouth 3 (three) times a day if needed. for anxiety 2024 Discontinued(T herapy completed) pantoprazole (PROTONIX) 20 mg EC tablet Take 1 tablet (20 mg total) by mouth 1 (one) time each day before breakfast. Do not crush, chew, or split. 2024 Discontinued(R eorder) metFORMIN (GLUCOPHAGE) 500 mg tablet Take 1 tablet (500 mg total) by mouth 2 (two) times a day with meals. 2024 Discontinued cloNIDine (CATAPRES) 0.1 mg tablet Take 1 tablet (0.1 mg total) by mouth 2 (two) times a day. 2024 Discontinued cariprazine (VRAYLAR) 3 mg capsule Take 1 capsule (3 mg total) by mouth 1 (one) time each day. 2024 Discontinued(T herapy completed) nicotine (NICODERM CQ) 14 mg/[address] 1 patch on the skin 1 (one) time each day at the same time. 2024 Discontinued(T herapy completed) lidocaine (LIDODERM) 5 % patch Apply 1 patch topically 1 (one) time each day. Remove & discard patch within 12 hours or as directed by . 2024 Discontinued(I neffective) diclofenac (VOLTAREN) 1 % topical gel Apply 2 g topically 4 (four) times a day. 100 g 3 025 2024 Discontinued(I neffective) magnesium oxide (MAG-OX) 400 mg magnesium tablet Take 1 tablet (400 mg total) by mouth 1 (one) time each day. 90 tablet 1 025 2024 Discontinued(R eorder) atorvastatin (LIPITOR) 40 mg tablet Take 1 tablet (40 mg total) by mouth 1 (one) time each day. at bedtime. 90 tablet 1 06/252024 Discontinued(R eorder) fenofibrate (LOFIBRA) 54 mg tablet Take 1 tablet (54 mg total) by mouth 1 (one) time each day. 90 each 1 2024 Discontinued meloxicam (MOBIC) 7.5 mg tablet Take 1 tablet (7.5 mg total) by mouth 1 (one) time each day if needed for moderate pain. 30 each 2 2024 Discontinued(I neffective) clonazePAM (KlonoPIN) 1 mg tablet Take 1 tablet (1 mg total) by mouth 1 (one) time each day. Max Daily Amount: 1 mg 2024 Discontinued(T herapy completed) Arnuity Ellipta 100 mcg/actuation blister with device inhaler 2024 Discontinued Caplyta 42 mg capsule Take 1 capsule (42 mg total) by mouth. at bedtime 2024 Discontinued mirtazapine (REMERON) 7.5 mg tablet Take 1 tablet (7.5 mg total) by mouth at bedtime as needed. 2024 Discontinued traMADoL (ULTRAM) 50 mg tablet Take 1 tablet (50 mg total) by mouth every 4 (four) hours if needed for severe pain. Max Daily Amount: 300 mg 2024 Discontinued valACYclovir (VALTREX) 1 gram tablet 2024 Discontinued fexofenadine (YANI) 180 mg tablet Take 1 tablet (180 mg total) by mouth 1 (one) time each day if needed (allergies). 90 tablet 1 2024 Discontinued(I neffective) cyclobenzaprine (FLEXERIL) 10 mg tabletIndications :Chronic bilateral low back pain without sciatica Take 1 tablet (10 mg total) by mouth at bedtime as needed for muscle spasms. 30 tablet 2024 Discontinued(I neffective) Active Problems Problem Noted Date Diagnosed Date Schizoaffective disorder, bi polar type (CMS/HCC V24, CMS/HCC V28) 02/23/2025 Hypomagnesemia 02/23/2025 Anxiety 11/10/2024 GERD (gastroesophageal reflux disease) Type 2 diabetes mellitus wit hout complication, without long-term current use of insulin ([facility] V24, [facility] V28) 09/25/2024 Dizziness 09/16/2024 Assessment & Plan [...] headache 12/01/2023 Chronic systolic congestive heart failure ([facility] V24, [facility] V28) 12/01/2023 Overview (02/01/2024): Last Assessment & [...] Type 2 diabetes mellitus wit h hyperglycemia ([facility] V24, [facility] V28) 08/22/2020 Nonischemic cardiomyopathy ([facility] V24, [facility] V28) 05/25/2020 Overview (02/01/2024): Report of mildly reduced ejection fraction over a decade ago when he was residing in [place]. Updated echocardiogram in March 2020 showed LVEF [...] Overview (02/01/2024): Per urology 02/2020 Atherosclerosis of [place] co ronary artery of [place] heart without angina pectoris 12/19/2019 Assessment & Plan (09/16/2024 12:33 PM EDT): Orders: Ambulatory referral to Cardiology ECG 12 lead Bipolar disorder ([facility] V24, CMS/[facility] V28) 11/20 BPH (benign prostatic hyperplasia) 12/19/2019 COVID-19 12/19/2019 Overview (02/01/2024): Positive 07/13 & again 09/04/19 Mild cognitive impairment 12/19/2019 PTSD (post-traumatic stress disorder) 12/19/2019 Hyperlipidemia 11/15/2019 Overview (02/01/2024): Last Assessment & [...] basis. COPD (chronic obstructive pu lmonary disease) ([facility] V24, [facility] V28) 10/04/2019 Hypothyroidism 10/04/2019 Obstructive sleep apnea 10/04/2019 Overview (02/01/2024): Has CPAP and BiPAP but does not use them [facility] split-night study in 2018; AHI 13; oxygen silva 76% with 43% of the time of study spent below 88%. CPAP at 10 with mild persistent hypoxemia; CPAP 10-17 recommended. [facility] titration study in 2019; BiPAP 18/14 was recommended with better nocturnal oxygenation on that therapy. [facility] ; AHI 42; oxygen silva 81% with [...] S/p traumatic brain injury 1988. Evaluated by [facility] neurology. Has had -48-hour EEG. Also -4-day elective inpatient admission for continuous VEEG. 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 Advised to follow-up as needed basis. 9-27-21. Tobacco dependence 10/04/2019 Essential hypertension 03/07/2019 Overview (02/01/2024): Last Assessment & Plan: Blood pressure remains slightly high. Should be able to tolerate increasing dose carvedilol. Septic bursitis of elbow, right 01/20/2019 Obsessive-compulsive disorder 12/11/2016 Resolved Problems Problem Noted Date Diagnosed Date Resolved Date History of substance abuse ( [facility] V24, [facility] V28) 12/19/2019 02/23/2025 Overview (11/10/2024): polysubstances Seizures ([facility] V24, [facility] V28) 05/24/2018 02/23/2025 Traumatic brain injury ([facility] V24, [facility] V28) 12/11/2016 02/23/2025 Assessment & Plan (02/23/2025 10:43 PM EST): Remote history of TBI present. No focal neurological deficits. Encounters Date Type Department Care Team Description 03/03/[address] [phone] Jeniffer Brady MA 02/24/2025 Telephone Adult [address] [phone] Dwaine Bocanegra MD 02/23/2025 2:10 PM EST Lab Draw [address] Chronic obstructive pulmonary disease, unspecified COPD type ([facility] V24, [facility] V28); Essential hypertension; Type 2 diabetes mellitus with hyperglycemia, without long-term current use of insulin ([facility] V24, [facility] V28); Atherosclerosis of [place] coronary artery of [place] heart without angina pectoris; Chronic systolic congestive heart failure ([facility] V24, [facility] V28); Mixed hyperlipidemia; Acquired hypothyroidism; Chronic nonintractable headache, unspecified headache type; Benign prostatic hyperplasia without lower urinary tract symptoms; Bipolar affective disorder, current episode mixed, current episode severity unspecified ([facility] V24, [facility] V28); Hypomagnesemia; Other fatigue 02/23/2025 1:00 PM EST Office Visit Adult [address] [phone] Dwaine Bocanegra MD Chronic obstructive pulmonary disease, unspecified COPD type ([facility] V24, [facility] V28) (Primary Dx); Essential hypertension; Atherosclerosis of [place] coronary artery of [place] heart without angina pectoris; Chronic systolic congestive heart failure ([facility] V24, [facility] V28); Mixed hyperlipidemia; Type 2 diabetes mellitus with hyperglycemia, without long-term current use of insulin ([facility] V24, [facility] V28); Acquired hypothyroidism; Traumatic brain injury with loss of consciousness, sequela ([facility] V24); Chronic nonintractable headache, unspecified headache type; Chronic diarrhea; Hypomagnesemia; Other fatigue; Benign prostatic hyperplasia without lower urinary tract symptoms; Bipolar affective disorder, current episode mixed, current episode severity unspecified ([facility] V24, [facility] V28); Schizoaffective disorder, bipolar type ([facility] V24, [facility] V28); Tobacco dependency; Eye exam normal 02/23/2025 Results Follow-Up Adult Medicine [address] [phone] Dwaine Bocanegra MD 02/14/2025 Telephone Adult Medicine [address] [phone] Jeniffer Brady MA 02/03/2025 Telephone [facility] [address] [facility] [address] [place] [phone] Jaz Fuentes MD 01/31/2025 Telephone Adult Medicine [address] [phone] Dwaine Bocanegra MD 01/30/2025 Telephone Adult Medicine [address] [phone] Jeniffer Brady MA 01/24/2025 Telephone Adult Medicine [address] [phone] Dwaine Bocanegra MD 01/20/2025 Telephone Adult Medicine [address] [phone] Dwaine Bocanegra MD 01/19/2025 Telephone [facility] - [address] [place] [phone] Jaz Fuentes MD 01/17/2025 Telephone Adult Medicine [address] [phone] Jeniffer Brady MA 01/16/2025 Telephone [facility] [address] [place] [phone] Jaz Fuentes MD 01/09/2025 Telephone [facility] - [address] [place] [address] Jaz Fuentes MD 01/06/2025 Telephone [facility] [address] [place] [address] Jaz Fuentes MD 01/06/2025 [address]phone [facility] [address] [place] [address] Jaz Fuentes MD 12/28/[address] [facility] - Main Lab [address] [facility] [place] [phone] Dwaine Bocanegra MD Dysuria 12/27/2024 12:30 PM EDT Ancillary Procedure [facility] - [address] [place] [phone] Cardiomyopathy, unspecified type (CMS/HCC V24, CMS/HCC V28) 12/14/2024 Telephone Adult Medicine [address] [phone] Dwaine Bocanegra MD 12/08/2024 Telephone Adult Medicine [address] [phone] Dwaine Bocanegra MD 12/08/2024 Telephone [facility] - [address] [place] [phone] Jaz Fuentes MD from Last 3 Months Immunizations Immunization Administration Dates Next Due Influenza Quadravalent, 0.5m [...] pr eservative (Fluzone; Afluria) 6mo and older 01/27/2025,01/08/2021 Influenza, Unspecified 01/08/2021,12/28/2019, Pfizer (ages 12 & [...] HISTORICAL COLONOSCOPY; COMMENT: negative ESOPHAGOGASTRODUODENOSCOPY 09/06/2020 PROCEDURE: ME EGD TRANSORAL BIOPSY SINGLE/MULTIPLE; COMMENT: esophagitis, gastritis and duodenitis. Omeprazole prescribed. Medical History Medical History Date Comments PTSD (post-traumatic stress disorder) 12/19/2019 DX:PTSD (post-traumatic stress disorder) Covid-19 12/19/2019 DX:COVID-19; COM MENT: Positive 07/13 & again 09/04/19 BPH (benign prostatic hyperplasia) 12/19/2019 DX:BPH (benign prostatic hyperplasia) Mild cognitive impairment 12/19/2019 DX:Mil d cognitive impairment History of substance abuse ( [facility] [place] V24, [facility] V28) 12/19/2019 DX:History of substance abus e ([facility]); COMMENT: polysubstances Bipolar disorder ([facility] [place] V2 4, [facility] [place] V28) 12/19/2019 DX:Bipolar disorder ([facility]) Seizure disorder ([facility] [place] V2 4, [facility] [place] V28) 10/04/2019 DX:Seizure disorder ([facility]); C OMMENT: S/p traumatic brain injury 1989 CAD (coronary artery disease) 12/19/2019 DX :CAD (coronary artery disease) Chronic ankle pain 10/04/2019 DX:Chronic an kle pain; COMMENT: Notes hx fractures bilat Chronic back pain 10/04/2019 DX:Chronic samanta k pain Chronic knee pain 10/04/2019 DX:Chronic kne e pain; COMMENT: Hist torn cartilage Chronic neck pain 10/04/2019 DX:Chronic nec k pain COPD (chronic obstructive pu lmonary disease) ([facility] [place] V24, [facility] [place] V28) 10/04/2019 DX:COPD (chronic o bstructive pulmonary disease) ([facility]) Depression 10/04/2019 DX:Depression History of insomnia 10/04/2019 [...] and BiPAP but does not use them [facility] split-night [facility] in 2018; AHI 13; oxygen silva 76% with 43% of the time of study spent below 88%. CPAP at 10 with mild persistent hypoxemia; CPAP 10-17 recommended. [facility] titration study in 2019; BiPAP 18/14 was recommended with better nocturnal oxygenation on that therapy. Zunilda Is* Palpitations 10/04/2019 DX:Palpitations Tobacco dependence 10/04/2019 DX:Tobacco de pendence Frequent urination 10/04/2019 DX:Frequent u rination Rectal discomfort DX:Rectal disc omfort Abdominal discomfort DX:Abdomina l discomfort Rectal pain DX:Rectal pain Irritable bowel syndrome DX:Irri table bowel syndrome Diabetes mellitus type 2, co ntrolled, with complications (CMS/HCC V24, CMS/HCC V28) DX:Diabetes mellitus type 2, controlled, with complications ([facility]) Esophageal reflux DX:Esophageal reflux Nausea and vomiting DX:Nausea an d vomiting Rectal discomfort DX:Rectal disc omfort Rectal bleeding DX:Rectal bleedi ng Family History Medical History Relation Name Comments Alcohol/Drug Brother twin psychiatric is sues Coronary artery disease Brother twin s/p [place] age 49 Heart failure Brother twin Coronary artery disease Father s/p [place] Other: pancreatic cancer Maternal Grandmother Other: pulmonary [...] Sign Reading Time Taken Comments Blood Pressure 105/66 02/23/2025 1:06 PM EST Pulse 82 02/23/2025 1:06 PM EST Temperature 36.3 C (97.3 F) 02/23/2025 1:06 PM EST Respiratory Rate 18 11/18/2024 9:42 AM EDT Oxygen Saturation 95% 10/13/2024 9:18 AM EDT Inhaled Oxygen Concentration - - Weight 88.5 kg (195 lb) 02/23/2025 1:06 PM EST Height 180.3 cm (5' 11 ) 02/23/2025 1:06 PM EST Body Mass Index 27.2 02/23/2025 1:06 PM EST Plan of Treatment Health Maintenance Due Date Last Done Comments Diabetes: Annual Foot Exam 1981 Diabetes: Annual Retina Eye Exam 1981 Hepatitis B Vaccines (1 of 3 - 19+ 3-dose series) 1990 RSV Immunization Adult Patients (1 - Risk 50-74 years 1-dose series) 2021 Zoster Vaccines (1 of 2) 2021 Pneumococcal Vaccine: 50+ Years (2 of 2 - PCV) 08/22/2021 08/22/2020 Medicare Annual Wellness Visit 03/29/2022 Social Influencers of Health Screening 03/29/2022 Diabetes: Annual Urine Albumin-Creatinine Ratio (uACR) 01/06/2024 01/05/2023 Depression Screening 04/20/2024 Diabetes: Blood Sugar Control Test (HGBA1C) 08/23/2025 02/23/2025, 10/04/2024, 12/01/2023, Additional history exists Lung Cancer Screening (Low Dose CT) 10/11/2025 10/11/2024, 10/12/2023, 10/04/2022 Diabetes: Annual GFR (Glomerular Filtration Rate) 02/23/2026 02/23/2025, 10/04/2024, 11/19/2023, Additional history exists Hypertension/CHF/CAD Annual BMP Blood Test 02/23/2026 02/23/2025, 10/04/2024, 11/19/2023, Additional history exists Cholesterol Screening (Lipid Panel) 10/04/2029 10/04/2024, 06/01/2023, 06/27/2019 DTaP,Tdap,and Td Vaccines (3 - Td or Tdap) 08/22/2030 08/22/2020, 08/22/2020 Colorectal Cancer Screening: Colonoscopy 09/06/2030 09/06/2020 HIV Screening Completed 02/25/2022 Hepatitis C Screening Completed 02/25/2022 COVID-19 Vaccine Completed 01/25/2025, , 03/01/2021, Additional history exists Influenza Vaccine Completed 01/27/2025, , 02/19/2023, Additional history exists HIB Vaccines Aged Out [...] Procedure Name Priority Date/Time Associated Diagnosis Comments MAGNESIUM Routine 02/23/2025 2:14 PM EST Chronic obstructive pulmonary disease, unspecified COPD type ([facility] [place] V24, [facility] V28) Essential hypertension Type 2 diabetes mellitus with hyperglycemia, without long-term current use of insulin ([facility] [place] [place] V24, [facility] V28) Atherosclerosis of [place] coronary artery of [place] heart without angina pectoris Chronic systolic congestive heart failure ([facility] [place] V24, [facility] V28) Mixed hyperlipidemia Acquired hypothyroidism Chronic nonintractable headache, unspecified headache type Benign prostatic hyperplasia without lower urinary tract symptoms Bipolar affective disorder, current episode mixed, current episode severity unspecified ([facility] V24, [facility] [facility] V28) Hypomagnesemia Other fatigue COMPREHENSIVE METABOLIC PANEL Routine 02/23/2025 2:14 PM EST Chronic obstructive pulmonary disease, unspecified COPD type ([facility] V24, [facility] V28) Essential hypertension Type 2 diabetes mellitus with hyperglycemia, without long-term current use of insulin ([facility] [place] [place] V24, [facility] V28) Atherosclerosis of [place] coronary artery of [place] heart without angina pectoris Chronic systolic congestive heart failure ([facility] V24, [facility] V28) Mixed hyperlipidemia Acquired hypothyroidism Chronic nonintractable headache, unspecified headache type Benign prostatic hyperplasia without lower urinary tract symptoms Bipolar affective disorder, current episode mixed, current episode severity unspecified ([facility] V24, [facility] V28) Hypomagnesemia Other fatigue HEMOGLOBIN A1C Routine 02/23/2025 2:14 PM EST Chronic obstructive pulmonary disease, unspecified COPD type ([facility] V24, [facility] V28) Essential hypertension Type 2 diabetes mellitus with hyperglycemia, without long-term current use of insulin (CMS/HCC V24, CMS/HCC V28) Atherosclerosis of [place] coronary artery of [place] heart without angina pectoris Chronic systolic congestive heart failure (CMS/HCC V24, CMS/HCC V28) Mixed hyperlipidemia Acquired hypothyroidism Chronic nonintractable headache, unspecified headache type Benign prostatic hyperplasia without lower urinary tract symptoms Bipolar affective disorder, current episode mixed, current episode severity unspecified (CMS/HCC V24, CMS/HCC V28) Hypomagnesemia Other fatigue THYROID STIMULATING HORMONE WITH REFLEX TO FREE T4 AND FREE T3 Routine 02/23/2025 2:14 PM EST Chronic obstructive pulmonary disease, unspecified COPD type (CMS/HCC V24, CMS/HCC V28) Essential hypertension Type 2 diabetes mellitus with hyperglycemia, without long-term current use of insulin (CMS/HCC V24, CMS/HCC V28) Atherosclerosis of [place] coronary artery of [place] heart without angina pectoris Chronic systolic congestive heart failure (CMS/HCC V24, CMS/HCC V28) Mixed hyperlipidemia Acquired hypothyroidism Chronic nonintractable headache, unspecified headache type Benign prostatic hyperplasia without lower urinary tract symptoms Bipolar affective disorder, current episode mixed, current episode severity unspecified (CMS/HCC V24, CMS/HCC V28) Hypomagnesemia Other fatigue URINALYSIS WITH REFLEX MICROSCOPIC Routine 12/28/2024 9:50 AM EDT Dysuria URINALYSIS WITH REFLEX MICROSCOPIC Routine 12/28/2024 9:50 AM EDT Dysuria CULTURE URINE Routine 12/28/2024 9:50 AM EDT Dysuria EXTERNAL CLINICAL LAB 12/28/2024 TRANSTHORACIC ECHOCARDIOGRAM (TTE) COMPLETE Routine 12/27/2024 1:10 PM EDT Cardiomyopathy, unspecified type (CMS/HCC V24, CMS/HCC V28) HOME HEALTH ORDER 12/09/2024 CT LUNG SCREENING Routine 10/11/2024 10: 42 AM EDT Encounter for screening for malignant neoplasm of respiratory organs Nicotine dependence, cigarettes, uncomplicated LIPID PANEL WITH REFLEX TO DIRECT LDL Routine 10/04/2024 8:52 AM EDT Type 2 diabetes mellitus with hyperglycemia, without long-term current use of insulin ([facility] V24, [facility] V28) Acquired hypothyroidism Essential hypertension Palpitations Atherosclerosis of [place] coronary artery of [place] heart without angina pectoris Chronic systolic congestive heart failure ([facility] V24, [facility] V28) Chronic obstructive pulmonary disease, unspecified COPD type ([facility] V24, [facility] V28) Chronic nonintractable headache, unspecified headache type Benign prostatic hyperplasia without lower urinary tract symptoms Bipolar affective disorder, current episode mixed, current episode severity unspecified ([facility] V24, [facility] V28) URINE ALBUMIN CREATININE RATIO Routine 01/05/2023 HEPATITIS C SCREENING Routine 02/25/2022 HIV SCREENING Routine 02/25/2022 COLONOSCOPY Routine 09/06/2020 from Last 3 Months or Most Recently Relevant to Health Maintenance Results * Thyroid stimulating hormone with reflex to free t4 and free t3 (02/23/2025 2:14 PM EST) Pathologist [facility] TSH 1.39 0.40 - 4.00 mcIU/mL LAB CHEMISTRY METHOD 02/23/2025 5:23 PM EST [facility] Blood Venous blood specimen / Unknown Venipuncture / Unknown 02/23/2025 2:14 PM EST 02/23/2025 2:14 PM EST us Dwaine Bocanegra MD LAB BLOOD ORDERABLES Final Result [facility] [address] [place] [address], * Magnesium (02/23/2025 2:14 PM EST) Pathologist [facility] Magnesium 1.9 1.9 - 2.6 mg/dL LAB CHEMISTRY METHOD 02/23/2025 4:57 PM EST [facility] Blood Venous blood specimen / Unknown Venipuncture / Unknown 02/23/2025 2:14 PM EST 02/23/2025 2:14 PM EST Dwaine Bocanegra MD LAB BLOOD ORDERABLES Final Result Performing Organization Address [facility]/ZIP Co de Phone Number [facility] [address] [place] [address], [place] [phone] * Hemoglobin A1c (02/23/2025 2:14 PM EST) Pathologist [facility] Hemoglobin A1C 6.2 <6.5 % LAB CHEMISTRY METHOD 02/23/2025 10:35 PM [facility] Mean Bld Glu Estim. 131 mg/dL LAB CHEMISTRY METHOD 02/23/2025 10:35 PM [facility] Blood Venous blood specimen / Unknown Venipuncture / Unknown 02/23/2025 2:14 PM EST 02/23/2025 2:14 PM EST Dwaine Bocanegra MD LAB BLOOD ORDERABLES Final Result Performing Organization Address [facility]/ZIP Co de Phone Number [facility] [address] [place] [address], [place] [phone] * (ABNORMAL) Comprehensive metabolic panel (02/23/2025 2:14 PM EST) Pathologist [facility] Sodium 140 133 - 145 mmol/L LAB CHEMISTRY METHOD 02/23/2025 5:04 PM [facility] Potassium 4.0 3.5 - 5.5 mmol/L LAB CHEMISTRY METHOD 02/23/2025 5:04 PM [facility] Chloride 112(H) 96 - 110 mmol/L LAB CHEMISTRY METHOD 02/23/2025 5:04 PM [facility] CO2 23 21 - 32 mmol/L LAB CHEMISTRY METHOD 02/23/2025 5:04 PM [facility] Anion Gap 5 3 - 11 LAB CHEMISTRY METHOD 02/23/2025 5:04 PM [facility] Glucose 94 70 - 100 mg/dL LAB CHEMISTRY METHOD 02/23/2025 5:04 PM [facility] BUN 15 5 - 25 mg/dL LAB CHEMISTRY METHOD 02/23/2025 5:04 PM [facility] Creatinine 0.80 0.70 - 1.30 mg/dL LAB CHEMISTRY METHOD 02/23/2025 5:04 PM [facility] eGFR 106 >=60 mL/min/1. 73m2 LAB CHEMISTRY METHOD 02/23/2025 5:04 PM [facility] Comment:Calculation based on the Chronic Kidney Disease Epidemiology Collaboration (CKD-EPI) equation refit without adjustment for race. BUN/Creatinine Ratio 18.8 LAB CHEMISTRY METHOD 02/23/2025 5:04 PM [facility] Calcium 8.6 8.5 - 10.5 mg/dL LAB CHEMISTRY METHOD 02/23/2025 5:04 PM [facility] AST (SGOT) 16 10 - 42 unit/L LAB CHEMISTRY METHOD 02/23/2025 5:04 PM [facility] ALT (SGPT) 28 10 - 60 unit/L LAB CHEMISTRY METHOD 02/23/2025 5:04 PM [facility] Alkaline Phosphatase 79 42 - 121 unit/L LAB CHEMISTRY METHOD 02/23/2025 5:04 PM [facility] Total Protein 6.9 6.0 - 8.0 g/dL LAB CHEMISTRY METHOD 02/23/2025 5:04 PM [facility] Albumin 4.3 3.2 - 5.0 g/dL LAB CHEMISTRY METHOD 02/23/2025 5:04 PM [facility] Total Bilirubin 0.6 0.0 - 1.4 mg/dL LAB CHEMISTRY METHOD 02/23/2025 5:04 PM EST [facility] Blood Venous blood specimen / Unknown Venipuncture / Unknown 02/23/2025 2:14 PM EST 02/23/2025 2:14 PM EST us Dwaine Bocanegra MD LAB BLOOD ORDERABLES Final Result [facility] [address] [place] [address], [place] [phone] * (ABNORMAL) Urinalysis with reflex microscopic (12/28/2024 9:50 AM EDT) Specific [place] Urine 1.012 1.003 - 1.030 LAB URINALYSIS - AUTOMATED METHOD 12/28[facility]2024 [facility] pH, Urine 7.0 5.0 - 8.0 pH LAB URINALYSIS - AUTOMATED METHOD 12/28/2024 1:27 PM [facility] Leukocytes, Urine Negative Negative LAB URINALYSIS - AUTOMATED METHOD 12/28/2024 1:27 PM [facility] Nitrite, Urine Negative Negative LAB URINALYSIS - AUTOMATED METHOD 12/28/2024 1:27 PM [facility] Protein, Urine Negative <=Trace mg/dL LAB URINALYSIS - AUTOMATED METHOD 12/28/2024 1:27 PM [facility] Glucose, Urine >=1000(A) Negative mg/dL LAB URINALYSIS - AUTOMATED METHOD 12/28/2024 1:27 PM [facility] Ketones, Urine Negative Negative mg/dL LAB URINALYSIS - AUTOMATED METHOD 12/28/2024 1:27 PM [facility] Urobilinogen , Urine 1.0 0.2 - 1.0 mg/dL LAB URINALYSIS - AUTOMATED METHOD 12/28/2024 1:27 PM [facility] Bilirubin, Urine Negative Negative LAB URINALYSIS - AUTOMATED METHOD 12/28/2024 1:27 PM EDT [facility] Blood, Urine Negative Negative LAB URINALYSIS - AUTOMATED METHOD 12/28/2024 1:27 PM EDT [facility] Urine Urine specimen obtained by clean catch procedure / Unknown Non-blood Collection / Unknown 12/28/2024 9:50 AM EDT 12/28/2024 1:08 PM EDT Dwaine Bocanegra MD LAB URINE ORDERABLES Final Result [facility] [address] [place] [address], [place] [phone] * Culture urine (12/28/2024 9:50 AM EDT) Pathologist [facility] Culture, Urine No growth 12/29/2024 7:28 AM EDT [facility] Urine Urine specimen obtained by clean catch procedure / Unknown Non-blood Collection / Unknown 12/28/2024 9:50 AM EDT 12/28/2024 1:08 PM EDT Dwaine Bocanegra MD LAB MICROBIOLOGY - GENERAL ORDERABLES Final Result [facility] [address] [place] [address], [place] [phone] * External clinical lab (12/28/2024) Provider [facility] [...] 65 mL CV PACS Left [facility] Minor [place] 5.0 cm CV PACS Left [facility] Major [place] 5.6 cm CV PACS [place] Area Sys [...] Result * Home Health Order (12/09/2024) Provider [facility] NURSING ASSESS[facility] Shital l Result * CT Lung Screening (10/11/2024 10:42 AM EDT) Anatomical Region Laterality Modality Chest Computed Tomogra phy 10/12/2024 12:0 1 PM EDT Impressions 10/12/2024 12:09 PM EDT Impression: No suspicious developing pulmonary nodule. No significant change. Lung-RADS Category: Lung-RADS 1: No nodules or definitely benign nodules. Continue annual screening with Low Dose Chest CT in 12 months. Telerad MASSIMO ([id number]) -------- FINAL REPORT -------- Dictated By: Johana Ayoub Dictated Date: 10/12/2024 12:01 ET Assigned Physician: Johana Ayoub Reviewed and Electronically Signed By: Johana Ayoub Signed Date: 10/12/2024 12:09 ET Workstation ID: [id number] Transcribed By: Self Edit Transcribed Date: 10/12/2024 12:01 ET Narrative 10/12/2024 12:09 PM EDT History: 54 year-old 32 pack-year current smoker, asymptomatic, for lung cancer screening. Comparison: 10/09/23 Technique: Helical volumetric imaging of the thorax was performed, using low- dose technique, without IV contrast. DLP: 176.42 mGy/cm CTDIvol: 4.83 mGy Kony VCT Iterative reconstruction technique Findings: Lungs and [...] contrast. DLP: 176.42 mGy/cm CTDIvol: 4.83 mGy Kony VCT Iterative reconstruction technique Findings: Lungs and [...] Chest CT in 12 months. Telerad PA ([id number]) -------- FINAL REPORT -------- Dictated By: Johana Ayoub Dictated Date: 10/12/2024 12:01 ET Assigned Physician: Johana Ayoub Reviewed and Electronically Signed By: Johana Ayoub Signed Date: 10/12/2024 12:09 ET Workstation ID: [id number] Transcribed By: Self Edit Transcribed Date: 10/12/2024 12:01 ET us Antonio Jurado MD IMG CT PROCEDURES Final Result * (ABNORMAL) Lipid panel with reflex to direct LDL (10/04/2024 8:52 AM EDT) Cholesterol 153 0 - 200 mg/dL LAB CHEMISTRY METHOD 10/04/2024 3:10 PM EDT [facility] Triglycerides 316(H) 0 - 150 mg/dL LAB CHEMISTRY METHOD 10/04/2024 3:10 PM EDT [facility] HDL 38(L) >=40 mg/dL LAB CHEMISTRY METHOD 10/04/2024 3:10 PM EDT [facility] LDL Calculated 52 0 - 100 mg/dL LAB CHEMISTRY METHOD 10/04/2024 3:10 PM EDT [facility] VLDL Cholesterol Akira 63.2 mg/dL LAB CHEMISTRY METHOD 10/04/2024 3:10 PM EDT [facility] Non HDL Chol. (LDL+VLDL) 115 <145 mg/dL LAB CHEMISTRY METHOD 10/04/2024 3:10 PM EDT [facility] Chol/HDL Ratio 4.0 0.0 - 4.4 LAB CHEMISTRY METHOD 10/04/2024 3:10 PM EDT [facility] Blood Venous blood specimen / Unknown Venipuncture / Unknown 10/04/2024 8:52 AM EDT 10/04/2024 8:52 AM EDT us Dwaine Bocanegra MD LAB BLOOD ORDERABLES Final Result [facility] [address] [place] [address], [place] [phone] * Urine Albumin Creatinine Ratio (01/05/2023) Pathologist [facility] Urine Albumin Creatinine Ratio abstracted [facility] Provider HEALTH MAINTENANCE Final Result * HIV Screening (02/25/2022) [facility] HIV Screening abstarcted [facility] Provider HEALTH MAINTENANCE Final Result * Hepatitis C Screening (02/25/2022) [facility] Hepatitis C Screening abstracted [facility] Provider HEALTH MAINTENANCE Final Result * Colonoscopy (09/06/2020) [facility] Colonoscopy abstracted, no interpretation Anatomical Region Laterality Modality Other [facility] Provider HEALTH MAINTENANCE Final Result from Last 3 Months or Most Recently Relevant to Health Maintenance Insurance MEDICARE MEDICAID [place] Advance Directives Documents on File Type Date Recorded Patient Core Sticker Expl anation Advance Directives and Living Will 10/14/2024 10:29 PM Orders for Life-Sustaining Treatment Care Teams Inspectors And Regulatory Officers Relationship Specialty Start Date End Date Dwaine Bocanegra MD [address] [place] [address] PCP - General Internal Medicine 08/19/21
--- OUTSIDE RECORDS SUMMARY | 2025-03-10 13:48 | XMS_ITS | Encounter Summary ---
Author Organization [facility] Address [address] [place] [phone] Phone Care Team Providers Care Prisoner Classification Interviewer Name Role Phone Amol Lobato MD Primary Care Provider + Amol Lobato MD Primary Care Provider + Wilber Jacob MD Primary Care Provider Milagros Meng MD Unavailable [phone] Pcp, Unknown Primary Care Provider Unavailabl e Pcp, Unknown Primary Care Provider Unavailabl e Encounter Details Date Type Department Care Team (Late st Contact Info) Description 01/08/2017 Procedure [facility] Emergency Department, [facility] [address] [place] [address] Social History Tobacco Use Types Packs/Day Years [...] documented as of this encounter Care Teams Prisoner Classification Interviewer Relationship Specialty Start Date End Date Amol Lobato MD [address] [address] [email or web address] PCP - General 12/20/16 05/25/18 Amol Lobato MD [address] [address] [email or web address] PCP - General Family Medicine 05/26/18 04/10/20 Wilber Jacob MD [address] [address] PCP - General Internal Medicine 04/11/20 04/07/24 Pcp, Unknown PCP - General 04/08/24 05/17/24 Pcp, Unknown PCP - General 05/18/24 Milagros Meng MD [address] [place] [address] [email or web address] Cardiology 04/15/21 documented as of this encounter Additional Source Comments The information contained in this document represents components of the legal health record. It is not the complete legal health record.[facility]
--- OUTSIDE RECORDS SUMMARY | 2025-03-10 13:48 | XMS_ITS | Clinical Summary ---
Author Organization [facility], Address [address] [place] [address] [place] [address] Phone Care Team Providers Care Java Security Engineer Name Role Phone Helder Hdz MD Primary Care Provider [phone] Allergies Active Allergy Reactions Criticality Noted Date [...] 08/22/2020 Insurance Medicare Medicaid [place] Care Teams Java Security Engineer Relationship Specialty Start Date End Date Helder Hdz MD PCP - General Internal Medicine 09/24/21
--- OUTSIDE RECORDS SUMMARY | 2025-03-10 13:48 | XMS_ITS | Data Portability ---
Author Organization [facility], [facility] Address [address] [place] [address] Assessment No assessment recorded. Plan of Treatment Reminders Order Date Submit Date Provider Last Modified By Organization Details Last Modified Time Details Appointments None recorded. Lab SARS CoV 2 (COVID-19) Ag, QL, IA, upper respiratory specimen 2023 024 [email or web address] _[facility], [address] [place] [address], [phone], 4 12:12:37 rapid flu (A+B) 2023 024 [email or web address] _[facility], [address] [place] [address], [phone], 4 12:12:39 rapid flu (A+B) [id number] [place] [address], [address] [place] [address], [phone], 3 19:46:25 Referral None recorded. Procedures None recorded. Surgeries None recorded. Imaging None recorded. Medication Orders Paxlovid 300 mg (150 mg x 2)-100 mg tablets in a dose pack 2023 024 MARLEN [facility] [place], [address] [place], [address], 4 13:23:34 prednisone 20 mg tablet 2022 023 [facility] - [place], [address], [place], [address], 4 10:48:06 Allergy Relief (fluticason e) 50 mcg/actuati on nasal spray,suspe nsion 2022 023 [facility] [place], [address], [place], [address], 3 20:01:16 albuterol sulfate HFA 90 mcg/actuati on aerosol inhaler 2022 023 [facility] [place], [address], [place], [address], 3 20:01:17 benzonatate 200 mg capsule [email or web address] [facility] [place], [address], [place], [address], 4 10:47:48 albuterol sulfate 2.5 mg/3 mL (0.083 %) solution for nebulizatio n 2022 023 [email or web address] Not available 19:48:09 ipratropium bromide 0.02 % solution for inhalation 2022 023 [email or web address] Not available 19:48:09 Patient TargetsNo targets recorded. Patient Instructions Encounter Date Encounter Id Patient Instructions Last Modified By Organization Details Last Modified Time 07/21/2022 [id number] cough: care instructions Not available 07/21/2022 19:46:25 peak flow* [email or web address] Not available 07/21 19:48:31 Sinusitis is an infection of the lining of the sinus cavities in your head. Sinusitis often follows a cold. It causes pain and pressure in your head and face. In most cases, sinusitis gets better on its own in 1 to 2 weeks. But some mild symptoms may last for several weeks. Sometimes antibiotics are needed. if you are having problems. It's also a good idea to know your test results and keep a list of the medicines you take. How can you care for yourself at home? Take an zilm-yrr-fyjdwgu pain medicine. Avoid Ibuprofen, Aleve and Aspirin if . If the doctor prescribed antibiotics, take them as directed. Do not stop taking them just because you feel better. You need to take the full course of antibiotics. Be careful when taking ibxo-eut-rmqkdza cold or influenza (flu) medicines and Tylenol at the same time. Many of these medicines have acetaminophen, which is Tylenol. Read the labels to make sure that you are not taking more than the recommended dose. Too much acetaminophen (Tylenol) can be harmful. Breathe warm, moist air from a steamy shower, a hot bath, or a sink filled with hot water. Avoid cold, dry air. Using a humidifier in your home may help. Follow the directions for cleaning the machine. Use saline (saltwater) nasal washes. This can help keep your nasal passages open and wash out mucus and bacteria. You can buy saline nose drops at a grocery store or drugstore. Or you can make your own at home by adding 1 teaspoon (5 millilitres) of salt and 1 teaspoon (5 millilitres) of baking soda to 2 cups (500 mL) of distilled water. If you make your own, fill a bulb syringe with the solution, insert the tip into your nostril, and squeeze gently. Blow your nose. Put a hot, wet towel or a warm gel pack on your face 3 or 4 times a day for 5 to 10 minutes each time. Try a decongestant nasal spray like oxymetazoline (Drixoral). Do not use it for more than 3 days in a row. Using it for more than 3 days can make your congestion worse. Not available 07/21/2022 19:46:22 Patient instruct ed on worsening signs and symptoms that would require further evaluation by ED or PCP such as fever of 101.0 or greater, congestion accompanied with coughing, vomiting, diarrhea, abdominal pain, decreased oral intake, lethargy, or other new symptom(s) experienced not discussed during this visit. Use humidifier and ensure good hydration. If you experience new concerning symptoms, shortness of breath, respiratory distress, or chest pain go to the ER. Use the medications prescribed. May use Decongestants if tolerated and no history of elevated blood pressure or Diabetes. Use saline nasal saline and Flonase daily for1 week. You may use tylenol for pain/fever. Do not take prednisone with Ibuprofen. Get some extra rest. When should you call for help? Call anytime you think you may need emergency care. For example, call if: You have severe trouble breathing. Call your doctor now or seek immediate medical care if: You have new or worse trouble breathing. You cough up dark brown or bloody mucus (sputum). You have a new or higher fever. You have a new rash. Watch closely for changes in your health, and be sure to contact your doctor if: You cough more deeply or more often, especially if you notice more mucus or a change in the color of your mucus. You are not getting better as expected. Not available 07/21/2022 19:46:15 08/21/2023 [id number] upper respirator y infection (cold): care instructions [email or web address] Not available 08/21/2023 12:21:17 Reason for Referral None Reported. Results Created Date Observation Date Name Description Value Unit Range Abnormal Flag Note LastModifiedBy Organization Detail LastModifiedTime 07/22/1907/21/2022 rapid flu (A+B) Unknown Analyte Normal = Negati ve Not Available _[address], [address], 07/21/2022 19:00:11 07/22/1907/21/2022 rapid flu (A+B) Unknown Analyte Normal = Negati ve Not Available _[address], [address], 07/21/2022 19:00:11 07/22/1907/21/2022 rapid flu (A+B) Unknown Analyte negati ve Not Available [address], [address], 07/21/2022 19:00:11 07/22/19 23 07/21/2022 rapid flu (A+B) Unknown Analyte negati ve Not Available [facility] [address] [place] [address], [phone], 07/21/2022 19:00:11 08/21/19 24 08/21/2023 SARS CoV 2 (COVI D-19) Ag, QL, IA, upper respi rator y speci men Unknown Analyte positi ve Not Available [facility] [address] [place] [address], [address], 08/21/2023 11:01:50 08/21/19 24 08/21/2023 SARS CoV 2 (COVI D-19) Ag, QL, IA, upper respi rator y speci men Unknown Analyte yes Not Available [facility] [address] [place] [address], [phone], 08/21/2023 11:01:50 08/21/19 24 08/21/2023 rapid flu (A+B) Unknown Analyte negati ve Not Available [facility] [address] [place] [address], [phone], 08/21/2023 11:02:05 08/21/19 24 08/21/2023 rapid flu (A+B) Unknown Analyte negati ve Not Available [facility] [address] [place] [address], [phone], 08/21/2023 11:02:05 08/21/19 24 08/21/2023 rapid flu (A+B) Unknown Analyte yes Not Available [facility] [address] [place] [address], [phone], 08/21/2023 11:02:05 Result Notes None recorded. 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 Procedures Surgical History Date Name Laterality Status Provider Name and Address Organization Details Recorded Time 3 Nebulizer Treatment completed DEBRA HILL PA - [facility] 07/21/2022 20:02:28 repair of rectum completed DEBRA HILL PA - [facility] 07/21/2022 19:00:00 Imaging Results None recorded. Procedure Notes None recorded. Medical Equipment None Reported. Allergies Allergen ID Allergen Name Allergen Category Reaction Reaction Severity Criticality Documentation Date Start Date Code Code System Note Provider Name and Address Organization Details Recorded Time 222150 bupropion Not available Not available Not available Not available 08/21/2023 48077 RxNorm Beverley O'Rajesh null, PA - [facility] 4 11:09:32 256806 Depakote medicatio n Not available Not available Not available 08/21/2023 98993 9 RxNorm Beverley O'Rajesh null, PA - [facility] 4 11:10:13 742694 fluoxetin e medicatio n Not available Not available Not available 08/21/2023 4493 RxNorm Beverley O'Rajesh null, PA - [facility] 4 11:10:33 583548 Navane medicatio n Not available Not available Not available 08/21/2023 17282 9 RxNorm Beverley O'Rajesh null, PA - [facility] 4 11:11:31 336590 risperido ne medicatio n Not available Not available Not available 08/21/2023 54649 RxNorm Beverley O'Rajesh null, PA - [facility] 4 11:11:53 980403 Seroquel medicatio n Not available Not available Not available 08/21/2023 47395 RxNorm Beverley O'Rajesh null, PA - [facility] 4 11:12:27 370604 sertralin e medicatio n Not available Not available Not available 08/21/2023 87209 RxNorm Beverley O'Rajesh null, PA - [facility] 4 11:12:58 002543 Zoloft medicatio n Not available Not available Not available 08/21/2023 67024 RxNorm Beverley O'Rajesh null, PA - [facility] 4 11:13:11 Medications Name Sig Start Date Stop Date Status Note LastModified by Organization Details LastModified Time carvedilol 25 mg tablet Take 1 tablet twice a day by oral route. active Not Available Not Available No t Available albuterol sulfate 2.5 mg/3 mL (0.083 %) solution for nebulizatio n Inhale 2.5 mg every day by nebulizat ion route as directed for 1 day. 2022 active Not Available Not Available Not Avai lable benzonatate 200 mg capsule Take 1 capsule 3 times a day by oral route as needed for 7 days. 08/20 completed Not Available Not Available Not Available prednisone 20 mg tablet Take 2 tablets every day by oral route in the morning for 5 days. 08/20 completed Not Available Not Available Not Available pantoprazol e 40 mg intravenous solution Inject by intraveno us route. active Not Available Not Available No t Available albuterol sulfate HFA 90 mcg/actuati on aerosol inhaler Inhale 2 puffs every 4-6 hours by inhalatio n route as needed for 10 days. 2022 active Not Available Not Available Not Avai lable ipratropium bromide 0.02 % solution for inhalation Inhale 0.5 mg every day by inhalatio n route as directed for 1 day. 2022 active Not Available Not Available Not Avai lable aspirin active Not Available Not Avail able Not Available levothyroxi ne active Not Available Not Available Not Available Lamictal active Not Available Not Avai lable Not Available Vitamin D3 active Not Available Not Av ailable Not Available vitamin B64-hkqom acid active Not Available Not Available Not Available Allergy Relief (fluticason e) 50 mcg/actuati on nasal spray,suspe nsion [place] 1 spray every day by intranasa l route as needed for 30 days. 2022 active Not Available Not Available Not Avai lable Trulicity 3 mg/0.5 mL subcutaneou s pen injector Inject by subcutane ous route. active Not Available Not Available No t Available Paxlovid 300 mg (150 mg x 2)-100 mg tablets in a dose pack Take 1 dose pk twice a day by oral route for 5 days, for covid. 2023 active Not Available Not Available Not Avai lable Vitals Date Recorded Body height Body mass index (BMI) Body weight Body temperature Oxygen saturation Heart rate Respiratory rate Systolic And Diastolic Provider Name and Address Organization Details Last Updated DateTime 3 177.8 cm 30.4 kg/m2 19387.5 8 g 97 [degF] 96 % 91 /min 18 /min 94/72 mm[Hg] DEBRA HILL PA - [facility] 3 19:03:00 Date Recorded Body height Body mass index (BMI) Body weight Oxygen saturation Heart rate Body temperature Systolic And Diastolic Provider Name and Address Organization Details Last Updated DateTime 4 177.8 cm 30.1 kg/m2 86730.4 g 97 % 91 /min 98 [degF] 131/84 mm[Hg] Beverley Alamo PA - [facility] 4 10:45:46 Social History Question Answer Notes LastModified by Organizat ion Details LastModified Time Tobacco Smoking Status Current Every Day Smoker DEBRA gao PA - [facility] 07/21/2022 18:59:46 Have You Had A Flu Shot This Season? Yes Information not available 08/21/2023 Have You Had Direct Contact, Or Contact During Intimacy, With Monkeypox Rash, Scabs, Or Body Fluids From A Person With Monkeypox? No Information not available 08/21/2023 What Is Your Relationship Status? Single Information not available 08/21/2023 How Much Tobacco Do You Smoke? 0.5 PPD Information not available 07/21/2022 Have You Recently Traveled Abroad? No [email or web address] Information not available 07/21/2022 Sex: Unknown Functional Status Question Answer Note LastModified by Organizat ion Details LastModified Time Do you use any illicit or recreational drugs? No [email or web address] Information not available 07/21/2022 What is your level of alcohol consumption? None [email or web address] Information not available 07/21/2022 Are you currently employed? No Information not available 08/21/2023 Mental Status None recorded. Family History Relationship Description Onset Age of this Age Resolved Age Notes LastModified by Organization Details LastModified Time Mother Fibrosis of lung [email or web address] Not available 2022 18:59:12 Brother Heart failure [email or web address] Not available 2022 18:59:20 Medical History No medical history recorded. Past Encounters Encounter ID Performer Location Encounter Start Date Encounter Closed Date Diagnosis/Indication Diagnosis SNOMED-CT Code Diagnosis ICD10 Code Diagnosis IMO Codes Diagnosis Note [id number] 20994_[facility] [address] [address] 11/20/2020 09:59:04 11/20/2020 10:32:49 [id number] [facility] [address] [place] [address] 01/15/2022 16:52:55 01/15/2022 17:38:03 [id number] Alan Enriquez NP [facility] [address] [place] [address] 07/21/2022 18:31:06 07/21/2022 19:56:33 Cough 64352069 R05.9 Acute bronchitis 0582540 2 J20.9 [id number] Cindy Ahn, PERLA [address] [address] 08/21/2023 09:54:51 08/21/2023 12:32:15 Acute COVID-19 7452553099 U07.1 Based on your Presentati on, Exam, and Lab Testing you are being diagnosed with acute Pharyngiti s.Based on your Presentati on and Exam you are being diagnosed with Influenza. Your covid test was positive Covid is caused by a virus that is highly contagious . If you have any family member that have been exposed they typically will start to show symptoms in 48-72 hours. You are considered contagious for 5 Days after the start of the fever. You should isolate and not go to work, sports, events during this quarantine period. The following are my recommenda tions to help with your symptoms while your body fights this infection: 1. Take Ibuprofen or Tylenol if you do not have any allergies to these medication s. If you take a blood thinner you should not take NSAIDS like Ibuprofen. These medication will help with the inflammati on in your respirator y tract which should help the cough.2. Do not take any decongesta nts at this time because this will dry out that tract too much. If you have a lot of nasal congestion you can try nasal decongesta nts, but I would not take them more than 5 days.3. Use a humidifier or add a cup of water by your bed. Sometimes if our sleeping environmen t is too dry this can lead to cough4. Salt Water Gargles5. Saline nasal spray is helpful.6. Would recommend taking a antihistam ine to help with the congestion .7. Clean Surfaces regularly and try to stay isolated from family members. I would be seen again if you develop any of the following. 1. Cough develops last longer than 3 weeks.2. Develop shortness of breath or wheezing.3 . Severe Headache with vision changes4. Stiff Neck5. Fever does not reduce a few points with Ibuprofen or Tylenol. I would go immediatel y to the Emergency Room if you develop:1. Chest Pain2. Severe Shortness of breath3. Coughing up Blood. I would be seen again if you develop any of the following symptoms.1 . Fever > 101.02. Stiff neck - where you can't turn your neck3. Trouble swallowing your saliva - drooling4. Swelling of a lymph node in your throat that is painful to touch5. Difficulty breathing6 . Severe Headache Thank you for using [facility] today, please feel free to contact our office if you have any questions or concerns. Acute uppe r respiratory infection 25373643 J06.9 Health Concerns Section Related Observation LastModified by Organization Detai ls LastModified Time None Recorded Concern Status LastModified by Organization Details LastModified Time None Recorded Advance Directives Directive None Recorded Payers Insurance Date Sequence Insurance Name Policy Number Policy Quinn Covered Member ID Quinn Member ID Guarantor Name 08/21/2023 1 [place] [employer] Kody Llamas [id number] Kody Llamas 10/08/2023 2 [place] [facility] Kody Llamas [id number] Kody Llamas 08/21/2023 [employer] - SPECIALITY CLAIMS (MEDICARE DME REGION A) Kody Llamas [id number] Kody Llamas Notes Date Note Type Note Provider Name and Address Organization Details Recorded Time 3 text/html Sinus Complaints UCReported by PatientHPIFor location, patient reportssinus pain,facial pain, andsinus pressure. For associated symptoms, patient reportsdifficulty breathing,post nasal drip,nasal passage blockage __, andcoughbut reportsno fever,no nausea or vomiting,no sore throat,no ear fullness,no nasal itching,no eye itching, andno dizziness. For quality, patient reportsworseningbut reportsminimal discomfortandclear. For context, patient reportsworse with environmental exposurebut reportsno recent upper respiratory infection,no recent sick contacts, andnot worse with seasonal allergen exposure. For onset/timing, patient reportsworse in amandworse in pm. For duration, patient reportsfrequent. For severity, patient reportsmoderate. For risk factors, patient reportsno current smoking or tobacco useandno history of nasal trauma. For alleviating factors, patient reportsoral steroids. For aggravating factors, patient reportsworse during an upper respiratory infection (a cold)andworse with excess fatigue. For prior treatment, patient reportsoral decongestant. Shortness of BreathReported by Patient CoughReported by Patient Alan Enriquez NP [address] [place], [address], [place] - [facility] 07/21/2022 20:06:34 4 text/html CoughReported by PatientHPIFor quality, patient reportsbarkinganddrybut reportssymptoms worse with lying down. For associated symptoms, patient reportsfever,chills, andpost nasal dripbut reportsno chest pain,no heartburn,no nausea,no vomiting,no edema,no agitation, andno wheezing. For source of patient information, patient reportsinformation obtained from patientandpatient arrived at urgent care ambulatory. For severity, patient reportsmoderate. For duration, patient reports5 days. For timing, patient reportsgradual. For context, patient reportspatient denies vaping,non-smoker, andfamily members ill with similar symptoms. For modifying factors, patient reportsat night. Presenhts with coughing, phlegm, sore throat, congested. lives in half[place]way . Took Tylenol with some relief Cindy Ahn NP [address] [place], [address], [place] - [facility] 08/22/2023 12:39:13
--- OUTSIDE RECORDS SUMMARY | 2025-03-10 13:48 | XMS_ITS | Encounter Summary ---
Author Organization [facility] Address [address] [place] [address] Care Team Providers Care Job Cost Estimator Name Role Phone Dwaine Bocanegra MD Primary Care Provider Encounter Details Date Type Department Care Team (Late st Contact Info) Description 12/28/2024 Lab Requisition [facility] - [facility] Lab [address] [place] [address] Dwaine Bocanegra MD [address] [place] [phone] Dysuria Social History Tobacco Use Types Packs/Day [...] on file documented as of this encounter Procedures Procedure Name Priority Date/Time Associated Diagnosis Comments URINALYSIS WITH REFLEX MICROSCOPIC Routine 12/28/2024 9:50 AM EDT Dysuria URINALYSIS WITH REFLEX MICROSCOPIC Routine 12/28/2024 9:50 AM EDT Dysuria CULTURE URINE Routine 12/28/2024 9:50 AM EDT Dysuria documented in this encounter Results * (ABNORMAL) Urinalysis with reflex microscopic (12/28/2024 9:50 AM EDT) Pathologist [facility] Specific [place] Urine 1.012 1.003 - 1.030 LAB URINALYSIS - AUTOMATED METHOD 12/28/2024 1:27 PM [facility] pH, Urine 7.0 5.0 - 8.0 pH LAB URINALYSIS - AUTOMATED METHOD 12/28/2024 1:27 PM [facility] Leukocytes, Urine Negative Negative LAB URINALYSIS - AUTOMATED METHOD 12/28/2024 1:27 PM [facility] Nitrite, Urine Negative Negative LAB URINALYSIS - AUTOMATED METHOD 12/28/2024 1:27 PM [facility] Protein, Urine Negative <=Trace mg/dL LAB URINALYSIS - AUTOMATED METHOD 12/28/2024 1:27 PM [facility] Glucose, Urine >=1000(A) Negative mg/dL LAB URINALYSIS - AUTOMATED METHOD 12/28/2024 1:27 PM [facility] Ketones, Urine Negative Negative mg/dL LAB URINALYSIS - AUTOMATED METHOD 12/28/2024 1:27 PM [facility] Urobilinogen , Urine 1.0 0.2 - 1.0 mg/dL LAB URINALYSIS - AUTOMATED METHOD 12/28/2024 1:27 PM [facility] Bilirubin, Urine Negative Negative LAB URINALYSIS - AUTOMATED METHOD 12/28/2024 1:27 PM [facility] Blood, Urine Negative Negative LAB URINALYSIS - AUTOMATED METHOD 12/28/2024 1:27 PM [facility] Urine Urine specimen obtained by clean catch procedure / Unknown Non-blood Collection / Unknown 12/28/2024 9:50 AM EDT 12/28/2024 1:08 PM EDT us Dwaine Bocanegra MD LAB URINE ORDERABLES Final Result [facility] [address] [place] [address], [place] [phone] * Culture urine (12/28/2024 9:50 AM EDT) Culture, Urine No growth 12/29/2024 7:28 AM EDT [facility] Urine Urine specimen obtained by clean catch procedure / Unknown Non-blood Collection / Unknown 12/28/2024 9:50 AM EDT 12/28/2024 1:08 PM EDT us Dwaine Bocanegra MD LAB MICROBIOLOGY - GENERAL ORDERABLES Final Result [facility] [address] [place] [address], documented in this encounter Visit Diagnoses Diagnosis Dysuria documented in this encounter Care Teams Job Cost Estimator Relationship Specialty Start Date End Date Dwaine Bocanegra MD [address] [place] [address] PCP - General Internal Medicine 08/19/21 documented as of this encounter
--- OUTSIDE RECORDS SUMMARY | 2025-03-10 13:48 | XMS_ITS | Encounter Summary ---
Author Organization [facility] Address [address] [place] [address] Phone Care Team Providers Care Family Life Counselor Name Role Phone Amol Lobato MD Primary Care Provider + Wilber Jacob MD Primary Care Provider Milagros Meng MD Unavailable [phone] Pcp, Unknown Primary Care Provider Unavailabl e Pcp, Unknown Primary Care Provider Unavailabl e Encounter Details Date Type Department Care Team (Late st Contact Info) Description 05/28/2018 Procedure [facility] Radiology [address] [place] [address] Social History Tobacco Use Types Packs/Day Years [...] documented as of this encounter Care Teams Family Life Counselor Relationship Specialty Start Date End Date Amol Lobato MD [address] [address] [email or web address] PCP - General Family Medicine 05/26/18 04/10/20 Wilber Jacob MD [address] [address] PCP - General Internal Medicine 04/11/20 04/07/24 Pcp, Unknown PCP - General 04/08/24 05/17/24 Pcp, Unknown PCP - General 05/18/24 Milagros Meng MD [address] [place] [address] [email or web address] Cardiology 04/15/21 documented as of this encounter Additional Source Comments The information contained in this document represents components of the legal health record. It is not the complete legal health record.[facility]
--- OUTSIDE RECORDS SUMMARY | 2025-03-10 13:48 | XMS_ITS | Encounter Summary ---
Author Organization [facility] Address [address] [place] [address] Phone Care Team Providers Care Label Pinker Name Role Phone Amol Lobato MD Primary Care Provider + Amol Lobato MD Primary Care Provider + Wilber Jacob MD Primary Care Provider Milagros Meng MD Unavailable [phone] Pcp, Unknown Primary Care Provider Unavailabl e Pcp, Unknown Primary Care Provider Unavailabl e Encounter Details Date Type Department Care Team (Late st Contact Info) Description 01/08/2017 Procedure [facility] Emergency Department, [facility] [address] [place] [address] Social History Tobacco Use Types Packs/Day Years [...] documented as of this encounter Care Teams Label Pinker Relationship Specialty Start Date End Date Amol Lobato MD [address] [address] [email or web address] PCP - General 12/20/16 05/25/18 Amol Lobato MD [address] [address] [email or web address] PCP - General Family Medicine 05/26/18 04/10/20 Wilber Jacob MD [address] [address] PCP - General Internal Medicine 04/11/20 04/07/24 Pcp, Unknown PCP - General 04/08/24 05/17/24 Pcp, Unknown PCP - General 05/18/24 Milagros eMng MD [address] [place] [address] [email or web address] Cardiology 04/15/21 documented as of this encounter Additional Source Comments The information contained in this document represents components of the legal health record. It is not the complete legal health record.[facility]
--- OUTSIDE RECORDS SUMMARY | 2025-03-10 13:49 | XMS_ITS | Clinical Summary ---
Author Organization [facility] Address [address] [facility] [address] [place] [address] Phone Care Team Providers Care Internet Database Specialist Name Role Phone Milagros Meng MD Unavailable [phone] Pcp, Unknown Primary Care Provider Unavailabl [...] by oral route for 90 days. Active jewbxmei-fau-e errous gluconate (CENTRUM WITH IRON) 9 mg [...] Obsessive-compulsive disorder 12/11/2016 Traumatic brain injury 12/11/2016 Immunizations Immunization Administration Dates Next Due Tdap [...] 2024 , 02/19/2023, 02/13/2022, Additional history exists COVID-19 VACCINE ( season) 2024 02/01/2024, 01/30/2022, 03/01/2021, Additional history exists BLOOD PRESSURE 01/18/2025 07/19/2024 TSH LEVEL 05/18/2025 05/18/2024, 04/08/2024 SCREENING FOR DIABETES 05/18/2027 05/18/2024 LIPID PANEL 06/01/2028 06/01/2023, 06/27/2019 Adult Td,Tdap Booster 08/22/2030 08/22/2020 RSV VACCINE (1 - 1-dose 75+ series) 2046 HEPATITIS A VACCINES Aged Out No long [...] EST) TSH 2.24 0.50 - 5.70 uIU/mL [facility] Blood 05/18/2024 7:09 PM EST 05/18/2024 8:34 PM EST us Mervat Jackson MD, MPH LAB BLOOD BKR ORDERABL ES Final Result [facility] [address] [place] [address] from Last 3 Months or Most Recently Relevant to Health Maintenance Insurance [facility] MED[facility] PART [facility] & B [facility] & B [place] [facility] & [place] B [facility] MEDIC[facility] PART A & B MEDICARE PART A & B [facility] Advance Directives For more information, please contact: [phone] (9AM - 5PM [facility], Thursday-Thursday) * Full Code (Presumed) (Latest Code Status on File) Date Activated Date Inactivated Comments 05/24/2018 9:53 AM 05/26/2018 4:48 PM Care Teams Internet Database Specialist Relationship Specialty Start Date End Date Pcp, Unknown PCP - General 05/18/24 Milagros Meng MD [address] [place] [address] [email or web address] Cardiology 04/15/21 Additional Source Comments The information contained in this document represents components of the legal health record. It is not the complete legal health record.[facility]
== END 2025-03-10 14:24 | disposition home or self-care (01) ==
LOC: HO.HSM 13:29
PROVIDERS: PCP Internal Medicine; Visit Provider Nurse Practitioner
DX: M54.81 Occipital neuralgia (principal); M79.18 Myalgia, other site; G43.E09 Chronic migraine with aura, not intractable, without status migrainosus
CPT/HCPCS: 20552; 64405; 99214

== ENCOUNTER → 2025-03-10 13:28 | Outpatient (BNVA) | payer MEDICARE, MEDICAID, SELFPAY | PROVIDERS: PCP Internal Medicine; Visit Provider Nurse Practitioner | DX: M79.18 Myalgia, other site (principal); G43.E09 Chronic migraine with aura, not intractable, without status migrainosus; M54.81 Occipital neuralgia | CPT/HCPCS: 20552; 64405; 99212; J0665 ==

== ENCOUNTER 2025-03-14 08:44 | Outpatient (RCR) | payer MEDICARE, MEDICAID, SELFPAY ==
--- NOTE | 2025-03-14 10:05 | MHC.PT.EP ---
[facility] [place] Office [place] Office [place] Office [address] Janna Watters [address] [phone] F: [phone] F: [phone] F: [phone] F: [phone] Physical Therapy Plan of Care Date of Evaluation: 03/14/25 Date of Surgery: Diagnosis: cervical disc disorder, spondylosis without myelopathy or radiculopathy, cervical region; LBP Assessment: 55 y/o male referred to PT with LBP and cervical disc disorder. Of note, pt has PMH significant for TBI, seizures, AFIB, HF, DM, and HTN. He reports pain with everything such as walking, standing, sleeping, lifting, and moving in general. He reports it is always popping and he also will crack it himself for relief. Examination shows decreased cervical/ lumbar ROM (rotations and sidebending), decreased strength UE/LE/core, audible cavitations of spine with movement, breath holding tendencies and impaired postural awareness. Recommend PT 2x/week for 5 weeks to address impairments, implement HEP, and optimize functional mobility. Pt appears visibly agitated at end of session d/t no change in his sx yet, therefore significant re-education on healing timeline, stabilization exercises and muscle growth timeline, posture, and POC. Questionable carryover noted. Frequency and Duration: The patient will be seen 2x/week for 5 weeks Short Term Goals: 3 weeks I with HEP Pt will demonstrate proper sitting mechanics with cues < 50% of the time (IR slouched sitting and lean to R) Otorhinolaryngologist Goals: 5 weeks I with HEP and self management of sx Pt will be able to ambulate > 30 min with pain < 3/10 in spine Pt will be able to get in/out of bed with pain < 3/10 Improve Oswestry to 20/50 (IR 29/50) Improve NDI to 22/50 (IR 30/50) Treatment Plan: Modalities to reduce pain, spasms and effusion. Manual therapy to restore motion and function. Therapeutic exercise to improve strength and flexibility. Neuromuscular re-education for posture and balance. Therapeutic activities to return to functional activities of daily living. Electronically signed by: Sheryl Edmond PT Please sign and return to therapist. Thank you for your referral.
--- NOTE | 2025-03-20 09:04 | MHC.PT.DC ---
[facility] [place] [facility] [place] Office [place] Office [address] Janna Watters [address] [facility] [phone] F: [phone] F: [phone] F: [phone] F: [phone] Physical Therapy Discharge Report Diagnosis: cervical disc disorder, spondylosis without myelopathy or radiculopathy, cervical region; LBP Date of Surgery: Date of Evaluation: 03/14/25 Date of Discharge: 03/20/25 Treatments to Date: 1 Cancellations to Date: 0 No Shows to Date: 0 Discharge Status: Patient Elected to Stop Discharge Summary: Pt called to self discharge with no reason given. He attended initial evaluation only. Electronically signed by: Sheryl Edmond PT Please sign and return to therapist. Thank you for your referral.
== END 2025-03-20 09:04 | disposition home or self-care (01) ==
LOC: HO.PT 08:44
PROVIDERS: PCP Internal Medicine; Visit Provider Nurse Practitioner Family
DX: M50.90 Cervical disc disorder, unspecified, unspecified cervical region (principal); M47.812 Spondylosis without myelopathy or radiculopathy, cervical region; M54.50 Low back pain, unspecified
CPT/HCPCS: 97112; 97162

== ENCOUNTER 2025-04-06 11:18 | Outpatient (AMB) | payer MEDICARE, MEDICAID, SELFPAY ==
--- OUTSIDE RECORDS SUMMARY | 2025-04-04 09:00 | XMS_ITS | Encounter Summary ---
Author Organization [facility] Address [address] [place] [address] Care Team Providers Care Aemt Name Role Phone Dwaine Bocanegra MD Primary Care Provider [phone] Reason for Visit * Reason Comments 24 HOUR HOLTER * Cardiac Stress Testing (Routine) - Authorized Specialty Diagnoses / Procedures Referred By Contac t Referred To Contact Cardiology Diagnoses Chest pain, unspecified type Palpitation Procedures Cardiac holter monitor (<= 48 hours) CO ECG EXTERNAL UP TO 48 HOURS RECORDING CO ECG EXTERNAL < 48 HOURS CONTINUOUS RECORDING/STORAGE R&I BY A PHYS/QHP CO EXTERNAL ECG UP TO 48 HRS INCL RECORDING SCANNING ANLYS W REPORT Jaz Fuentes MD [address] [place] [address] Dr [address] [place] [phone] [facility] Referral ID Status Reason Start Date Expiration Date V isits Requested Visits Authorized [id number] Authorized 03/28/2025 03/28/2026 1 1 Encounter Details Date Type Department Care Team (Latest Contact Info) Description 04/04/2025 9:00 AM EST Ancillary Procedure [facility] [address] [place] [id number] Chest pain, unspecified type; Palpitation Social History Tobacco Use Types Packs/Day Years [...] on file documented as of this encounter Functional Status * Are you deaf or do you have serious difficulty hearing? Answer Date of Assessment Author No 03/15/2025 5:29 PM Awa Park RN * Are you blind or do you have serious difficulty seeing, even when wearing glasses? Answer Date of Assessment Author No 03/15/2025 5:29 PM Awa Park RN * Do you have serious difficulty walking or climbing stairs? Answer Date of Assessment Author No 03/15/2025 5:29 PM Awa Park RN * Do you have serious difficulty dressing or bathing? Answer Date of Assessment Author No 03/15/2025 5:29 PM Awa Park RN * Because of a physical, mental, or emotional condition, do you have serious difficulty doing errandsalone such as visiting the doctor? Answer Date of Assessment Author No 03/15/2025 5:29 PM Awa Park RN documented as of this encounter Mental Status * Because of a physical, mental, or emotional condition, do you have serious difficulty concentrating, remembering, or making decisions? (5 years old or older) Answer Entry Date Author No 03/15/2025 5:29 PM Awa Park RN documented in this encounter Plan of Treatment Upcoming Encounters Date Type Department Care Team (Late st Contact Info) Description 04/14/2025 8:30 AM EST Office Visit Adult Medicine [address] [phone] Dwaine Bocanegra MD [address] [place] [address] Pending Results Name Type Priority Associated Diagnoses Date /Time Cardiac holter monitor (<= 48 hours) Cardiac Services Routine Chest pain, unspecified type Palpitation 04/04/2025 9:12 AM EST documented as of this encounter Visit Diagnoses Diagnosis Chest pain, unspecified type Palpitation Palpitations documented in this encounter Care Teams Aemt Relationship Specialty Start Date End Date Dwaine Bocanegra MD [address] [place] [address] PCP - General Internal Medicine 08/19/21 documented as of this encounter
[2025-04-06 11:18] VITALS: BP 120/80; PULSE 65; RESP 16; O2SAT 96; BMI 28.7
--- NOTE | 2025-04-06 11:18 | MHC.OFFVIS ---
Vital Signs 04/06/25 11:18 Height 5 ft 10 in Weight 200 lb BMI 28.7 BP 120/80 Blood Pressure Location Rt brachial Position Sitting Respiration 16 Pulse 65 Pulse Source Pulse Oximeter Pulse Oximetry (%) 96 Oxygen Delivery Method Room Air Intake Visit Reasons: 1 month follow up Laminated Plastics Assembler And Gluer Required: No Allergies fluoxetine (Prozac) Allergy (Intermediate, Verified 04/06/25 11:24) Seizures bupropion Allergy (Verified 04/06/25 11:24) Unknown divalproex sodium (From Depakote) Allergy (Verified 04/06/25 11:24) Unknown haloperidol (From Haldol) Allergy (Verified 04/06/25 11:24) Unknown quetiapine (From Seroquel) Allergy (Verified 04/06/25 11:24) Unknown risperidone (From Risperdal) Allergy (Verified 04/06/25 11:24) Unknown sertraline Allergy (Verified 04/06/25 11:24) Unknown thiothixene (From Navane) Allergy (Verified 04/06/25 11:24) Unknown paroxetine (From Paxil) Adverse Reaction (Mild, Verified 04/06/25 11:24) suicidal thoughts risperdal analogues Allergy (Uncoded 07/28/24 15:54) Unknown From Paxil Adverse Reaction (Mild, Uncoded 07/28/24 15:54) SUICIDAL THOUGHTS HPI Comments Details: Kody is a 55-year-old male patient with a past medical history of TBI and psychiatric disorders following the clinic for headache and seizure. He has history is of going unconscious causing him to fall in his head. He has had normal EEGs in the past though continues to have seizures daily. He also reports headaches and dizziness. He has been seen by Dr. Espinal who had in the past placed him on topiramate 50 mg twice daily and nortriptyline 25 mg at bedtime for his headaches. It sounds like at last visit the patient did not want to increase his medications. He was given naproxen. During our last office visit together on 03/10/2025, the patient explained that he was most concerned about his head pain and abnormal sensations that he experienced in his head. He had a CT of the brain performed at [facility] in September of 2024 which showed no acute intracranial abnormalities. The patient however believes that his CT scan did show abnormalities as he is continuing to have pain and a bruising sensation to his scalp as well as feelings of bleeding inside of his head. He was reassured at last visit that there were no structural abnormalities noted on his CT and that what he was feeling was very real but likely abortive migraine activity. His headaches are daily to the occipital, frontal, and retro-orbital areas. His headaches last up to 4 hours per day though and include visual auras described as stars often leading up to his headaches. His headaches are accompanied by light and sound sensitivity. They are generally bilateral but worse on the left. He denies any nausea or tinnitus but does have some accompanying dizziness. He denies any positional component. He is not sure if the topiramate or nortriptyline has been helpful but he does continue to take them. At time of last visit, I did recommend stopping the nortriptyline but according to his medication administration records it appears that he continues to take it. He does note that he has poor sleep since his initial brain injury in 1988. At last visit, I also performed an occipital nerve block and trigger point injections with bupivacaine but unfortunately he had no benefit with this. I had also recommended a trial of Qulipta which was approved but for unclear reasons the patient has now decided he does not wish to take it and would rather try Nurtec 75 mg every other day instead. He is also reporting neck pain and wishes to see someone from physiatry to discuss cervical spine injections for treatment of his neck pain. It appears that he is already following in the pain Clinic for this reason. Prior medication trials: Topiramate-currently taking 50 mg twice daily and not sure if he feels any benefit Nortriptyline-currently taking 25 mg nightly with no benefit Carvedilol-takes for cardiovascular reasons but no headache improvement Prior workup: CT of the brain 09/2024 FINDINGS: No findings of an acute infarction or intracranial hemorrhage. There is normal downey-white matter differentiation. No mass or mass effect identified. No hydrocephalus, midline shift or herniation. No extra-axial abnormality. No fracture. The paranasal sinuses are clear. Middle ears and mastoid air cells are clear. No acute orbital abnormality. IMPRESSION: No findings of an acute intracranial process. [facility] Medical History Seizure Nocturnal hypoxemia Atherosclerosis Mild cognitive impairment BPH (benign prostatic hyperplasia) Hypokinesis Vitamin D deficiency Hyponatremia Chronic systolic (congestive) heart failure Focal seizures History of concussion Chronic pain COPD (chronic obstructive pulmonary disease) Hypothyroidism Xerosis of skin Lower urinary tract symptoms (LUTS) Overactive bladder Hypercholesteremia Rosacea Tinea pedis Abdominal spasms Rectal spasm Cardiomyopathy Tachycardia GERD (gastroesophageal reflux disease) HTN (hypertension) Elevated cholesterol Traumatic brain injury Low back pain Diabetes Tension headache Cerebellar ataxia PTSD (post-traumatic stress disorder) Bipolar disorder Cervical disc disease Surgical History History of surgery Social History Household Members Other:: resides in detention Housing Other:: detention Alcohol intake: never Comment: NO COUNTS NEEDED Patient Tobacco Use Status: Current everyday Tobacco user Tobacco use type: Cigarette Review of Systems Const All systems reviewed & are unremarkable except as noted in HPI and below Physical Exam Vital Signs: Last Vital Signs Pulse 65 04/06/25 11:18 Resp 16 04/06/25 11:18 BP 120/80 04/06/25 11:18 Pulse Ox 96 04/06/25 11:18 Oxygen Delivery Method Room Air 04/06/25 11:18 BMI result Body Mass Index 28.7 Const Orientation/consciousness: patient oriented x3 Back/Spine/Pelvis Other: Bilateral trapezius trigger points and bilateral occipital notch tenderness Neuro General: patient oriented x3 Cranial nerves: Yes CN's II-XII intact bilaterally Cognition (Neuro): normal cognition Gait exam (Neuro): Normal gait present Motor exam (neuro): 5/5 motor strength present throughout Psych Appearance: grossly normal Speech and movement: Clear speech present Affect: normal affect Thought process: Illogical thought process present and Loose association thought process present Thought content: Obsession(s) present Insight: Fair insight present (Psych) Judgement: Fair judgement present (Psych) Assessment & Plan Assessment & Plan (1) Muscle pain, myofascial: Code(s): M79.18 - Myalgia, other site Category: Medical (2) Chronic migraine with aura without status migrainosus, not intractable: Code(s): G43.E09 - Chronic migraine with aura, not intractable, without status migrainosus Category: Medical (3) Bilateral occipital neuralgia: Code(s): M54.81 - Occipital neuralgia Category: Medical Plan Kody is a 55-year-old male patient with a past medical history of TBI and psychiatric disorders following the clinic for headache and seizure. His most pressing concern today is regarding his headaches and abnormal sensations including feelings of bruising to the top of his head and bleeding inside of the skull. I did review his imaging again with him during today's visit and explained that his headaches are very real but there is no structural abnormality on his imaging studies that would cause his headache. At the time of his last visit, I performed bilateral occipital nerve blocks and trigger point injections which he did not see much of a benefit from. He desired at last visit to come off of the nortriptyline but it appears based on his medication administration record that he has continued to take it. I did advise to stop it with slow taper of 25 mg every other day before completely stopping. It may be contributing to his insomnia if it is causing a paradoxical effect. It has not helped his headaches. He can continue the topiramate for now. I would like to however start him on a new preventive therapy including the CGRP targeting medications. He does not feel that he could do a once monthly injection and would like to try 1 of the oral agents 1st. At his last visit, I had sent for a trial of Qulipta which was approved. Unfortunately he has not started it. He is somewhat hesitant to start it or the Nurtec as he has heard of the Nurtec in the past and does not trust the Qulipta. I will try to submit for Nurtec 75 mg as needed as an alternative option to the Qulipta. I do not quite have any preference over the two I suppose. Patient has neck pain in his asking to be seen by a acute care nurse practitioner for options regarding treatment of his neck pain. It appears however that he has been followed in the pain Clinic for his cervical disc disease/neck pain. -discontinue nortriptyline -discontinue Qulipta (patient never actually tried this) -submit for a trial of Nurtec 75 mg every other day -continue topiramate 50 mg twice daily -return to the clinic in 2 month for follow up visit at which time we can perform additional nerve block and trigger point injections if indicated Medications: New rimegepant (Nurtec ODT) 75 mg PO Q OTHER DAY 15 tabs 5RF 30 days Discontinued atogepant (Qulipta) Discontinued Reason: Duplicate 60 mg PO DAILY 30 days 30 tabs 5RF Coding Level of Care Code Est Pt Level 4 (68321) Diagnoses Muscle pain, myofascial M79.18 Chronic migraine with aura without status migrainosus, not intractable G43.E09 Bilateral occipital neuralgia M54.81
--- OUTSIDE RECORDS SUMMARY | 2025-04-06 14:51 | XMS_ITS | Encounter Summary ---
Author Organization [facility] Address [address] [place] [address] Phone Care Team Providers Care Laboratory Mechanical Technician Name Role Phone Amol Lobato MD Primary Care Provider + Amol Lobato MD Primary Care Provider + Wilber Jacob MD Primary Care Provider Milagros Meng MD Unavailable [phone] Pcp, Unknown Primary Care Provider Unavailabl e Pcp, Unknown Primary Care Provider Unavailabl e Encounter Details Date Type Department Care Team (Late st Contact Info) Description 01/08/2017 Procedure [facility] Emergency Department, [facility] [address] [place] [address] Social History Tobacco Use Types Packs/Day Years [...] documented as of this encounter Care Teams Laboratory Mechanical Technician Relationship Specialty Start Date End Date Amol Lobato MD [address] [address] [email or web address] PCP - General 12/20/16 05/25/18 Amol Lobato MD [address] [address] [email or web address] PCP - General Family Medicine 05/26/18 04/10/20 Wilber Jacob MD [address] [address] PCP - General Internal Medicine 04/11/20 04/07/24 Pcp, Unknown PCP - General 04/08/24 05/17/24 Pcp, Unknown PCP - General 05/18/24 Milagros Meng MD [address] [place] [address] [email or web address] Cardiology 04/15/21 documented as of this encounter Additional Source Comments The information contained in this document represents components of the legal health record. It is not the complete legal health record.[facility]
--- OUTSIDE RECORDS SUMMARY | 2025-04-06 14:51 | XMS_ITS | Encounter Summary ---
Author Organization [facility] Address [address] [place] [address] Care Team Providers Care Platform Man Name Role Phone Dwaine Bocanegra MD Primary Care Provider [phone] Encounter Details Date Type Department Care Team ([facility] Contact Info) Description 12/28/[address] [facility] - Main Lab [address] [facility] [place] [address] Dwaine Bocanegra MD [address] [place] [address] Dysuria Social History Tobacco Use Types Packs/Day [...] Upcoming Encounters Date Type Department Care Team ([facility] Contact Info) Description 04/14/2025 8:30 AM EST Office Visit Adult Medicine [address] [phone] Dwaine Bocanegra MD [address] [place] [address] documented as of this encounter Procedures Procedure Name Priority Date/Time Associated Diagnosis Comments URINALYSIS WITH REFLEX MICROSCOPIC Routine 12/28/2024 9:50 AM EDT Dysuria URINALYSIS WITH REFLEX MICROSCOPIC Routine 12/28/2024 9:50 AM EDT Dysuria CULTURE URINE Routine 12/28/2024 9:50 AM EDT Dysuria documented in this encounter Results * (ABNORMAL) Urinalysis with reflex microscopic (12/28/2024 9:50 AM EDT) Pathologist [facility] [place] Urine 1.012 1.003 - 1.030 LAB URINALYSIS - AUTOMATED METHOD 12/28/2024 1:27 PM [facility] pH, Urine 7.0 5.0 - 8.0 pH LAB URINALYSIS - AUTOMATED METHOD 12/28/2024 1:27 PM [facility] Leukocytes, Urine Negative Negative LAB URINALYSIS - AUTOMATED METHOD 12/28/2024 1:27 PM [facility] Nitrite, Urine Negative Negative LAB URINALYSIS - AUTOMATED METHOD 12/28/2024 1:27 PM [facility] Protein, Urine Negative <=Trace mg/dL LAB URINALYSIS - AUTOMATED METHOD 12/28/2024 1:27 PM [facility] Glucose, Urine >=1000(A) Negative mg/dL LAB URINALYSIS - AUTOMATED METHOD 12/28/2024 1:27 PM [facility] Ketones, Urine Negative Negative mg/dL LAB URINALYSIS - AUTOMATED METHOD 12/28/2024 1:27 PM [facility] Urobilinogen , Urine 1.0 0.2 - 1.0 mg/dL LAB URINALYSIS - AUTOMATED METHOD 12/28/2024 1:27 PM [facility] Bilirubin, Urine Negative Negative LAB URINALYSIS - AUTOMATED METHOD 12/28/2024 1:27 PM [facility] Blood, Urine Negative Negative LAB URINALYSIS - AUTOMATED METHOD 12/28/2024 1:27 PM EDT [facility] Urine Urine specimen obtained by clean catch procedure / Unknown Non-blood Collection / Unknown 12/28/2024 9:50 AM EDT 12/28/2024 1:08 PM EDT Dwaine Bocanegra MD LAB URINE ORDERABLES Final Result [facility] [address] [place] [address], [place] [phone] * Culture urine (12/28/2024 9:50 AM EDT) Culture, Urine No growth 12/29/2024 7:28 AM EDT [facility] Urine Urine specimen obtained by clean catch procedure / Unknown Non-blood Collection / Unknown 12/28/2024 9:50 AM EDT 12/28/2024 1:08 PM EDT Dwaine Bocanegra MD LAB MICROBIOLOGY - GENERAL ORDERABLES Final Result Performing Organization Address City/[facility]/ZIP Co de Phone Number [facility] [address] [place] [address], [place] [phone] documented in this encounter Visit Diagnoses Diagnosis Dysuria documented in this encounter Care Teams Platform Man Relationship Specialty Start Date End Date Dwaine Bocanegra MD [address] [place] [address] PCP - General Internal Medicine 08/19/21 documented as of this encounter
--- OUTSIDE RECORDS SUMMARY | 2025-04-06 14:51 | XMS_ITS | Encounter Summary ---
Author Organization [facility] Address [address] [place] [phone] Phone Care Team Providers Care Developmental Electronics Assembler Name Role Phone Amol Lobato MD Primary Care Provider + Amol Lobato MD Primary Care Provider + Wilber Jacob MD Primary Care Provider Milagros Meng MD Unavailable [phone] Pcp, Unknown Primary Care Provider Unavailabl e Pcp, Unknown Primary Care Provider Unavailabl e Encounter Details Date Type Department Care Team (Late st Contact Info) Description 02/01/2017 Procedure [facility] Emergency Department, [facility] [address] [place] [address] Social History Tobacco Use Types Packs/Day Years [...] documented as of this encounter Care Teams Developmental Electronics Assembler Relationship Specialty Start Date End Date Amol Lobato MD [address] [address] [email or web address] PCP - General 12/20/16 05/25/18 Amol Lobato MD [address] [address] [email or web address] PCP - General Family Medicine 05/26/18 04/10/20 Wilber Jacob MD [address] [address] PCP - General Internal Medicine 04/11/20 04/07/24 Pcp, Unknown PCP - General 04/08/24 05/17/24 Pcp, Unknown PCP - General 05/18/24 Milagros Meng MD [address] [place] [address] [email or web address] Cardiology 04/15/21 documented as of this encounter Additional Source Comments The information contained in this document represents components of the legal health record. It is not the complete legal health record.[facility]
--- OUTSIDE RECORDS SUMMARY | 2025-04-06 14:51 | XMS_ITS | Encounter Summary ---
Author Organization [facility] Address [address] [place] [address] Phone Care Team Providers Care Facility Designer Name Role Phone Amol Lobato MD Primary Care Provider + Wilber Jacob MD Primary Care Provider Milagros Meng MD Unavailable [phone] Pcp, Unknown Primary Care Provider Unavailabl e Pcp, Unknown Primary Care Provider Unavailabl e Encounter Details Date Type Department Care Team (Late st Contact Info) Description 05/28/2018 Procedure [facility] [address] [place] [address] Social History Tobacco Use Types Packs/Day Years [...] documented as of this encounter Care Teams Facility Designer Relationship Specialty Start Date End Date Amol Lobato MD [address] [address] [email or web address] PCP - General Family Medicine 05/26/18 04/10/20 Wilber Jacob MD [address] [address] PCP - General Internal Medicine 04/11/20 04/07/24 Pcp, Unknown PCP - General 04/08/24 05/17/24 Pcp, Unknown PCP - General 05/18/24 Milagros Meng MD [address] [place] [address] [email or web address] Cardiology 04/15/21 documented as of this encounter Additional Source Comments The information contained in this document represents components of the legal health record. It is not the complete legal health record.[facility]
--- OUTSIDE RECORDS SUMMARY | 2025-04-06 14:51 | XMS_ITS | Clinical Summary ---
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 024 Active acetaminophen (TYLENOL) 325 mg tablet Take 2 Tablets by mouth every 6 hours as needed for Pain (Mild pain/fever). over 100 degrees. Call MD if pain is consistent or worsened or temp greater than 100 is not relieved after 24 hours. 024 Active benztropine (COGENTIN) 0.5 mg tablet Take 1 tablet (0.5 mg total) by mouth 2 (two) times a day. Active neomycin/bacitrac in/polymyxinB (NEOSPORIN, [id number], TOP) Apply topically. Apply pea size amount [...] mg total) by mouth at bedtime. Active topiramate (TOPAMAX) 25 mg tablet Take 2 tablets (50 mg total) by mouth 2 (two) times a day. 025 Active diphenhydrAMINE (Banophen) 25 mg tablet Take 1 tablet (25 mg total) by mouth at bedtime as needed for sleep. Active escitalopram (LEXAPRO) 20 mg tablet Take [...] each day. 90 tablet 1 025 Active fenofibrate (LOFIBRA) 54 mg tablet Take 1 tablet (54 mg total) by mouth 1 (one) time each day. 90 each 1 025 Active empagliflozin (Jardiance) 10 mg tablet Take [...] time each day. 90 tablet 1 Active sacubitriL-valsar walsh (ENTRESTO) 97-103 mg per tablet Take 1 tablet by mouth 2 (two) times a day. 60 each 11 025 2025 Active nortriptyline (PAMELOR) 25 mg capsule Take 1 capsule (25 mg total) by mouth at bedtime. 2024 Discontinued(D iscontinued by another clinician) sacubitriL-valsar walsh (ENTRESTO) 49-51 mg per tablet Take 1 tablet by mouth 2 (two) times a day. 2024 Discontinued propranoloL (INDERAL) 10 mg tablet Take 1 tablet (10 mg total) by mouth 2 (two) times a day. 2024 Discontinued(D iscontinued by another clinician) pantoprazole (PROTONIX) 20 mg EC tablet Take 1 tablet (20 mg total) by mouth 1 (one) time each day before breakfast. Do not crush, chew, or split. 90 tablet 1 025 2024 Discontinued(D iscontinued by another clinician) methocarbamoL (ROBAXIN) 500 mg tablet Take 2 tablets (1,000 mg total) by mouth 2 (two) times a day if needed for muscle spasms for up to 14 days. 28 tablet 025 2024 Discontinued(D iscontinued by another clinician) Active Problems Problem Noted Date Diagnosed Date Schizoaffective disorder, bipolar type Hypomagnesemia 02/23/2025 Anxiety 11/10/2024 GERD (gastroesophageal reflux disease) Type 2 diabetes mellitus wit hout complication, without long-term current use of insulin 09/25/2024 Dizziness 09/16/2024 Assessment & Plan (09/16/2024 [...] headache 12/01/2023 Chronic systolic congestive heart failure 2023 Overview (02/01/2024): Last Assessment & Plan: No [...] some reason. I will reschedule the test. Assessment & Plan (03/28/2025 12:35 PM EST): He has been complaining of chest discomfort chronically. Last ischemia workup was from 2021. Will repeat stress test. Orders: Cardiac holter monitor (<= 48 hours); Future PET myocardial perfusion imaging; Future Hyponatremia 11/15/2021 Vitamin D deficiency 06/26/2021 Type 2 diabetes mellitus with hyperglycemia 08/2020 Nonischemic cardiomyopathy 05/25/2020 Overview (02/01/2024): Report of mildly reduced ejection fraction over a decade ago when he was residing in [place]. Updated echocardiogram in March 2020 showed LVEF [...] either Farxiga or Jardiance. Assessment & Plan (03/28/2025 12:35 PM EST): Left ventricular systolic function has remains mildly reduced. Will increase Entresto to 97/103 mg a twice a day. Continue carvedilol and Jardiance at current dose. Orders: ECG 12 lead Assessment & Plan (09/16/2024 12:33 PM EDT): [...] Overview (02/01/2024): Per urology 02/2020 Atherosclerosis of [place] ronary artery of [place] heart without angina pectoris 12/19/2019 Assessment & Plan (09/16/2024 12:33 PM EDT): Orders: Ambulatory referral to Cardiology ECG 12 lead Bipolar disorder 12/19/2019 BPH (benign prostatic hyperplasia) 12/19/2019 COVID-19 12/19/2019 Overview (02/01/2024): Positive 07/13 & again 09/04/19 Mild cognitive impairment 12/19/2019 PTSD (post-traumatic stress disorder) 12/19/2019 Hyperlipidemia 11/15/2019 Overview (02/01/2024): Last Assessment & Plan: Improved triglyceride level. Continue lifestyle change. Assessment & Plan (03/28/2025 12:35 PM EST): He is on high-dose statin and LDL is at target. Triglyceride remains elevated. Will continue physical activity. Will check CRP level with next blood draw. Nocturnal hypoxemia 10/20/2019 Depression 10/04/2019 Chronic ankle [...] on an as-needed basis. COPD (chronic obstructive pulmonary disease) Hypothyroidism 10/04/2019 Obstructive sleep apnea 10/04/2019 Overview (02/01/2024): Has CPAP and BiPAP but does not use them [facility] split-night study in 2018; AHI 13; oxygen [...] oxygen silva 91%. CPAP at 12 recommended. Palpitation 10/04/2019 Overview (02/01/2024): Last Assessment & Plan: Most recent Holter monitor 1 year ago showed about 1% PVC. Will increase carvedilol dosage. Assessment & Plan (03/28/2025 12:35 PM EST): EKG demonstrate frequent PVCs today. Will obtain Holter monitor to assess PVC burden. Assessment & Plan (09/16/2024 12:33 PM EDT): Orders: Ambulatory referral to Cardiology ECG 12 lead Psychogenic nonepileptic seizure 10/04/2019 Overview (02/01/2024): S/p traumatic brain injury 1988. Evaluated by [facility] neurology. Has had -48-hour EEG. Also -4-day [...] Date Resolved Date History of substance abuse 12/19/2019 1 04/25/2024 Overview (11/10/2024): polysubstances Seizures 05/24/2018 02/23/2025 Traumatic brain injury 12/11/201602/23 Assessment & Plan (02/23/2025 10:43 PM EST): Remote history of TBI present. No focal neurological deficits. Encounters Date Type Department Care Team Description 04/05/2025 Telephone [facility] [address] [place] [address] Jaz Fuentes MD 04/04/2025 9:00 AM EST Ancillary Procedure [facility] [address] [place] [id number] Chest pain, unspecified type; Palpitation 03/28/2025 10:50 AM EST Office Visit [facility] [address] [place] [address] Jaz Fuentes MD Nonischemic cardiomyopathy (CMS/HCC V24, CMS/HCC V28) (Primary Dx); Chest pain, unspecified type; Palpitation; Mixed hyperlipidemia 03/22/2025 Telephone Adult Medicine [address] [phone] Dwaine Bocanegra MD 03/15/2025 4:56 PM EST - 03/15/2025 5:58 PM EST Emergency [facility] Emergency [address] [place] [phone] Beth Salter MD Chest pain, unspecified type (Primary Dx); Chronic nonintractable headache, unspecified headache type; Other fatigue Discharge Disposition: Home or Self Care 03/03/2025 Telephone Adult [address] [phone] Jeniffer Brady MA 02/24/2025 Telephone Adult [address] [phone] Dwaine Bocanegra MD 02/23/2025 2:10 PM EST Lab Draw [address] Chronic obstructive pulmonary disease, unspecified COPD type ([facility] V24, CMS/[facility] V28); Essential hypertension; Type 2 diabetes mellitus with hyperglycemia, without long-term current use of insulin ([facility] V24, CMS/HCC V28); Atherosclerosis of [place] coronary artery of [place] heart without angina pectoris; Chronic systolic congestive heart failure (CMS/HCC V24, CMS/[facility] V28); Mixed hyperlipidemia; Acquired hypothyroidism; Chronic nonintractable headache, unspecified headache type; Benign prostatic hyperplasia without lower urinary tract symptoms; Bipolar affective disorder, current episode mixed, current episode severity unspecified (CMS/HCC V24, CMS/HCC V28); Hypomagnesemia; Other fatigue 02/23/2025 1:00 PM EST Office Visit Adult [address] [phone] Dwaine Bocanegra MD Chronic obstructive pulmonary disease, unspecified COPD type (CMS/HCC V24, CMS/HCC V28) (Primary Dx); Essential hypertension; Atherosclerosis of [place] coronary artery of [place] heart without angina pectoris; Chronic systolic congestive heart failure (CMS/HCC V24, CMS/HCC V28); Mixed hyperlipidemia; Type 2 diabetes mellitus with hyperglycemia, without long-term current use of insulin (CMS/HCC V24, CMS/HCC V28); Acquired hypothyroidism; Traumatic brain injury with loss of consciousness, sequela ([facility] V24); Chronic nonintractable headache, unspecified headache type; Chronic diarrhea; Hypomagnesemia; Other fatigue; Benign prostatic hyperplasia without lower urinary tract symptoms; Bipolar affective disorder, current episode mixed, current episode severity unspecified (CMS/HCC V24, CMS/HCC V28); Schizoaffective disorder, bipolar type (CMS/HCC V24, CMS/HCC V28); Tobacco dependency; Eye exam normal 02/23/2025 Results Follow-Up Adult Medicine [address] [phone] Dwaine Bocanegra MD 02/14/2025 Telephone Adult Medicine [address] [phone] Jeniffer Brady MA 02/03/2025 Telephone [facility] [address] [facility] [address] [place] [phone] Jaz Fuetnes MD 01/31/2025 Telephone Adult Medicine [address] [phone] Dwaine Bocanegra MD 01/30/2025 Telephone Adult Medicine [address] [phone] Jeniffer Brady MA 01/24/2025 Telephone Adult Medicine [address] [phone] Dwaine Bocanegra MD 01/20/[address] [phone] Dwaine Bocanegra MD 01/19/2025 Telephone [facility] - [address] [place] [address] Jaz Fuentes MD 01/17/2025 Telephone Adult Medicine [address] [phone] Jeniffer Brady MA 01/16/2025 Telephone [facility] [address] [facility] [address] [place] [phone] Jaz Fuentes MD 01/09/2025 Telephone [facility] [address] [place] [address] Jaz Fuentes MD 01/06/2025 Telephone [facility] [address] [facility] [address] [place] [address] Jaz Fuentes MD 01/06/2025 Telephone [facility] [address] [facility] [address] [place] [address] Jaz Fuentes MD from Last 3 Months [...] HISTORICAL COLONOSCOPY; COMMENT: negative ESOPHAGOGASTRODUODENOSCOPY 09/06/2020 PROCEDURE: [place] EGD TRANSORAL BIOPSY SINGLE/MULTIPLE; COMMENT: esophagitis, gastritis and duodenitis. Omeprazole prescribed. Medical History Medical History Date Comments PTSD (post-traumatic stress disorder) 12/19/2019 DX:PTSD (post-traumatic stress disorder) Covid-19 12/19/2019 DX:COVID-19; COM MENT: Positive 07/13 & again 09/04/19 BPH (benign prostatic hyperplasia) 12/19/2019 DX:BPH (benign prostatic hyperplasia) Mild cognitive impairment 12/19/2019 DX:Mil d cognitive impairment History of substance abuse ( [facility] V24, [facility] V28) 12/19/2019 DX:History of substance abus e ([facility]); COMMENT: polysubstances Bipolar disorder ([facility] V2 4, [facility] V28) 12/19/2019 DX:Bipolar disorder ([facility]) Seizure disorder ([facility] V2 4, [facility] V28) 10/04/2019 DX:Seizure disorder ([facility]); C OMMENT: S/p traumatic brain injury [...] pain COPD (chronic obstructive pu lmonary disease) ([facility] V24, [facility] V28) 10/04/2019 DX:COPD (chronic o bstructive pulmonary disease) ([facility]) Depression 10/04/2019 DX:Depression History of insomnia [...] and BiPAP but [facility] not [facility]; AHI 13; oxygen silva 76% with 43% of the time of study spent below 88%. CPAP at 10 with mild persistent hypoxemia; CPAP 10-17 recommended. [facility]; BiPAP was recommended with better nocturnal oxygenation on [...] DX:Diabetes mellitus type 2, controlled, with complications ([facility]) Esophageal reflux DX:Esophageal reflux Nausea and vomiting DX:Nausea an d vomiting Rectal discomfort DX:Rectal disc omfort Rectal bleeding DX:Rectal bleedi ng Family History Medical History Relation Name Comments Alcohol/Drug Brother twin psychiatric is sues Coronary artery disease Brother twin s/p ND age 49 Heart failure Brother twin Coronary artery disease Father s/p ND Other: pancreatic cancer Maternal Grandmother Other: pulmonary [...] on file Sexual Orientation Not on file Last Filed Vital Signs Vital Sign Reading Time Taken Comments Blood Pressure 130/66 03/28/2025 10:24 AM EST Pulse 86 03/28/2025 10:24 AM EST Temperature 36.8 C (98.2 F) 03/15/2025 1:29 PM EST Respiratory Rate 18 03/15/2025 1:29 PM EST Oxygen Saturation 98% 03/28/2025 10:24 AM EST Inhaled Oxygen Concentration - - Weight 93 kg (205 lb) 03/28/2025 10:24 AM EST Height 180.3 cm (5' 10.98 ) 03/28/2025 10:24 AM EST Body Mass Index 28.6 03/28/2025 10:24 AM EST Plan of Treatment Upcoming Encounters Date Type Department Care Team (Late st Contact Info) Description 04/14/2025 8:30 AM EST Office Visit Adult Medicine [address] [phone] Dwaine Bocanegra MD [address] [place] [address] Health Maintenance Due Date Last Done Comments [...] 10/04/2022 Diabetes: Annual GFR (Glomerular Filtration Rate) 03/15/2026 03/15/2025, 02/23/2025, 10/04/2024, Additional history exists Hypertension/CHF/CAD Annual BMP Blood Test 03/15/2026 03/15/2025, 02/23/2025, 10/04/2024, Additional history exists Cholesterol Screening (Lipid Panel) [...] Procedure Name Priority Date/Time Associated Diagnosis Comments ECG 12-LEAD Routine 03/28/2025 10:45 AM EST Nonischemic cardiomyopathy (CMS/HCC V24, CMS/HCC V28) ECG ANNOTATED 03/17/2025 ECG 12-LEAD STAT 03/15/2025 2:55 PM EST TROPONIN I HIGH SENSITIVITY Timed 03/15/2025 2:53 PM EST ECG 12-LEAD STAT 03/15/2025 1:42 PM EST CBC WITH AUTO DIFFERENTIAL STAT 03/15/2025 1:40 PM EST MAGNESIUM STAT 03/15/2025 1:40 PM EST LIPASE STAT 03/15/2025 1:40 PM EST COMPREHENSIVE METABOLIC PANEL STAT 03/15/2025 1:40 PM EST CBC AND DIFFERENTIAL STAT 03/15/2025 1:40 PM EST TROPONIN I HIGH SENSITIVITY Timed 03/15/2025 1:40 PM EST MAGNESIUM Routine 02/23/2025 2:14 PM EST Chronic obstructive pulmonary disease, unspecified COPD type ([facility] V24, [facility] V28) Essential hypertension Type 2 diabetes mellitus with hyperglycemia, without long-term current use of insulin ([facility] V24, [facility] V28) Atherosclerosis [place] coronary artery of [place] heart without angina pectoris Chronic systolic congestive heart failure ([facility] V24, CMS/[facility] V28) Mixed hyperlipidemia Acquired hypothyroidism Chronic nonintractable headache, unspecified headache type Benign prostatic hyperplasia without lower urinary tract symptoms Bipolar affective disorder, current episode mixed, current episode severity unspecified ([facility] V24, CMS/[facility] V28) Hypomagnesemia Other fatigue COMPREHENSIVE METABOLIC PANEL Routine 02/23/2025 2:14 PM EST Chronic obstructive pulmonary disease, unspecified COPD type ([facility]/HCC V24, CMS/[facility] V28) Essential hypertension Type 2 diabetes mellitus with hyperglycemia, without long-term current use of insulin ([facility] V24, [facility] V28) Atherosclerosis of [place] coronary artery of [place] heart without angina pectoris Chronic systolic congestive heart failure ([facility] V24, [facility] V28) Mixed hyperlipidemia Acquired hypothyroidism Chronic nonintractable headache, unspecified headache type Benign prostatic hyperplasia without lower urinary tract symptoms Bipolar affective disorder, current episode mixed, current episode severity unspecified ([facility] V24, [facility] V28) Hypomagnesemia Other fatigue HEMOGLOBIN A1C Routine 02/23/2025 2:14 PM EST Chronic obstructive pulmonary disease, unspecified COPD type ([facility] V24, [facility] V28) Essential hypertension Type 2 diabetes mellitus with hyperglycemia, without long-term current use of insulin ([facility] V24, [facility] V28) Atherosclerosis of [place] coronary artery of [place] heart without angina pectoris Chronic systolic congestive heart failure ([facility] V24, [facility] V28) Mixed hyperlipidemia Acquired hypothyroidism Chronic nonintractable headache, unspecified headache type Benign prostatic hyperplasia without lower urinary tract symptoms Bipolar affective disorder, current episode mixed, current episode severity unspecified ([facility] V24, [facility] V28) Hypomagnesemia Other fatigue THYROID STIMULATING HORMONE WITH REFLEX TO FREE T4 AND FREE T3 Routine 02/23/2025 2:14 PM EST Chronic obstructive pulmonary disease, unspecified COPD type ([facility] V24, [facility] V28) Essential hypertension Type 2 diabetes mellitus with hyperglycemia, without long-term current use of insulin ([facility] V24, [facility] V28) Atherosclerosis of [place] coronary artery of [place] heart without angina pectoris Chronic systolic congestive heart failure ([facility] V24, [facility] V28) Mixed hyperlipidemia Acquired hypothyroidism Chronic nonintractable headache, unspecified headache type Benign prostatic hyperplasia without lower urinary tract symptoms Bipolar affective disorder, current episode mixed, current episode severity unspecified ([facility] V24, [facility] V28) Hypomagnesemia Other fatigue CT LUNG SCREENING Routine 10/11/2024 10: 42 AM EDT Encounter for screening for malignant neoplasm of respiratory organs Nicotine dependence, cigarettes, uncomplicated LIPID PANEL WITH REFLEX TO DIRECT LDL Routine 10/04/2024 8:52 AM EDT Type 2 diabetes mellitus with hyperglycemia, without long-term current use of insulin ([facility] V24, [facility] V28) Acquired hypothyroidism Essential hypertension Palpitations Atherosclerosis of [place] coronary artery of [place] heart without angina pectoris Chronic systolic congestive heart failure (CMS/HCC V24, CMS/HCC V28) Chronic obstructive pulmonary disease, unspecified COPD type (CMS/HCC V24, CMS/HCC V28) Chronic nonintractable headache, unspecified headache type Benign prostatic hyperplasia without lower urinary tract symptoms Bipolar affective disorder, current episode mixed, current episode severity unspecified (CMS/HCC V24, CMS/HCC V28) URINE ALBUMIN CREATININE RATIO Routine 01/05/2023 HEPATITIS C SCREENING Routine 02/25/2022 HIV SCREENING Routine 02/25/2022 COLONOSCOPY Routine 09/06/2020 from Last 3 Months or Most Recently Relevant to Health Maintenance Results * ECG 12 lead (03/28/2025 10:45 AM EST) Only the most recent of3 resultswithin the time period is included. Ventricular Rate ECG 86 BPM GEMUSE Atrial Rate 86 BPM GEMUSE P-R Interval 198 ms GEMUSE QRS Duration 82 ms GEMUSE Q-T Interval 376 ms GEMUSE QTc 449 ms GEMUSE P Wave [place] 76 degrees GEMUSE R [place] 70 degrees GEMUSE T [place] 61 degrees GEMUSE ECG Interpretation Sinus rhythm with occasional Premature ventricular complexes Otherwise normal ECG When compared with ECG of 15-MAR-2025 14:55, Criteria for Septal infarct are no longer Present Confirmed by Jazmín FUENTES YUFENG ([id number]) on 03/28/2025 11:25:42 AM GEMUSE 03/28/2025 10:4 5 AM EST 03/28/2025 11:25 AM EST Jaz Fuentes MD ECG ORDERABLES Final Result GEMUSE * ECG-Annotated (03/17/2025) us Provider Onbase ECG ORDERABLES Final Result * Troponin I high sensitivity (03/15/2025 2:53 PM EST) Only the most recent of2 resultswithin the time period is included. [facility] High Sensitivity Troponin I <3 <=53 ng/L 03/15/2025 3:56 PM EST [facility] Blood Venous blood specimen / Unknown Venipuncture / Unknown 03/15/2025 2:53 PM EST 03/15/2025 3:10 PM EST Pelon Johnson MD LAB BLOOD ORDERABLES Final Resul t [facility] [address] [place] [address], * (ABNORMAL) CBC auto differential (03/15/2025 1:40 PM EST) [facility] WBC 6.7 4.8 - 10.8 K/mcL LAB HEMETOLOGY METHOD 03/15/2025 2:25 PM [facility] RBC 4.60 4.50 - 5.50 M/mcL LAB HEMETOLOGY METHOD 03/15/2025 2:25 PM [facility] Hemoglobin 14.4 13.5 - 17.5 g/dL LAB HEMETOLOGY METHOD 03/15/2025 2:25 PM [facility] Hematocrit 41.8(L) 42.0 - 54.0 % LAB HEMETOLOGY METHOD 03/15/2025 2:25 PM [facility] MCV 90.7 79.0 - 98.0 FL LAB HEMETOLOGY METHOD 03/15/2025 2:25 PM [facility] MCH 31.2 27.0 - 32.0 pcg LAB HEMETOLOGY METHOD 03/15/2025 2:25 PM [facility] MCHC 34.4 32.0 - 37.0 g/dL LAB HEMETOLOGY METHOD 03/15/2025 2:25 PM [facility] RDW 14.4 11.0 - 15.0 % LAB HEMETOLOGY METHOD 03/15/2025 2:25 PM [facility] Platelets 224 130 - 400 K/mcL LAB HEMETOLOGY METHOD 03/15/2025 2:25 PM [facility] MPV 10.1 7.0 - 11.0 FL LAB HEMETOLOGY METHOD 03/15/2025 2:25 PM [facility] NRBC 0.0 <1.0 % LAB HEMETOLOGY METHOD 03/15/2025 2:25 PM [facility] NRBC Absolute 0.00 <0.10 K/mcL LAB HEMETOLOGY METHOD 03/15/2025 2:25 PM [facility] Neutrophils Relative 58.2 % LAB HEMETOLOGY METHOD 03/15/2025 2:25 PM [facility] Lymphocytes Relative 31.4 % LAB HEMETOLOGY METHOD 03/15/2025 2:25 PM [facility] Monocytes Relative 8.3 % LAB HEMETOLOGY METHOD 03/15/2025 2:25 PM [facility] Eosinophils Relative 1.5 % LAB HEMETOLOGY METHOD 03/15/2025 2:25 PM [facility] Basophils Relative 0.3 % LAB HEMETOLOGY METHOD 03/15/2025 2:25 PM [facility] Immature Granulocytes Relative 0.3 % LAB HEMETOLOGY METHOD 03/15/2025 2:25 PM [facility] Neutrophils Absolute 3.87 1.50 - 7.00 K/mcL LAB HEMETOLOGY METHOD 03/15/2025 2:25 PM [facility] Lymphocytes Absolute 2.09 1.00 - 5.00 K/mcL LAB HEMETOLOGY METHOD 03/15/2025 2:25 PM [facility] Monocytes Absolute 0.55 0.20 - 1.00 K/mcL LAB HEMETOLOGY METHOD 03/15/2025 2:25 PM EST [facility] Eosinophils Absolute 0.10 0.00 - 0.50 K/[facility] LAB HEMETOLOGY METHOD 03/15/2025 2:25 PM EST [facility] Basophils Absolute 0.02 0.00 - 0.20 K/[facility] LAB HEMETOLOGY METHOD 03/15/2025 2:25 PM EST [facility] Immature Granulocytes Absolute 0.02 0.00 - 0.03 K/[facility] LAB HEMETOLOGY METHOD 03/15/2025 2:25 PM EST [facility] Blood Venous blood specimen / Unknown Venipuncture / Unknown 03/15/2025 1:40 PM EST 03/15/2025 2:08 PM EST us Pelon Johnson MD LAB BLOOD ORDERABLES Final Resul t Performing Organization Address City/[facility]/ZIP Co de Phone Number [facility] [address] [place] [address], [place] [phone] * Magnesium (03/15/2025 1:40 PM EST) Only the most recent of2 resultswithin the time period is included. Magnesium 2.0 1.9 - 2.6 mg/dL 03/15/2025 2:43 PM EST [facility] Blood Venous blood specimen / Unknown Venipuncture / Unknown 03/15/2025 1:40 PM EST 03/15/2025 2:08 PM EST us Pelon Johnson MD LAB BLOOD ORDERABLES Final Resul t [facility] [address] [place] [address], [place] [phone] * Lipase (03/15/2025 1:40 PM EST) Lipase 38 12 - 53 unit/L 03/15/2025 2:43 PM [facility] Blood Venous blood specimen / Unknown Venipuncture / Unknown 03/15/2025 1:40 PM EST 03/15/2025 2:08 PM EST Pelon Johnson MD LAB BLOOD ORDERABLES Final Resul t [facility] [address] [place] [address], * (ABNORMAL) Comprehensive metabolic panel (03/15/2025 1:40 PM EST) Only the most recent of2 resultswithin the time period is included. Sodium 141 133 - 145 mmol/L 03/15/2025 2:43 PM [facility] Potassium 4.6 3.5 - 5.5 mmol/L 03/15/2025 2:43 PM [facility] Chloride 106 96 - 110 mmol/L 03/15/2025 2:43 PM [facility] CO2 25 21 - 32 mmol/L 03/15/2025 2:43 PM [facility] Anion Gap 10 3 - 11 03/15/2025 2:43 PM [facility] Glucose 140(H) 70 - 100 mg/dL 03/15/2025 2:43 PM [facility] BUN 17 5 - 25 mg/dL 03/15/2025 2:43 PM [facility] Creatinine 1.06 0.70 - 1.30 mg/dL 03/15/2025 2:43 PM [facility] eGFR 83 >=60 mL/min/1. 73m2 03/15/2025 2:43 PM [facility] Comment:Calculation based on the Chronic Kidney Disease Epidemiology Collaboration (CKD-EPI) equation refit without adjustment for race. BUN/Creatinine Ratio 16.0 03/15/2025 2:43 PM [facility] Calcium 8.0(L) 8.5 - 10.5 mg/dL 03/15/2025 2:43 PM [facility] AST (SGOT) 21 10 - 42 unit/L 03/15/2025 2:43 PM [facility] ALT (SGPT) 18 10 - 60 unit/L 03/15/2025 2:43 PM [facility] Alkaline Phosphatase 79 42 - 121 unit/L 03/15/2025 2:43 PM [facility] Total Protein 7.0 6.0 - 8.0 g/dL 03/15/2025 2:43 PM [facility] Albumin 4.2 3.2 - 5.0 g/dL 03/15/2025 2:43 PM [facility] Total Bilirubin 0.5 0.0 - 1.4 mg/dL 03/15/2025 2:43 PM [facility] Blood Venous blood specimen / Unknown Venipuncture / Unknown 03/15/2025 1:40 PM EST 03/15/2025 2:08 PM EST Pelon Johnson MD LAB BLOOD ORDERABLES Final Resul t [facility] [address] [place] [address], * Thyroid stimulating hormone with reflex to free t4 and free t3 (02/23/2025 2:14 PM EST) TSH 1.39 0.40 - 4.00 mcIU/mL LAB CHEMISTRY METHOD 02/23/2025 5:23 PM [facility] Blood Venous blood specimen / Unknown Venipuncture / Unknown 02/23/2025 2:14 PM EST 02/23/2025 2:14 PM EST us Dwaine Bocanegra MD LAB BLOOD ORDERABLES Final Result Performing Organization Address City/[facility]/ZIP Co de Phone Number [facility] [address] [place] [address], [place] [phone] * Hemoglobin A1c (02/23/2025 2:14 PM EST) Hemoglobin A1C 6.2 <6.5 % LAB CHEMISTRY METHOD 02/23/2025 10:35 PM EST [facility] Mean Bld Glu Estim. 131 mg/dL LAB CHEMISTRY METHOD 02/23/2025 10:35 PM EST [facility] Blood Venous blood specimen / Unknown Venipuncture / Unknown 02/23/2025 2:14 PM EST 02/23/2025 2:14 PM EST Dwaine Bocanegra MD LAB BLOOD ORDERABLES Final Result Performing Organization Address City/[facility] Co de Phone Number [facility] [address] [place] [address], [place] [phone] * CT Lung Screening (10/11/2024 10:42 AM EDT) Anatomical Region Laterality Modality Chest Computed Tomogra phy 10/12/2024 12:0 1 PM EDT Impressions 10/12/2024 12:09 PM EDT Impression: No suspicious developing pulmonary nodule. No significant change. Lung-RADS Category: Lung-RADS 1: No nodules or definitely benign nodules. Continue annual screening with Low Dose Chest CT in 12 months. [facility] [place] ([id number]) -------- FINAL REPORT -------- Dictated By: Johana Ayoub Dictated Date: 10/12/2024 12:01 ET Assigned Physician: Johana Ayoub Reviewed and Electronically Signed By: Johana Ayoub Signed Date: 10/12/2024 12:09 ET Workstation ID: [id number] Transcribed By: Self Edit Transcribed Date: 10/12/2024 12:01 ET Narrative 10/12/2024 12:09 PM EDT History: 54 year-old 32 pack-year current smoker, asymptomatic, for lung cancer screening. Comparison: 10/09/23 Technique: Helical volumetric imaging of the thorax was performed, using low- dose technique, without IV contrast. DLP: 176.42 mGy/cm CTDIvol: 4.83 mGy GE IPICOpeed VCT Iterative reconstruction technique Findings: Lungs and [...] contrast. DLP: 176.42 mGy/cm CTDIvol: 4.83 mGy e27peed VCT Iterative reconstruction technique Findings: Lungs and [...] Chest CT in 12 months. [facility] MASSIMO ([id number]) -------- FINAL REPORT -------- Dictated By: Johana Ayoub Dictated Date: 10/12/2024 12:01 ET Assigned Physician: Johana Ayoub Reviewed and Electronically Signed By: Johana Ayoub Signed Date: 10/12/2024 12:09 ET Workstation ID: [id number] Transcribed By: Self Edit Transcribed Date: 10/12/2024 12:01 ET Antonio Jurado MD [facility] CT PROCEDURES Final Result * (ABNORMAL) Lipid panel with reflex to direct LDL (10/04/2024 8:52 AM EDT) Cholesterol 153 0 - 200 mg/dL LAB CHEMISTRY METHOD 10/04/2024 3:10 PM EDT [facility] Triglycerides 316(H) 0 - 150 mg/dL LAB CHEMISTRY METHOD 10/04/2024 3:10 PM EDT [facility] HDL 38(L) >=40 mg/dL LAB CHEMISTRY METHOD 10/04/2024 3:10 PM EDT [facility] LDL Calculated 52 0 - 100 mg/dL LAB CHEMISTRY METHOD 10/04/2024 3:10 PM EDT [facility] VLDL Cholesterol Akira 63.2 mg/dL LAB CHEMISTRY METHOD 10/04/2024 3:10 PM EDT [facility] Non HDL Chol. (LDL+VLDL) 115 <145 mg/dL LAB CHEMISTRY METHOD 10/04/2024 3:10 PM EDT [facility] Chol/HDL Ratio 4.0 0.0 - 4.4 LAB CHEMISTRY METHOD 10/04/2024 3:10 PM EDT [facility] Blood Venous blood specimen / Unknown Venipuncture / Unknown 10/04/2024 8:52 AM EDT 10/04/2024 8:52 AM EDT Dwaine Bocanegra MD LAB BLOOD ORDERABLES Final Result [facility] [address] [place] [address], * Urine Albumin Creatinine Ratio (01/05/2023) [facility] Urine Albumin Creatinine Ratio abstracted [facility] Provider HEALTH MAINTENANCE Final Result * HIV Screening (02/25/2022) [facility] HIV Screening abstarcted [facility] Provider HEALTH MAINTENANCE Final Result * Hepatitis C Screening (02/25/2022) [facility] Hepatitis C Screening abstracted [facility] Provider HEALTH MAINTENANCE Final Result * Colonoscopy (09/06/2020) [facility] Colonoscopy abstracted, no interpretation Anatomical Region Laterality Modality Other Historical Provider HEALTH MAINTENANCE Final Result from Last 3 Months or Most Recently Relevant to Health Maintenance Insurance MEDICARE [place]ICAID [place] Advance Directives Documents on File Type Date Recorded Patient Rod Mill Tender Expl anation Advance Directives and Living Will 03/17/2025 11:58 AM PROXY Advance Directives and Living Will 03/17/2025 11:57 AM MOLST Advance Directives and Living Will 10/14/2024 10:29 PM Orders for Life-Sustaining Treatment Care Teams Bait Painter Relationship Specialty Start Date End Date Dwaine Bocanegra MD [address] [place] [address] PCP - General Internal Medicine 08/19/21
--- OUTSIDE RECORDS SUMMARY | 2025-04-06 14:51 | XMS_ITS | Encounter Summary ---
Author Organization [facility] Address [address] [place] [address] Phone Care Team Providers Care Data Center Operator Name Role Phone Aoml Lobato MD Primary Care Provider + Amol Lobato MD Primary Care Provider + Wilber Jacob MD Primary Care Provider Milagros Meng MD Unavailable [phone] Pcp, Unknown Primary Care Provider Unavailabl e Pcp, Unknown Primary Care Provider Unavailabl e Encounter Details Date Type Department Care Team (Late st Contact Info) Description 01/08/2017 Procedure [facility] Emergency Department, [facility] [address] [place] [address] Social History Tobacco Use Types Packs/Day Years [...] documented as of this encounter Care Teams Data Center Operator Relationship Specialty Start Date End Date Amol Lobato MD [address] [address] [email or web address] PCP - General 12/20/16 05/25/18 Amol Lobato MD [address] [address] [email or web address] PCP - General Family Medicine 05/26/18 04/10/20 Wilber Jacob MD [address] [address] PCP - General Internal Medicine 04/11/20 04/07/24 Pcp, Unknown PCP - General 04/08/24 05/17/24 Pcp, Unknown PCP - General 05/18/24 Milagros Meng MD [address] [place] [address] [email or web address] Cardiology 04/15/21 documented as of this encounter Additional Source Comments The information contained in this document represents components of the legal health record. It is not the complete legal health record.[facility]
--- OUTSIDE RECORDS SUMMARY | 2025-04-06 14:51 | XMS_ITS | Encounter Summary ---
Author Organization [facility], Address [address] [place] [address] Phone Care Team Providers Care Clasp Machine Operator Name Role Phone Helder Hdz MD Primary Care Provider [phone] Encounter Details Date Type Department Care Team (Late st Contact Info) Description 11/20/2021 Documentation Only [facility], [address] [place] [address] Asher Sosa MD [address] [place] [address] Social History Tobacco Use Types [...] on filedocumented in this encounter Care Teams Clasp Machine Operator Relationship Specialty Start Date End Date Helder Hdz MD PCP - General Internal Medicine 09/24/21 documented as of this encounter
--- OUTSIDE RECORDS SUMMARY | 2025-04-06 14:51 | XMS_ITS | Clinical Summary ---
Author Organization [facility] Address [address] [place] [address] Phone Care Team Providers Care Shorthand Teacher Name Role Phone Milagros Meng MD Unavailable [phone] Pcp, Unknown Primary Care Provider Unavailabl [...] by oral route for 90 days. Active nfbxnosa-cqm-s errous gluconate (CENTRUM WITH IRON) 9 mg [...] EST) TSH 2.24 0.50 - 5.70 uIU/mL [facility] Blood 05/18/2024 7:09 PM EST 05/18/2024 8:34 PM EST us Mervat Jackson MD, MPH LAB BLOOD BKR ORDERABL ES Final Result [facility] [address] [place] [address] from Last 3 Months or Most Recently Relevant to Health Maintenance [facility] [place] [facility] [place] B [facility] MEDICARE PART A & B MEDICARE PART A & B [facility] Advance Directives For more information, please contact: [phone] (9AM - 5PM [facility], Thursday-Thursday) * Full Code (Presumed) (Latest Code Status on File) Date Activated Date Inactivated Comments 05/24/2018 9:53 AM 05/26/2018 4:48 PM Care Teams Shorthand Teacher Relationship Specialty Start Date End Date Pcp, Unknown PCP - General 05/18/24 Milagros Meng MD [address] [place] [address] [email or web address] Cardiology 04/15/21 Additional Source Comments The information contained in this document represents components of the legal health record. It is not the complete legal health record.[facility]
--- OUTSIDE RECORDS SUMMARY | 2025-04-06 14:51 | XMS_ITS | Encounter Summary ---
Author Organization [facility] Address [address] [place] [address] Care Team Providers Care Tablet Repair Name Role Phone Dwaine Bocanegra MD Primary Care Provider [phone] Reason for Visit * Reason Onset Date Comments Holter 04/05/2025 Encounter Details Date Type Department Care Team ([facility] st Contact Info) Description 04/05/2025 Telephone [facility] [address] [facility] [address] [place] [address] Jaz Fuentes MD [address] [place] [address] [place] [address] Social History Tobacco Use Types Packs/Day Years [...] of Assessment Author No 03/15/2025 5:29 PM EST Awa Ferguson RN * Are you blind or do you have serious difficulty seeing, even when wearing glasses? Answer Date of Assessment Author No 03/15/2025 5:29 PM EST Awa Ferguson RN * Do you have serious difficulty [...] Awa Park RN documented in this encounter Progress Notes * Maddie Arteaga RN - 04/06/2025 8:55 AM EST MICHAEL 03/28/[address] Fuentes - please see notes. Holter results not available yet in [facility]. * Lalo Fabian - 04/06/2025 8:44 AM EST Patient is calling, regarding holter results, was informed again that those results can take 7-10 business days. Patient states he is still having symptoms of palpitations and shortness of breath. Patient feels entreso and coreg are not working. Please call. * Tonya Jay - 04/05/2025 4:24 PM EST Patient called back about results. He was informed when results are back he will be contacted. * Sonja Srivastava - 04/05/2025 10:48 AM EST Patient called and stated that he is looking to get the results of his holter monitor when the results are read. He said he would like a call. * Bethany Velazquez MA - 04/05/2025 9:45 AM EST Left voice message for staff at [facility] to arrange to have monitor returned to [facility]. Patient was symptomatic while wearing the 24 hour holter monitor. Requested a call back if they would like to discuss the return of the monitor. Please provide office hours for testing center [address]: 7:00 AM-4:30 PM. Monitor can also be dropped off in the Holter Only mailbox in the lobby at [address] [place] [address], [place], [place] until 7:00 PM daily. Thank you. * Tonya Jay - 04/05/2025 8:24 AM EST Patient called and stated that he has a holter monitor that he is unable to bring back till Thursday04/10/25. He also stated that his heart palpitations were occurring all day yesterday. Please call patient. [phone] documented in this encounter Plan of Treatment Upcoming Encounters Date Type Department Care Team (Late st Contact Info) Description 04/14/2025 8:30 AM EST Office Visit Adult Medicine [address] [phone] Dwaine Bocanegra MD [address] [place] [address] documented as of this encounter Visit Diagnoses Not on filedocumented in this encounter Care Teams Tablet Repair Relationship Specialty Start Date End Date Dwaine Bocanegra MD [address] [place] [address] PCP - General Internal Medicine 08/19/21 documented as of this encounter
--- OUTSIDE RECORDS SUMMARY | 2025-04-06 14:51 | XMS_ITS | Encounter Summary ---
Author Organization [facility] Address [address] [place] [address] Phone Care Team Providers Care Head Waiter Name Role Phone Helder Hdz MD Primary Care Provider [phone] Encounter Details Date Type Department Care Team (Late st Contact Info) Description 09/24/2021 Documentation Only [facility], [address] [place] [address] Helder Hdz MD [address] [place] [phone] Social History Tobacco Use Types Packs/Day Years [...] filedocumented in this encounter Care Teams Head Waiter Relationship Specialty Start Date End Date Helder Hdz MD PCP - General Internal Medicine 09/24/21 documented as of this encounter
--- OUTSIDE RECORDS SUMMARY | 2025-04-06 14:51 | XMS_ITS | Encounter Summary ---
Author Organization [facility] Address [address] [place] [address] Phone Care Team Providers Care Youth Accommodation Support Worker Name Role Phone Amol Lobato MD Primary Care Provider + Amol Lobato MD Primary Care Provider + Wilber Jacob MD Primary Care Provider Milagros Meng MD Unavailable [phone] Pcp, Unknown Primary Care Provider Unavailabl e Pcp, Unknown Primary Care Provider Unavailabl e Encounter Details Date Type Department Care Team (Late st Contact Info) Description 01/08/2018 Ancillary Orders [facility] [address] [place] [address] Amol Lobato MD [address] [facility] [address] [place] [address] [email or web address] Closed nondisplaced fracture of second metatarsal bone [...] foot. COMPARISON: Radiographs of the right foot, [facility], 12/07/2017. FINDINGS: Comminuted of the proximal diaphysis of the right second metatarsal with periosteal thickening and callus formation. Procedure Note Julio Jolly MD - 01/09/2018 XR FOOT 3 OR MORE VIEWS (RIGHT) INDICATION: TECHNIQUE: AP, oblique, and lateral views of the right foot. COMPARISON: Radiographs of the right foot, [facility],12/07/2017. FINDINGS: Comminuted of the proximal diaphysis [...] documented as of this encounter Care Teams Youth Accommodation Support Worker Relationship Specialty Start Date End Date Amol Lobato MD [address] [address] [email or web address] PCP - General 12/20/16 05/25/18 Amol Lobato MD [address] [address] [email or web address] PCP - General Family Medicine 05/26/18 04/10/20 Wilber Jacob MD [address] [address] PCP - General Internal Medicine 04/11/20 04/07/24 Pcp, Unknown PCP - General 04/08/24 05/17/24 Pcp, Unknown PCP - General 05/18/24 Milagros Meng MD [address] [place] [address] [email or web address] Cardiology 04/15/21 documented as of this encounter Additional Source Comments The information contained in this document represents components of the legal health record. It is not the complete legal health record.[facility]
--- OUTSIDE RECORDS SUMMARY | 2025-04-06 14:51 | XMS_ITS | Encounter Summary ---
Author Organization [facility] Address [address] [place] [address] Phone Care Team Providers Care Grades 1 Through 5 Teacher Name Role Phone Amol Lobato MD Primary Care Provider + Wilber Jacob MD Primary Care Provider Milagros Meng MD Unavailable [phone] Pcp, Unknown Primary Care Provider Unavailabl e Pcp, Unknown Primary Care Provider Unavailabl e Encounter Details Date Type Department Care Team (Late st Contact Info) Description 05/28/2018 Procedure [facility] [address] [place] [address] Social History Tobacco Use Types Packs/Day Years [...] documented as of this encounter Care Teams Grades 1 Through 5 Teacher Relationship Specialty Start Date End Date Amol Lobato MD [address] [address] [email or web address] PCP - General Family Medicine 05/26/18 04/10/20 Wilber Jacob MD [address] [address] PCP - General Internal Medicine 04/11/20 04/07/24 Pcp, Unknown PCP - General 04/08/24 05/17/24 Pcp, Unknown PCP - General 05/18/24 Milagros Meng MD [address] [place] [address] [email or web address] Cardiology 04/15/21 documented as of this encounter Additional Source Comments The information contained in this document represents components of the legal health record. It is not the complete legal health record.[facility]
--- OUTSIDE RECORDS SUMMARY | 2025-04-06 14:51 | XMS_ITS | Clinical Summary ---
Author Organization [facility], Address [address] [place] [address] [place] [address] Phone Care Team Providers Care Bead Filler Name Role Phone Helder Hdz MD Primary Care Provider [phone] Allergies Active Allergy Reactions Criticality Noted Date [...] 08/22/2020 Insurance Medicare Medicaid [place] Care Teams Bead Filler Relationship Specialty Start Date End Date Helder Hdz MD PCP - General Internal Medicine 09/24/21
== END 2025-04-06 11:51 | disposition home or self-care (01) ==
LOC: HO.HSM 11:19
PROVIDERS: PCP Internal Medicine; Visit Provider Nurse Practitioner
DX: M79.18 Myalgia, other site (principal); G43.E09 Chronic migraine with aura, not intractable, without status migrainosus; M54.81 Occipital neuralgia
CPT/HCPCS: 99214

== ENCOUNTER → 2025-04-06 11:18 | Outpatient (BNVA) | payer MEDICARE, MEDICAID, SELFPAY | PROVIDERS: PCP Internal Medicine; Visit Provider Nurse Practitioner | DX: G43.E09 Chronic migraine with aura, not intractable, without status migrainosus (principal); M54.81 Occipital neuralgia; M79.18 Myalgia, other site; F17.210 Nicotine dependence, cigarettes, uncomplicated; Z87.820 Personal history of traumatic brain injury | CPT/HCPCS: 99212 ==